=== PATIENT | male | born 1945 | race Caucasian/White ===

== ENCOUNTER 2024-06-22 08:54 | Inpatient (IN) ==
--- NOTE | 2024-06-22 09:16 | Emergency Department Note ---
Impression & Plan Sepsis, Urinary tract infection, Esophagitis, Chest pain, Abdominal pain ED Provider Note CHIEF COMPLAINT: Chest pain HISTORY OF PRESENTING ILLNESS: This 78-year-old male patient presents to the emergency department with his and son for evaluation of left-sided chest pain as well as left upper abdominal pain. Symptoms started a 3 weeks ago, but getting progressively worse over the past 3 days. He denies any shortness of breath. He has a history of chronic nausea and has vomited 3 times since the symptoms started. Denies any dizziness. He has a chronic cough from his heavy tobacco use. He denies any urinary symptoms or changes in his BMs. However, he has had urinary and fecal incontinence for many years. Denies any significant cardiac history. No previous chronic abdominal problems other than the chronic nausea and intermittent vomiting. Denies any previous abdominal surgeries. He has had a barium swallow, but never an EGD or Colonoscopy. He rates his discomfort as 10/10. Denies any fevers or URI symptoms. He has had decreased mobility and trouble with his health since he fractured his right hip/femur a couple years ago. He also has a history of diabetes and does not eat very much and does not watch his diet very well. REVIEW OF SYSTEMS: See HPI for pertinent positives and pertinent negatives. ALLERGIES: NKDA MEDICATIONS: Atenolol 100 mg 1/2 tab BID, Atorvastatin 10 mg QD, Doxazosin 4 mg QD, Basaglar Kwik Pen 24 mg QHS, Esomeprazole 40 mg QD, Tramadol 50 mg QD PAST MEDICAL HISTORY: HTN, DM, high cholesterol, GERD. Right hip surgery after fracture. PHYSICAL EXAM: VITALS: Vitals are noted on the nurse's note and reviewed by myself. GENERAL: The patient is somewhat cachectic and chronically ill in appearance, but no acute distress, non-diaphoretic. SKIN: Capillary reflex less than 2 seconds. HEAD: No scalp tenderness. No step-offs felt. EYES: Pupils equal round and reactive to light and accommodation. Conjunctivae without injection, sclerae without icterus. Extraocular movements intact without pain. No nystagmus. NOSE: Patent, turbinates without inflammation or discharge. No sinus tenderness. No septal hematoma or bleeding. FACE: No facial bone tenderness. Full range of motion of the jaw without tenderness. No facial droop. MOUTH: Edentulous with poor oral hygiene. Mucous membranes moist. Uvula midline. Airway patent. Tongue does not deviate. NECK: Supple without nuchal rigidity. Cervical spine is nontender. Full range of motion of the neck without tenderness and normal strength. HEART: Regular rate and rhythm without murmurs gallops or rubs. LUNGS: Clear to auscultation bilaterally without wheezes, rales or rhonchi. No retractions or accessory muscle use. No chest wall tenderness. ABDOMEN: Positive bowel sounds x 4. Normal tympanic percussion. Soft, tender to palpation mainly in the left upper quadrant, but also in the central abdomen. No obvious masses or organomegaly. No guarding or rebound tenderness. Negative Hawk sign. No CVA tenderness. No focal right lower quadrant or left lower quadrant tenderness. MUSCULOSKELETAL: No tenderness of the thoracic or lumbar spine or paraspinal muscles. Strength 5/5 and equal bilaterally in the upper and lower extremities. NEURO: The patient's speech is slow and somewhat difficult to understand, but the patient's family states that this is his baseline. Patient was alert and oriented to person place and time. Normal mental status exam. Normal sensation to light and sharp touch. Negative pronator drift. DIFFERENTIAL DIAGNOSIS: Differential diagnosis includes [place], PE, pneumonia, pericarditis, myocarditis, pericardial effusion, hepatitis, pancreatitis, cholecystitis, cholelithiasis, appendicitis, kidney stone, pyelonephritis, UTI, gastritis, gastroenteritis, mesenteric adenitis, obstruction, constipation, hernia, abdominal abscess, perforation, diverticulitis, IBD, ischemic colitis, abdominal aortic aneurysm, testicular torsion, prostatitis, or others. ED COURSE AND MEDICAL DECISION MAKING: HISTORY FROM INDEPENDENT HISTORIAN: Additional history obtained from the patient's and son MEDICATIONS GIVEN: Tylenol 1000 mg IV. Protonix 40 mg IV. Pepcid 20 mg IV. Zofran 4 mg IV. A total of 2 L normal saline solution bolus. Cefepime 2 g IV. MONITOR: Continuous manager monitoring: Order was placed for continuous manager monitoring. Patient was placed on the manager monitoring and continuous pulse ox. Patient was noted to be in normal sinus rhythm at an initial rate of 80 bpm per my interpretation. EKG: EKG was interpreted by myself as normal sinus rhythm at [address] or T wave changes. INTERPRETATION OF LABS: I interpreted the labs with full lab results as below in the lab section of this note. Pertinent lab results discussed in the MDM section below. INTERPRETATION OF IMAGING: Imaging studies were interpreted by myself and read by radiology as per the imaging section of this note. CT scans of the head without contrast were negative for acute intracranial abnormalities, but there is white matter hyperdensity suggestive of small vessel disease and moderate atrophy. CT scan of the chest with IV contrast showed findings consistent with a severe esophagitis, emphysema, coronary artery atherosclerosis, trace pleural fluid on the right side, and scattered pulmonary nodules measuring up to [address] scan of the abdomen pelvis with IV contrast showed diffuse thickening of the bladder wall which is nonspecific, but should be correlated with urinalysis to exclude UTI. Diverticulosis without diverticulitis. Hiatal hernia with patulous fluid distended esophagus suggestive of esophagitis. CONSULTATIONS: On-call hospitalist CRITICAL CARE: I have personally spent 35 minutes of critical care time in the direct management of this patient. This includes bedside care, interpretation of diagnostic studies, and testing, discussion with consultants, patient, and family members, and other required patient management activities. This 35 minutes is in excess of all separately billable procedures. MDM SUMMARY: I examined the patient. The patient presents emergency department with left- sided chest pain and left upper quadrant abdominal pain that has been going on for the past 3 weeks, but getting progressively worse. However, according to the patient's son and he has not really been taking care of himself well. He is a heavy smoker and has a longstanding history of chronic nausea and vomiting. He does take esomeprazole for his heartburn, but continues with symptoms. He has never had an EGD or colonoscopy before. An IV lock was placed and labs were drawn. There was concern for sepsis due to his UTI given his abnormal laboratory studies and initial hypotension. The patient was initially hypotensive at 75/54 and he was given 1 L normal saline solution bolus with improvement of his blood pressure. When his lactate returned elevated at 3.4 and his white blood cell count was elevated at 20.11 the patient was given a second liter of normal saline solution bolus. Additional fluids were held due to concern for fluid overload. A blood culture was drawn (due to the nationwide shortage) and the patient was given cefepime 2 g IV. The patient's repeat lactate improved to 1.6. The patient was given Tylenol 1000 mg IV and Zofran 4 mg IV for his pain and nausea. He was also given Protonix 40 mg IV and Pepcid 20 mg IV due to his history of acid reflux and his symptoms. The patient's white blood cell count was elevated at 20.11. Hemoglobin low at 13.8. Platelet count normal at 394. Coags were normal. Creatinine elevated at 1.67, glucose 207, and albumin low at 3.3. CMP otherwise normal. Magnesium normal. Lipase normal. TSH normal. Initial lactate elevated at 3.1 with improvement to 1.6 after IV fluids. High-sensitivity troponin x 2 were normal. The patient's urinalysis was concerning for infection with 3+ protein, 1+ blood, 3+ leukocyte esterase, greater than 50 white blood cells, 3-5 red blood cells, greater than 20 hyaline cast, 11-20 epithelial cells, 4+ bacteria, and triple Phos crystals present. Urine culture is pending. CT scans of the head without contrast were negative for acute intracranial abnormalities, but there is white matter hyperdensity suggestive of small vessel disease and moderate atrophy. CT scan of the chest with IV contrast showed findings consistent with a severe esophagitis, emphysema, coronary artery atherosclerosis, trace pleural fluid on the right side, and scattered pulmonary nodules measuring up to [address] scan of the abdomen pelvis with IV contrast showed diffuse thickening of the bladder wall which is nonspecific, but should be correlated with urinalysis to exclude UTI. Diverticulosis without diverticulitis. Hiatal hernia with patulous fluid distended esophagus suggestive of esophagitis. I had a meaningful discussion about this patient with Dr. Mcdonald who agrees with my assessment and the treatment plan. The patient will require admission for further evaluation and treatment of his sepsis, UTI, and severe esophagitis on imaging. I spoke with the on-call hospitalist who agreed to admit the patient for further management. Please refer to their dictation for further details. The patient's care was transferred in stable condition. DIAGNOSIS: Sepsis UTI Esophagitis Chest pain Abdominal pain Past Med/Surg History Problem List (Updated 06/22/24 @ 18:10 by Rayne Santamaria PA-C) Abdominal pain (Acute) Diabetes mellitus Chest pain (Acute) Esophagitis (Acute) Urinary tract infection (Acute) Sepsis (Acute) Social History Smoking Status: Current every day smoker Tobacco Type: Cigarettes Cigarettes Per Day: 1/2 pack; Hx Alcohol Use: No Hx Substance Use: No Preferred Language: Occitan Communication Ability: Effective Automation Sales Manager Required: No Beliefs That Will Affect Care: None Current Living Situation: Spouse Current Living Situation Comment: home with Other Information That Helps Us Care for You: No Feels Safe at Home: Yes Safety Concerns: Feels Safe At This Time Assistive Devices: Walker Allergies Allergies Allergy/AdvReac Type Severity Reaction Status Date / Time No Known Allergies Allergy Verified 06/22/24 09:29 Home Meds Home Medications Medication Instructions Recorded Confirmed atenolol 100 mg tablet 50 mg PO BID 06/22/24 06/22/24 atorvastatin 10 mg tablet 10 mg PO DAILY 06/22/24 06/22/24 doxazosin 4 mg tablet 4 mg PO HS 06/22/24 06/22/24 esomeprazole magnesium 40 mg 40 mg PO .Q OTHER DAY 06/22/24 06/22/24 capsule,delayed release insulin glargine 100 unit/mL (3 0 unit subcut UD 06/22/24 06/22/24 mL) subcutaneous pen (Basaglar KwikPen U-100 Insulin) tramadol 50 mg tablet 50 - 100 mg PO UD 06/22/24 06/22/24 Results & Data (ED) Vital Signs Vital Signs - 24 hr 06/22/24 08:58 06/22/24 09:42 06/22/24 10:42 Temperature 36.8 C Temperature Source Temporal Artery Scan Pulse Rate 81 64 Pulse Rate [Apical] 74 Respiratory Rate 20 16 Respiratory Effort / Characteristics Non-Labored Spontaneous Respiratory Depth Normal Blood Pressure 75/54 L Blood Pressure [Right Arm] 114/86 Blood Pressure Mean 61 Blood Pressure Mean [Right Arm] 95 Pulse Oximetry 97 100 Oxygen Delivery Method Room Air Room Air Sepsis Recent Fever Within 48 Hours No Sepsis New/Unexplained Change in Mental Status No Sepsis Action Taken by Nursing No Action Required Laboratory Data 06/22/24 09:10 06/22/24 09:10 Lab Results 06/22/24 06/22/24 06/22/24 Range/Units 09:10 09:50 10:12 WBC 20.11 H (4.8-10.8) K/ul RBC 4.38 L (4.70-6.10) M/uL Hgb 13.8 L (14.0-18.0) g/dl Hct 41.2 L (42.0-52.0) % MCV 94.1 (80.0-100.0) fL MCH 31.5 (25.0-34.0) pg MCHC 33.5 (32.0-36.0) g/dL RDW Std Deviation 50.3 H (36.4-46.3) fL RDW Coeff of Madonna 14.5 (11.5-14.5) % Plt Count 394 (130-400) K/uL MPV 10.1 (9.4-12.4) fL Immature Gran % (Auto) 0.5 % Neut % (Auto) 90.2 % Lymph % (Auto) 5.6 % Lamb % (Auto) 3.6 % Eos % (Auto) 0.0 % Baso % (Auto) 0.1 % Neut # (Auto) 18.13 H (1.40-6.50) K/uL Lymph # (Auto) 1.12 L (1.20-3.40) K/uL Lamb # (Auto) 0.73 H (0.11-0.59) K/uL Eos # (Auto) 0.00 (0.00-0.50) K/uL Baso # (Auto) 0.03 (0.00-0.20) K/uL Immature Gran # (Auto) 0.10 (0.01-0.20) K/uL PT 11.4 (9.0-12.0) Seconds INR 1.1 (0.9-1.1) APTT 26 (21-31) Seconds PTT Ratio 1.0 Sodium 140 (136-145) mmol/L Potassium 3.8 (3.5-5.1) mmol/L Chloride 98 (98-107) mmol/L Carbon Dioxide 32 (21-32) mmol/L Anion Gap 10 (3-11) BUN 21 (6-23) mg/dl Creatinine 1.67 H (0.6-1.4) mg/dl Est Cr Clr Drug Dosing Not Reportable eGFR 41.89 BUN/Creatinine Ratio 12.6 (10-20) Glucose 207 H (70-99(Fasting)) mg/dl Lactate 3.1 H* (0.4-2.0) mmol/L Calcium 9.1 (8.6-10.3) mg/dl Magnesium 1.8 (1.7-2.4) mg/dl Total Bilirubin 0.6 (0.2-1.0) mg/dl AST 13 (13-39) U/L ALT 13 (7-52) U/L Alkaline Phosphatase 79 (34-104) U/L Troponin I High Sens 6.8 4.9 (0-20) pg/ml Total Protein 7.1 (6.0-8.3) gm/dl Albumin 3.3 L (3.4-5.0) gm/dl Globulin 3.8 (2.5-4.0) gm/dl Albumin/Globulin Ratio 0.9 (0.9-2) Lipase 35 (11-82) U/L TSH 1.322 (0.300-4.500) uIu/ml Urine Color Dark Yellow Urine Appearance Turbid A (Clear) Urine pH >= 9.0 H (4.5-7.5) Ur Specific [place] 1.021 (1.000-1.030) Urine Protein 3+ H (Negative) Urine Glucose (UA) Negative (Negative) Urine Ketones Negative (Negative) Urine Blood 1+ H (Negative) Urine Nitrite Negative (Negative) Urine Bilirubin Negative (Negative) Urine Urobilinogen Negative (Negative) Ur Leukocyte Esterase 3+ H (Negative) Urine WBC (Auto) >50 H (0-5) /hpf Urine RBC (Auto) 3-5 H (0-2) /hpf U Hyaline Cast (Auto) >20 H (0-2) /lpf U Epithel Cells (Auto) 11-20 H (0-2) /hpf Urine Bacteria (Auto) 4+ H (None Seen) Triple Phos Crystals Present A (None Prsent) 06/22/24 Range/Units 12:03 WBC (4.8-10.8) K/ul RBC (4.70-6.10) M/uL Hgb (14.0-18.0) g/dl Hct (42.0-52.0) % MCV (80.0-100.0) fL MCH (25.0-34.0) pg MCHC (32.0-36.0) g/dL RDW Std Deviation (36.4-46.3) fL RDW Coeff of Madonna (11.5-14.5) % Plt Count (130-400) K/uL MPV (9.4-12.4) fL Immature Gran % (Auto) % Neut % (Auto) % Lymph % (Auto) % Lamb % (Auto) % Eos % (Auto) % Baso % (Auto) % Neut # (Auto) (1.40-6.50) K/uL Lymph # (Auto) (1.20-3.40) K/uL Lamb # (Auto) (0.11-0.59) K/uL Eos # (Auto) (0.00-0.50) K/uL Baso # (Auto) (0.00-0.20) K/uL Immature Gran # (Auto) (0.01-0.20) K/uL PT (9.0-12.0) Seconds INR (0.9-1.1) APTT (21-31) Seconds PTT Ratio Sodium (136-145) mmol/L Potassium (3.5-5.1) mmol/L Chloride (98-107) mmol/L Carbon Dioxide (21-32) mmol/L Anion Gap (3-11) BUN (6-23) mg/dl Creatinine (0.6-1.4) mg/dl Est Cr Clr Drug Dosing eGFR BUN/Creatinine Ratio (10-20) Glucose (70-99(Fasting)) mg/dl Lactate 1.6 (0.4-2.0) mmol/L Calcium (8.6-10.3) mg/dl Magnesium (1.7-2.4) mg/dl Total Bilirubin (0.2-1.0) mg/dl AST (13-39) U/L ALT (7-52) U/L Alkaline Phosphatase (34-104) U/L Troponin I High Sens (0-20) pg/ml Total Protein (6.0-8.3) gm/dl Albumin (3.4-5.0) gm/dl Globulin (2.5-4.0) gm/dl Albumin/Globulin Ratio (0.9-2) Lipase (11-82) U/L TSH (0.300-4.500) uIu/ml Urine Color Urine Appearance (Clear) Urine pH (4.5-7.5) Ur Specific [place] (1.000-1.030) Urine Protein (Negative) Urine Glucose (UA) (Negative) Urine Ketones (Negative) Urine Blood (Negative) Urine Nitrite (Negative) Urine Bilirubin (Negative) Urine Urobilinogen (Negative) Ur Leukocyte Esterase (Negative) Urine WBC (Auto) (0-5) /hpf Urine RBC (Auto) (0-2) /hpf U Hyaline Cast (Auto) (0-2) /lpf U Epithel Cells (Auto) (0-2) /hpf Urine Bacteria (Auto) (None Seen) Triple Phos Crystals (None Prsent) Administered Medications Heparin Sodium (Porcine) (Heparin Sod 5,000 Unit/0.5 Ml Vial) 5,000 units SQ Q8 JOSE RAFAEL Stop: 07/22/24 13:59 Last Admin: 06/22/24 15:08 Dose: 5,000 units Documented By: SOFIA Ceftriaxone Sodium (Rocephin) 2,000 mg in 50 mls @ 100 mls/hr IV Q24H JOSE RAFAEL Stop: 06/27/24 12:59 Last Infusion: 06/22/24 14:00 Dose: Infused Documented By: Admin: 06/22/24 13:17 Dose: 100 mls/hr Documented By: RYAN Famotidine (Pepcid 20mg Iv Push) 20 mg in 5 mls @ 2.5 mls/min IV Q12H JOSE RAFAEL Stop: 07/22/24 14:59 Last Admin: 06/22/24 16:14 Dose: 2.5 mls/min Documented By: SOFIA Insulin Aspart (Insulin Aspart Per Unit Charge) 0 units SC ACHS JOSE RAFAEL Stop: 07/22/24 12:44 Last Admin: 06/22/24 17:35 Dose: Not Given Documented By: Admin: 06/22/24 14:45 Dose: Not Given Documented By: SOFIA Nicotine (Nicotine 21 Mg/24 Hr Tdsy) 1 patch TD QAM JOSE RAFAEL Stop: 07/22/24 13:29 Last Admin: 06/22/24 17:36 Dose: 1 patch Documented By: SOFIA Sucralfate (Sucralfate 1 Gm/10 Ml Udc) 1 gm PO QID JOSE RAFAEL Stop: 07/22/24 12:59 Last Admin: 06/22/24 16:14 Dose: 1 gm Documented By: Admin: 06/22/24 15:22 Dose: Not Given Documented By: SOFIA Discontinued Medications Al Hydrox/Mg Hydrox/Simethicone (Aluminum/Magnesium Susp 30 Ml Udc) 15 ml PO NOW STA Stop: 06/22/24 14:27 Last Admin: 06/22/24 15:07 Dose: 15 ml Documented By: SOFIA Acetaminophen (Ofirmev) 1,000 mg in 100 mls @ 400 mls/hr IV NOW STA Stop: 06/22/24 09:43 Last Infusion: 06/22/24 10:00 Dose: Infused Documented By: Admin: 06/22/24 09:48 Dose: 400 mls/hr Documented By: RYAN Pantoprazole Sodium (Protonix) 40 mg in 10 mls @ 5 mls/min IV NOW ONE Stop: 06/22/24 09:30 Last Admin: 06/22/24 10:36 Dose: 5 mls/min Documented By: RYAN Famotidine (Pepcid 20mg Iv Push) 20 mg in 5 mls @ 2.5 mls/min IV NOW STA Stop: 06/22/24 09:30 Last Admin: 06/22/24 09:48 Dose: 2.5 mls/min Documented By: RYAN Sodium Chloride (Nss) 1,000 mls @ 999 mls/hr IV .Q1H1M ONE Stop: 06/22/24 10:54 Last Infusion: 06/22/24 11:02 Dose: Infused Documented By: Admin: 06/22/24 10:00 Dose: 999 mls/hr Documented By: RYAN Cefepime HCl (Maxipime 2000mg) 2,000 mg in 20 mls @ 5 mls/min IV NOW STA; Protocol Stop: 06/22/24 10:29 Last Admin: 06/22/24 10:36 Dose: 5 mls/min Documented By: RYAN Sodium Chloride (Nss) 1,000 mls @ 999 mls/hr IV .Q1H1M ONE Stop: 06/22/24 11:26 Last Infusion: 06/22/24 11:39 Dose: Infused Documented By: Admin: 06/22/24 10:37 Dose: 999 mls/hr Documented By: RYAN Ioversol (Optiray 320 100ml) 94 ml IV ONCE ONE Stop: 06/22/24 10:28 Last Admin: 06/22/24 10:28 Dose: 94 ml Documented By: NADIYA Ondansetron HCl (Ondansetron Inj 2 Mg/Ml 2 Ml Vial) 4 mg IV NOW STA Stop: 06/22/24 09:30 Last Admin: 06/22/24 09:48 Dose: 4 mg Documented By: RYAN Imaging Data Radiologist's Impression: Abdomen/Pelvis CT 06/22/24 09:29 CT abd pelvis IV con only CLINICAL HISTORY: LUQ and central abdominal pain TECHNIQUE: Helical axial images of the abdomen and pelvis were obtained and displayed. Automated dose lowering techniques and/or adjustment according to patient size were utilized for this exam. This exam was performed with intravenous contrast. COMPARISON: None available at the time of this dictation. FINDINGS: Lower chest: For findings above the diaphragm, please see CT chest performed same day. Liver: Unremarkable. No focal lesions are seen. Gallbladder and biliary tree: No calcified gallstones. Normal caliber wall. No intra- or extrahepatic biliary ductal dilation. Pancreas: Unremarkable, no focal lesions. Spleen: Unremarkable. Adrenals: Unremarkable. Kidneys and ureters: Renal cysts are seen. Bladder: Prominent bladder wall thickening is seen. Reproductive organs: Unremarkable. Bowel: Diverticulosis is seen without diverticulitis. The appendix is normal. There is a small hiatal hernia with fluid distended esophagus. Lymph nodes Retroperitoneal: Unremarkable. Pelvic: Unremarkable. Mesenteric: Unremarkable. Peritoneum: Normal. Vessels: Atherosclerotic calcifications are seen. Abdominal wall: Unremarkable. Bones: Degenerative changes in the visualized spine. Right femoral rai is seen. IMPRESSION: 1. Diffuse thickening of the bladder wall is nonspecific, however correlation with urinalysis is recommended to exclude UTI. 2. Diverticulosis without diverticulitis. 3. Hiatal hernia with patulous fluid distended esophagus, clinical correlation for esophagitis is recommended. ACT 112: Negative or not required by law. Electronically signed by: Warren Westbrook M.D. 06/22/2024 10:[address] 06/22/24 09:29 CT SCAN OF THE CHEST WITH IV CONTRAST CLINICAL HISTORY: Atypical chest pain. Dyspnea. Smoking history. COMPARISON STUDY: No priors. TECHNIQUE: Following the IV administration of 94 cc of Optiray 320, CT scan of the thorax was performed from the thoracic inlet to the upper abdomen. Images are reviewed in the axial, sagittal, and coronal planes. IV contrast was administered without complication. A dose lowering technique was utilized adhering to the principles of ALARA. Examination is degraded by streak artifact from the arms which could not be elevated above the chest. CT DOSE: 2830.9 mGy.cm FINDINGS: Thyroid: Imaged portions of the thyroid gland are normal in size and attenuation. Thoracic aorta: There is atherosclerotic calcification of the thoracic aorta, which is normal in caliber and demonstrates standard 3-vessel arch anatomy. No dissection is seen. Pulmonary vasculature: The pulmonary trunk is normal in caliber. There are no filling defects identified in the central pulmonary vessels to indicate pulmonary embolus. Note that this examination was not protocoled for evaluation of the pulmonary arteries. Heart: The heart is normal in size and without pericardial effusion. There is coronary artery atherosclerosis. Lungs and pleural spaces: There is moderate emphysematous change. No airspace consolidation typical for pneumonia is identified. Trace pleural fluid is seen in the right. Foci of scarring/atelectasis are seen throughout both lungs. The trachea and central airways are clear. There are numerous (less than 10) subcentimeter pulmonary nodules scattered throughout the right lung. The largest in the right upper lobe seen on image #80 and measures 7 mm. Additional medical detail representative nodules are seen in the right lower lobe on images 127, #139, and #160. Dependent atelectasis is seen at both lung bases. There are scattered calcified granulomas. Esophagus: Esophagus is diffusely thick-walled and edematous with surrounding inflammation and trace fluid. This extends from above the arch to the gastroesophageal junction. No pneumomediastinum is seen. Mediastinum: Subcentimeter mediastinal lymph nodes are not pathologically enlarged by size criteria. Nancy: Clear. Axillae: There is no axillary lymphadenopathy. Upper abdomen: There is a 2.6 cm right upper pole renal cyst. The right hepatic lobe is atrophic. There is nodular thickening of the adrenal glands. The partially imaged pancreas is moderately atrophic. Skeletal structures: The skeletal structures are osteopenic. Degenerative change is noted in the shoulders and spine. No lytic or blastic bony lesions are seen. IMPRESSION: 1. Findings are consistent with a severe esophagitis. Clinical correlation will be required, and if warranted this could be further assessed with endoscopy. 2. Emphysema. 3. Scattered pulmonary nodules measure up to 7 mm. These are pathologically indeterminate and can be followed as per the Fleischner criteria. See below. 4. Coronary artery atherosclerosis. 5. There is no airspace consolidation typical for pneumonia. Trace pleural fluid is seen on the right. 7. Additional findings as above. Please refer to below summary of Fleischner criteria recommendations for follow- up of incidental CT nodules (Georgie Castano, Guidelines for management of small pulmonary nodules detected on CT scans: A statement from the Fleischner Society, Radiology 237: [id number].) SOLID NODULES Solitary nodule size: <6 mm * low risk patients: no follow-up needed * high risk patients: optional CT at 12 months Solitary nodule size: 6-8 mm * low risk patients: follow-up at 6-12 months, then consider further follow-up at 18-24 months * high risk patients: initial follow-up CT at 6-12 months and then at 18-24 months if no change Solitary nodule size: >8 mm * either low or high risk patients - consider follow-up CT at 3 months, and/or CT-PET, and/or biopsy Multiple nodules size: <6 mm * low risk patients: no routine follow-up * high risk patients: optional CT at 12 months Multiple nodules size: 6-8 mm * low risk patients: follow-up at 3-6 months, then consider further follow-up at 18-24 months * high risk patients: follow-up at 3-6 months, then at 18-24 months if no change Multiple nodules size: >8 mm * low risk patients: follow-up at 3-6 months, then consider further follow-up at 18-24 months * high risk patients: follow-up at 3-6 months, then at 18-24 months if no change Note: newly detected indeterminate nodule in persons 35 years of age or older. * low risk patients: minimal or absent history of smoking and/or other known risk factors * high risk patients: history of smoking or of other known risk factors (e.g. first degree relative with lung cancer, or exposure to asbestos, radon, uranium) * if a nodule up to 8 mm is partly solid or is ground glass further follow-up is required after 24 months to exclude possible slow growing adenocarcinoma (ANA LAURA) SUBSOLID NODULES Solitary pure ground-glass nodule * nodule size <6 mm - no CT follow-up required * nodule size >=6 mm - follow-up CT at 6-12 months, then every 2 years until 5 years Solitary part-solid nodule * nodule size <6 mm - no CT follow-up required * nodule size >=6 mm - follow-up CT at 3-6 months. If unchanged, and solid component remains <6 mm, then annual follow-up for 5 years Multiple subsolid nodules * nodule size <6 mm - follow-up CT at 3-6 months, consider further follow-up at 2 and 4 years if stable * nodule size >=6 mm - follow-up CT at 3-6 months, subsequent management based on the most suspicious nodule(s) ACT 112: Positive. There are findings on this exam that require communication between the performing entity and the patient following Patient Test Result Information Act ([place] Act 112) guidelines. Electronically signed by: Isac Winston M.D. 06/22/2024 11:[address] 06/22/24 09:29 CT OF THE HEAD WITHOUT CONTRAST CLINICAL HISTORY: Altered mental status. Nausea and vomiting. COMPARISON STUDY: No previous studies for comparison. TECHNIQUE: Helical axial images of the head were obtained without IV contrast. Automated exposure control was utilized for the study. A dose lowering technique was utilized adhering to the principles of ALARA. FINDINGS: No acute intracranial hemorrhage, midline shift or mass effect is present. The ventricular system is unremarkable. White matter hypodensity suggests small vessel disease. There is moderate atrophy. The basal cisterns are patent. No extra-axial collections are present. There are no findings to suggest acute dural sinus thrombosis or acute territorial infarct. There is mild sinus mucosal thickening. No calvarial fractures are present. The calvarium is slightly heterogeneous. No overtly suspicious lesions are identified. IMPRESSION: No acute intracranial findings. ACT 112: Negative or not required by law. Electronically signed by: Tee Rodriguez M.D. 06/22/2024 10:49 AM Discharge Plan Visit Data Chief Complaint: Chest Pain Stated Complaint: CHEST PAIN ED Provider: Aliyah Mcdonald ED Midlevel Provider: Rayne Santamaria Discharge Problem: Sepsis, Urinary tract infection, Esophagitis, Chest pain, Abdominal pain Patient Disposition: Admitted As Inpatient Condition: Good Discharge Instructions Interventions: ED Discharge Assessment Last Done: 06/22/24 13:33 Discharge Problem: Sepsis Qualifiers: Sepsis type: sepsis due to unspecified organism Sepsis acute organ dysfunction status: unspecified Qualified Code(s): A41.9 - Sepsis, unspecified organism Urinary tract infection Qualifiers: Urinary tract infection type: acute cystitis Hematuria presence: without hematuria Qualified Code(s): N30.00 - Acute cystitis without hematuria Chest pain Qualifiers: Chest pain type: unspecified Qualified Code(s): R07.9 - Chest pain, unspecified Abdominal pain Qualifiers: Abdominal location: generalized Qualified Code(s): R10.84 - Generalized abdominal pain
[2024-06-22 09:33] LABS: Hematocrit (blood only) 41.2 % (42.0-52.0); Hemoglobin 13.8 g/dl (14.0-18.0); Mean Corpuscular Hemoglobin 31.5 pg (25.0-34.0); Mean Corpuscular Hgb Conc 33.5 g/dL (32.0-36.0); Mean Corpuscular Volume 94.1 fL (80.0-100.0); Mean Platelet Volume 10.1 fL (9.4-12.4); Platelet Count 394 K/uL (130-400); RDW Coefficient of Variation 14.5 % (11.5-14.5); RDW Standard Deviation 50.3 fL (36.4-46.3); Red Blood Count 4.38 M/uL (4.70-6.10); White Blood Count 20.11 K/ul (4.8-10.8)
[2024-06-22] MEDS: ACETAMINOPHEN 1,000 MG/100 ML VIAL IV STA (09:48)
[2024-06-22] MEDS: ONDANSETRON INJ 2 MG/ML 2 ML VIAL IV STA (09:48)
[2024-06-22] MEDS: FAMOTIDINE 20MG IV PUSH 20 MG/5 ML SYR IV STA (09:48)
[2024-06-22 09:56] LABS: Alanine Aminotransferase 13 U/L (7-52); Albumin Globulin Ratio 0.9 (0.9-2); Albumin Level 3.3 gm/dl (3.4-5.0); Alkaline Phosphatase 79 U/L (34-104); Anion Gap 10 (3-11); Aspartate Aminotransferase 13 U/L (13-39); BUN Creatinine Ratio 12.6 (10-20); Bilirubin,Total 0.6 mg/dl (0.2-1.0); Blood Urea Nitrogen 21 mg/dl (6-23); Calcium 9.1 mg/dl (8.6-10.3); Carbon Dioxide 32 mmol/L (21-32); Chloride 98 mmol/L (98-107); Globulin 3.8 gm/dl (2.5-4.0); Glucose 207 mg/dl (70-99(Fasting)); Lipase 35 U/L (11-82); Potassium 3.8 mmol/L (3.5-5.1); Sodium 140 mmol/L (136-145); Total Protein 7.1 gm/dl (6.0-8.3)
[2024-06-22 09:58] LABS: INR 1.1 (0.9-1.1); Partial Thromboplastin Time 26 Seconds (21-31); Prothrombin Time 11.4 Seconds (9.0-12.0)
[2024-06-22 09:59] LABS: Basophils # (auto) 0.03 K/uL (0.00-0.20); Basophils % (auto) 0.1 %; Immature Granulocytes % (auto) 0.5 %; Lymphocytes # (auto) 1.12 K/uL (1.20-3.40); Lymphocytes % (auto) 5.6 %; Monocytes # (auto) 0.73 K/uL (0.11-0.59); Monocytes % (auto) 3.6 %; Neutrophils # (auto) 18.13 K/uL (1.40-6.50); Neutrophils % (auto) 90.2 %
[2024-06-22] MEDS: SODIUM CHLORIDE 0.9% 1,000 ML IV ONE ×2 (10:00→10:37)
[2024-06-22 10:03] LABS: Troponin I High Sensitivity 6.8 pg/ml (0-20)
[2024-06-22] MEDS: OPTIRAY 320 100ml IV ONE (10:28)
[2024-06-22 10:34] LABS: Appearance Urine Turbid (Clear); Bacteria Urine Automated 4+ (None Seen); Bilirubin Urine Negative (Negative); Blood Urine 1+ (Negative); Cast Urine Automated >20 /lpf (0-2); Color Urine Dark Yellow; Glucose Urine UA Negative (Negative); Ketones Urine Negative (Negative); Leukocyte Esterase Urine 3+ (Negative); Nitrite Urine Negative (Negative); Protein Urine 3+ (Negative); Specific Gravity Urine 1.021 (1.000-1.030); Urobilinogen Urine Negative (Negative); WBC Urine Automated >50 /hpf (0-5); pH Urine >= 9.0 (4.5-7.5)
[2024-06-22] MEDS: PANTOprazole 40 MG/10 ML SYR IV ONE (10:36)
[2024-06-22] MEDS: CEFEPIME 2000MG 2,000 MG/20 ML SYR IV STA (10:36)
[2024-06-22 10:44] LABS: Magnesium 1.8 mg/dl (1.7-2.4)
--- NOTE | 2024-06-22 10:49 | CT Scan Report ---
CT abd pelvis IV con only CLINICAL HISTORY: LUQ and central abdominal pain TECHNIQUE: Helical axial images of the abdomen and pelvis were obtained and displayed. Automated dose lowering techniques and/or adjustment according to patient size were utilized for this exam. This e xam was performed with intravenous contrast. COMPARISON: None available at the time of this dictation. FINDINGS: Lower chest: For findings above the diaphragm, please see CT chest performed same day. Liver: Unremarkable. No focal lesions are seen. Gallbladder and biliary tree: No calcified gallstones. Normal caliber wall. No intra- or extrahepatic biliary ductal dilation. Pancreas: Unremarkable, no focal lesions. Spleen: Unremarkable. Adrenals: Unremarkable. Kidneys and ureters: Renal cysts are seen. Bladder: Prominent bladder wall thickening is seen. Reproductive organs: Unremarkable. Bowel: Diverticulosis is seen without diverticulitis. The appendix is normal. There is a small hiatal hernia with fluid distended esophagus. Lymph nodes Retroperitoneal: Unremarkable. Pelvic: Unremarkable. Mesenteric: Unremarkable. Peritoneum: Normal. Vessels: Atherosclerotic calcifications are seen. Abdominal wall: Unremarkable. Bones: Degenerative changes in the visualized spine. Right femoral rai is seen. IMPRESSION: 1. Diffuse thickening of the bladder wall is nonspecific, however correlation with urinalysis is rec ommended to exclude UTI. 2. Diverticulosis without diverticulitis. 3. Hiatal hernia with patulous fluid distended esophagus, clinical correlation for esophagitis is re commended. ACT 112: Negative or not required by law. Electronically signed by: Warren Westbrook M.D. 06/22/2024 10:47 AM
[2024-06-22 10:50] LABS: Triple Phosphate Crystal Urine Present (None Prsent)
--- NOTE | 2024-06-22 10:51 | CT Scan Report ---
CT OF THE HEAD WITHOUT CONTRAST CLINICAL HISTORY: Altered mental status. Nausea and vomiting. COMPARISON STUDY: No previous studies for comparison. TECHNIQUE: Helical axial images of the head were obtained without IV contrast. Automated exposure con trol was utilized for the study. A dose lowering technique was utilized adhering to the principles o f ALARA. FINDINGS: No acute intracranial hemorrhage, midline shift or mass effect is present. The ventricular system is unremarkable. White matter hypodensity suggests small vessel disease. There is moderate atr ophy. The basal cisterns are patent. No extra-axial collections are present. There are no findings to suggest acute dural sinus thrombosis or acute territorial infarct. There is mild sinus mucosal thick ening. No calvarial fractures are present. The calvarium is slightly heterogeneous. No overtly suspic ious lesions are identified. IMPRESSION: No acute intracranial findings. ACT 112: Negative or not required by law. Electronically signed by: Tee Rodriguez M.D. 06/22/2024 10:49 AM
[2024-06-22 10:58] LABS: Thyroid Stimulating Hormone 1.322 uIu/ml (0.300-4.500)
--- NOTE | 2024-06-22 11:10 | CT Scan Report ---
CT SCAN OF THE CHEST WITH IV CONTRAST CLINICAL HISTORY: Atypical chest pain. Dyspnea. Smoking history. COMPARISON STUDY: No priors. TECHNIQUE: Following the IV administration of 94 cc of Optiray 320, CT scan of the thorax was perform ed from the thoracic inlet to the upper abdomen. Images are reviewed in the axial, sagittal, and adi nal planes. IV contrast was administered without complication. A dose lowering technique was utilize d adhering to the principles of ALARA. Examination is degraded by streak artifact from the arms which could not be elevated above the chest. CT DOSE: 2830.9 mGy.cm FINDINGS: Thyroid: Imaged portions of the thyroid gland are normal in size and attenuation. Thoracic aorta: There is atherosclerotic calcification of the thoracic aorta, which is normal in aaron wally and demonstrates standard 3-vessel arch anatomy. No dissection is seen. Pulmonary vasculature: The pulmonary trunk is normal in caliber. There are no filling defects identif ied in the central pulmonary vessels to indicate pulmonary embolus. Note that this examination was no t protocoled for evaluation of the pulmonary arteries. Heart: The heart is normal in size and without pericardial effusion. There is coronary artery atheros clerosis. Lungs and pleural spaces: There is moderate emphysematous change. No airspace consolidation typical f or pneumonia is identified. Trace pleural fluid is seen in the right. Foci of scarring/atelectasis ar e seen throughout both lungs. The trachea and central airways are clear. There are numerous (less molly n 10) subcentimeter pulmonary nodules scattered throughout the right lung. The largest in the right u pper lobe seen on image #80 and measures 7 mm. Additional banking representative nodules are seen in the righ t lower lobe on images 127, #139, and #160. Dependent atelectasis is seen at both lung bases. There a re scattered calcified granulomas. Esophagus: Esophagus is diffusely thick-walled and edematous with surrounding inflammation and trace fluid. This extends from above the arch to the gastroesophageal junction. No pneumomediastinum is see n. Mediastinum: Subcentimeter mediastinal lymph nodes are not pathologically enlarged by size criteria. Nancy: Clear. Axillae: There is no axillary lymphadenopathy. Upper abdomen: There is a 2.6 cm right upper pole renal cyst. The right hepatic lobe is atrophic. The re is nodular thickening of the adrenal glands. The partially imaged pancreas is moderately atrophic. Skeletal structures: The skeletal structures are osteopenic. Degenerative change is noted in the shou lders and spine. No lytic or blastic bony lesions are seen. IMPRESSION: 1. Findings are consistent with a severe esophagitis. Clinical correlation will be required, and if w arranted this could be further assessed with endoscopy. 2. Emphysema. 3. Scattered pulmonary nodules measure up to 7 mm. These are pathologically indeterminate and can be followed as per the Fleischner criteria. See below. 4. Coronary artery atherosclerosis. 5. There is no airspace consolidation typical for pneumonia. Trace pleural fluid is seen on the right . 7. Additional findings as above. Please refer to below summary of Fleischner criteria recommendations for follow-up of incidental CT n odules (Georgie Castano, Guidelines for management of small pulmonary nodules detected on CT scans: A sta tement from the Fleischner Society, Radiology 237: [phone].) SOLID NODULES Solitary nodule size: <6 mm * low risk patients: no follow-up needed * high risk patients: optional CT at 12 months Solitary nodule size: 6-8 mm * low risk patients: follow-up at 6-12 months, then consider further follow-up at 18-24 months * high risk patients: initial follow-up CT at 6-12 months and then at 18-24 months if no change Solitary nodule size: >8 mm * either low or high risk patients - consider follow-up CT at 3 months, and/or CT-PET, and/or biopsy Multiple nodules size: <6 mm * low risk patients: no routine follow-up * high risk patients: optional CT at 12 months Multiple nodules size: 6-8 mm * low risk patients: follow-up at 3-6 months, then consider further follow-up at 18-24 months * high risk patients: follow-up at 3-6 months, then at 18-24 months if no change Multiple nodules size: >8 mm * low risk patients: follow-up at 3-6 months, then consider further follow-up at 18-24 months * high risk patients: follow-up at 3-6 months, then at 18-24 months if no change Note: newly detected indeterminate nodule in persons 35 years of age or older. * low risk patients: minimal or absent history of smoking and/or other known risk factors * high risk patients: history of smoking or of other known risk factors (e.g. first degree relative with lung cancer, or exposure to asbestos, radon, uranium) * if a nodule up to 8 mm is partly solid or is ground glass further follow-up is required after 24 m onths to exclude possible slow growing adenocarcinoma (ANA LAURA) SUBSOLID NODULES Solitary pure ground-glass nodule * nodule size <6 mm - no CT follow-up required * nodule size >=6 mm - follow-up CT at 6-12 months, then every 2 years until 5 years Solitary part-solid nodule * nodule size <6 mm - no CT follow-up required * nodule size >=6 mm - follow-up CT at 3-6 months. If unchanged, and solid component remains <6 mm, then annual follow-up for 5 years Multiple subsolid nodules * nodule size <6 mm - follow-up CT at 3-6 months, consider further follow-up at 2 and 4 years if sta ble * nodule size >=6 mm - follow-up CT at 3-6 months, subsequent management based on the most suspiciou s nodule(s) ACT 112: Positive. There are findings on this exam that require communication between the performing entity and the patient following Patient Test Result Information Act ([place] Act 112) guidelines. Electronically signed by: Isac Winston M.D. 06/22/2024 11:08 AM
--- NOTE | 2024-06-22 11:28 | Electrocardiogram Report ---
Test Reason : Blood Pressure : */* mmHG Vent. Rate : 74 BPM Atrial Rate : 74 BPM P-R Int : 154 ms QRS Dur : 82 ms QT Int : 402 ms P-R-T Axes : 61 55 74 degrees QTcB Int : 446 ms Normal sinus rhythm Low voltage QRS Borderline ECG No previous ECGs available Confirmed by Dc Gibson ([id number]) on 06/22/2024 11:27:54 AM Referred By: Confirmed By: Dc Gibson
[2024-06-22 11:45] LABS: Troponin I High Sensitivity 4.9 pg/ml (0-20)
[2024-06-22] MEDS ORDERED: GLUCAGON FOR INJ 1 MG VIAL SQ PRN (12:33)
[2024-06-22] MEDS ORDERED: DEXTROSE 50% 50 ML SYRINGE IV PRN (12:33)
[2024-06-22] MEDS ORDERED: CARBOHYDRATES FOR HYPOGLYCEMIA PO PRN (12:33)
[2024-06-22] MEDS ORDERED: ALUMINUM/MAGNESIUM SUSP 30 ML UDC PO PRN (12:33)
[2024-06-22] MEDS ORDERED: GLUCOSE 40% GEL 15 GM TUBE PO PRN (12:33)
[2024-06-22] MEDS ORDERED: GLUCOSE 10 TAB/TUBE PO PRN (12:33)
[2024-06-22] MEDS ORDERED: ONDANSETRON INJ 2 MG/ML 2 ML VIAL IV PRN (12:33)
--- NOTE | 2024-06-22 12:34 | History & Physical Report ---
Date of Service June 22, 2024 Assessment & Plan (1) Sepsis: Plan: 78 yo male presented with L chest/upper abdominal discomfort x 3 weeks with progressive weakness/inability to take care of himself and increased urinary incontinence. CT head negative Found to meet sepsis criteria with WBC 20k, lactic 3.1 and hypotension w/ BP 75/54 * s/p 2 NSS, lactic normalized and BP improved 114/86. Cefepime IV Admit med tele given sepsis however EKG stable/troponin negative x 2 and can downgrade if not having any issues next 24 hours Continue Ceftriaxone IV over Cefepime, given no prior resistance. --Follow up urine/blood culture Holding home atenolol for now, son to verify dosing but given lack of PO intake and hypotension on arrival will need to continue to monitor Protonix, pepcid BID. Carafate QID. Maalox x 1 now Clear liquid diet, advance as tolerated and will have speech/GI consults and making NPO at midnight for possible EGD/scope DVT proph: heparin SQ given possible KATIUSKA PT/OT consults given weakness Labs in AM (2) Esophagitis: Plan: Reported LEFT chest discomfort on arrival/poor PO intake Suspect chest discomfort/poor PO intake GI in nature/esophagitis on imaging/LUQ discomfort on exam -suspected, possibly worsened ability to care for himself with possible UTI EKG w/ NSR Troponin negative x 2 EKG w/ CP Protonix BID, pepcid BID, carafate QID. Clear liquid diet/aspiration precautions as above and consultation placed for GI and making NPO at midnight. If unable to tolerate clear liquid diet then will place on gentle IVF as hydration improved w/ 2L IVF on admission and not wanting to overload patient. No known hx CHF but 100% on RA and no LE edema on exam Nicotine patch ordered, smoking cessation to be encouraged Monitor response to treatment, appreciate GI consult/recs (3) Urinary tract infection: Plan: suspected source for his sepsis Ceftriaxone IV continued and will f/u urine/blood cultures (4) Chest pain: Plan: suspected 2nd to esophagitis given negative tropnin x2 and stable EKG but will monitor on med tele as above (5) Diabetes mellitus: Plan: On glargine 24u HS will hold home glargine and use sliding scale while inpatient/adjustments as needed. Diabetic diet, check A1c w/ AM labs Plan Other chronic problems * HTN- home atenolol on HOLD given hypotension, will need dosing verified w/ son when he takes mother home but possible need for adjustments * HLD- will hold statin for now given weakness but likely can resume in AM. * Pulmonary nodules - will need f/u on these given smoking hx Dispo: admission for sepsis/UTI on IV antibiotics and monitoring urine/blood cultures and treatment of esophagitis/GI consultation as well as speech consultation Discussed plan with /son at bedside, son to take his mother home and will call w/ updated med list if any changes History of Present Illness Chief Complaint: Chest discomfort/left upper abdominal pain Primary Care Provider: Adarsh Ricketts 78yo male presented to ER with left sided chest discomfort as well as left upper abdominal pain. Reports symptoms started about 3 weeks ago and have been progressively getting worse. No change to bowel/bladder however has had incontinence issues for a while apparently. Has chronic nausea and has vomited x 3. Had barium swallow but never scoped in the past. Reports has been taking his esomeprazole but not having significant improvement. Found to be SEPTIC with hypotension w/ BP 75/54 on arrival with WBC 20k and lactic 3.1. Also w/ suspected KATIUSKA Cr 1.67, suspected 2nd to urinary source however unknown baseline renal function. UA appearing infected, 3+ leuk esterase, >50 WBC, 4+ bacteria. CT Chest: notable severe esophagitis, emphysema, scattered pulm nodules measure up to 7mm, pathologically indeterminate. No airspace consolidation for pneumonia. CTAP: Diffuse thickening of the bladder wall is nonspecific, however correlation with urinalysis is recommended to exclude UTI. Also notes hiatal hernia w/ distended esophagus, correlation for esophagitis recommended. EKG noting NSR w/ low voltage QRS, borderline EKG but no prior for comparison. Troponin on high sensitivity testing 6.8 4.9 s/p 2L NSS, lactic improved to 1.6 and BP 114/86. Given dose of Cefepime IV for urinary coverage. Patient evaluated in A11B, and son at bedside. Initially sleeping but awoken to name. He appears/reports very fatigued, hasn't really been himself for a couple weeks. He has been taking TYLENOL for pain, NO NSAID use. reports he has asked for some but she knows he isn't supposed to be taking it. Son reports urine on sample was dark/foul smelling. Adarsh does report being in hospital, but initially thought was in [place] but oriented to year/cooperative at this time. Discussed suspect UTI contributing to weakness/possible KATIUSKA and poor PO intake from esophagitis likely contributing. He does smoke about 1/2 pack to a pack a day, reports a carton in week time. Is req a nicotine patch. Patient reporting ongoing discomfort to LUQ c/w esophagitis on imaging. Was given protonix and will add carafate/pepcid BID and consult for GI given no prior scope but can given some liquids w/ aspiration precaution and will also consult speech given has had ongoing issues w/ dyphagia for year and hopefully able to plan for endoscopy for further eval. Per patient/family at bedside no prior resistance/allergies and will continue Ceftriaxone IV for now. Urine/blood cultures pending and will de-escalate as able. Code status: Level 1 for now. Son to call in this evening for update of home meds to see if taking atenolol 100mg vs 50mg BID or at all but will plan to hold off for now given hypotension on admission. Allergies Allergy/AdvReac Type Severity Reaction Status Date / Time No Known Allergies Allergy Verified 06/22/24 09:29 Home Medications Medication Instructions Recorded Confirmed Type atenolol 100 mg tablet 100 mg PO DIRECTED 06/22/24 History atorvastatin 10 mg tablet 10 mg PO DAILY 06/22/24 History doxazosin 4 mg tablet 4 mg PO DAILY 06/22/24 History esomeprazole magnesium 40 mg 40 mg PO DAILY 06/22/24 History capsule,delayed release insulin glargine 100 unit/mL (3 24 unit subcut HS 06/22/24 History mL) subcutaneous pen (Basaglar KwikPen U-100 Insulin) tramadol 50 mg tablet 50 mg PO DIRECTED 06/22/24 History Past Med/Surg History Problem List (Updated 06/22/24 @ 13:14 by Betina De La Torre PA-C) Diabetes mellitus Chest pain Esophagitis Urinary tract infection Sepsis Social History Smoking Status: Current every day smoker Feels Safe at Home: Yes Review of Systems Review of Systems: weakness, fatigue, poor PO intake cold, chills nausea, vomiting. no hematochezia/melena +cough (chronic, from smoking reported, no changes) Physical Exam Physical Exam: 78 yo male, frail/not well nourished/wel l kept appearing, resting in bed upon arrival, /son at bedside, awoken to name, oriented to hospital/year, cooperative HEENT: head atraumatic, normocephalic, mm slightly dry, trachea midline Resp: diminished in the bases with associated crackles, no wheezing/rales, on room air CV: RRR, no significant mrg, no pitting edema, pulses present GI: +BS, slight distension, +tenderness deep palpation LUQ, no significant suprapubic tenderness : no knapp MSK/Neuro: generalized weakness but nonfocal, able to follow commands/answering questions appropriately Psych: alert to person, knows in hospital, year 2023, cooperate/calm but FATIGUED appearing Results & Data Results & Data Vital Signs (Past 12 Hours) Vital Signs Temp Pulse Pulse Resp BP BP Pulse Ox 06/22/24 10:42 74 16 114/86 100 06/22/24 09:42 64 06/22/24 08:58 36.8 C 81 20 75/54 L 97 O2 Del Method 06/22/24 10:42 Room Air 06/22/24 09:42 06/22/24 08:58 Room Air Laboratory Results 06/22/24 06/22/24 06/22/24 Range/Units 12:03 10:12 09:50 WBC (4.8-10.8) K/ul RBC (4.70-6.10) M/uL Hgb (14.0-18.0) g/dl Hct (42.0-52.0) % MCV (80.0-100.0) fL MCH (25.0-34.0) pg MCHC (32.0-36.0) g/dL RDW Std Deviation (36.4-46.3) fL RDW Coeff of Madonna (11.5-14.5) % Plt Count (130-400) K/uL MPV (9.4-12.4) fL Immature Gran % (Auto) % Neut % (Auto) % Lymph % (Auto) % Moffat % (Auto) % Eos % (Auto) % Baso % (Auto) % Neut # (Auto) (1.40-6.50) K/uL Lymph # (Auto) (1.20-3.40) K/uL Moffat # (Auto) (0.11-0.59) K/uL Eos # (Auto) (0.00-0.50) K/uL Baso # (Auto) (0.00-0.20) K/uL Immature Gran # (Auto) (0.01-0.20) K/uL PT (9.0-12.0) Seconds INR (0.9-1.1) APTT (21-31) Seconds PTT Ratio Sodium (136-145) mmol/L Potassium (3.5-5.1) mmol/L Chloride (98-107) mmol/L Carbon Dioxide (21-32) mmol/L Anion Gap (3-11) BUN (6-23) mg/dl Creatinine (0.6-1.4) mg/dl Est Cr Clr Drug Dosing eGFR BUN/Creatinine Ratio (10-20) Glucose (70-99(Fasting)) mg/dl Lactate 1.6 3.1 H* (0.4-2.0) mmol/L Calcium (8.6-10.3) mg/dl Magnesium 1.8 (1.7-2.4) mg/dl Total Bilirubin (0.2-1.0) mg/dl AST (13-39) U/L ALT (7-52) U/L Alkaline Phosphatase (34-104) U/L Troponin I High Sens 4.9 (0-20) pg/ml Total Protein (6.0-8.3) gm/dl Albumin (3.4-5.0) gm/dl Globulin (2.5-4.0) gm/dl Albumin/Globulin Ratio (0.9-2) Lipase (11-82) U/L TSH 1.322 (0.300-4.500) uIu/ml Urine Color Dark Yellow Urine Appearance Turbid A (Clear) Urine pH >= 9.0 H (4.5-7.5) Ur Specific [place] 1.021 (1.000-1.030) Urine Protein 3+ H (Negative) Urine Glucose (UA) Negative (Negative) Urine Ketones Negative (Negative) Urine Blood 1+ H (Negative) Urine Nitrite Negative (Negative) Urine Bilirubin Negative (Negative) Urine Urobilinogen Negative (Negative) Ur Leukocyte Esterase 3+ H (Negative) Urine WBC (Auto) >50 H (0-5) /hpf Urine RBC (Auto) 3-5 H (0-2) /hpf U Hyaline Cast (Auto) >20 H (0-2) /lpf U Epithel Cells (Auto) 11-20 H (0-2) /hpf Urine Bacteria (Auto) 4+ H (None Seen) Triple Phos Crystals Present A (None Prsent) 06/22/24 Range/Units 09:10 WBC 20.11 H (4.8-10.8) K/ul RBC 4.38 L (4.70-6.10) M/uL Hgb 13.8 L (14.0-18.0) g/dl Hct 41.2 L (42.0-52.0) % MCV 94.1 (80.0-100.0) fL MCH 31.5 (25.0-34.0) pg MCHC 33.5 (32.0-36.0) g/dL RDW Std Deviation 50.3 H (36.4-46.3) fL RDW Coeff of Madonna 14.5 (11.5-14.5) % Plt Count 394 (130-400) K/uL MPV 10.1 (9.4-12.4) fL Immature Gran % (Auto) 0.5 % Neut % (Auto) 90.2 % Lymph % (Auto) 5.6 % Moffat % (Auto) 3.6 % Eos % (Auto) 0.0 % Baso % (Auto) 0.1 % Neut # (Auto) 18.13 H (1.40-6.50) K/uL Lymph # (Auto) 1.12 L (1.20-3.40) K/uL Moffat # (Auto) 0.73 H (0.11-0.59) K/uL Eos # (Auto) 0.00 (0.00-0.50) K/uL Baso # (Auto) 0.03 (0.00-0.20) K/uL Immature Gran # (Auto) 0.10 (0.01-0.20) K/uL PT 11.4 (9.0-12.0) Seconds INR 1.1 (0.9-1.1) APTT 26 (21-31) Seconds PTT Ratio 1.0 Sodium 140 (136-145) mmol/L Potassium 3.8 (3.5-5.1) mmol/L Chloride 98 (98-107) mmol/L Carbon Dioxide 32 (21-32) mmol/L Anion Gap 10 (3-11) BUN 21 (6-23) mg/dl Creatinine 1.67 H (0.6-1.4) mg/dl Est Cr Clr Drug Dosing Not Reportable eGFR 41.89 BUN/Creatinine Ratio 12.6 (10-20) Glucose 207 H (70-99(Fasting)) mg/dl Lactate (0.4-2.0) mmol/L Calcium 9.1 (8.6-10.3) mg/dl Magnesium (1.7-2.4) mg/dl Total Bilirubin 0.6 (0.2-1.0) mg/dl AST 13 (13-39) U/L ALT 13 (7-52) U/L Alkaline Phosphatase 79 (34-104) U/L Troponin I High Sens 6.8 (0-20) pg/ml Total Protein 7.1 (6.0-8.3) gm/dl Albumin 3.3 L (3.4-5.0) gm/dl Globulin 3.8 (2.5-4.0) gm/dl Albumin/Globulin Ratio 0.9 (0.9-2) Lipase 35 (11-82) U/L TSH (0.300-4.500) uIu/ml Urine Color Urine Appearance (Clear) Urine pH (4.5-7.5) Ur Specific [place] (1.000-1.030) Urine Protein (Negative) Urine Glucose (UA) (Negative) Urine Ketones (Negative) Urine Blood (Negative) Urine Nitrite (Negative) Urine Bilirubin (Negative) Urine Urobilinogen (Negative) Ur Leukocyte Esterase (Negative) Urine WBC (Auto) (0-5) /hpf Urine RBC (Auto) (0-2) /hpf U Hyaline Cast (Auto) (0-2) /lpf U Epithel Cells (Auto) (0-2) /hpf Urine Bacteria (Auto) (None Seen) Triple Phos Crystals (None Prsent) Diagnostic Findings Abdomen/Pelvis CT 06/22/24 09:29 CT abd pelvis IV con only CLINICAL HISTORY: LUQ and central abdominal pain TECHNIQUE: Helical axial images of the abdomen and pelvis were obtained and displayed. Automated dose lowering techniques and/or adjustment according to patient size were utilized for this exam. This exam was performed with intravenous contrast. COMPARISON: None available at the time of this dictation. FINDINGS: Lower chest: For findings above the diaphragm, please see CT chest performed same day. Liver: Unremarkable. No focal lesions are seen. Gallbladder and biliary tree: No calcified gallstones. Normal caliber wall. No intra- or extrahepatic biliary ductal dilation. Pancreas: Unremarkable, no focal lesions. Spleen: Unremarkable. Adrenals: Unremarkable. Kidneys and ureters: Renal cysts are seen. Bladder: Prominent bladder wall thickening is seen. Reproductive organs: Unremarkable. Bowel: Diverticulosis is seen without diverticulitis. The appendix is normal. There is a small hiatal hernia with fluid distended esophagus. Lymph nodes Retroperitoneal: Unremarkable. Pelvic: Unremarkable. Mesenteric: Unremarkable. Peritoneum: Normal. Vessels: Atherosclerotic calcifications are seen. Abdominal wall: Unremarkable. Bones: Degenerative changes in the visualized spine. Right femoral rai is seen. IMPRESSION: 1. Diffuse thickening of the bladder wall is nonspecific, however correlation with urinalysis is recommended to exclude UTI. 2. Diverticulosis without diverticulitis. 3. Hiatal hernia with patulous fluid distended esophagus, clinical correlation for esophagitis is recommended. ACT 112: Negative or not required by law. Electronically signed by: Warren Westbrook M.D. 06/22/2024 10:[address] 06/22/24 09:29 CT SCAN OF THE CHEST WITH IV CONTRAST CLINICAL HISTORY: Atypical chest pain. Dyspnea. Smoking history. COMPARISON STUDY: No priors. TECHNIQUE: Following the IV administration of 94 cc of Optiray 320, CT scan of the thorax was performed from the thoracic inlet to the upper abdomen. Images are reviewed in the axial, sagittal, and coronal planes. IV contrast was administered without complication. A dose lowering technique was utilized adhering to the principles of ALARA. Examination is degraded by streak artifact from the arms which could not be elevated above the chest. CT DOSE: 2830.9 mGy.cm FINDINGS: Thyroid: Imaged portions of the thyroid gland are normal in size and attenuation. Thoracic aorta: There is atherosclerotic calcification of the thoracic aorta, which is normal in caliber and demonstrates standard 3-vessel arch anatomy. No dissection is seen. Pulmonary vasculature: The pulmonary trunk is normal in caliber. There are no filling defects identified in the central pulmonary vessels to indicate pulmonary embolus. Note that this examination was not protocoled for evaluation of the pulmonary arteries. Heart: The heart is normal in size and without pericardial effusion. There is coronary artery atherosclerosis. Lungs and pleural spaces: There is moderate emphysematous change. No airspace consolidation typical for pneumonia is identified. Trace pleural fluid is seen in the right. Foci of scarring/atelectasis are seen throughout both lungs. The trachea and central airways are clear. There are numerous (less than 10) subcentimeter pulmonary nodules scattered throughout the right lung. The largest in the right upper lobe seen on image #80 and measures 7 mm. Additional insurance healthcare representative nodules are seen in the right lower lobe on images 127, #139, and #160. Dependent atelectasis is seen at both lung bases. There are scattered calcified granulomas. Esophagus: Esophagus is diffusely thick-walled and edematous with surrounding inflammation and trace fluid. This extends from above the arch to the gastroesophageal junction. No pneumomediastinum is seen. Mediastinum: Subcentimeter mediastinal lymph nodes are not pathologically enlarged by size criteria. Nancy: Clear. Axillae: There is no axillary lymphadenopathy. Upper abdomen: There is a 2.6 cm right upper pole renal cyst. The right hepatic lobe is atrophic. There is nodular thickening of the adrenal glands. The part ially imaged pancreas is moderately atrophic. Skeletal structures: The skeletal structures are osteopenic. Degenerative change is noted in the shoulders and spine. No lytic or blastic bony lesions are seen. IMPRESSION: 1. Findings are consistent with a severe esophagitis. Clinical correlation will be required, and if warranted this could be further assessed with endoscopy. 2. Emphysema. 3. Scattered pulmonary nodules measure up to 7 mm. These are pathologically indeterminate and can be followed as per the Fleischner criteria. See below. 4. Coronary artery atherosclerosis. 5. There is no airspace consolidation typical for pneumonia. Trace pleural fluid is seen on the right. 7. Additional findings as above. Please refer to below summary of Fleischner criteria recommendations for follow- up of incidental CT nodules (Georgie Castano, Guidelines for management of small pulmonary nodules detected on CT scans: A statement from the Fleischner Society, Radiology 237: [phone].) SOLID NODULES Solitary nodule size: <6 mm * low risk patients: no follow-up needed * high risk patients: optional CT at 12 months Solitary nodule size: 6-8 mm * low risk patients: follow-up at 6-12 months, then consider further follow-up at 18-24 months * high risk patients: initial follow-up CT at 6-12 months and then at 18-24 months if no change Solitary nodule size: >8 mm * either low or high risk patients - consider follow-up CT at 3 months, and/or CT-PET, and/or biopsy Multiple nodules size: <6 mm * low risk patients: no routine follow-up * high risk patients: optional CT at 12 months Multiple nodules size: 6-8 mm * low risk patients: follow-up at 3-6 months, then consider further follow-up at 18-24 months * high risk patients: follow-up at 3-6 months, then at 18-24 months if no change Multiple nodules size: >8 mm * low risk patients: follow-up at 3-6 months, then consider further follow-up at 18-24 months * high risk patients: follow-up at 3-6 months, then at 18-24 months if no change Note: newly detected indeterminate nodule in persons 35 years of age or older. * low risk patients: minimal or absent history of smoking and/or other known risk factors * high risk patients: history of smoking or of other known risk factors (e.g. first degree relative with lung cancer, or exposure to asbestos, radon, uranium) * if a nodule up to 8 mm is partly solid or is ground glass further follow-up is required after 24 months to exclude possible slow growing adenocarcinoma (ANA LAURA) SUBSOLID NODULES Solitary pure ground-glass nodule * nodule size <6 mm - no CT follow-up required * nodule size >=6 mm - follow-up CT at 6-12 months, then every 2 years until 5 years Solitary part-solid nodule * nodule size <6 mm - no CT follow-up required * nodule size >=6 mm - follow-up CT at 3-6 months. If unchanged, and solid component remains <6 mm, then annual follow-up for 5 years Multiple subsolid nodules * nodule size <6 mm - follow-up CT at 3-6 months, consider further follow-up at 2 and 4 years if stable * nodule size >=6 mm - follow-up CT at 3-6 months, subsequent management based on the most suspicious nodule(s) ACT 112: Positive. There are findings on this exam that require communication between the performing entity and the patient following Patient Test Result Information Act ([place] Act 112) guidelines. Electronically signed by: Isac Winston M.D. 06/22/2024 11:[address] 06/22/24 09:29 CT OF THE HEAD WITHOUT CONTRAST CLINICAL HISTORY: Altered mental status. Nausea and vomiting. COMPARISON STUDY: No previous studies for comparison. TECHNIQUE: Helical axial images of the head were obtained without IV contrast. Automated exposure control was utilized for the study. A dose lowering technique was utilized adhering to the principles of ALARA. FINDINGS: No acute intracranial hemorrhage, midline shift or mass effect is present. The ventricular system is unremarkable. White matter hypodensity suggests small vessel disease. There is moderate atrophy. The basal cisterns are patent. No extra-axial collections are present. There are no findings to suggest acute dural sinus thrombosis or acute territorial infarct. There is mild sinus mucosal thickening. No calvarial fractures are present. The calvarium is slightly heterogeneous. No overtly suspicious lesions are identified. IMPRESSION: No acute intracranial findings. ACT 112: Negative or not required by law. Electronically signed by: Tee Rodriguez M.D. 06/22/2024 10:49 AM ECG Additional Comments: EKG Normal sinus rhythm, low voltage QRS, borderline ECG Supervising Physician Co-Signing Physician Notes Patient seen and examined, chart reviewed, case discussed with Betina De La Torre PA-C and I agree with the assessment and plan as above except as otherwise noted Labs and images reviewed 78-year-old male with history of esophagitis who presents with suspected sepsis of urinary source. Patient is hypotensive with elevated lactate, leukocytosis and infected appearing UA. Started on cefepime no history of resistant cultures, continued on Rocephin. Cultures are pending. Repeat lactic has normalized. Blood pressure is normalized post fluids. Patient did have some chest discomfort, troponin is negative x 2 and pain is more epigastric. At bedside assessment his pain is resolved, no distress, and reports he feels "okay ". Lungs are clear, heart rate is regular. Abdomen is soft. Esophagitis is noted on imaging, has not had prior EGD. Will continue on Protonix and Carafate, GIs been consulted. Agree with above. PG Care Time/CCT Total # of Minutes Spent Total Time Spent with Patient: Total time spent is greater than 50% in coordination of care (as documented) at patient's floor/unit and/or counseling patient: Coding Level of Care Code 63404 INT INP/OBS CARE 3/75MIN Diagnoses Sepsis A41.9 Esophagitis K20.90 Urinary tract infection N39.0 Chest pain R07.9 Diabetes mellitus E11.9
[2024-06-22] MEDS: cefTRIAXone SODIUM 2,000 MG/50 ML BAG IV SCH (13:17)
--- NOTE | 2024-06-22 13:58 | Emergency Department Note ---
ED Visit Note I was consulted by the Advanced Practice Provider. I approved the management plan and take responsibility for the patient management. This includes the aspects of: -History/Physical/Personally seeing the patient -MDM -I independently interpreted the following studies:Studies and results .
[2024-06-22] MEDS: INSULIN ASPART PER UNIT CHARGE SC SCH (14:45)
[2024-06-22] MEDS: ALUMINUM/MAGNESIUM SUSP 30 ML UDC PO STA (15:07)
[2024-06-22] MEDS: HEPARIN SOD 5,000 UNIT/0.5 ML VIAL SQ SCH (15:08)
[2024-06-22] MEDS: SUCRALFATE 1 GM/10 ML UDC PO SCH (15:22)
[2024-06-22] MEDS: FAMOTIDINE 20MG IV PUSH 20 MG/5 ML SYR IV SCH (16:14)
[2024-06-22] MEDS: NICOTINE 21 MG/24 HR TDSY TD SCH (17:36)
[2024-06-22] MEDS: PANTOprazole 40 MG/10 ML SYR IV SCH (20:40)
[2024-06-23] MEDS: ACETAMINOPHEN 325 MG TAB PO PRN (01:35)
[2024-06-23 06:36] LABS: Basophils # (auto) 0.03 K/uL (0.00-0.20); Basophils % (auto) 0.2 %; Eosinophils # (auto) 0.02 K/uL (0.00-0.50); Eosinophils % (auto) 0.1 %; Hematocrit (blood only) 31.9 % (42.0-52.0); Hemoglobin 10.5 g/dl (14.0-18.0); Immature Granulocytes # (auto) 0.07 K/uL (0.01-0.20); Immature Granulocytes % (auto) 0.4 %; Lymphocytes # (auto) 1.43 K/uL (1.20-3.40); Mean Corpuscular Hemoglobin 31.3 pg (25.0-34.0); Mean Corpuscular Hgb Conc 32.9 g/dL (32.0-36.0); Mean Corpuscular Volume 95.2 fL (80.0-100.0); Mean Platelet Volume 10.2 fL (9.4-12.4); Monocytes # (auto) 0.73 K/uL (0.11-0.59); Monocytes % (auto) 4.6 %; Neutrophils # (auto) 13.64 K/uL (1.40-6.50); Neutrophils % (auto) 85.7 %; Platelet Count 230 K/uL (130-400); RDW Coefficient of Variation 14.6 % (11.5-14.5); RDW Standard Deviation 50.9 fL (36.4-46.3); Red Blood Count 3.35 M/uL (4.70-6.10); White Blood Count 15.92 K/ul (4.8-10.8)
[2024-06-23 06:38] LABS: BUN Creatinine Ratio 14.5 (10-20); Calcium 7.7 mg/dl (8.6-10.3); Creatinine Clr Calc Pharmacy 49.8 ml/min; Magnesium 1.9 mg/dl (1.7-2.4); Potassium 3.7 mmol/L (3.5-5.1)
[2024-06-23 06:58] LABS: Estimated Average Glucose 108 mg/dl; Hemoglobin A1C 5.4 % (4.5-5.6)
--- NOTE | 2024-06-23 07:15 | Hospitalist Progress Note ---
Date of Service June 23, 2024 Assessment & Plan (1) Sepsis: (2) Esophagitis: (3) Urinary tract infection: (4) Chest pain: (5) Diabetes mellitus: Plan UTI, +SIRS criteria on admission with leukocytosis, tachypnea: WBC 20->16, afebrile UA consistent with infectious process, urine cx +gm negative bacilli Continue IV Rocephin, follow cultures Negative blood culture @24H Continued relative hypotension - s/p additional liter IV fluids AM labs Esophagitis: CT with esophagitis Continue Protonix, Pepcid, Carafate GI consulted, appreciate recs: EGD deferred at this time, consider outpatient follow up for scope Hgb 13.8 --> 10.5, likely a dilutional component but will continue to monitor for stability Diet resumed, DM1 full liquids d/t poor dentition Dysphagia: Swallow eval 06/23 - no concern of aspiration. If concern remains, consider VFS/barium swallow. DM: Sliding scale insulin Chronic problems * HTN- home atenolol on HOLD given relative hypotension * HLD- statin held on admission given weakness, consider resuming in AM * Pulmonary nodules - will need f/u on these given smoking hx * BPH: Doxazosin on hold d/t relative hypotension FEN/GI: Knapp, Full liquids, DM1 VTE ppx: Heparin Admission and Anticipated Discharge Date Admission Date: June 22, 2024 Supervising Physician Co-Signing Physician Notes Attending Physician Supervision Note: I independently interviewed and examined the patient and verified the smith history and physical, reviewed labs and image studies and agree with findings and care plan noted above. 78 y/o M h/o esophagitis presented with sepsis of urinary source. Reported chest/epigastric pain, nausea, vomiting x 3 wks. Ox3 Pleasant, speech hard to understand at times but appropriate. Noted cough with expectoration Lungs - rhonchi. Abd - nt/nd, soft Sepsis UTI -IV rocephin. -follow cultures -prn IVF bolus Esophagitis - Noted on imaging. -GI consulted. -Not taking nexium listed in home meds. -Protonix IV BID, Carafate, famotidine -outpatient EGD Urinary incontinence BPH -Will hold Doxazosin since hypotensive. -knapp in place Emphysema/Scattered Pulmonary nodules 7mm - noted on imaging -Cough with phlegm -Not on any inhalers. No resp distress/hypoxia. -Swallow eval done - no concern of aspiration. If further concern exist - will need VFS/barium swallow. DM - A1c 5.4. -should d/c home insulin considering the A1c -sugars controlled here. Heparin SQ Assess ambulation once BP stabilizes Subjective Pt evaluated at bedside this morning, notes that epigastric/left-sided chest pain resolved at present. Overall, reports sx had been present for about 3 months, significantly worse leading up to admission. Also reports dysphagia to solids and liquids over past 2-3 weeks Denies N/V/D, denies fevers/chills Review of Systems Review of Systems: as per HPI Physical Exam Physical Exam: General: Alert and oriented. No acute distress Cardiac: Regular rate and rhythm, no murmurs appreciated Respiratory: Lungs clear to auscultation bilaterally, No increased work of breathing Abdominal: Soft, non-tender, non-distended. Bowel sounds present. Results & Data Results & Data Vital Signs (Past 12 Hours) Vital Signs Temp Pulse Pulse Resp BP Pulse Ox O2 Del Method 06/23/24 07:12 36.5 C 60 18 93/60 L 95 Room Air 06/23/24 06:10 66 06/23/24 03:43 37 C 65 18 119/68 93 Room Air 06/22/24 23:26 36.9 C 64 18 116/70 95 Room Air 06/22/24 23:25 63 06/22/24 23:13 Room Air 06/22/24 19:49 36.6 C 68 18 111/71 95 Room Air Resident Activity Tracking Resident Involvement: Resident Care Provided Care Provided: Adult Hospital Medicine (1) Sepsis Sepsis acute organ dysfunction status: unspecified Sepsis type: sepsis due to unspecified organism Qualified Code(s): A41.9 - Sepsis, unspecified organism (3) Urinary tract infection Hematuria presence: without hematuria Urinary tract infection type: acute cystitis Qualified Code(s): N30.00 - Acute cystitis without hematuria (4) Chest pain Chest pain type: unspecified Qualified Code(s): R07.9 - Chest pain, unspecified
[2024-06-23] MEDS: DOXAZosin MESYLATE 4 MG TAB PO SCH (08:38)
--- NOTE | 2024-06-23 10:14 | Gastrointestinal Consultation ---
<Statement entered by Kerwin Rock MD - 06/23/24 14:04> I personally saw and examined the patient. I have reviewed the chart and agree with the documentation provided by the MEDICAL DEVICE SALES CONSULTANT including discussion about the assessment, treatment and plan. Briefly, 78 year old male who presented to ED with complaints of left sided chest discomfort, nausea, and vomiting x 3 weeks. He reports that symptoms are intermittent and would come and go but as time went on the symptoms progressively became worse. He had CT upon evaluation showing esophagitis. At home, he does have nexium which his chart lists as him taking every other day but patient tells me that he has not been using this in some time. He was admitted with a UTI/Sepsis as well as hypotension. Given his still low blood pressures and higher risk for sedation currently, would defer inpatient EGD and treat him supportively. PPI IV twice daily and a coating agent such as Carafate is fine. He is clinically improving. Will advance his diet and see how he does. After he improves happy to offer an outpatient EGD. Date of Consultation June 23, 2024 Assessment & Plan (1) Esophagitis: Patient admitted with 3 weeks of chest pain, nausea, and vomiting associated with him not using his PPI at home. Suspect symptoms were secondary to esophagitis seen on imaging. He has seen improvement in symptoms since admission and treatment. - continue with protonix 40mg IV BID. - continue with famotidine 20mg IV BID. - continue carafate 1 gm qid. - I reviewed the case with Dr. Rock. Given his other current issues including hypotension and sepsis, would hold off on EGD at this time. May consider this as an outpatient. - okay to advance diet as tolerated. History of Present Illness Reason for Consultation: severe esophagitis Requesting Physician: Betina De La Torre PA-C Attending Physician: Preethi Peterson MD History of Present Illness Patient is a 78 year old male who presented to ED with complaints of left sided chest discomfort, nausea, and vomiting x 3 weeks. He reports that symptoms are intermittent and would come and go but as time went on the symptoms progressively became worse. He had CT upon evaluation showing esophagitis. No change to bowel habits however has had incontinence issues for a while, though notes he goes several days without moving his bowels. He denies any issues with acid reflux. At home, he does have nexium which his chart lists as him taking every other day but patient tells me that he has not been using this in some time. He was admitted with a UTI/Sepsis as well as hypotension. Since admission he was started on protonix 40mg IV BID, famotidine 20mg IV BID, and carafate 1 gm QID. He tells me that today he has no further chest discomfort, nausea, or vomiting. He has never had an EGD, but notes he had a colonoscopy years ago in [place] that was unremarkable as far as he is aware. I do not have these records. rest of GI ros are unremarkable. Allergies Allergy/AdvReac Type Severity Reaction Status Date / Time No Known Allergies Allergy Verified 06/22/24 09:29 Home Medications Medication Instructions Recorded Confirmed Type atenolol 100 mg tablet 50 mg PO BID 06/22/24 06/22/24 History atorvastatin 10 mg tablet 10 mg PO DAILY 06/22/24 06/22/24 History doxazosin 4 mg tablet 4 mg PO HS 06/22/24 06/22/24 History esomeprazole magnesium 40 mg 40 mg PO .Q OTHER DAY 06/22/24 06/22/24 History capsule,delayed release insulin glargine 100 unit/mL (3 0 unit subcut UD 06/22/24 06/22/24 History mL) subcutaneous pen (Basaglar KwikPen U-100 Insulin) tramadol 50 mg tablet 50 - 100 mg PO UD 06/22/24 06/22/24 History Patient History Social History Smoking Status: Current every day smoker Tobacco Type: Cigarettes Cigarettes Per Day: 1/2 pack; Hx Alcohol Use: No Hx Substance Use: No Preferred Language: Macanese Communication Ability: Effective Winery Cellar Hand Required: No Beliefs That Will Affect Care: None Current Living Situation: Spouse Current Living Situation Comment: home with Other Information That Helps Us Care for You: No Feels Safe at Home: Yes Safety Concerns: Feels Safe At This Time Assistive Devices: Walker Review of Systems Review of Systems: All systems reviewed & are unremarkable except as noted in HPI & below Physical Exam Constitutional: WD/WN, vitals as above Respiratory: normal respiratory effort, lungs clear to auscultation Cardiovascular: Rate/Rhythm: regular rate and regular rhythm Gastrointestinal (Abdomen): normal bowel sounds, soft, nontender, no hepatosplenomegaly Psychiatric: Orientation: alert and oriented x 3 Affect: euthymic affect Results & Data Vital Signs (Past 12 Hours) Vital Signs Temp Pulse Pulse Resp BP Pulse Ox O2 Del Method 06/23/24 08:37 60 96/65 L 06/23/24 07:37 Room Air 06/23/24 07:12 97.7 F 60 18 99/60 L 95 Room Air 06/23/24 06:10 66 06/23/24 03:43 98.6 F 65 18 119/68 93 Room Air 06/22/24 23:26 98.4 F 64 18 116/70 95 Room Air 06/22/24 23:25 63 06/22/24 23:13 Room Air PG Care Time/CCT Total # of Minutes Spent Total Time Spent with Patient: Time spent reviewing records, seeing patient, discussing care with patient as well as nursing, reviewing with MD, and chart recording was greater than 55 minutes. Coding Level of Care Code 57710 INT INP/OBS CARE 2/55MIN Diagnoses Esophagitis K20.90
[2024-06-23 12:19] LABS: Base Excess VBG 0.8 mEq/L; HCO3 VBG 27 mmol/L; Oxygen Saturation VBG < 60.0 %; PCO2 VBG 46 mmHg (38-50); PO2 VBG < 20 mmHg; pH VBG 7.37 (7.36-7.41)
[2024-06-23] MEDS: SODIUM CHLORIDE 0.9% 250 ML IV ONE (12:33)
[2024-06-23 12:36] LABS: Basophils # (auto) 0.03 K/uL (0.00-0.20); Basophils % (auto) 0.2 %; Eosinophils # (auto) 0.02 K/uL (0.00-0.50); Eosinophils % (auto) 0.1 %; Hematocrit (blood only) 32.7 % (42.0-52.0); Hemoglobin 10.8 g/dl (14.0-18.0); Immature Granulocytes # (auto) 0.05 K/uL (0.01-0.20); Immature Granulocytes % (auto) 0.3 %; Lymphocytes # (auto) 1.26 K/uL (1.20-3.40); Lymphocytes % (auto) 8.7 %; Mean Corpuscular Hemoglobin 31.6 pg (25.0-34.0); Mean Corpuscular Volume 95.6 fL (80.0-100.0); Mean Platelet Volume 10.2 fL (9.4-12.4); Monocytes # (auto) 0.55 K/uL (0.11-0.59); Monocytes % (auto) 3.8 %; Neutrophils # (auto) 12.52 K/uL (1.40-6.50); Neutrophils % (auto) 86.9 %; Platelet Count 238 K/uL (130-400); RDW Coefficient of Variation 14.8 % (11.5-14.5); RDW Standard Deviation 51.9 fL (36.4-46.3); Red Blood Count 3.42 M/uL (4.70-6.10); White Blood Count 14.43 K/ul (4.8-10.8)
[2024-06-23 12:50] LABS: Albumin Globulin Ratio 0.9 (0.9-2); Albumin Level 2.6 gm/dl (3.4-5.0); BUN Creatinine Ratio 15.2 (10-20); Bilirubin,Total 0.5 mg/dl (0.2-1.0); Calcium 7.8 mg/dl (8.6-10.3); Creatinine Clr Calc Pharmacy 49.4 ml/min; Globulin 2.8 gm/dl (2.5-4.0); Potassium 3.9 mmol/L (3.5-5.1); Total Protein 5.4 gm/dl (6.0-8.3)
[2024-06-23] MEDS: traMADol HCL 50 MG TABLET PO PRN (23:31)
[2024-06-24 06:21] LABS: Basophils # (auto) 0.03 K/uL (0.00-0.20); Basophils % (auto) 0.3 %; Eosinophils # (auto) 0.07 K/uL (0.00-0.50); Eosinophils % (auto) 0.8 %; Hematocrit (blood only) 30.1 % (42.0-52.0); Hemoglobin 9.7 g/dl (14.0-18.0); Immature Granulocytes # (auto) 0.04 K/uL (0.01-0.20); Immature Granulocytes % (auto) 0.4 %; Lymphocytes # (auto) 1.81 K/uL (1.20-3.40); Lymphocytes % (auto) 19.7 %; Mean Corpuscular Hemoglobin 30.9 pg (25.0-34.0); Mean Corpuscular Hgb Conc 32.2 g/dL (32.0-36.0); Mean Corpuscular Volume 95.9 fL (80.0-100.0); Mean Platelet Volume 9.9 fL (9.4-12.4); Monocytes # (auto) 0.57 K/uL (0.11-0.59); Monocytes % (auto) 6.2 %; Neutrophils # (auto) 6.68 K/uL (1.40-6.50); Neutrophils % (auto) 72.6 %; Platelet Count 190 K/uL (130-400); RDW Coefficient of Variation 14.6 % (11.5-14.5); RDW Standard Deviation 50.9 fL (36.4-46.3); Red Blood Count 3.14 M/uL (4.70-6.10)
[2024-06-24 06:37] LABS: BUN Creatinine Ratio 14.3 (10-20); Calcium 7.5 mg/dl (8.6-10.3); Creatinine Clr Calc Pharmacy 54.7 ml/min; Potassium 3.6 mmol/L (3.5-5.1)
--- NOTE | 2024-06-24 07:04 | Hospitalist Progress Note ---
Date of Service June 24, 2024 Assessment & Plan (1) Sepsis: (2) Esophagitis: (3) Urinary tract infection: (4) Chest pain: (5) Diabetes mellitus: Plan Esophagitis: CT A/P on admission notable for esophagitis Continue Protonix, Pepcid, Carafate GI consulted, appreciate recs: Continue medications as noted above, NPO at midnight with tentative plan for EGD 06/25 Hgb 13.8 --> 10.5--> 9.7, likely a dilutional component given fluid resuscitation but suspicious for possible GI bleed. Fecal occult blood test ordered, pending Continue to monitor labs UTI, +SIRS criteria on admission with leukocytosis, tachypnea: WBC 20->16->9, afebrile UA consistent with infectious process, urine cx +Proteus, sensitive to Ceftriaxone Continue IV Rocephin Negative blood culture @48H Continued relative hypotension, antihypertensives held, consider additional IV fluid support to maintain MAP>65 AM labs: CBC, BMP Dysphagia: Swallow eval 06/23 - no concern of aspiration. If concern remains, consider VFS/barium swallow. Weakness, Deconditioning: PT/OT evaluations completed, recommending rehab CM following, referrals pending DM: Sliding scale insulin Chronic problems * HTN- home atenolol on HOLD given relative hypotension * HLD- statin held on admission given weakness * Pulmonary nodules - will need f/u on these given smoking hx * BPH: Doxazosin on hold d/t relative hypotension FEN/GI: Full liquids, DM1 - NPO @ midnight VTE ppx: Heparin Admission and Anticipated Discharge Date Admission Date: June 22, 2024 Supervising Physician Co-Signing Physician Notes Attending Physician Supervision Note: I independently interviewed and examined the patient and verified the smith history and physical, reviewed labs and image studies and agree with findings and care plan noted above. 78 y/o M h/o esophagitis presented with sepsis of urinary source. Persistent epigastric pain and worsening. Dark BM last night. Ox3 Pleasant Abd - epigastric tenderness + soft Sepsis UTI -Proteus - Pansensitive. Continue IV rocephin. Esophagitis - Noted on imaging. -GI consulted. -Not taking nexium listed in home meds. -Protonix IV BID, Carafate, famotidine -With Dark BM and Hb drop -EGD in am. Urinary incontinence BPH -Will hold Doxazosin since hypotensive. -knapp in place Emphysema/Scattered Pulmonary nodules 7mm - noted on imaging -Cough with phlegm -Not on any inhalers. No resp distress/hypoxia. -Swallow eval done - no concern of aspiration. If further concern exist - will need VFS/barium swallow. DM - A1c 5.4. -should d/c home insulin considering the A1c -sugars controlled here. Heparin SQ Will need rehab Subjective Pt evaluated at bedside this morning, notes recurrence of intermittent epigastric/left-sided chest pain starting yesterday. Denies difficulty swallowing, tolerating current diet. Denies N/V/D, denies fevers/chills Review of Systems Review of Systems: as per HPI Physical Exam Physical Exam: General: Alert and oriented. No acute distress Cardiac: Regular rate and rhythm, no murmurs appreciated Respiratory: Lungs clear to auscultation bilaterally, No increased work of breathing Abdominal: Soft, non-distended. Bowel sounds present. Mild epigastric TTP. Results & Data Results & Data Vital Signs (Past 12 Hours) Vital Signs Temp Pulse Pulse Resp BP Pulse Ox O2 Del Method 06/24/24 03:19 Room Air 06/24/24 03:02 36.4 C L 59 L 16 114/61 95 Room Air 06/23/24 23:46 76 06/23/24 23:14 36.9 C 73 16 99/62 L 92 Room Air 06/23/24 20:04 36.9 C 61 18 120/75 95 Room Air Resident Activity Tracking Resident Involvement: Resident Care Provided Care Provided: Adult Hospital Medicine (1) Sepsis Sepsis acute organ dysfunction status: unspecified Sepsis type: sepsis due to unspecified organism Qualified Code(s): A41.9 - Sepsis, unspecified organism (3) Urinary tract infection Hematuria presence: without hematuria Urinary tract infection type: acute cystitis Qualified Code(s): N30.00 - Acute cystitis without hematuria (4) Chest pain Chest pain type: unspecified Qualified Code(s): R07.9 - Chest pain, unspecified
--- NOTE | 2024-06-24 12:14 | Gastroenterology Progress Note ---
<Statement entered by Kerwin Rock MD - 06/24/24 13:03> I personally saw and examined the patient. I have reviewed the chart and agree with the documentation provided by the SEPTIC TANK SERVICER including discussion about the assessment, treatment and plan. Briefly, had some abdominal pain this morning and late last night. Had a dark bowel movement last night and his hemoglobin dropped about a little bit. Continue supportive care. Will keep him n.p.o. after midnight and reassess in the morning with likely EGD in the morning. Date of Service June 24, 2024 Assessment & Plan (1) Abdominal pain: (2) Esophagitis: Plan - continue with protonix 40mg IV BID. - continue with famotidine 20mg IV BID. - continue carafate 1 gm qid. - follow hgb/hct and transfuse as needed. - will discuss the case further with Dr. Rock. Further recommendations to follow. Admission and Anticipated Discharge Date Admission Date: June 22, 2024 Subjective Patient tells me that this morning he had some pain that lasted for an hour over his stomach, though he points to his left ribs when he shows me the area. Per nursing, patient had a dark bowel movement over night but nothing today. hgb had dropped to 9.7 from 10.8 since yesterday. no nausea, vomiting, heartburn. Review of Systems Review of Systems: All systems reviewed & are unremarkable except as noted in HPI & below Physical Exam Constitutional: WD/WN, vitals as above Respiratory: normal respiratory effort, lungs clear to auscultation Cardiovascular: Rate/Rhythm: regular rate and regular rhythm Gastrointestinal (Abdomen): normal bowel sounds, soft, nontender, no hepatosplenomegaly Psychiatric: Orientation: alert and oriented x 3 Results & Data Results & Data Vital Signs (Past 12 Hours) Vital Signs Temp Pulse Pulse Resp BP BP Pulse Ox 06/24/24 11:44 98.1 F 55 L 17 98/62 L 95 06/24/24 08:02 98.2 F 55 L 17 92/55 L 95 06/24/24 07:07 59 L 06/24/24 03:19 06/24/24 03:02 97.5 F L 59 L 16 114/61 95 O2 Del Method 06/24/24 11:44 Room Air 06/24/24 08:02 Room Air 06/24/24 07:07 06/24/24 03:19 Room Air 06/24/24 03:02 Room Air Coding Level of Care Code 60385 SUB INP/OBS CARE 10/02MIN Diagnoses Abdominal pain R10.84 Abdominal location: generalized Esophagitis K20.90 (1) Abdominal pain Abdominal location: generalized Qualified Code(s): R10.84 - Generalized abdominal pain
--- NOTE | 2024-06-25 07:18 | Hospitalist Progress Note ---
Date of Service June 25, 2024 Assessment & Plan (1) Sepsis: (2) Esophagitis: (3) Urinary tract infection: (4) Chest pain: (5) Diabetes mellitus: Plan Esophagitis: CT A/P on admission notable for esophagitis GI consulted, appreciate recs: S/P EGD 06/25, significant for: - Small hiatal hernia. - LA Grade D reflux esophagitis with no bleeding. Rule out Lopez's esophagus. Biopsied. - The entire esophagus from 36 cm to 22 cm was ulcerated with inflammation present. Likely source of bleeding prior and pain. Biopsies done to r/o infection. Appeared acid peptic. - Acute gastritis, characterized by erythema. Biopsied. - Non-bleeding duodenal ulcer with no stigmata of bleeding. Will require repeat EGD in outpatient setting 6 weeks from now Continue Protonix, Pepcid, Carafate Hgb 13.8 on admission, AM Hgb stabilized at 10.1 Fecal occult blood test ordered, pending Continue to monitor labs UTI, +SIRS criteria on admission with leukocytosis, tachypnea: WBC 20 on admission -> AM WBC 7.60, afebrile UA consistent with infectious process, urine cx +Proteus, sensitive to Ceftriaxone Continue IV Rocephin (day 4) Negative blood culture @48H Continued relative hypotension but improving, continue to hold antihypertensives at this time AM labs: CBC, BMP Dysphagia: Swallow eval 06/23 - no concern of aspiration. If concern remains, consider VFS/barium swallow. Weakness, Deconditioning: PT/OT evaluations completed, recommending rehab CM following, referrals pending DM: Sliding scale insulin Chronic problems * HTN- home atenolol on HOLD given relative hypotension * HLD- statin held on admission given weakness * Pulmonary nodules - will need f/u on these given smoking hx * BPH: Doxazosin on hold d/t relative hypotension FEN/GI: Full liquids, DM1 VTE ppx: Heparin Admission and Anticipated Discharge Date Admission Date: June 22, 2024 Supervising Physician Co-Signing Physician Notes Attending Physician Supervision Note: I independently interviewed and examined the patient and verified the smith history and physical, reviewed labs and image studies and agree with findings and care plan noted above. 78 y/o M h/o esophagitis presented with sepsis of urinary source. epigastric pain + Ox3 Pleasant Abd - epigastric tenderness + soft Sepsis UTI -Proteus - Pansensitive. Continue IV rocephin. Esophagitis - Noted on imaging. -GI consulted - Was not taking nexium listed in home meds. -EGD done 06/25 -Small hiatal hernia -LA Grade D reflux esophagitis with no bleeding. Biopsied -Entire esophagus with ulceration - likely source of bleeding and pain. Biopsied. -Acute gastritis Biopsied -Non bleeding duodenal ulcer - no bleeding. -Need repeat EGD in 6wks. -Continue Protonix IV BID, Carafate, famotidine Urinary incontinence BPH -Holding Doxazosin d/t hypotension and lower BP readings. -knapp in place Emphysema/Scattered Pulmonary nodules 7mm - noted on imaging -Cough with phlegm -Not on any inhalers. No resp distress/hypoxia. -Swallow eval done - no concern of aspiration. If further concern exist - will need VFS/barium swallow. DM - A1c 5.4. -should d/c home insulin considering the A1c -sugars controlled here. Heparin SQ Will need rehab Subjective Pt evaluated at bedside this morning, notes continued intermittent epigastric/left-sided chest pain, denies associated nausea/vomiting. Unable to identify exacerbating or alleviating factors. Denies difficulty swallowing Denies fevers/chills Review of Systems Review of Systems: as per HPI Physical Exam Physical Exam: General: Alert and oriented. No acute distress Cardiac: Regular rate and rhythm, no murmurs appreciated Respiratory: Lungs sounds diffusely coarse, No increased work of breathing Abdominal: Soft, non-distended. Bowel sounds present. Mild epigastric TTP. Results & Data Results & Data Vital Signs (Past 12 Hours) Vital Signs Temp Pulse Pulse Resp BP BP Pulse Ox 06/25/24 03:22 36.8 C 80 16 129/77 96 06/24/24 22:46 36.9 C 75 14 108/55 L 95 06/24/24 21:52 75 06/24/24 20:00 36.7 C 76 16 110/64 96 06/24/24 19:52 O2 Del Method 06/25/24 03:22 Room Air 06/24/24 22:46 Room Air 06/24/24 21:52 06/24/24 20:00 Room Air 06/24/24 19:52 Room Air Resident Activity Tracking Resident Involvement: Resident Care Provided Care Provided: Adult Hospital Medicine (1) Sepsis Sepsis acute organ dysfunction status: unspecified Sepsis type: sepsis due to unspecified organism Qualified Code(s): A41.9 - Sepsis, unspecified organism (3) Urinary tract infection Hematuria presence: without hematuria Urinary tract infection type: acute cystitis Qualified Code(s): N30.00 - Acute cystitis without hematuria (4) Chest pain Chest pain type: unspecified Qualified Code(s): R07.9 - Chest pain, unspecified
[2024-06-25 08:11] LABS: Hematocrit (blood only) 29.7 % (42.0-52.0); Hemoglobin 10.1 g/dl (14.0-18.0); Mean Corpuscular Hemoglobin 31.7 pg (25.0-34.0); Mean Corpuscular Volume 93.1 fL (80.0-100.0); Mean Platelet Volume 10.6 fL (9.4-12.4); Platelet Count 198 K/uL (130-400); RDW Standard Deviation 47.8 fL (36.4-46.3); Red Blood Count 3.19 M/uL (4.70-6.10)
[2024-06-25 08:20] LABS: BUN Creatinine Ratio 11.5 (10-20); Calcium 7.6 mg/dl (8.6-10.3); Potassium 3.4 mmol/L (3.5-5.1)
--- NOTE | 2024-06-25 09:36 | History & Physical Bridge Note ---
<Statement entered by Kerwin Rock MD - 06/25/24 10:15> I personally saw and examined the patient. I have reviewed the chart and agree with the documentation provided by the DIE REPAIR including discussion about the assessment, treatment and plan. EGD as still with pain and dark stools. npo please. Date of Service June 25, 2024 History & Physical Bridge Note I have examined the patient, reviewed the History & Physical and in the interval since the performance of the History & Physical I have noted the following changes of clinical significance: no changes noted. patient with ongoing abdominal pain. he tells me that he would like to have an EGD. hgb dropped slightly to 9.7 (previously 10.1). rest of GI ros unremrakable. -will plan to proceed with EGD today.
--- NOTE | 2024-06-25 11:02 | Anesthesiology Consultation ---
Date of Service June 25, 2024 Assessment & Plan Chart Review Chart Review: Acceptable Risk for Surgery, Patient NOT seen in Pre Admission Testing and entry rep initiated Consults Requested none Proposed Anesthesia Anesthesia Type: MAC History Surgery Operation Date: 06/25/24 17:35 Proposed Procedures p Esophagogastroduodenoscopy Shweta oRck MD Height/Weight Height: 5 ft 10 in Weight: 72.4 kg Allergies Allergy/AdvReac Type Severity Reaction Status Date / Time No Known Allergies Allergy Verified 06/25/24 10:55 Medications Home Medications Medication Instructions Recorded Confirmed Last Taken atenolol 100 mg tablet 50 mg PO BID 06/22/24 06/22/24 Unknown atorvastatin 10 mg tablet 10 mg PO DAILY 06/22/24 06/22/24 Unknown doxazosin 4 mg tablet 4 mg PO HS 06/22/24 06/22/24 Unknown esomeprazole magnesium 40 mg 40 mg PO .Q OTHER DAY 06/22/24 06/22/24 Unknown capsule,delayed release insulin glargine 100 unit/mL (3 0 unit subcut UD 06/22/24 06/22/24 Unknown mL) subcutaneous pen (Basaglar KwikPen U-100 Insulin) tramadol 50 mg tablet 50 - 100 mg PO UD 06/22/24 06/22/24 Unknown Active Medications Generic Name Dose Route Start Last Admin Trade Name Freq PRN Reason Stop Dose Admin Acetaminophen 650 mg 06/22/24 12:33 06/25/24 06:03 Acetaminophen 325 Mg Tab PO 07/22/24 12:32 650 mg Q4H PRN Administration Pain or Fever Doxazosin Mesylate 4 mg 06/23/24 09:00 06/23/24 08:38 Doxazosin Mesylate 4 Mg Tab PO 07/23/24 08:59 Not Given DAILY JOSE RAFAEL Heparin Sodium (Porcine) 5,000 units 06/22/24 14:00 06/25/24 06:04 Heparin Sod 5,000 Unit/0.5 Ml Vial SQ 07/22/24 13:59 5,000 units Q8 JOSE RAFAEL Administration Ceftriaxone Sodium 2,000 mg in 50 mls @ 100 mls/hr 06/22/24 13:00 06/24/24 13:05 Rocephin IV 06/27/24 12:59 Infused Q24H JOSE RAFAEL Infusion Pantoprazole Sodium 40 mg in 10 mls @ 5 mls/min 06/22/24 21:00 06/25/24 09:01 Protonix IV 07/22/24 20:59 5 mls/min BID JOSE RAFAEL Administration Famotidine 20 mg in 5 mls @ 2.5 mls/min 06/22/24 15:00 06/25/24 09:06 Pepcid 20mg Iv Push IV 07/22/24 14:59 2.5 mls/min Q12H JOSE RAFAEL Administration Insulin Aspart 0 units 06/22/24 12:45 06/25/24 08:55 Insulin Aspart Per Unit Charge SC 07/22/24 12:44 Not Given ACHS JOSE RAFAEL Miscellaneous 1 each 06/23/24 08:59 06/25/24 09:01 Remove Nicoderm Patch N/A 07/23/24 08:58 1 each DAILY@0859 JOSE RAFAEL Administration Nicotine 1 patch 06/22/24 13:30 06/25/24 09:01 Nicotine 21 Mg/24 Hr Tdsy TD 07/22/24 13:29 1 patch QAM JOSE RAFAEL Administration Sucralfate 1 gm 06/22/24 13:00 06/25/24 09:01 Sucralfate 1 Gm/10 Ml Udc PO 07/22/24 12:59 1 gm QID JOSE RAFAEL Administration Tramadol HCl 50 mg 06/23/24 23:03 06/25/24 06:03 Tramadol Hcl 50 Mg Tablet PO 07/23/24 23:02 50 mg Q6H PRN Administration Pain NPO Date Last Intake of Fluids: 06/25/24 Time Last Intake of Fluids: 06:00 Last Intake of Fluids Comment: sip of medication (Carafate) Date Last Intake of Solids: 06/22/24 Social History Smoking Status: Current every day smoker Smoking cigarettes per day: 1/2 pack Hx Alcohol Use: No Hx Substance Use: No Physical Exam Vital Signs Last Vital Signs Temp 36 C L 06/25/24 10:52 Pulse 62 06/25/24 10:52 Resp 16 06/25/24 10:52 BP 127/63 06/25/24 10:52 Pulse Ox 96 06/25/24 10:52 O2 Del Method Room Air 06/25/24 10:52 Testing Laboratory Results 06/25/24 07:10 06/25/24 07:10 PT 11.4 Seconds (9.0-12.0) 06/22/24 09:10 INR 1.1 (0.9-1.1) 06/22/24 09:10 APTT 26 Seconds (21-31) 06/22/24 09:10 Hemoglobin A1c 5.4 % (4.5-5.6) 06/23/24 05:42 Urine Color Dark Yellow 06/22/24 09:50 Urine Appearance Turbid (Clear) A 06/22/24 09:50 Urine pH >= 9.0 (4.5-7.5) H 06/22/24 09:50 Ur Specific [place] 1.021 (1.000-1.030) 06/22/24 09:50 Urine Protein 3+ (Negative) H 06/22/24 09:50 Urine Glucose (UA) Negative (Negative) 06/22/24 09:50 Urine Ketones Negative (Negative) 06/22/24 09:50 Urine Nitrite Negative (Negative) 06/22/24 09:50 Ur Leukocyte Esterase 3+ (Negative) H 06/22/24 09:50 Urine WBC (Auto) >50 /hpf (0-5) H 06/22/24 09:50 Urine RBC (Auto) 3-5 /hpf (0-2) H 06/22/24 09:50 U Hyaline Cast (Auto) >20 /lpf (0-2) H 06/22/24 09:50 U Epithel Cells (Auto) 11-20 /hpf (0-2) H 06/22/24 09:50 Urine Bacteria (Auto) 4+ (None Seen) H 06/22/24 09:50 06/22/24 09:50 Urine Culture - Final Urine,Clean Catch Proteus mirabilis 06/22/24 10:12 Aerobic Blood Culture - Preliminary Blood No growth in Aerobic bottle after 48 hours. Anaerobic Blood Culture - Preliminary No growth in Anaerobic bottle after 48 hours. 06/25/24 06:22 POC Glucose 86 Electrocardiogram Date: 06/22/24 Findings: + NSR @ (74) low voltage borderline normal
[2024-06-25] MEDS: ONDANSETRON INJ 2 MG/ML 2 ML VIAL ONE (11:15)
[2024-06-25] MEDS: PROPOFOL IV EMULSION 10 MG/ML 20 ML VIAL IV ONE (11:15)
[2024-06-25] MEDS: MIDAZOLAM HCL 1 MG/ML 2ML VIAL ONE (11:15)
[2024-06-25] MEDS: LIDOCAINE 2% 2 ML VIAL/AMP(20MG/ML) INFIL ONE (11:15)
--- NOTE | 2024-06-25 11:39 | GI REPORT ---
[facility] Patient: MICHELLE PETERSON : 1945 Sex at : Male Age: 78 Years Procedure: Upper GI endoscopy Date: 06/25/2024 Attending Physician: Kerwin Rock MD Referring MD: Preethi Peterson Indications: - Dysphagia - Epigastric abdominal pain - Melena Medications: - Monitored Anesthesia Care Complications: - No immediate complications. Estimated Blood Loss: - Estimated blood loss: None. Procedure: - Prior to the procedure, a History and Physical was performed, and patient medications and allergies were reviewed. The patient's tolerance of previous anesthesia was also reviewed. The risks and benefits of the procedure and the sedation options and risks were discussed with the patient. All questions were answered, and informed consent was obtained. Prior Anticoagulants: The patient has taken no anticoagulant or antiplatelet agents. ASA Grade Assessment: III - A patient with severe systemic disease. After reviewing the risks and benefits, the patient was deemed in satisfactory condition to undergo the procedure. - The egd scope was introduced through the mouth and advanced to the third part of the duodenum. - The upper GI endoscopy was accomplished without difficulty. - The patient tolerated the procedure well. Findings: - A small hiatal hernia was present. - LA Grade D (one or more mucosal breaks involving at least 75% of esophageal circumference) esophagitis with no bleeding was found in the middle third of the esophagus. Biopsies were taken with a cold forceps for histology. The entire esophagus from 36 cm to 22 cm was ulcerated with inflammation present. Likely source of bleeding prior and pain. Biopsies done to r/o infection. Appeared acid peptic. - Diffuse moderate inflammation characterized by erythema was found in the entire examined stomach. Biopsies were taken with a cold forceps for Helicobacter pylori testing. - One non-bleeding superficial duodenal ulcer with no stigmata of bleeding was found in the duodenal bulb. The lesion was 5 mm in largest dimension. Impression: - Small hiatal hernia. - LA Grade D reflux esophagitis with no bleeding. Rule out Lopez's esophagus. Biopsied. - The entire esophagus from 36 cm to 22 cm was ulcerated with inflammation present. Likely source of bleeding prior and pain. Biopsies done to r/o infection. Appeared acid peptic. - Acute gastritis, characterized by erythema. Biopsied. - Non-bleeding duodenal ulcer with no stigmata of bleeding. Recommendation: - Discharge patient to home (ambulatory). - Resume previous diet. - Continue present medications. - Await pathology results. - Return to primary care physician as previously scheduled. - Patient has a contact number available for emergencies. The signs and symptoms of potential delayed complications were discussed with the patient. Return to normal activities tomorrow. Written discharge instructions were provided to the patient. - IV ppi bid, can use carafate or GI cocktail to help with eating. He will need repeat egd for biopsies in 6 weeks outpt. Procedure Code(s): - 73921, Esophagogastroduodenoscopy, flexible, transoral; with biopsy, single or multiple Diagnosis Code(s): - R13.10, Dysphagia, unspecified - R10.13, Epigastric pain - K92.1, Melena (includes Hematochezia) - K44.9, Diaphragmatic hernia without obstruction or gangrene - K21.00, Gastro-esophageal reflux disease with esophagitis, without bleeding - K29.00, Acute gastritis without bleeding - K26.9, Duodenal ulcer, unspecified as acute or chronic, without hemorrhage or perforation CPT(R) - 2023 copyright [employer]. All Rights Reserved. The CPT codes, CCI edits and ICD codes generated are intended as suggestions and were generated based on input data. These codes are preliminary and upon office services specialist review may be revised to meet current compliance and payer requirements. The provider is responsible for the final determination of appropriate codes, and modifiers. Kerwin Rock MD This document has been electronically signed. Note Initiated:06/25/2024 Note Completed:06/25/2024 11:39 AM \\[email or web address]\[id number]
--- NOTE | 2024-06-25 14:01 | Anesthesiology Progress Note ---
Date of Service June 25, 2024 Anesthesia Post Procedure Vital Signs Vital Signs: Temp Pulse Pulse Resp BP BP Pulse Ox 06/25/24 13:53 67 06/25/24 12:34 36.4 C L 58 L 16 110/65 06/25/24 12:09 66 16 120/63 94 06/25/24 11:54 69 16 84/44 L 100 06/25/24 11:39 36 C L 69 12 113/43 L 99 06/25/24 10:52 36 C L 62 16 127/63 96 06/25/24 10:06 06/25/24 07:43 36.7 C 68 18 120/72 94 06/25/24 07:22 72 06/25/24 03:22 36.8 C 80 16 129/77 96 06/24/24 22:46 36.9 C 75 14 108/55 L 95 06/24/24 21:52 75 06/24/24 20:00 36.7 C 76 16 110/64 96 06/24/24 19:52 06/24/24 15:14 36.8 C 70 16 104/55 L 96 06/24/24 14:26 79 O2 Del Method 06/25/24 13:53 06/25/24 12:34 Room Air 06/25/24 12:09 Room Air 06/25/24 11:54 Room Air 06/25/24 11:39 Room Air 06/25/24 10:52 Room Air 06/25/24 10:06 Room Air 06/25/24 07:43 Room Air 06/25/24 07:22 06/25/24 03:22 Room Air 06/24/24 22:46 Room Air 06/24/24 21:52 06/24/24 20:00 Room Air 06/24/24 19:52 Room Air 06/24/24 15:14 Room Air 06/24/24 14:26 Pain Intensity Medial Chest: Pain Intensity: 4 Transfer of Care Handoff Completed per policy Notes Mental Status: alert / awake / arousable and participated in evaluation Patient Amnestic to Procedure: Yes Nausea / Vomiting: adequately controlled Pain: adequately controlled Airway Patency, RR, SpO2: stable & adequate BP & HR: stable & adequate Hydration State: stable & adequate Anesthetic Complications: no major complications apparent
[2024-06-25 15:51] VITALS: RESP 18
[2024-06-26 06:33] LABS: Hematocrit (blood only) 34.2 % (42.0-52.0); Mean Corpuscular Hgb Conc 32.2 g/dL (32.0-36.0); Mean Corpuscular Volume 96.3 fL (80.0-100.0); Mean Platelet Volume 10.2 fL (9.4-12.4); Platelet Count 197 K/uL (130-400); RDW Coefficient of Variation 14.4 % (11.5-14.5); RDW Standard Deviation 50.8 fL (36.4-46.3); Red Blood Count 3.55 M/uL (4.70-6.10); White Blood Count 6.45 K/ul (4.8-10.8)
[2024-06-26 07:03] LABS: BUN Creatinine Ratio 9.5 (10-20); Calcium 7.8 mg/dl (8.6-10.3); Creatinine Clr Calc Pharmacy 65.7 ml/min; Potassium 3.8 mmol/L (3.5-5.1)
[2024-06-26 07:48] VITALS: BP 124/81; PULSE 76; TEMP 98.2; O2SAT 94
--- NOTE | 2024-06-26 07:57 | Hospitalist Progress Note ---
Date of Service June 26, 2024 Assessment & Plan (1) Sepsis: (2) Esophagitis: (3) Urinary tract infection: (4) Chest pain: (5) Diabetes mellitus: Plan Esophagitis: CT A/P on admission notable for esophagitis GI consulted, appreciate recs: S/P EGD 06/25, significant for: - Small hiatal hernia. - LA Grade D reflux esophagitis with no bleeding. Rule out Lopez's esophagus. Biopsied. - The entire esophagus from 36 cm to 22 cm was ulcerated with inflammation present. Likely source of bleeding prior and pain. Biopsies done to r/o infection. Appeared acid peptic. - Acute gastritis, characterized by erythema. Biopsied. - Non-bleeding duodenal ulcer with no stigmata of bleeding. Will require repeat EGD in outpatient setting 6 weeks from now Continue Protonix, Pepcid, Carafate Hgb 13.8 on admission, AM Hgb stabilized at 10.1 Fecal occult blood test ordered, pending Continue to monitor labs UTI, +SIRS criteria on admission with leukocytosis, tachypnea: WBC 20 on admission -> AM WBC 7.60, afebrile UA consistent with infectious process, urine cx +Proteus, sensitive to Ceftriaxone Continue IV Rocephin (day 4) Negative blood culture @48H Continued relative hypotension but improving, continue to hold antihypertensives at this time AM labs: CBC, BMP Dysphagia: Swallow eval 06/23 - no concern of aspiration. If concern remains, consider VFS/barium swallow. Weakness, Deconditioning: PT/OT evaluations completed, recommending rehab CM following, referrals pending DM: Sliding scale insulin Chronic problems * HTN- home atenolol on HOLD given relative hypotension * HLD- statin held on admission given weakness * Pulmonary nodules - will need f/u on these given smoking hx * BPH: Doxazosin on hold d/t relative hypotension FEN/GI: Full liquids, DM1 VTE ppx: Heparin Admission and Anticipated Discharge Date Admission Date: June 22, 2024 Subjective Pt evaluated at bedside this morning, notes continued intermittent epigastric/left-sided chest pain, denies associated nausea/vomiting. Unable to identify exacerbating or alleviating factors. Denies difficulty swallowing Denies fevers/chills Review of Systems Review of Systems: as per HPI Physical Exam Physical Exam: General: Alert and oriented. No acute distress Cardiac: Regular rate and rhythm, no murmurs appreciated Respiratory: Lungs sounds diffusely coarse, No increased work of breathing Abdominal: Soft, non-distended. Bowel sounds present. Mild epigastric TTP. Results & Data Results & Data Vital Signs (Past 12 Hours) Vital Signs Temp Pulse Pulse Resp BP BP Pulse Ox 06/26/24 07:48 36.8 C 76 18 124/81 94 06/26/24 07:26 78 06/26/24 04:00 36.7 C 75 18 134/76 95 06/26/24 00:00 36.6 C 72 18 135/84 94 06/25/24 20:00 O2 Del Method 06/26/24 07:48 Room Air 06/26/24 07:26 06/26/24 04:00 Room Air 06/26/24 00:00 Room Air 06/25/24 20:00 Room Air (1) Sepsis Sepsis acute organ dysfunction status: unspecified Sepsis type: sepsis due to unspecified organism Qualified Code(s): A41.9 - Sepsis, unspecified organism (3) Urinary tract infection Hematuria presence: without hematuria Urinary tract infection type: acute cystitis Qualified Code(s): N30.00 - Acute cystitis without hematuria (4) Chest pain Chest pain type: unspecified Qualified Code(s): R07.9 - Chest pain, unspecified
--- NOTE | 2024-06-26 13:12 | Discharge Summary ---
Date of Service June 26, 2024 Admission HPI Per Admitting Provider 78yo male presented to ER with left sided chest discomfort as well as left upper abdominal pain. Reports symptoms started about 3 weeks ago and have been progressively getting worse. No change to bowel/bladder however has had incontinence issues for a while apparently. Has chronic nausea and has vomited x 3. Had barium swallow but never scoped in the past. Reports has been taking his esomeprazole but not having significant improvement. Found to be SEPTIC with hypotension w/ BP 75/54 on arrival with WBC 20k and lactic 3.1. Also w/ suspected KATIUSKA Cr 1.67, suspected 2nd to urinary source however unknown baseline renal function. UA appearing infected, 3+ leuk esterase, >50 WBC, 4+ bacteria. CT Chest: notable severe esophagitis, emphysema, scattered pulm nodules measure up to 7mm, pathologically indeterminate. No airspace consolidation for pneumonia. CTAP: Diffuse thickening of the bladder wall is nonspecific, however correlation with urinalysis is recommended to exclude UTI. Also notes hiatal hernia w/ distended esophagus, correlation for esophagitis recommended. EKG noting NSR w/ low voltage QRS, borderline EKG but no prior for comparison. Troponin on high sensitivity testing 6.8 4.9 s/p 2L NSS, lactic improved to 1.6 and BP 114/86. Given dose of Cefepime IV for urinary coverage. Patient evaluated in A11B, and son at bedside. Initially sleeping but awoken to name. He appears/reports very fatigued, hasn't really been himself for a couple weeks. He has been taking TYLENOL for pain, NO NSAID use. reports he has asked for some but she knows he isn't supposed to be taking it. Son reports urine on sample was dark/foul smelling. Adarsh does report being in hospital, but initially thought was in [place] but oriented to year/cooperative at this time. Discussed suspect UTI contributing to weakness/possible KATIUSKA and poor PO intake from esophagitis likely contributing. He does smoke about 1/2 pack to a pack a day, reports a carton in week time. Is req a nicotine patch. Patient reporting ongoing discomfort to LUQ c/w esophagitis on imaging. Was given protonix and will add carafate/pepcid BID and consult for GI given no prior scope but can given some liquids w/ aspiration precaution and will also consult speech given has had ongoing issues w/ dyphagia for year and hopefully able to plan for endoscopy for further eval. Per patient/family at bedside no prior resistance/allergies and will continue Ceftriaxone IV for now. Urine/blood cultures pending and will de-escalate as able. Code status: Level 1 for now. Son to call in this evening for update of home meds to see if taking atenolol 100mg vs 50mg BID or at all but will plan to hold off for now given hypotension on admission. Admission Exam Per Admitting Provider Resp: diminished in the bases with associated crackles, no wheezing/rales, on room air CV: RRR, no significant mrg, no pitting edema, pulses present GI: +BS, slight distension, +tenderness deep palpation LUQ, no significant suprapubic tenderness : no knapp MSK/Neuro: generalized weakness but nonfocal, able to follow commands/answering questions appropriately Psych: alert to person, knows in hospital, year 2023, cooperate/calm but FATIGUED appearing Principal Diagnosis Esophagitis Discharge Exam General: Alert and oriented. No acute distress Cardiac: Regular rate and rhythm, no murmurs appreciated Respiratory: Lungs sounds diffusely coarse, No increased work of breathing Abdominal: Soft, non-distended. Bowel sounds present. Mild epigastric TTP. Discharge Data Allergies Allergy/AdvReac Type Severity Reaction Status Date / Time No Known Allergies Allergy Verified 06/25/24 10:55 Consultations 06/22/24 12:31 ED Decision to Admit Stat 06/22/24 12:33 Consult Gastroenterology Routine Procedures Performed Operation Date: 06/25/24 17:35 Actual Procedures p EGD Biopsy Cytology - Kerwin Rock MD Ordered Studies 06/22/24 09:29 CT abd pelvis IV con only Stat CT chest diagnostic w con Stat CT head/brain wo con Stat Hospital Course (1) Sepsis: (2) Esophagitis: (3) Urinary tract infection: (4) Chest pain: (5) Diabetes mellitus: Plan 78yo male presented to ER with left sided chest discomfort as well as left upper abdominal pain x3 weeks: Esophagitis: CT A/P on admission notable for esophagitis GI consulted: S/P EGD 06/25, significant for: - Small hiatal hernia. - LA Grade D reflux esophagitis with no bleeding. Rule out Lopez's esophagus. Biopsied.- The entire esophagus from 36 cm to 22 cm was ulcerated with inflammation present. Likely source of bleeding prior and pain. Biopsies done to r/o infection. Appeared acid peptic. - Acute gastritis, characterized by erythema. Biopsied. Follow up on biopsy results in outpatient setting. - Non-bleeding duodenal ulcer with no stigmata of bleeding. Will require repeat EGD in outpatient setting 6 weeks from now Continue Protonix, Pepcid, Carafate Hgb 13.8 on admission, Hgb stabilized, 11 on AM of discharge UTI, +SIRS criteria on admission with leukocytosis, tachypnea - Resolved: WBC 20 on admission -> AM WBC 6.5 on morning of discharge, afebrile UA consistent with infectious process, urine cx +Proteus, pansensitive Negative blood culture @48H S/p tx with IV Ceftriaxone Dysphagia: Swallow eval 06/23 - no concern of aspiration. If concern remains, consider VFS/barium swallow as outpatient. Weakness, Deconditioning: PT/OT evaluations completed, recommended placement DM: A1c 5.4, recommend discontinuing insulin Chronic problems * HTN- home atenolol on HOLD given relative hypotension, restart as appropriate * HLD- statin held on admission given weakness, may resume upon discharge * Chest CT notable for: Scattered pulmonary nodules measure up to 7 mm. These are pathologically indeterminate and can be followed as per the Fleischner criteria. * BPH: Doxazosin on hold d/t relative hypotension, restart as appropriate Total Time Total Time Spent Total Time Spent (In Minutes): see attending attestation Discharge Plan Discharge Items Patient Disposition: Transfer Care Home Fac Reason For Visit: SEPSIS,UTI,ESOPHAGITIS Discharge Diagnosis: esophagitis Condition on Discharge: Good Activity: As commented below Activity Comment: activity progression as directed by PT/OT Non-emergency contact: Primary Care Provider and [employer] Call non-emergency contact if: you have any medication questions, your symptoms worsen and your pain is not controlled Follow-up/Referrals: Adarsh Ricketts [Primary Care Provider] - Diet: Carb Consistent or DM2 and Full liquid Addtl Attending Provider Instructions: Esophagitis: CT A/P on admission notable for esophagitis GI consulted: S/P EGD 06/25, significant for: - Small hiatal hernia. - LA Grade D reflux esophagitis with no bleeding. Rule out Lopez's esophagus. Biopsied.- The entire esophagus from 36 cm to 22 cm was ulcerated with inflammation present. Likely source of bleeding prior and pain. Biopsies done to r/o infection. Appeared acid peptic. - Acute gastritis, characterized by erythema. Biopsied. Follow up on biopsy results in outpatient setting. - Non-bleeding duodenal ulcer with no stigmata of bleeding. Will require repeat EGD in outpatient setting 6 weeks from now Continue Protonix, Pepcid, Carafate Hgb 13.8 on admission, AM Hgb stabilized, 11 on AM of discharge UTI, +SIRS criteria on admission with leukocytosis, tachypnea - Resolved: WBC 20 on admission -> AM WBC 6.5, afebrile UA consistent with infectious process, urine cx +Proteus, pansensitive Negative blood culture @48H S/p tx with IV Ceftriaxone Dysphagia: Swallow eval 06/23 - no concern of aspiration. If concern remains, consider VFS/barium swallow as outpatient. Weakness, Deconditioning: PT/OT evaluations completed, recommending placement DM: A1c 5.4, recommend discontinuing insulin Chronic problems * HTN- home atenolol on HOLD given relative hypotension, restart as appropriate * HLD- statin held on admission given weakness, may resume upon discharge * Pulmonary nodules noted on imaging - will need f/u on these given smoking hx * BPH: Doxazosin on hold d/t relative hypotension, restart as appropriate Pending Studies at Discharge: Yes Studies:: EGD biopsies Stand-Alone Forms: My [facility] Skilled Items Patient informed of condition?: Yes DNR: No Discharge Level of Care: Skilled Communicable Disease: No Discharge Prognosis: Stable Lines: None Urinary Catheter: No Medications and DC Order Prescriptions: New sucralfate 100 mg/mL Suspension 1 g PO QID 30 Days Qty: 1200 0RF pantoprazole 40 mg tablet,delayed release (DR/EC) 40 mg PO BID 30 Days Qty: 60 0RF famotidine 40 mg tablet 40 mg PO BID 30 Days Qty: 60 0RF nicotine 21 mg/24 hr patch 24 hour 1 patch transdermal DAILY Qty: 7 0RF Rx Instructions: wean dose as tolerated Continued atorvastatin 10 mg tablet 10 mg PO DAILY tramadol 50 mg tablet 50 - 100 mg PO UD Rx Instructions: last filled march 2024 30 day 1-2 tabs po pm Held atenolol 100 mg tablet 50 mg PO BID Hold Instructions: Resume on 07/17/24. Held given relative hypotension, resume as appropriate at PCP follow up Rx Instructions: 1/2 BID doxazosin 4 mg tablet 4 mg PO HS Hold Instructions: Resume on 07/17/24. Held given relative hypotension, resume as appropriate at PCP follow up Discontinued esomeprazole magnesium 40 mg capsule,delayed release(DR/EC) 40 mg PO .Q OTHER DAY Rx Instructions: last filled feb 02 2024 insulin glargine [Basaglar KwikPen U-100 Insulin] 100 unit/mL (3 mL) insulin pen 0 unit SUBCUT UD Rx Instructions: last filled march 2024 : 64 units daily per pharmacy. 30 day supply Discharge Orders: Discharge Order (Routine); Ordered 06/26/24 Ordered By: Dae English Admission Data Admit Date/Time: 06/22/24 12:34 Attending Provider: Preethi Peterson Admit Provider: Errol Tanner Primary Care Provider: Adarsh Ricketts Other Providers: Kerwin Rock; Errol Tanner; Sandee Copeland Other Interventions: Discharge Summary Assessment (RN) Last Done: 06/26/24 12:03 Supervising Physician Co-Signing Physician Notes Attending Physician Supervision Note: I independently interviewed and examined the patient and verified the smith history and physical, reviewed labs and image studies and agree with findings and care plan noted above. Resident Activity Tracking Resident Involvement: Resident Care Provided Care Provided: Adult Hospital Medicine
== END 2024-06-26 12:56 | DRG 872 ==
LOC: ED 08:54 → 2W 12:34 → SUATTDRO 12:34 → 2W 13:33

== ENCOUNTER 2024-07-03 23:44 | Observation (INO) ==
--- OUTSIDE RECORDS SUMMARY | 2024-07-03 23:50 | External Medical Summary | Continuity Of Care Document ---
Author Name Unknown Address [address] [place] [address] Organization [facility] ( ) Care Team Providers Care Tissue Inserter Name Role Phone Yasmany Martirgerber Primary Care Provider [phone] VITAL SIGNS Date Time Diastolic blood pressure Systolic blood pressure Body height Body weight Temperature SpO2 Blood Sugar Pulse Respirations 97305 019 67737 0 58.00 mm[Hg] - Sitting 82.00 mm[Hg] - Sitting 71 NI 165.00 NI 98.70 Ear 95.00 % 117.00 /min 20.00/min 62205 020 72289 7 49868 020 25741 8 162.00 NI 43233 021 45472 5 06260 021 31535 1 71.00 mm[Hg] - Sitting 107.00 mm[Hg] - Sitting 97.50 Ear 95.00 % 73.00/ min 18.00/min 41962 021 76880 3 70.00 mm[Hg] - Sitting 100.00 mm[Hg] - Sitting 97.30 Oral 95.00 % 94.00/ min 16.00/min 35255 021 97976 9 66090 021 22560 5 70.00 mm[Hg] - Sitting 100.00 mm[Hg] - Sitting 97.30 Oral 94.00/ min 16.00/min Immunizations Vaccine Date Status COVID-19 12/14/2020 Completed COVID-19 01/04/2021 Completed Influenza 05/31/2020 Completed (PCV13)Pneumococcal 04/07/2017 Completed (PPSV23)Pneumococcal 04/02/2016 Completed
--- OUTSIDE RECORDS SUMMARY | 2024-07-03 23:50 | External Medical Summary | Continuity Of Care Document ---
Author Name Unknown Address [address] [place] [address] Organization [facility] ( ) Care Team Providers Care Catering Director Name Role Phone Cici Jade Primary Care Provider [phone] VITAL SIGNS Date Time Diastolic blood pressure Systolic blood pressure Body height Body weight Temperature SpO2 Blood Sugar Pulse Respirations 25401 019 34214 0 58.00 mm[Hg] - Sitting 82.00 mm[Hg] - Sitting 71 NI 165.00 NI 98.70 Ear 95.00 % 117.00 /min 20.00/min 76012 020 07160 7 21580 020 19727 8 162.00 NI 96028 021 80631 5 63878 021 06910 1 71.00 mm[Hg] - Sitting 107.00 mm[Hg] - Sitting 97.50 Ear 95.00 % 73.00/ min 18.00/min Immunizations Vaccine Date Status COVID-19 12/14/2020 Completed COVID-19 01/04/2021 Completed Influenza 05/31/2020 Completed (PCV13)Pneumococcal 04/07/2017 Completed (PPSV23)Pneumococcal 04/02/2016 Completed
--- OUTSIDE RECORDS SUMMARY | 2024-07-03 23:50 | External Medical Summary | Continuity Of Care Document ---
Author Name Unknown Address [address] [place] [address] Organization [facility] ( ) Care Team Providers Care Cruise Director Name Role Phone Cici Jade Primary Care Provider [phone] VITAL SIGNS Date Time Diastolic blood pressure Systolic blood pressure Body height Body weight Temperature SpO2 Blood Sugar Pulse Respirations 43056 019 03625 0 58.00 mm[Hg] - Sitting 82.00 mm[Hg] - Sitting 71 NI 165.00 NI 98.70 Ear 95.00 % 117.00 /min 20.00/min 48202 020 45581 7 00726 020 56385 8 162.00 NI 27925 021 12305 5 04114 021 38487 1 71.00 mm[Hg] - Sitting 107.00 mm[Hg] - Sitting 97.50 Ear 95.00 % 73.00/ min 18.00/min Immunizations Vaccine Date Status COVID-19 12/14/2020 Completed COVID-19 01/04/2021 Completed Influenza 05/31/2020 Completed (PCV13)Pneumococcal 04/07/2017 Completed (PPSV23)Pneumococcal 04/02/2016 Completed
--- OUTSIDE RECORDS SUMMARY | 2024-07-03 23:50 | External Medical Summary | Continuity Of Care Document ---
Author Name Unknown Address [address] [place] [address] Organization [facility] ( ) Care Team Providers Care Otolaryngology Physician Name Role Phone Cici Jade Primary Care Provider [phone] Problems Code Description Start Date End Date Status A41.9 Sepsis, unspecified organism 06/26/2024/0 000 Active N39.0 Urinary tract infection, site not specified Active E11.9 Type 2 diabetes mellitus without complications 06/26/2024 Active I10. 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 06/26/2024 Active E78.5 Hyperlipidemia, unspecified 06/26/2024 00 Active R07.9 Chest pain, unspecified 06/26/2024 A ctive VITAL SIGNS Date Time Diastolic blood pressure Systolic blood pressure Body height Body weight Temperature SpO2 Blood Sugar Pulse Respirations 09545 019 56369 0 58.00 mm[Hg] - Sitting 82.00 mm[Hg] - Sitting 71 NI 165.00 NI 98.70 Ear 95.00 % 117.00 /min 20.00/min 020 41363 7 020 86907 8 162.00 NI 021 22863 5 13172 021 89542 1 71.00 mm[Hg] - Sitting 107.00 mm[Hg] - Sitting 97.50 Ear 95.00 % 73.00/ min 18.00/min 45221 021 06057 3 70.00 mm[Hg] - Sitting 100.00 mm[Hg] - Sitting 97.30 Oral 95.00 % 94.00/ min 16.00/min 19795 021 75771 9 07067 021 87503 5 70.00 mm[Hg] - Sitting 100.00 mm[Hg] - Sitting 97.30 Oral 94.00/ min 16.00/min 52329 023 98229 0 69.00 mm[Hg] - Sitting 107.00 mm[Hg] - Sitting 98.30 Ear 92.00 % 84.00/ min 18.00/min Immunizations Vaccine Date Status COVID-19 12/14/2020 Completed COVID-19 01/04/2021 Completed Influenza 05/31/2020 Completed (PCV13)Pneumococcal 04/07/2017 Completed (PPSV23)Pneumococcal 04/02/2016 Completed
--- OUTSIDE RECORDS SUMMARY | 2024-07-03 23:50 | External Medical Summary | Continuity Of Care Document ---
Author Name Unknown Address [address] [place] [address] Organization [facility] ( ) Care Team Providers Care Enterer Name Role Phone Yasmany Martirgerber Primary Care Provider [phone] VITAL SIGNS Date Time Diastolic blood pressure Systolic blood pressure Body height Body weight Temperature SpO2 Blood Sugar Pulse Respirations 00141 019 37896 0 58.00 mm[Hg] - Sitting 82.00 mm[Hg] - Sitting 71 NI 165.00 NI 98.70 Ear 95.00 % 117.00 /min 20.00/min 44606 020 18641 7 83129 020 27811 8 162.00 NI 96284 021 56296 5 98914 021 40169 1 71.00 mm[Hg] - Sitting 107.00 mm[Hg] - Sitting 97.50 Ear 95.00 % 73.00/ min 18.00/min 04802 021 03622 3 70.00 mm[Hg] - Sitting 100.00 mm[Hg] - Sitting 97.30 Oral 95.00 % 94.00/ min 16.00/min 86478 021 48182 9 24129 021 93981 5 70.00 mm[Hg] - Sitting 100.00 mm[Hg] - Sitting 97.30 Oral 94.00/ min 16.00/min Immunizations Vaccine Date Status COVID-19 12/14/2020 Completed COVID-19 01/04/2021 Completed Influenza 05/31/2020 Completed (PCV13)Pneumococcal 04/07/2017 Completed (PPSV23)Pneumococcal 04/02/2016 Completed
--- OUTSIDE RECORDS SUMMARY | 2024-07-03 23:50 | External Medical Summary | Continuity Of Care Document ---
Author Name Unknown Address [address] [place] [address] Organization [facility] ( ) Care Team Providers Care Physician Coding Specialist Name Role Phone Cici Jade Primary Care Provider [phone] VITAL SIGNS Date Time Diastolic blood pressure Systolic blood pressure Body height Body weight Temperature SpO2 Blood Sugar Pulse Respirations 03294 019 73011 0 58.00 mm[Hg] - Sitting 82.00 mm[Hg] - Sitting 71 NI 165.00 NI 98.70 Ear 95.00 % 117.00 /min 20.00/min 26557 020 23923 7 04349 020 49476 8 162.00 NI 46378 021 16399 5 89409 021 22405 1 71.00 mm[Hg] - Sitting 107.00 mm[Hg] - Sitting 97.50 Ear 95.00 % 73.00/ min 18.00/min Immunizations Vaccine Date Status COVID-19 12/14/2020 Completed COVID-19 01/04/2021 Completed Influenza 05/31/2020 Completed (PCV13)Pneumococcal 04/07/2017 Completed (PPSV23)Pneumococcal 04/02/2016 Completed
--- OUTSIDE RECORDS SUMMARY | 2024-07-03 23:50 | External Medical Summary | Continuity Of Care Document ---
Author Name Unknown Address [address] [place] [address] Organization [facility] ( ) Care Team Providers Care In File Operator Name Role Phone Cici Jade Primary Care Provider [phone] VITAL SIGNS Date Time Diastolic blood pressure Systolic blood pressure Body height Body weight Temperature SpO2 Blood Sugar Pulse Respirations 00264 019 55836 0 58.00 mm[Hg] - Sitting 82.00 mm[Hg] - Sitting 71 NI 165.00 NI 98.70 Ear 95.00 % 117.00 /min 20.00/min 36297 020 50293 7 62510 020 98716 8 162.00 NI 07344 021 42065 5 08988 021 30048 1 71.00 mm[Hg] - Sitting 107.00 mm[Hg] - Sitting 97.50 Ear 95.00 % 73.00/ min 18.00/min Immunizations Vaccine Date Status COVID-19 12/14/2020 Completed COVID-19 01/04/2021 Completed Influenza 05/31/2020 Completed (PCV13)Pneumococcal 04/07/2017 Completed (PPSV23)Pneumococcal 04/02/2016 Completed
--- NOTE | 2024-07-03 23:51 | Emergency Department Note ---
Impression & Plan Aspiration pneumonia due to food (regurgitated), Hypomagnesemia, Hypokalemia, Esophagitis, Constipation ED Provider Note NAME: MICHELLE PETERSON AGE: 78 SEX: M : 1945 ARRIVES VIA: Ambulance INFORMANT: Patient ED PROVIDER(S): Rodo Schneider MD CHIEF COMPLAINT: Vomiting, cough, tachypnea. PLAN: Disposition: Admit MEDICAL DECISION MAKING: The patient is a pleasant 78-year-old gentleman with a past medical history of GERD, esophagitis, COPD, everyday smoker, sepsis secondary to UTI presents to emergency department via EMS from his SNF at [facility] for evaluation of abdominal pain for the past several days in setting of constipation with reported plan to administer an enema but then developed cough and congestion with sputum production today after episode of nausea and vomiting. The patient was reported to have had persistent tachycardia and dyspnea. There is no report of any fevers. The patient is a poor history. He denies abdominal pain in this moment but he localizes the pain when it occurs to his upper abdomen. On evaluation the patient is ill-appearing and no distress, afebrile with heart in the 110s and vital signs otherwise stable. He appears clinically dry. Lungs with wheezing rhonchi of bilateral lower lung galarza with normal respiratory effort. Abdomen is nontender. EKG without overt acute ischemia. Chest x-ray possible right midlung airspace opacity per my preliminary independent interpretation, however better characterized on CTA of the chest. WBC 14.5 K with neutrophilia but no left shift. H/H similar to prior. Platelets normal limits. Chemistry without metabolic acidosis. Potassium 3.2 magnesium 1.5 with IV repletion initiated. LFTs unremarkable. High-sensitivity troponin 5.3, within normal limits. Lipase is normal. Procalcitonin is not elevated. UA with WBCs but no bacteria and negative nitrites. Respiratory BioFire was negative. CTA of the chest demonstrates no evidence of pulmonary embolism. However retained debris in the esophagus is consistent with suspicion for reflux and esophagitis leading to aspiration where groundglass nodules in bilateral lung galarza are described and may be inflammatory and related to aspiration. CT then pelvis demonstrates somewhat decreased bladder wall thickening from prior. 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 CT of the head was negative for acute abnormalities. Patient treated with IV fluid hydration, famotidine and Zofran as well as dexamethasone and DuoNeb for component of bronchospasm and IV Unasyn initiated for aspiration. Case was discussed [place] Jacob[place] [facility] [place], who will evaluate the patient for admission. Further management per admitting team. Triage Nursing notes reviewed and agree them. Prior/external medical records reviewed Vital Signs: reviewed Differential diagnosis: Gastroenteritis, food borne illness, infections, appendicitis, diverticulitis, inflammatory bowel disease, obstruction, GI bleed, biliary pathology, volvulus, as well as other pathologies. ER treatment provided: See below. Diagnostics interpreted by me: ECG: Sinus tachycardia, 117 bpm, no ectopy, left anterior fascicular block, no overt ST elevation or depression, QTc 435, QRS 82. Cardiac Monitoring: An order for continuous cardiac monitoring was placed and demonstrated Sinus tachycardia, 117 bpm, no ectopy. Laboratory studies: See below Imaging studies: See below Consultation(s): Case was discussed with DENZEL Gee hospitalist, who will evaluate the patient for admission. HPI: The patient is a pleasant 78-year-old gentleman with a past medical history of GERD, esophagitis, COPD, everyday smoker, sepsis secondary to UTI presents to emergency department via EMS from his SNF at [facility] for evaluation of abdominal pain for the past several days in setting of constipation with reported plan to administer an enema but then developed cough and congestion with sputum production today after episode of nausea and vomiting. The patient was reported to have had persistent tachycardia and dyspnea. There is no report of any fevers. The patient is a poor history. He denies abdominal pain in this moment but he localizes the pain when it occurs to his upper abdomen. ROS: See above HPI for pertinent positives & negatives. A total of 10 systems reviewed and were otherwise negative. VITALS:See Below PHYSICAL EXAMINATION: GENERAL: Awake, alert, fatigued/ chronically ill-appearing, in no distress HENT: Normocephalic, atraumatic. Oropharynx with dry mucous membranes and otherwise unremarkable. EYES: Normal conjunctiva. Sclera non-icteric. NECK: Supple. No nuchal rigidity. FROM. No JVD. RESPIRATORY: Wheezing rhonchi of bilateral lower lung galarza with normal respiratory effort. CARDIAC: Tachycardic rate, normal rhythm. Extremities warm and well perfused. Pulses equal. ABDOMEN: Soft, non-distended. No tenderness to palpation. No rebound or guarding. No masses. MUSCULOSKELETAL: Chest examination reveals no tenderness. The back is symmetrical on inspection without obvious abnormality. There is no CVA tenderness to palpation. No joint edema. LOWER EXTREMITIES: Calves are equal size bilaterally and non-tender. No edema. No discoloration. NEURO: At baseline per [facility] with resting right lower facial droop. Symmetric with smile. No acute focal sensory or motor deficits noted. Moving all extremities equally with generalized weakness. SKIN: No rash or jaundice noted. Rodo Schneider MD Past Med/Surg History Problem List (Updated 07/04/24 @ 05:05 by Rodo Schneider MD) Lethargy Constipation (Acute) Hypokalemia (Acute) Hypomagnesemia (Acute) Aspiration pneumonia due to food (regurgitated) (Acute) BPH (benign prostatic hyperplasia) Urinary incontinence Emphysema lung Abdominal pain (Acute) Diabetes mellitus Chest pain (Acute) Esophagitis (Acute) Urinary tract infection (Acute) Sepsis (Acute) Social History Smoking Status: Former smoker Tobacco Type: Cigarettes Cigarettes Per Day: 1/2 pack; Hx Alcohol Use: No Hx Substance Use: No Preferred Language: Setswana Communication Ability: Impaired Grinder Tender Required: No Beliefs That Will Affect Care: None marital status: Current Living Situation: Retirement Feels Safe at Home: Yes Assistive Devices: Walker Allergies Allergies Allergy/AdvReac Type Severity Reaction Status Date / Time No Known Allergies Allergy Verified 06/25/24 10:55 Home Meds Home Medications Medication Instructions Recorded Confirmed atenolol 100 mg tablet 50 mg PO BID 06/22/24 07/04/24 atorvastatin 10 mg tablet 10 mg PO DAILY 06/22/24 07/04/24 doxazosin 4 mg tablet 4 mg PO HS 06/22/24 07/04/24 Previous Rx's Medication Instructions Recorded famotidine 40 mg tablet 40 mg PO BID 30 days #60 tabs 06/26/24 pantoprazole 40 mg tablet,delayed 40 mg PO BID 30 days #60 tabs 06/26/24 release sucralfate 100 mg/mL oral 1 g (10 mL) PO QID 30 days #1,200 06/26/24 suspension mL Results & Data (ED) Vital Signs Vital Signs - 24 hr 07/03/24 23:49 07/03/24 23:49 07/03/24 23:58 Temperature 37.1 C Temperature Source Oral Pulse Rate 118 H 114 H 115 H Pulse Rate [Apical] Respiratory Rate 20 20 Respiratory Effort / Characteristics Non-Labored Spontaneous Respiratory Depth Normal Respiratory Pattern Regular Blood Pressure 127/86 Blood Pressure [Right Arm] Blood Pressure Mean 99 Blood Pressure Mean [Right Arm] Pulse Oximetry 94 94 Oxygen Delivery Method Room Air Room Air Sepsis Recent Fever Within 48 Hours No Sepsis New/Unexplained Change in Mental Status N/A Sepsis Action Taken by Nursing No Action Required 07/03/24 23:59 07/04/24 01:25 Temperature Temperature Source Pulse Rate Pulse Rate [Apical] 115 H 107 H Respiratory Rate 24 26 H Respiratory Effort / Characteristics Non-Labored Spontaneous Respiratory Depth Normal Respiratory Pattern Regular Blood Pressure Blood Pressure [Right Arm] 110/75 103/75 Blood Pressure Mean Blood Pressure Mean [Right Arm] 86 84 Pulse Oximetry 95 95 Oxygen Delivery Method Room Air Room Air Sepsis Recent Fever Within 48 Hours Sepsis New/Unexplained Change in Mental Status Sepsis Action Taken by Nursing Laboratory Data Attestation: I reviewed the patient's lab results. 07/03/24 23:50 07/03/24 23:50 Lab Results 07/03/24 07/04/24 Range/Units 23:50 01:23 WBC 14.54 H (4.8-10.8) K/ul RBC 3.96 L (4.70-6.10) M/uL Hgb 12.4 L (14.0-18.0) g/dl Hct 38.5 L (42.0-52.0) % MCV 97.2 (80.0-100.0) fL MCH 31.3 (25.0-34.0) pg MCHC 32.2 (32.0-36.0) g/dL RDW Std Deviation 51.8 H (36.4-46.3) fL RDW Coeff of Madonna 14.4 (11.5-14.5) % Plt Count 197 (130-400) K/uL MPV 10.0 (9.4-12.4) fL Immature Gran % (Auto) 0.3 % Neut % (Auto) 83.0 % Lymph % (Auto) 10.9 % [place] % (Auto) 5.3 % Eos % (Auto) 0.3 % Baso % (Auto) 0.2 % Neut # (Auto) 12.07 H (1.40-6.50) K/uL Lymph # (Auto) 1.59 (1.20-3.40) K/uL [place] # (Auto) 0.77 H (0.11-0.59) K/uL Eos # (Auto) 0.04 (0.00-0.50) K/uL Baso # (Auto) 0.03 (0.00-0.20) K/uL Immature Gran # (Auto) 0.04 (0.01-0.20) K/uL PT 11.5 (9.0-12.0) Seconds INR 1.1 (0.9-1.1) Sodium 140 (136-145) mmol/L Potassium 3.2 L (3.5-5.1) mmol/L Chloride 109 H (98-107) mmol/L Carbon Dioxide 26 (21-32) mmol/L Anion Gap 5 (3-11) BUN 11 (6-23) mg/dl Creatinine 0.94 (0.6-1.4) mg/dl Est Cr Clr Drug Dosing 63.9 ml/min eGFR 83.49 BUN/Creatinine Ratio 11.7 (10-20) Glucose 112 H (70-99(Fasting)) mg/dl Calcium 7.4 L (8.6-10.3) mg/dl Magnesium 1.5 L (1.7-2.4) mg/dl Total Bilirubin 0.5 (0.2-1.0) mg/dl Direct Bilirubin 0.1 (0-0.2) mg/dl AST 13 (13-39) U/L ALT 6 L (7-52) U/L Alkaline Phosphatase 60 (34-104) U/L Troponin I High Sens 5.3 (0-20) pg/ml Total Protein 5.5 L (6.0-8.3) gm/dl Albumin 2.6 L (3.4-5.0) gm/dl Globulin 2.9 (2.5-4.0) gm/dl Albumin/Globulin Ratio 0.9 (0.9-2) Lipase 29 (11-82) U/L Procalcitonin 0.07 (0-0.5) ng/ml Urine Color Yellow Urine Appearance Clear (Clear) Urine pH 6.5 (4.5-7.5) Ur Specific [place] 1.024 (1.000-1.030) Urine Protein 1+ H (Negative) Urine Glucose (UA) Negative (Negative) Urine Ketones Trace H (Negative) Urine Blood Negative (Negative) Urine Nitrite Negative (Negative) Urine Bilirubin Negative (Negative) Urine Urobilinogen Negative (Negative) Ur Leukocyte Esterase Trace H (Negative) Urine RBC 3-5 H (0-2) /hpf Urine WBC 11-20 H (0-5) /hpf Ur Epithelial Cells 0-2 (0-2) /hpf Urine Bacteria None Seen (None Seen) Urine Mucus Present A (None Prsent) Adenovirus (PCR) Not Detected (NotDetected) B. pertussis DNA (PCR) Not Detected (NotDetected) B.parapertussis DNA PCR Not Detected (NotDetected) C. pneumoniae DNA (PCR) Not Detected (NotDetected) Coronavirus OC43 (PCR) Not Detected (NotDetected) Coronavirus HKU1 (PCR) Not Detected (NotDetected) Coronavirus 229E (PCR) Not Detected (NotDetected) SARS-CoV-2 (PCR) Not Detected (NotDetected) Coronavirus NL63 (PCR) Not Detected (NotDetected) Human Metapneumovir PCR Not Detected (NotDetected) Influenza Type A (PCR) Not Detected (NotDetected) Influenza Type B (PCR) Not Detected (NotDetected) M. pneumoniae (PCR) Not Detected (NotDetected) Parainfluenza 1 (PCR) Not Detected (NotDetected) Parainfluenza 2 (PCR) Not Detected (NotDetected) Parainfluenza 3 (PCR) Not Detected (NotDetected) Parainfluenza 4 (PCR) Not Detected (NotDetected) RSV (PCR) Not Detected (NotDetected) Entero/Rhino (PCR) Not Detected (NotDetected) Administered Medications Potassium Chloride/Sodium Chloride (Normal Saline W/20 Meq Kcl) 20 meq in 1,000 mls @ 80 mls/hr IV .[id number] JOSE RAFAEL Stop: 07/04/24 15:29 Last Admin: 07/04/24 04:50 Dose: 80 mls/hr Documented By: SJG Discontinued Medications Albuterol (Albut/Ipratrop 3mg/0.5mg Neb 3 Ml Vial) 3 ml NEB NOW STA; Protocol Stop: 07/04/24 01:50 Last Admin: 07/04/24 02:07 Dose: 3 ml Documented By: BONILLA Dexamethasone Sodium Phosphate (DexamethasonePf 10 Mg/Ml Vial) 10 mg IV NOW ONE Stop: 07/04/24 01:52 Last Admin: 07/04/24 02:08 Dose: 10 mg Documented By: BONILLA Sodium Chloride (Nss) 500 mls @ 999 mls/hr IV .Q31M ONE Stop: 07/04/24 00:31 Last Infusion: 07/04/24 00:58 Dose: Infused Documented By: Admin: 07/04/24 00:15 Dose: 999 mls/hr Documented By: BONILLA Famotidine (Pepcid 20mg Iv Push) 20 mg in 5 mls @ 2.5 mls/min IV NOW STA Stop: 07/04/24 00:02 Last Admin: 07/04/24 00:17 Dose: 2.5 mls/min Documented By: BONILLA Ampicillin Sodium/Sulbactam Sodium (Unasyn) 3,000 mg in 100 mls @ 200 mls/hr IV NOW STA Stop: 07/04/24 02:18 Last Infusion: 07/04/24 04:13 Dose: Infused Documented By: Admin: 07/04/24 03:30 Dose: 200 mls/hr Documented By: BONILLA Magnesium Sulfate/Dextrose (Magnesium Sulfate / D5w) 1 gm in 100 mls @ 100 mls/hr IV Q1H JOSE RAFAEL Stop: 07/04/24 03:50 Last Infusion: 07/04/24 04:13 Dose: Infused Documented By: Admin: 07/04/24 03:03 Dose: 100 mls/hr Documented By: Infusion: 07/04/24 03:03 Dose: Infused Documented By: Admin: 07/04/24 02:11 Dose: 100 mls/hr Documented By: BONILLA Ioversol (Optiray 320 125ml) 117 ml IV ONCE ONE Stop: 07/04/24 00:48 Last Admin: 07/04/24 00:48 Dose: 117 ml Documented By: LAN Ondansetron HCl (Ondansetron Inj 2 Mg/Ml 2 Ml Vial) 4 mg IV NOW STA Stop: 07/04/24 00:02 Last Admin: 07/04/24 00:19 Dose: 4 mg Documented By: EMB Imaging Data Radiologist's Impression: Abdomen/Pelvis CT 07/04/24 00:22 Exam(s): CT ABDOMEN + PELVIS With Contrast IV Amt: 117 cc opti 320 EXAM: CT Abdomen and Pelvis With Intravenous Contrast CLINICAL HISTORY: Reason for exam: abd pain, n/v. TECHNIQUE: Axial computed tomography images of the abdomen and pelvis with intravenous contrast. CTDI is 35.92 mGy and DLP is 2481.52 mGy-cm. Automated exposure control was utilized for the study. A dose lowering technique was utilized adhering to the principles of ALARA. CONTRAST: Patient received 117 cc opti 320 of IV contrast COMPARISON: 06/22/24 FINDINGS: Lung bases: Reported separately. ABDOMEN: Liver: Unremarkable. No mass. Gallbladder and bile ducts: Unremarkable. No calcified stones. No ductal dilation. Pancreas: Unremarkable. No mass. No ductal dilation. Spleen: Unremarkable. No splenomegaly. Adrenals: Unremarkable. No mass. Kidneys and ureters: Symmetric renal enhancement. No hydronephrosis. Stable simple right kidney upper pole cyst; no follow-up indicated. Subcentimeter cortical hypodensity left kidney, too small to characterize. Stomach and bowel: No bowel obstruction. Sigmoid diverticulosis. No evidence of acute diverticulitis. PELVIS: Appendix: Normal appendix. Bladder: Bladder wall thickening, perhaps somewhat decreased from prior. Reproductive: Unremarkable as visualized. ABDOMEN and PELVIS: Intraperitoneal space: Unremarkable. No free fluid or free air. Bones/joints: Prior ORIF right femur. No acute fracture or dislocation. Soft tissues: Unremarkable. Vasculature: Atherosclerosis without aortic aneurysm. 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 Lymph nodes: Unremarkable. No enlarged lymph nodes. IMPRESSION: Bladder wall thickening, perhaps somewhat decreased from prior. Cystitis not excluded. Diverticulosis without diverticulitis. 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 Electronically signed by: Ela Carter M.D. 07/04/24 02:02 AM Chest CTA 07/04/24 00:22 Exam(s): CTA CHEST IV Amt: 117 cc opti 320 EXAM: CT Angiography Chest With Intravenous Contrast CLINICAL HISTORY: Reason for exam: sob, tachycardia, vomting, r/o PE. TECHNIQUE: Axial computed tomographic angiography images of the chest with intravenous contrast. CTDI is 35.92 mGy and DLP is 2481.52 mGy-cm. Automated exposure control was utilized for the study. A dose lowering technique was utilized adhering to the principles of ALARA. MIP reconstructed images were created and reviewed. COMPARISON: 06/22/24 FINDINGS: Pulmonary arteries: Adequate pulmonary artery opacification. No evidence of pulmonary embolism. Aorta: Atherosclerosis of the aorta without aneurysm or dissection. Lungs: Paraseptal and centrilobular emphysema. No consolidation or mass. Multiple pulmonary micronodules, largest measuring 7 mm in the right upper lobe (series 5, image 90). There are a few ground-glass nodules in the bilateral lung galarza (e.g. right lower lobe series 5, image 70; left lower lobe series 5, image 41) which are new from 06/22/24 and therefore inflammatory. Pleural space: Unremarkable. No significant effusion. No pneumothorax. Heart: Coronary artery atherosclerosis. No cardiomegaly or pericardial effusion. Mediastinum: Retained debris in the esophagus which may be due to reflux. Circumferential wall thickening in the mid and distal esophagus suggesting esophagitis. Bones/joints: No acute fracture. No dislocation. Soft tissues: Unremarkable. Lymph nodes: Unremarkable. No enlarged lymph nodes. IMPRESSION: 1. No evidence of pulmonary embolism. 2. Retained debris in the esophagus which may be due to reflux. Circumferential wall thickening in the mid and distal esophagus suggesting esophagitis. 3. There are a few ground-glass nodules in the bilateral lung galarza (e. g. right lower lobe series 5, image 70; left lower lobe series 5, image 41) which are new from 06/22/24 and therefore inflammatory. These may be secondary to microaspiration. 4. Multiple solid pulmonary micronodules, largest measuring 7 mm in the right upper lobe (series 5, image 90). Fleischner Society Guidelines (MacMahon, et al. Radiology 2017; 284(1):228-43) suggest the following. For low-risk patients recommend follow-up chest CT at 3-6 months. If unchanged consider an additional follow-up CT at 18-24 months. For high- risk patients initial follow-up chest CT at 3-6 months and if unchanged, 18-24 months. Electronically signed by: Ela Carter M.D. 07/04/24 01:[address] 10/27/24 00:22 Exam(s): CT HEAD Without Contrast EXAM: CT Head Without Intravenous Contrast CLINICAL HISTORY: Reason for exam: confusion. TECHNIQUE: Axial computed tomography images of the head/brain without intravenous contrast. CTDI is 35.92 mGy and DLP is 2481.52 mGy-cm. Automated exposure control was utilized for the study. A dose lowering technique was utilized adhering to the principles of ALARA. COMPARISON: 06/22/24 FINDINGS: Brain: Generalized parenchymal volume loss. Periventricular and deep cerebral white matter hypoattenuation suggesting chronic small vessel ischemic change. Byrd-white matter differentiation maintained. No hemorrhage, mass effect, parenchymal edema, or midline shift. Ventricles: Unremarkable. No hydrocephalus. Bones/joints: Unremarkable. No acute fracture. Soft tissues: Mild right parietal scalp swelling, similar to prior. Vasculature: Intracranial atherosclerosis. Sinuses: Unremarkable as visualized. Mastoid air cells: Unremarkable as visualized. No mastoid effusion. Orbits: Lens replacements. IMPRESSION: No acute intracranial process. Electronically signed by: Ela Carter M.D. 07/04/24 01:57 AM Discharge Plan Visit Data Chief Complaint: Abdominal Pain Stated Complaint: ABDOMINAL PAIN X SEVERAL DAYS ED Provider: Rodo Schneider Discharge Problem: Aspiration pneumonia due to food (regurgitated), Hypomagnesemia, Hypokalemia, Esophagitis, Constipation Patient Disposition: Admitted As Inpatient Discharge Instructions Interventions: ED Discharge Assessment Last Done: 07/04/24 04:14 Discharge Problem: Aspiration pneumonia due to food (regurgitated) Qualifiers: Laterality: bilateral Lung location: lower lobe of lung Qualified Code(s): J 69.0 - Pneumonitis due to inhalation of food and vomit Constipation Qualifiers: Constipation type: unspecified constipation type Qualified Code(s): K59.00 - Constipation, unspecified
[2024-07-04 00:07] LABS: Basophils # (auto) 0.03 K/uL (0.00-0.20); Basophils % (auto) 0.2 %; Eosinophils # (auto) 0.04 K/uL (0.00-0.50); Eosinophils % (auto) 0.3 %; Hematocrit (blood only) 38.5 % (42.0-52.0); Hemoglobin 12.4 g/dl (14.0-18.0); Immature Granulocytes # (auto) 0.04 K/uL (0.01-0.20); Immature Granulocytes % (auto) 0.3 %; Lymphocytes # (auto) 1.59 K/uL (1.20-3.40); Lymphocytes % (auto) 10.9 %; Mean Corpuscular Hemoglobin 31.3 pg (25.0-34.0); Mean Corpuscular Hgb Conc 32.2 g/dL (32.0-36.0); Mean Corpuscular Volume 97.2 fL (80.0-100.0); Monocytes # (auto) 0.77 K/uL (0.11-0.59); Monocytes % (auto) 5.3 %; Neutrophils # (auto) 12.07 K/uL (1.40-6.50); Platelet Count 197 K/uL (130-400); RDW Coefficient of Variation 14.4 % (11.5-14.5); RDW Standard Deviation 51.8 fL (36.4-46.3); Red Blood Count 3.96 M/uL (4.70-6.10); White Blood Count 14.54 K/ul (4.8-10.8)
[2024-07-04] MEDS: SODIUM CHLORIDE 0.9% 500 ML IV ONE (00:15)
[2024-07-04] MEDS: FAMOTIDINE 20MG IV PUSH 20 MG/5 ML SYR IV STA (00:17)
[2024-07-04] MEDS: ONDANSETRON INJ 2 MG/ML 2 ML VIAL IV STA (00:19)
[2024-07-04 00:21] LABS: Albumin Level 2.6 gm/dl (3.4-5.0); Bilirubin Direct 0.1 mg/dl (0-0.2); Bilirubin,Total 0.5 mg/dl (0.2-1.0); Calcium 7.4 mg/dl (8.6-10.3); Magnesium 1.5 mg/dl (1.7-2.4); Potassium 3.2 mmol/L (3.5-5.1)
[2024-07-04 00:27] LABS: Albumin Globulin Ratio 0.9 (0.9-2); BUN Creatinine Ratio 11.7 (10-20); Creatinine Clr Calc Pharmacy 63.9 ml/min; Globulin 2.9 gm/dl (2.5-4.0); Total Protein 5.5 gm/dl (6.0-8.3)
[2024-07-04 00:35] LABS: INR 1.1 (0.9-1.1); Prothrombin Time 11.5 Seconds (9.0-12.0)
[2024-07-04] MEDS: OPTIRAY 320 125ml IV ONE (00:48)
[2024-07-04 01:06] LABS: Troponin I High Sensitivity 5.3 pg/ml (0-20)
[2024-07-04 01:28] LABS: Adenovirus PCR Not Detected (NotDetected); Bordetella parapertussis PCR Not Detected (NotDetected); Bordetella pertussis PCR Not Detected (NotDetected); Chlamydia pneumoniae PCR Not Detected (NotDetected); Coronavirus 229E PCR Not Detected (NotDetected); Coronavirus CoV-2 (COVID19)PCR Not Detected (NotDetected); Coronavirus HKU1 PCR Not Detected (NotDetected); Coronavirus NL63 PCR Not Detected (NotDetected); Coronavirus OC43PCR Not Detected (NotDetected); Human Metapneumovirus PCR Not Detected (NotDetected); Influenza A PCR Not Detected (NotDetected); Influenza B PCR Not Detected (NotDetected); Mycoplasma pneumoniae PCR Not Detected (NotDetected); Parainfluenza Virus 1 PCR Not Detected (NotDetected); Parainfluenza Virus 2 PCR Not Detected (NotDetected); Parainfluenza Virus 3 PCR Not Detected (NotDetected); Parainfluenza Virus 4 PCR Not Detected (NotDetected); Respiratory Syncytial VirusPCR Not Detected (NotDetected); Rhinovirus/Enterovirus PCR Not Detected (NotDetected)
[2024-07-04 01:54] LABS: Appearance Urine Clear (Clear); Bilirubin Urine Negative (Negative); Blood Urine Negative (Negative); Color Urine Yellow; Glucose Urine UA Negative (Negative); Ketones Urine Trace (Negative); Leukocyte Esterase Urine Trace (Negative); Nitrite Urine Negative (Negative); Protein Urine 1+ (Negative); Specific Gravity Urine 1.024 (1.000-1.030); Urobilinogen Urine Negative (Negative); pH Urine 6.5 (4.5-7.5)
--- NOTE | 2024-07-04 01:56 | CT Scan Report ---
Exam(s): CTA CHEST IV Amt: 117 cc opti 320 EXAM: CT Angiography Chest With Intravenous Contrast CLINICAL HISTORY: Reason for exam: sob, tachycardia, vomting, r/o PE. TECHNIQUE: Axial computed tomographic angiography images of the chest with intravenous contrast. CTDI is 35.92 mGy and DLP is 2481.52 mGy-cm. Automated exposure control was utilized for the study. A dose lowering technique was utilized adhering to the principles of ALARA. MIP reconstructed images were created and reviewed. COMPARISON: 06/22/24 FINDINGS: Pulmonary arteries: Adequate pulmonary artery opacification. No evidence of pulmonary embolism. Aorta: Atherosclerosis of the aorta without aneurysm or dissection. Lungs: Paraseptal and centrilobular emphysema. No consolidation or mass. Multiple pulmonary micronodules, largest measuring 7 mm in the right upper lobe (series 5, image 90). There are a few ground-glass nodules in the bilateral lung galarza (e.g. right lower lobe series 5, image 70; left lower lobe series 5, image 41) which are new from 06/22/24 and therefore inflammatory. Pleural space: Unremarkable. No significant effusion. No pneumothorax. Heart: Coronary artery atherosclerosis. No cardiomegaly or pericardial effusion. Mediastinum: Retained debris in the esophagus which may be due to reflux. Circumferential wall thickening in the mid and distal esophagus suggesting esophagitis. Bones/joints: No acute fracture. No dislocation. Soft tissues: Unremarkable. Lymph nodes: Unremarkable. No enlarged lymph nodes. IMPRESSION: 1. No evidence of pulmonary embolism. 2. Retained debris in the esophagus which may be due to reflux. Circumferential wall thickening in the mid and distal esophagus suggesting esophagitis. 3. There are a few ground-glass nodules in the bilateral lung galarza (e. g. right lower lobe series 5, image 70; left lower lobe series 5, image 41) which are new from 06/22/24 and therefore inflammatory. These may be secondary to microaspiration. 4. Multiple solid pulmonary micronodules, largest measuring 7 mm in the right upper lobe (series 5, image 90). Fleischner Society Guidelines (MacMahon, et al. Radiology 2017; 284(1):228-43) suggest the following. For low-risk patients recommend follow-up chest CT at 3-6 months. If unchanged consider an additional follow-up CT at 18-24 months. For high- risk patients initial follow-up chest CT at 3-6 months and if unchanged, 18-24 months. Electronically signed by: Ela Carter M.D. 07/04/24 01:55 AM
--- NOTE | 2024-07-04 01:58 | CT Scan Report ---
Exam(s): CT HEAD Without Contrast EXAM: CT Head Without Intravenous Contrast CLINICAL HISTORY: Reason for exam: confusion. TECHNIQUE: Axial computed tomography images of the head/brain without intravenous contrast. CTDI is 35.92 mGy and DLP is 2481.52 mGy-cm. Automated exposure control was utilized for the study. A dose lowering technique was utilized adhering to the principles of ALARA. COMPARISON: 06/22/24 FINDINGS: Brain: Generalized parenchymal volume loss. Periventricular and deep cerebral white matter hypoattenuation suggesting chronic small vessel ischemic change. Byrd-white matter differentiation maintained. No hemorrhage, mass effect, parenchymal edema, or midline shift. Ventricles: Unremarkable. No hydrocephalus. Bones/joints: Unremarkable. No acute fracture. Soft tissues: Mild right parietal scalp swelling, similar to prior. Vasculature: Intracranial atherosclerosis. Sinuses: Unremarkable as visualized. Mastoid air cells: Unremarkable as visualized. No mastoid effusion. Orbits: Lens replacements. IMPRESSION: No acute intracranial process. Electronically signed by: Ela Carter M.D. 07/04/24 01:57 AM
--- NOTE | 2024-07-04 02:04 | CT Scan Report ---
Exam(s): CT ABDOMEN + PELVIS With Contrast IV Amt: 117 cc opti 320 EXAM: CT Abdomen and Pelvis With Intravenous Contrast CLINICAL HISTORY: Reason for exam: abd pain, n/v. TECHNIQUE: Axial computed tomography images of the abdomen and pelvis with intravenous contrast. CTDI is 35.92 mGy and DLP is 2481.52 mGy-cm. Automated exposure control was utilized for the study. A dose lowering technique was utilized adhering to the principles of ALARA. CONTRAST: Patient received 117 cc opti 320 of IV contrast COMPARISON: 06/22/24 FINDINGS: Lung bases: Reported separately. ABDOMEN: Liver: Unremarkable. No mass. Gallbladder and bile ducts: Unremarkable. No calcified stones. No ductal dilation. Pancreas: Unremarkable. No mass. No ductal dilation. Spleen: Unremarkable. No splenomegaly. Adrenals: Unremarkable. No mass. Kidneys and ureters: Symmetric renal enhancement. No hydronephrosis. Stable simple right kidney upper pole cyst; no follow-up indicated. Subcentimeter cortical hypodensity left kidney, too small to characterize. Stomach and bowel: No bowel obstruction. Sigmoid diverticulosis. No evidence of acute diverticulitis. PELVIS: Appendix: Normal appendix. Bladder: Bladder wall thickening, perhaps somewhat decreased from prior. Reproductive: Unremarkable as visualized. ABDOMEN and PELVIS: Intraperitoneal space: Unremarkable. No free fluid or free air. Bones/joints: Prior ORIF right femur. No acute fracture or dislocation. Soft tissues: Unremarkable. Vasculature: Atherosclerosis without aortic aneurysm. 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 Lymph nodes: Unremarkable. No enlarged lymph nodes. IMPRESSION: Bladder wall thickening, perhaps somewhat decreased from prior. Cystitis not excluded. Diverticulosis without diverticulitis. 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 Electronically signed by: Ela Carter M.D. 07/04/24 02:02 AM
[2024-07-04] MEDS: ALBUT/IPRATROP 3MG/0.5MG NEB 3 ML VIAL NEB STA (02:07)
[2024-07-04] MEDS: dexAMETHasone**PF** 10 MG/ML VIAL IV ONE (02:08)
[2024-07-04 02:10] LABS: Bacteria Urine None Seen (None Seen)
[2024-07-04 02:11] LABS: Epithelial Cell Urine 0-2 /hpf (0-2); Mucus Urine Present (None Prsent)
[2024-07-04] MEDS: MAGNESIUM SULFATE / D5W 1 GM/100 ML BAG IV SCH (02:11)
--- NOTE | 2024-07-04 03:06 | History & Physical Report ---
Date of Service July 04, 2024 Assessment & Plan (1) Aspiration pneumonia due to food (regurgitated): (2) BPH (benign prostatic hyperplasia): (3) Emphysema lung: (4) Diabetes mellitus: (5) Esophagitis: (6) Hypomagnesemia: (7) Hypokalemia: (8) Constipation: (9) Lethargy: Plan Aspiration pneumonia bilaterally/COPD/pulmonary nodules- Secondary to regurgitation of food, likely due to severe esophagitis and aggravated by constipation Continue Unasyn 3 g IV every 6 hours begun in the ED DuoNebs every 2 hours as needed Acetaminophen 1 g IV every 8 hours as needed Would not give any additional dexamethasone for aspiration Will need repeat CT for surveillance of pulmonary nodules scheduled as an outpatient Consult speech therapy GERD/severe esophagitis/constipation- Has been on pantoprazole 40 mg p.o. twice daily, famotidine 40 mg p.o. twice daily and sucralfate 1 g p.o. 4 times daily NPO Pantoprazole 40 mg IV twice daily Will consult gastroenterology, as at his age, there may be an underlying esophageal cancer Dulcolax suppository daily as needed Rehydrate with IV fluids as noted below Hypertension- Hold atenolol due to relatively low blood pressure Electrolyte disturbances/hypomagnesemia/hypokalemia- Magnesium 1.5, to receive 2 g mag sulfate IV Potassium 3.2, to receive IV fluids NSS + KCl 20 mEq at 80 mL/h x 1 L Recheck laboratories in the a.m. BPH with LUTS- Hold doxazosin while n.p.o. History of Present Illness Chief Complaint: The patient is brought to the emergency department from [facility], due to concerns regarding several days of abdominal pain with constipation, with plans to have an enema there today, but the patient developed a cough with chest congestion and sputum production later on in the day today. Primary Care Provider: Adarsh Ricketts The patient is a 78-year-old male with past medical history including BPH with LUTS, urinary incontinence, COPD, diabetes mellitus, esophagitis, and sepsis due to urinary tract infection. Patient was recently admitted to [facility] from 06/24-06/26/2024 for sepsis due to UTI caused by Proteus mirabilis. After discharge, and return to [facility], he has developed progressive constipation, which led to abdominal pain, and likely secondary aspiration pneumonia to bilateral lungs. While in the ED, patient did have a bowel movement, and he was given Unasyn IV, dexamethasone IV, DuoNeb, Zofran, famotidine and normal saline 500 mL bolus. He was then referred for evaluation for admission Allergies Allergy/AdvReac Type Severity Reaction Status Date / Time No Known Allergies Allergy Verified 06/25/24 10:55 Home Medications Medication Instructions Recorded Confirmed Type atenolol 100 mg tablet 50 mg PO BID 06/22/24 07/04/24 History atorvastatin 10 mg tablet 10 mg PO DAILY 06/22/24 07/04/24 History doxazosin 4 mg tablet 4 mg PO HS 06/22/24 07/04/24 History famotidine 40 mg tablet 40 mg PO BID 30 days #60 tabs 06/26/24 07/04/24 Rx pantoprazole 40 mg tablet,delayed 40 mg PO BID 30 days #60 tabs 06/26/24 07/04/24 Rx release sucralfate 100 mg/mL oral 1 g (10 mL) PO QID 30 days #1,200 06/26/24 07/04/24 Rx suspension mL Past Med/Surg History Problem List (Updated 07/04/24 @ 03:14 by Cory Jacobson MD) Lethargy Constipation Hypokalemia Hypomagnesemia Aspiration pneumonia due to food (regurgitated) BPH (benign prostatic hyperplasia) Urinary incontinence Emphysema lung Abdominal pain (Acute) Diabetes mellitus Chest pain (Acute) Esophagitis (Acute) Urinary tract infection (Acute) Sepsis (Acute) Social History Smoking Status: Former smoker Tobacco Type: Cigarettes Cigarettes Per Day: 1/2 pack; Hx Alcohol Use: No Hx Substance Use: No Preferred Language: Urdu Communication Ability: Impaired Supervisor Slashing Department Required: No Beliefs That Will Affect Care: None Current Living Situation: Spouse Current Living Situation Comment: home with Feels Safe at Home: Yes Assistive Devices: Walker Review of Systems Review of Systems: Patient is somewhat lethargic, and not able to contribute significantly to HPI or review of systems Physical Exam Physical Exam: The patient is awake, lethargic, normocephalic and atraumatic, lying in bed and in no acute distress. HEENT--PERRL, EOMI, mucous membranes and oropharynx dry. Neck--supple. No JVD. No bruits. Thyroid normal, trachea midline, no adenopathy. Heart--normal S1 and S2. No murmurs, rubs or gallops. Lungs-- coarse breath sounds bilaterally, no respiratory distress, no accessory muscle use. Abdomen--normal bowel sounds and soft. Nontender. Nondistended Extremities-no edema Dermatologic-skin is mildly dry Neurologic--cranial nerves II through XII grossly intact. Rheumatologic--normal range of motion. Psychiatric--flat affect Results & Data Results & Data Vital Signs (Past 12 Hours) Vital Signs Temp Pulse Pulse Resp BP BP Pulse Ox 07/04/24 01:25 107 H 26 H 103/75 95 07/03/24 23:59 115 H 24 110/75 95 07/03/24 23:58 115 H 20 94 07/03/24 23:49 37.1 C 114 H 20 127/86 94 07/03/24 23:49 118 H O2 Del Method 07/04/24 01:25 Room Air 07/03/24 23:59 Room Air 07/03/24 23:58 Room Air 07/03/24 23:49 Room Air 07/03/24 23:49 Laboratory Results Laboratory Results WBC 14.54 K/ul (4.8-10.8) H 07/03/24 23:50 RBC 3.96 M/uL (4.70-6.10) L 07/03/24 23:50 Hgb 12.4 g/dl (14.0-18.0) L 07/03/24 23:50 Hct 38.5 % (42.0-52.0) L 07/03/24 23:50 MCV 97.2 fL (80.0-100.0) 07/03/24 23:50 MCH 31.3 pg (25.0-34.0) 07/03/24 23:50 MCHC 32.2 g/dL (32.0-36.0) 07/03/24 23:50 RDW Std Deviation 51.8 fL (36.4-46.3) H 07/03/24 23:50 RDW Coeff of Madonna 14.4 % (11.5-14.5) 07/03/24 23:50 Plt Count 197 K/uL (130-400) 07/03/24 23:50 MPV 10.0 fL (9.4-12.4) 07/03/24 23:50 Immature Gran % (Auto) 0.3 % 07/03/24 23:50 Neut % (Auto) 83.0 % 07/03/24 23:50 Lymph % (Auto) 10.9 % 07/03/24 23:50 [place] % (Auto) 5.3 % 07/03/24 23:50 Eos % (Auto) 0.3 % 07/03/24 23:50 Baso % (Auto) 0.2 % 07/03/24 23:50 Neut # (Auto) 12.07 K/uL (1.40-6.50) H 07/03/24 23:50 Lymph # (Auto) 1.59 K/uL (1.20-3.40) 07/03/24 23:50 [place] # (Auto) 0.77 K/uL (0.11-0.59) H 07/03/24 23:50 Eos # (Auto) 0.04 K/uL (0.00-0.50) 07/03/24 23:50 Baso # (Auto) 0.03 K/uL (0.00-0.20) 07/03/24 23:50 Immature Gran # (Auto) 0.04 K/uL (0.01-0.20) 07/03/24 23:50 PT 11.5 Seconds (9.0-12.0) 07/03/24 23:50 INR 1.1 (0.9-1.1) 07/03/24 23:50 Sodium 140 mmol/L (136-145) 07/03/24 23:50 Potassium 3.2 mmol/L (3.5-5.1) L 07/03/24 23:50 Chloride 109 mmol/L (98-107) H 07/03/24 23:50 Carbon Dioxide 26 mmol/L (21-32) 07/03/24 23:50 Anion Gap 5 (3-11) 07/03/24 23:50 BUN 11 mg/dl (6-23) 07/03/24 23:50 Creatinine 0.94 mg/dl (0.6-1.4) 07/03/24 23:50 Est Cr Clr Drug Dosing 63.9 ml/min 07/03/24 23:50 eGFR 83.49 07/03/24 23:50 BUN/Creatinine Ratio 11.7 (10-20) 07/03/24 23:50 Glucose 112 mg/dl (70-99(Fasting)) H 07/03/24 23:50 Calcium 7.4 mg/dl (8.6-10.3) L 07/03/24 23:50 Magnesium 1.5 mg/dl (1.7-2.4) L 07/03/24 23:50 Total Bilirubin 0.5 mg/dl (0.2-1.0) 07/03/24 23:50 Direct Bilirubin 0.1 mg/dl (0-0.2) 07/03/24 23:50 AST 13 U/L (13-39) 07/03/24 23:50 ALT 6 U/L (7-52) L 07/03/24 23:50 Alkaline Phosphatase 60 U/L (34-104) 07/03/24 23:50 Troponin I High Sens 5.3 pg/ml (0-20) 07/03/24 23:50 Total Protein 5.5 gm/dl (6.0-8.3) L 07/03/24 23:50 Albumin 2.6 gm/dl (3.4-5.0) L 07/03/24 23:50 Globulin 2.9 gm/dl (2.5-4.0) 07/03/24 23:50 Albumin/Globulin Ratio 0.9 (0.9-2) 07/03/24 23:50 Lipase 29 U/L (11-82) 07/03/24 23:50 Procalcitonin 0.07 ng/ml (0-0.5) 07/03/24 23:50 Urine Color Yellow 07/04/24 01:23 Urine Appearance Clear (Clear) 07/04/24 01:23 Urine pH 6.5 (4.5-7.5) 07/04/24 01:23 Ur Specific [place] 1.024 (1.000-1.030) 07/04/24 01:23 Urine Protein 1+ (Negative) H 07/04/24 01:23 Urine Glucose (UA) Negative (Negative) 07/04/24 01:23 Urine Ketones Trace (Negative) H 07/04/24 01:23 Urine Blood Negative (Negative) 07/04/24 01:23 Urine Nitrite Negative (Negative) 07/04/24 01:23 Urine Bilirubin Negative (Negative) 07/04/24 01:23 Urine Urobilinogen Negative (Negative) 07/04/24 01:23 Ur Leukocyte Esterase Trace (Negative) H 07/04/24 01:23 Urine RBC 3-5 /hpf (0-2) H 07/04/24 01:23 Urine WBC 11-20 /hpf (0-5) H 07/04/24 01:23 Ur Epithelial Cells 0-2 /hpf (0-2) 07/04/24 01:23 Urine Bacteria None Seen (None Seen) 07/04/24 01:23 Urine Mucus Present (None Prsent) A 07/04/24 01:23 Adenovirus (PCR) Not Detected (NotDetected) 07/03/24 23:50 B. pertussis DNA (PCR) Not Detected (NotDetected) 07/03/24 23:50 B.parapertussis DNA PCR Not Detected (NotDetected) 07/03/24 23:50 C. pneumoniae DNA (PCR) Not Detected (NotDetected) 07/03/24 23:50 Coronavirus OC43 (PCR) Not Detected (NotDetected) 07/03/24 23:50 Coronavirus HKU1 (PCR) Not Detected (NotDetected) 07/03/24 23:50 Coronavirus 229E (PCR) Not Detected (NotDetected) 07/03/24 23:50 SARS-CoV-2 (PCR) Not Detected (NotDetected) 07/03/24 23:50 Coronavirus NL63 (PCR) Not Detected (NotDetected) 07/03/24 23:50 Human Metapneumovir PCR Not Detected (NotDetected) 07/03/24 23:50 Influenza Type A (PCR) Not Detected (NotDetected) 07/03/24 23:50 Influenza Type B (PCR) Not Detected (NotDetected) 07/03/24 23:50 M. pneumoniae (PCR) Not Detected (NotDetected) 07/03/24 23:50 Parainfluenza 1 (PCR) Not Detected (NotDetected) 07/03/24 23:50 Parainfluenza 2 (PCR) Not Detected (NotDetected) 07/03/24 23:50 Parainfluenza 3 (PCR) Not Detected (NotDetected) 07/03/24 23:50 Parainfluenza 4 (PCR) Not Detected (NotDetected) 07/03/24 23:50 RSV (PCR) Not Detected (NotDetected) 07/03/24 23:50 Entero/Rhino (PCR) Not Detected (NotDetected) 07/03/24 23:50 Impressions Abdomen/Pelvis CT 07/04/24 00:22 Exam(s): CT ABDOMEN + PELVIS With Contrast IV Amt: 117 cc opti 320 EXAM: CT Abdomen and Pelvis With Intravenous Contrast CLINICAL HISTORY: Reason for exam: abd pain, n/v. TECHNIQUE: Axial computed tomography images of the abdomen and pelvis with intravenous contrast. CTDI is 35.92 mGy and DLP is 2481.52 mGy-cm. Automated exposure control was utilized for the study. A dose lowering technique was utilized adhering to the principles of ALARA. CONTRAST: Patient received 117 cc opti 320 of IV contrast COMPARISON: 06/22/24 FINDINGS: Lung bases: Reported separately. ABDOMEN: Liver: Unremarkable. No mass. Gallbladder and bile ducts: Unremarkable. No calcified stones. No ductal dilation. Pancreas: Unremarkable. No mass. No ductal dilation. Spleen: Unremarkable. No splenomegaly. Adrenals: Unremarkable. No mass. Kidneys and ureters: Symmetric renal enhancement. No hydronephrosis. Stable simple right kidney upper pole cyst; no follow-up indicated. Subcentimeter cortical hypodensity left kidney, too small to characterize. Stomach and bowel: No bowel obstruction. Sigmoid diverticulosis. No evidence of acute diverticulitis. PELVIS: Appendix: Normal appendix. Bladder: Bladder wall thickening, perhaps somewhat decreased from prior. Reproductive: Unremarkable as visualized. ABDOMEN and PELVIS: Intraperitoneal space: Unremarkable. No free fluid or free air. Bones/joints: Prior ORIF right femur. No acute fracture or dislocation. Soft tissues: Unremarkable. Vasculature: Atherosclerosis without aortic aneurysm. 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 Lymph nodes: Unremarkable. No enlarged lymph nodes. IMPRESSION: Bladder wall thickening, perhaps somewhat decreased from prior. Cystitis not excluded. Diverticulosis without diverticulitis. 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 Electronically signed by: Ela Carter M.D. 07/04/24 02:02 AM Chest CTA 07/04/24 00:22 Exam(s): CTA CHEST IV Amt: 117 cc opti 320 EXAM: CT Angiography Chest With Intravenous Contrast CLINICAL HISTORY: Reason for exam: sob, tachycardia, vomting, r/o PE. TECHNIQUE: Axial computed tomographic angiography images of the chest with intravenous contrast. CTDI is 35.92 mGy and DLP is 2481.52 mGy-cm. Automated exposure control was utilized for the study. A dose lowering technique was utilized adhering to the principles of ALARA. MIP reconstructed images were created and reviewed. COMPARISON: 06/22/24 FINDINGS: Pulmonary arteries: Adequate pulmonary artery opacification. No evidence of pulmonary embolism. Aorta: Atherosclerosis of the aorta without aneurysm or dissection. Lungs: Paraseptal and centrilobular emphysema. No consolidation or mass. Multiple pulmonary micronodules, largest measuring 7 mm in the right upper lobe (series 5, image 90). There are a few ground-glass nodules in the bilateral lung galarza (e.g. right lower lobe series 5, image 70; left lower lobe series 5, image 41) which are new from 06/22/24 and therefore inflammatory. Pleural space: Unremarkable. No significant effusion. No pneumothorax. Heart: Coronary artery atherosclerosis. No cardiomegaly or pericardial effusion. Mediastinum: Retained debris in the esophagus which may be due to reflux. Circumferential wall thickening in the mid and distal esophagus suggesting esophagitis. Bones/joints: No acute fracture. No dislocation. Soft tissues: Unremarkable. Lymph nodes: Unremarkable. No enlarged lymph nodes. IMPRESSION: 1. No evidence of pulmonary embolism. 2. Retained debris in the esophagus which may be due to reflux. Circumferential wall thickening in the mid and distal esophagus suggesting esophagitis. 3. There are a few ground-glass nodules in the bilateral lung galarza (e. g. right lower lobe series 5, image 70; left lower lobe series 5, image 41) which are new from 06/22/24 and therefore inflammatory. These may be secondary to microaspiration. 4. Multiple solid pulmonary micronodules, largest measuring 7 mm in the right upper lobe (series 5, image 90). Fleischner Society Guidelines (MacMahon, et al. Radiology 2017; 284(1):228-43) suggest the following. For low-risk patients recommend follow-up chest CT at 3-6 months. If unchanged consider an additional follow-up CT at 18-24 months. For high- risk patients initial follow-up chest CT at 3-6 months and if unchanged, 18-24 months. Electronically signed by: Ela Carter M.D. 07/04/24 01:[address] 07/04/24 00:22 Exam(s): CT HEAD Without Contrast EXAM: CT Head Without Intravenous Contrast CLINICAL HISTORY: Reason for exam: confusion. TECHNIQUE: Axial computed tomography images of the head/brain without intravenous contrast. CTDI is 35.92 mGy and DLP is 2481.52 mGy-cm. Automated exposure control was utilized for the study. A dose lowering technique was utilized adhering to the principles of ALARA. COMPARISON: 06/22/24 FINDINGS: Brain: Generalized parenchymal volume loss. Periventricular and deep cerebral white matter hypoattenuation suggesting chronic small vessel ischemic change. Byrd-white matter differentiation maintained. No hemorrhage, mass effect, parenchymal edema, or midline shift. Ventricles: Unremarkable. No hydrocephalus. Bones/joints: Unremarkable. No acute fracture. Soft tissues: Mild right parietal scalp swelling, similar to prior. Vasculature: Intracranial atherosclerosis. Sinuses: Unremarkable as visualized. Mastoid air cells: Unremarkable as visualized. No mastoid effusion. Orbits: Lens replacements. IMPRESSION: No acute intracranial process. Electronically signed by: Ela Carter M.D. 07/04/24 01:57 AM Code Status & VTE Plan Code Status Full code VTE Prophylaxis Plan VTE Prophylaxis will be ordered: Yes PG Care Time/CCT Total # of Minutes Spent Total Time Spent with Patient: Total time spent is greater than 50% in coordination of care (as documented) at patient's floor/unit and/or counseling patient: Coding Level of Care Code 40214 INT INP/OBS CARE 3/75MIN Diagnoses Aspiration pneumonia due to food (regurgitated) J69.0 BPH (benign prostatic hyperplasia) N40.0 Emphysema lung J43.9 Diabetes mellitus E11.9 Esophagitis K20.90 Hypomagnesemia E83.42 Hypokalemia E87.6 Constipation K59.00 Lethargy R53.83
[2024-07-04] MEDS: AMPICILLIN/SULBACTAM SOD 3,000 MG/100 ML BAG IV STA (03:30)
[2024-07-04] MEDS ORDERED: bisacodyL 10 MG SUPP PR PRN (04:48)
[2024-07-04] MEDS ORDERED: ALBUT/IPRATROP 3MG/0.5MG NEB 3 ML VIAL NEB PRN (04:48)
[2024-07-04] MEDS: NSS + 20MEQ KCL 20 MEQ/1,000 ML BAG IV SCH (04:50)
--- NOTE | 2024-07-04 07:36 | Electrocardiogram Report ---
Test Reason : Blood Pressure : */* mmHG Vent. Rate : 117 BPM Atrial Rate : 117 BPM P-R Int : 158 ms QRS Dur : 82 ms QT Int : 312 ms P-R-T Axes : 63 -45 63 degrees QTcB Int : 435 ms Sinus tachycardia Left anterior fascicular block Abnormal ECG When compared with ECG of 22-Jun-2024 09:05, Vent. rate has increased by 43 bpm Left anterior fascicular block is now Present ST no longer elevated in Inferior leads Non-specific change in ST segment in Lateral leads Confirmed by Ankur Vora ([id number]) on 07/04/2024 7:36:18 AM Referred By: Sandee Ca Confirmed By: Ankur Vora
--- NOTE | 2024-07-04 08:02 | XRay Report ---
SINGLE VIEW CHEST CLINICAL HISTORY: Generalized abdominal pain. FINDINGS: An AP, portable, upright chest radiograph is correlated with chest CT dated 06/22/2024. The cardiomediastinal silhouette is top normal for projection noting atherosclerotic calcification of th e thoracic aorta. Emphysema and chronic interstitial thickening is similar to previous. There is mild patchy airspace consolidation in the right upper lung. No large pleural effusion or pneumothorax is seen. Foci of parenchymal scarring are seen throughout both lungs. The skeletal structures are osteop enic. The bony thorax is grossly intact. IMPRESSION: 1. Emphysema. 2. Mild patchy airspace consolidation is seen in the right upper lung. Correlate clinically for evide nce of a mild infectious/inflammatory pneumonitis. Radiographic follow-up to resolution is recommende d. ACT 112: Negative or not required by law. Electronically signed by: Isac Winston M.D. 07/04/2024 8:01 AM
[2024-07-04] MEDS: AMPICILLIN/SULBACTAM SOD 3,000 MG/100 ML BAG IV SCH (08:57)
[2024-07-04] MEDS: PANTOprazole 40 MG/10 ML SYR IV SCH (08:57)
[2024-07-04 09:08] LABS: BUN Creatinine Ratio 9.4 (10-20); Calcium 8.3 mg/dl (8.6-10.3); Magnesium 2.2 mg/dl (1.7-2.4); Potassium 3.6 mmol/L (3.5-5.1)
[2024-07-04] MEDS: MINERAL OIL ENEMA 133 ML BTL PR ONE (09:24)
--- NOTE | 2024-07-04 11:01 | Gastrointestinal Consultation ---
Date of Consultation July 04, 2024 Assessment & Plan (1) Esophagitis: Plan Grade D reflux esophagitis. Possible aspiration. Awaiting speech pathology evaluation. Continue pantoprazole 40 mg twice a day IV. Switch to p.o. 40 mg twice a day when oral intake restarted. No need to repeat upper endoscopy at present. History of Present Illness Reason for Consultation: Esophagitis. Possible aspiration. Attending Physician: Ronald Gallagher MD History of Present Illness The patient is confused and he is unable to provide history. The patient is brought to the emergency department from [facility], because of abdominal pain and constipation. On the day of admission he developed productive cough with chest cold ingestion. Suspected aspiration. The patient was previously admitted on 06/22/2024 due to vomiting and sepsis due to urinary tract infection caused by Proteus mirabilis. Upper endoscopy on 06/25/2024 showed diffuse ulcerative grade D esophagitis. Esophageal biopsies showed fibropurulent material. The patient does have history of gastroesophageal reflux, started on pantoprazole 40 mg twice a day. Currently denies chest pain, heartburn, regurgitation however he is unable to provide good history. He is kept n.p.o. with speech therapy consultation scheduled. CT of the chest showed retained debris in the esophagus which may be due to reflux and circumferential wall thickening in the mid and distal esophagus suggesting esophagitis. There was also concern for aspiration. The patient has multiple medical issues that include BPH with LUTS, urinary incontinence, COPD, diabetes mellitus, esophagitis, and sepsis due to urinary tract infection. Allergies Allergy/AdvReac Type Severity Reaction Status Date / Time No Known Allergies Allergy Verified 06/25/24 10:55 Home Medications Medication Instructions Recorded Confirmed Type atenolol 100 mg tablet 50 mg PO BID 06/22/24 07/04/24 History atorvastatin 10 mg tablet 10 mg PO DAILY 06/22/24 07/04/24 History doxazosin 4 mg tablet 4 mg PO HS 06/22/24 07/04/24 History famotidine 40 mg tablet 40 mg PO BID 30 days #60 tabs 06/26/24 07/04/24 Rx pantoprazole 40 mg tablet,delayed 40 mg PO BID 30 days #60 tabs 06/26/24 07/04/24 Rx release sucralfate 100 mg/mL oral 1 g (10 mL) PO QID 30 days #1,200 06/26/24 07/04/24 Rx suspension mL Patient History Social History Smoking Status: Former smoker Tobacco Type: Cigarettes Cigarettes Per Day: 1/2 pack per day; Hx Alcohol Use: No Hx Substance Use: No Preferred Language: Turkish Communication Ability: Effective Sash Repairer Required: No Beliefs That Will Affect Care: None marital status: Current Living Situation: [facility] Feels Safe at Home: Yes Assistive Devices: Slide Board Review of Systems Review of Systems: Unobtainable due to reduced consciousness Physical Exam Physical Exam: Constitutional: Appears chronically ill, vitals as above Respiratory: normal respiratory effort, lungs clear to auscultation Cardiovascular: RRR, no murmur, no edema Gastrointestinal (Abdomen): normal bowel sounds, soft, nontender, no hepatosplenomegaly. Neurological: Follows commands, unable to answer questions, moves all extremities. Results & Data Vital Signs (Past 12 Hours) Vital Signs Temp Pulse Pulse Resp BP BP Pulse Ox 07/04/24 09:50 85 07/04/24 08:03 36.2 C L 77 20 120/76 97 07/04/24 05:04 07/04/24 05:04 36.7 C 88 16 120/76 95 07/04/24 04:40 89 07/04/24 04:14 91 H 20 102/58 L 94 07/04/24 03:09 107 H 24 118/70 95 07/04/24 01:25 107 H 26 H 103/75 95 07/03/24 23:59 115 H 24 110/75 95 07/03/24 23:58 115 H 20 94 07/03/24 23:49 37.1 C 114 H 20 127/86 94 07/03/24 23:49 118 H O2 Del Method 07/04/24 09:50 07/04/24 08:03 Room Air 07/04/24 05:04 Room Air 07/04/24 05:04 Room Air 07/04/24 04:40 07/04/24 04:14 Room Air 07/04/24 03:09 Room Air 07/04/24 01:25 Room Air 07/03/24 23:59 Room Air 07/03/24 23:58 Room Air 07/03/24 23:49 Room Air 07/03/24 23:49 Laboratory Results Reviewed PG Care Time/CCT Total # of Minutes Spent Total Time Spent with Patient: Total time spent is greater than 50% in coordination of care (as documented) at patient's floor/unit and/or counseling patient: Coding Level of Care Code 83591 IN/OBS CONSULT LVL 3,45M Diagnoses Esophagitis K20.90
[2024-07-04] MEDS: ONDANSETRON INJ 2 MG/ML 2 ML VIAL IV PRN (11:55)
--- NOTE | 2024-07-04 13:24 | Hospitalist Progress Note ---
Date of Service July 04, 2024 Assessment & Plan (1) Aspiration pneumonia due to food (regurgitated): Plan: Patient with abdominal pain & constipation at time of ER presentation last pm. Was recently hospitalized here from 06/22 to 06/26 for sepsis 2nd UTI as well as esophagitis/gastritis/duodenal ulcer as seen on EGD 06/25/24. Was d/c back to [facility] with pepcid BID, protonix BID, and carafate QID. CT chest with multiple nodules b/l as well as debris in his esophagus. He was apparently coughing and having congestion back at [facility]. Placed on Unasyn IV to cover for possible aspiration pneumonia. Cont for now. Respiratory BioFire was negative. MRSA swab negative. Stable in room air. (2) Esophagitis: Plan: Severe on recent EGD - 06/25/24. biopsies negative for cancer; negative for avinash. Was taking PPI, pepcid, and carafate at [facility]. Cont all 3. Appreciate Gi consult. no immediate plans for repeat EGD. Allow clears and if he does not tolerate simply make him NPO. (3) Constipation: Plan: CT a/p with severe constipation (my reading). By report did have a BM in the ER last pm. Given the CT findings gave enema this am without any stool. Will try a dulcolax suppos later today. Can't exclude constipation contributing to vomiting but doubtful as he has no gaseous distension, etc. (4) Gastritis: Plan: As seen on EGD 06/25 Cont PPI, H2 jj, Carafate Recent biopsies negative for H pylori (5) Duodenal ulcer: Plan: Cont PPI, etc (6) BPH (benign prostatic hyperplasia): Plan: Typically on alpha jj at [facility] This is on hold for now (7) Emphysema lung: Plan: Stable lung exam Stable O2 sats in room air No wheezing Treating for aspiration pneumonia (see #1) (8) Diabetes mellitus: Plan: history of hemoglobin a1c 5.4% during recent admission he is NOT on meds for such back at [facility] (9) Hypomagnesemia: Plan: level was 1.5 last pm s/p correction now normal (10) Hypokalemia: Plan: K 3.2 admission s/p replacement - now normal today (11) Lethargy: Plan: patient with confusion, lethargy metabolic encephalopathy 2nd to #1?? (12) Essential hypertension: Plan: atenolol and alpha jj both on hold due to low or low-normal BPs follow Plan will update family when able will need Pt/Ot evals Admission and Anticipated Discharge Date Admission Date: July 04, 2024 Subjective patient sleepy during the visit did wake up and kept his eyes open for a bit but did not offer much in the way of conversation or questions I told him we were gonna try to help him feel better and he said "I hope so" by report he had a BM yesterday in the ER no BM since had enema this am but did not have any stool with such speech therapy did bedside swallow was doing ok with the swallow eval and then was offered applesauce immediately after eating the applesauce he grabbed his mid-chest region he then proceeded to vomit after this tele overnight wnl Physical Exam Physical Exam: gen - looks ill, confused, said very little, just staring at the wall mouth - MM slightly dry neck - no JVD heart - RRR, s1 s2, no murmur lungs - modestly course BS b/l, no obvious rales or wheeze, no increased work of breathing abd - soft NT ND BS+; no peritoneal signs ext - no edema, pulses 2+ b/l psych - oriented to person only Results & Data Results & Data Vital Signs (Past 12 Hours) Vital Signs Temp Pulse Pulse Resp BP BP Pulse Ox 07/04/24 12:34 36.4 C L 76 20 117/73 97 07/04/24 09:50 85 07/04/24 08:03 36.2 C L 77 20 120/76 97 07/04/24 05:04 07/04/24 05:04 36.7 C 88 16 120/76 95 07/04/24 04:40 89 07/04/24 04:14 91 H 20 102/58 L 94 07/04/24 03:09 107 H 24 118/70 95 07/04/24 01:25 107 H 26 H 103/75 95 O2 Del Method 07/04/24 12:34 Room Air 07/04/24 09:50 07/04/24 08:03 Room Air 07/04/24 05:04 Room Air 07/04/24 05:04 Room Air 07/04/24 04:40 07/04/24 04:14 Room Air 07/04/24 03:09 Room Air 07/04/24 01:25 Room Air Laboratory Results Laboratory Results - last 24 hr 07/03/24 07/04/24 07/04/24 23:50 01:23 06:35 WBC 14.54 H RBC 3.96 L Hgb 12.4 L Hct 38.5 L MCV 97.2 MCH 31.3 MCHC 32.2 RDW Std Deviation 51.8 H RDW Coeff of Madonna 14.4 Plt Count 197 MPV 10.0 Immature Gran % (Auto) 0.3 Neut % (Auto) 83.0 Lymph % (Auto) 10.9 [place] % (Auto) 5.3 Eos % (Auto) 0.3 Baso % (Auto) 0.2 Neut # (Auto) 12.07 H Lymph # (Auto) 1.59 [place] # (Auto) 0.77 H Eos # (Auto) 0.04 Baso # (Auto) 0.03 Immature Gran # (Auto) 0.04 PT 11.5 INR 1.1 Sodium 140 Potassium 3.2 L Chloride 109 H Carbon Dioxide 26 Anion Gap 5 BUN 11 Creatinine 0.94 Est Cr Clr Drug Dosing 63.9 eGFR 83.49 BUN/Creatinine Ratio 11.7 Glucose 112 H POC Glucose 157 H Calcium 7.4 L Magnesium 1.5 L Total Bilirubin 0.5 Direct Bilirubin 0.1 AST 13 ALT 6 L Alkaline Phosphatase 60 Troponin I High Sens 5.3 Total Protein 5.5 L Albumin 2.6 L Globulin 2.9 Albumin/Globulin Ratio 0.9 Lipase 29 Procalcitonin 0.07 Urine Color Yellow Urine Appearance Clear Urine pH 6.5 Ur Specific [place] 1.024 Urine Protein 1+ H Urine Glucose (UA) Negative Urine Ketones Trace H Urine Blood Negative Urine Nitrite Negative Urine Bilirubin Negative Urine Urobilinogen Negative Ur Leukocyte Esterase Trace H Urine RBC 3-5 H Urine WBC 11-20 H Ur Epithelial Cells 0-2 Urine Bacteria None Seen Urine Mucus Present A Nasal Screen MRSA (PCR) Adenovirus (PCR) Not Detected B. pertussis DNA (PCR) Not Detected B.parapertussis DNA PCR Not Detected C. pneumoniae DNA (PCR) Not Detected Coronavirus OC43 (PCR) Not Detected Coronavirus HKU1 (PCR) Not Detected Coronavirus 229E (PCR) Not Detected SARS-CoV-2 (PCR) Not Detected Coronavirus NL63 (PCR) Not Detected Human Metapneumovir PCR Not Detected Influenza Type A (PCR) Not Detected Influenza Type B (PCR) Not Detected M. pneumoniae (PCR) Not Detected Parainfluenza 1 (PCR) Not Detected Parainfluenza 2 (PCR) Not Detected Parainfluenza 3 (PCR) Not Detected Parainfluenza 4 (PCR) Not Detected RSV (PCR) Not Detected Entero/Rhino (PCR) Not Detected 07/04/24 07/04/24 08:23 Unknown WBC RBC Hgb Hct MCV MCH MCHC RDW Std Deviation RDW Coeff of Madonna Plt Count MPV Immature Gran % (Auto) Neut % (Auto) Lymph % (Auto) [place] % (Auto) Eos % (Auto) Baso % (Auto) Neut # (Auto) Lymph # (Auto) [place] # (Auto) Eos # (Auto) Baso # (Auto) Immature Gran # (Auto) PT INR Sodium 140 Potassium 3.6 Chloride 104 Carbon Dioxide 32 Anion Gap 4 BUN 11 Creatinine 1.17 Est Cr Clr Drug Dosing 50.0 eGFR 64.21 BUN/Creatinine Ratio 9.4 L Glucose 174 H POC Glucose Calcium 8.3 L Magnesium 2.2 Total Bilirubin Direct Bilirubin AST ALT Alkaline Phosphatase Troponin I High Sens Total Protein Albumin Globulin Albumin/Globulin Ratio Lipase Procalcitonin Urine Color Urine Appearance Urine pH Ur Specific [place] Urine Protein Urine Glucose (UA) Urine Ketones Urine Blood Urine Nitrite Urine Bilirubin Urine Urobilinogen Ur Leukocyte Esterase Urine RBC Urine WBC Ur Epithelial Cells Urine Bacteria Urine Mucus Nasal Screen MRSA (PCR) Negative Adenovirus (PCR) B. pertussis DNA (PCR) B.parapertussis DNA PCR C. pneumoniae DNA (PCR) Coronavirus OC43 (PCR) Coronavirus HKU1 (PCR) Coronavirus 229E (PCR) SARS-CoV-2 (PCR) Coronavirus NL63 (PCR) Human Metapneumovir PCR Influenza Type A (PCR) Influenza Type B (PCR) M. pneumoniae (PCR) Parainfluenza 1 (PCR) Parainfluenza 2 (PCR) Parainfluenza 3 (PCR) Parainfluenza 4 (PCR) RSV (PCR) Entero/Rhino (PCR) Chest X-Ray 07/03/24 23:51 SINGLE VIEW CHEST CLINICAL HISTORY: Generalized abdominal pain. FINDINGS: An AP, portable, upright chest radiograph is correlated with chest CT dated 06/22/2024. The cardiomediastinal silhouette is top normal for projection noting atherosclerotic calcification of the thoracic aorta. Emphysema and chronic interstitial thickening is similar to previous. There is mild patchy airspace consolidation in the right upper lung. No large pleural effusion or pneumothorax is seen. Foci of parenchymal scarring are seen throughout both lungs. The skeletal structures are osteopenic. The bony thorax is grossly intact. IMPRESSION: 1. Emphysema. 2. Mild patchy airspace consolidation is seen in the right upper lung. Correlate clinically for evidence of a mild infectious/inflammatory pneumonitis. Radio graphic follow-up to resolution is recommended. ACT 112: Negative or not required by law. Electronically signed by: Isac Winston M.D. 07/04/2024 8:01 AM Abdomen/Pelvis CT 07/04/24 00:22 Exam(s): CT ABDOMEN + PELVIS With Contrast IV Amt: 117 cc opti 320 EXAM: CT Abdomen and Pelvis With Intravenous Contrast CLINICAL HISTORY: Reason for exam: abd pain, n/v. TECHNIQUE: Axial computed tomography images of the abdomen and pelvis with intravenous contrast. CTDI is 35.92 mGy and DLP is 2481.52 mGy-cm. Automated exposure control was utilized for the study. A dose lowering technique was utilized adhering to the principles of ALARA. CONTRAST: Patient received 117 cc opti 320 of IV contrast COMPARISON: 06/22/24 FINDINGS: Lung bases: Reported separately. ABDOMEN: Liver: Unremarkable. No mass. Gallbladder and bile ducts: Unremarkable. No calcified stones. No ductal dilation. Pancreas: Unremarkable. No mass. No ductal dilation. Spleen: Unremarkable. No splenomegaly. Adrenals: Unremarkable. No mass. Kidneys and ureters: Symmetric renal enhancement. No hydronephrosis. Stable simple right kidney upper pole cyst; no follow-up indicated. Subcentimeter cortical hypodensity left kidney, too small to characterize. Stomach and bowel: No bowel obstruction. Sigmoid diverticulosis. No evidence of acute diverticulitis. PELVIS: Appendix: Normal appendix. Bladder: Bladder wall thickening, perhaps somewhat decreased from prior. Reproductive: Unremarkable as visualized. ABDOMEN and PELVIS: Intraperitoneal space: Unremarkable. No free fluid or free air. Bones/joints: Prior ORIF right femur. No acute fracture or dislocation. Soft tissues: Unremarkable. Vasculature: Atherosclerosis without aortic aneurysm. 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 Lymph nodes: Unremarkable. No enlarged lymph nodes. IMPRESSION: Bladder wall thickening, perhaps somewhat decreased from prior. Cystitis not excluded. Diverticulosis without diverticulitis. 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 Electronically signed by: Ela Carter M.D. 07/04/24 02:02 AM Chest CTA 07/04/24 00:22 Exam(s): CTA CHEST IV Amt: 117 cc opti 320 EXAM: CT Angiography Chest With Intravenous Contrast CLINICAL HISTORY: Reason for exam: sob, tachycardia, vomting, r/o PE. TECHNIQUE: Axial computed tomographic angiography images of the chest with intravenous contrast. CTDI is 35.92 mGy and DLP is 2481.52 mGy-cm. Automated exposure control was utilized for the study. A dose lowering technique was utilized adhering to the principles of ALARA. MIP reconstructed images were created and reviewed. COMPARISON: 06/22/24 FINDINGS: Pulmonary arteries: Adequate pulmonary artery opacification. No evidence of pulmonary embolism. Aorta: Atherosclerosis of the aorta without aneurysm or dissection. Lungs: Paraseptal and centrilobular emphysema. No consolidation or mass. Multiple pulmonary micronodules, largest measuring 7 mm in the right upper lobe (series 5, image 90). There are a few ground-glass nodules in the bilateral lung galarza (e.g. right lower lobe series 5, image 70; left lower lobe series 5, image 41) which are new from 06/22/24 and therefore inflammatory. Pleural space: Unremarkable. No significant effusion. No pneumothorax. Heart: Coronary artery atherosclerosis. No cardiomegaly or pericardial effusion. Mediastinum: Retained debris in the esophagus which may be due to reflux. Circumferential wall thickening in the mid and distal esophagus suggesting esophagitis. Bones/joints: No acute fracture. No dislocation. Soft tissues: Unremarkable. Lymph nodes: Unremarkable. No enlarged lymph nodes. IMPRESSION: 1. No evidence of pulmonary embolism. 2. Retained debris in the esophagus which may be due to reflux. Circumferential wall thickening in the mid and distal esophagus suggesting esophagitis. 3. There are a few ground-glass nodules in the bilateral lung galarza (e. g. right lower lobe series 5, image 70; left lower lobe series 5, image 41) which are new from 06/22/24 and therefore inflammatory. These may be secondary to microaspiration. 4. Multiple solid pulmonary micronodules, largest measuring 7 mm in the right upper lobe (series 5, image 90). Fleischner Society Guidelines (MacMahon, et al. Radiology 2017; 284(1):228-43) suggest the following. For low-risk patients recommend follow-up chest CT at 3-6 months. If unchanged consider an additional follow-up CT at 18-24 months. For high- risk patients initial follow-up chest CT at 3-6 months and if unchanged, 18-24 months. Electronically signed by: Ela Carter M.D. 07/04/24 01:[address] 07/04/24 00:22 Exam(s): CT HEAD Without Contrast EXAM: CT Head Without Intravenous Contrast CLINICAL HISTORY: Reason for exam: confusion. TECHNIQUE: Axial computed tomography images of the head/brain without intravenous contrast. CTDI is 35.92 mGy and DLP is 2481.52 mGy-cm. Automated exposure control was utilized for the study. A dose lowering technique was utilized adhering to the principles of ALARA. COMPARISON: 06/22/24 FINDINGS: Brain: Generalized parenchymal volume loss. Periventricular and deep cerebral white matter hypoattenuation suggesting chronic small vessel ischemic change. Byrd-white matter differentiation maintained. No hemorrhage, mass effect, parenchymal edema, or midline shift. Ventricles: Unremarkable. No hydrocephalus. Bones/joints: Unremarkable. No acute fracture. Soft tissues: Mild right parietal scalp swelling, similar to prior. Vasculature: Intracranial atherosclerosis. Sinuses: Unremarkable as visualized. Mastoid air cells: Unremarkable as visualized. No mastoid effusion. Orbits: Lens replacements. IMPRESSION: No acute intracranial process. Electronically signed by: Ela Carter M.D. 07/04/24 01:57 AM PG Care Time/CCT Total # of Minutes Spent Total Time Spent with Patient: Total time spent is greater than 50% in coordination of care (as documented) at patient's floor/unit and/or counseling patient: Coding Level of Care Code None Diagnoses Aspiration pneumonia due to food (regurgitated) J69.0 Laterality: bilateral Lung location: lower lobe of lung Esophagitis K20.90 Constipation K59.00 Constipation type: unspecified constipation type Gastritis K29.70 Duodenal ulcer K26.9 BPH (benign prostatic hyperplasia) N40.0 Emphysema lung J43.9 Diabetes mellitus E11.9 Hypomagnesemia E83.42 Hypokalemia E87.6 Lethargy R53.83 Essential hypertension I10 (1) Aspiration pneumonia due to food (regurgitated) Laterality: bilateral Lung location: lower lobe of lung Qualified Code(s): J69.0 - Pneumonitis due to inhalation of food and vomit (3) Constipation Constipation type: unspecified constipation type Qualified Code(s): K59.00 - Constipation, unspecified
[2024-07-04] MEDS: FAMOTIDINE 20MG IV PUSH 20 MG/5 ML SYR IV SCH (13:43)
[2024-07-04] MEDS: SUCRALFATE 1 GM/10 ML UDC PO SCH (14:24)
[2024-07-04] MEDS: ONDANSETRON INJ 2 MG/ML 2 ML VIAL IV SCH (17:40)
[2024-07-04] MEDS: ACETAMINOPHEN 1000 MG/100 ML IV IV PRN (22:35)
[2024-07-05] MEDS: bisacodyL 10 MG SUPP PR STA (08:35)
[2024-07-05 11:01] LABS: Basophils # (auto) 0.02 K/uL (0.00-0.20); Basophils % (auto) 0.2 %; Hematocrit (blood only) 35.5 % (42.0-52.0); Hemoglobin 11.5 g/dl (14.0-18.0); Immature Granulocytes # (auto) 0.05 K/uL (0.01-0.20); Immature Granulocytes % (auto) 0.5 %; Lymphocytes # (auto) 1.33 K/uL (1.20-3.40); Lymphocytes % (auto) 12.5 %; Mean Corpuscular Hemoglobin 31.5 pg (25.0-34.0); Mean Corpuscular Hgb Conc 32.4 g/dL (32.0-36.0); Mean Corpuscular Volume 97.3 fL (80.0-100.0); Mean Platelet Volume 10.4 fL (9.4-12.4); Monocytes # (auto) 0.54 K/uL (0.11-0.59); Monocytes % (auto) 5.1 %; Neutrophils # (auto) 8.74 K/uL (1.40-6.50); Neutrophils % (auto) 81.7 %; Platelet Count 180 K/uL (130-400); RDW Coefficient of Variation 14.5 % (11.5-14.5); RDW Standard Deviation 51.5 fL (36.4-46.3); Red Blood Count 3.65 M/uL (4.70-6.10); White Blood Count 10.68 K/ul (4.8-10.8)
[2024-07-05] MEDS: HEPARIN SOD 5,000 UNIT/0.5 ML VIAL SQ SCH (11:01)
[2024-07-05 11:14] LABS: BUN Creatinine Ratio 10.8 (10-20); Calcium 8.1 mg/dl (8.6-10.3); Creatinine Clr Calc Pharmacy 52.7 ml/min
--- NOTE | 2024-07-05 17:30 | Hospitalist Progress Note ---
Date of Service July 05, 2024 Assessment & Plan (1) Aspiration pneumonia due to food (regurgitated): Plan: Patient with abdominal pain & constipation at time of ER presentation. Was recently hospitalized here from 06/22 to 06/26 for sepsis 2nd UTI as well as esophagitis/gastritis/duodenal ulcer as seen on EGD 06/25/24. Was d/c back to [facility] with pepcid BID, protonix BID, and carafate QID. CT chest with multiple nodules b/l as well as debris in his esophagus. He was apparently coughing and having congestion back at [facility]. Remains on Unasyn IV to cover for possible aspiration pneumonia. Day #2 of such. Cont for now. Respiratory BioFire negative. MRSA swab negative. Blood cx's negative. Remains stable in room air. (2) Esophagitis: Plan: Severe on recent EGD - 06/25/24. biopsies negative for cancer; negative for avinash. Was taking PPI, pepcid, and carafate at [facility] per the recent discharge summary --cont all three meds . Appreciate Gi consult. no immediate plans for repeat EGD. Tolerating clears; advance to full liquids and observe on this for at least 24 hours before going back to regular diet. (3) Constipation: Plan: CT a/p with severe constipation. By report did have a BM in the ER but none since. Can't exclude constipation contributing to vomiting but doubtful as he has no gaseous distension, etc. Finally had another BM this am s/p dulcolax suppos. (4) Gastritis: Plan: As seen on EGD 06/25 Cont PPI, H2 jj, Carafate Recent biopsies negative for H pylori (5) Duodenal ulcer: Plan: Cont PPI, etc (6) BPH (benign prostatic hyperplasia): Plan: Typically on alpha jj at [facility] This is on hold for now (7) Emphysema lung: Plan: Stable lung exam Stable O2 sats in room air No wheezing Treating for aspiration pneumonia (see #1) (8) Diabetes mellitus: Plan: history of hemoglobin a1c 5.4% during recent admission he is NOT on meds for such back at [facility] (9) Hypomagnesemia: Plan: level was 1.5 last pm s/p correction now normal (10) Hypokalemia: Plan: K 3.2 admission s/p replacement - now normal (11) Lethargy: Plan: patient with confusion, lethargy at presentation --> metabolic encephalopathy 2nd to #1?? IMPROVED today (12) Essential hypertension: Plan: atenolol and alpha jj both on hold due to low or low-normal BPs BPs remain stable w/o them (13) Acute metabolic encephalopathy: Plan: resolving Plan left message for pt's son yesterday evening on voicemail left another message for pt's son on his voicemail this pm PT/OT back to [facility] at d/c - [facility] level of care? Admission and Anticipated Discharge Date Admission Date: July 04, 2024 Subjective much more awake, alert today was answering questions more appropriately today despite the above he is still confused did not know the day or date still with mild discomfort in his upper abdomen but much better than previous no nausea today no vomiting had bowel movement this am tolerating liquids tele overnight - bradycardia 40s/50s at rest, 60-65 while awake Review of Systems Review of Systems: CV - no further chest discomforts (from esophagitis) pulm - no dyspnea, minimal cough GI - no blood per rectum Physical Exam Physical Exam: gen - looks better today; more awake, more alert, less confused, talking more today mouth - MM more moist today neck - no JVD heart - RRR, s1 s2, no murmur lungs - CTA b/l, scant rales (scattered) bases abd - soft NT ND BS+; no peritoneal signs ext - no edema, pulses 2+ b/l psych - oriented to person and place Results & Data Results & Data Vital Signs (Past 12 Hours) Vital Signs Temp Pulse Pulse Resp BP Pulse Ox O2 Del Method 07/05/24 17:23 59 L 07/05/24 16:00 36.8 C 66 18 126/85 98 Room Air 07/05/24 10:46 36.5 C 46 L 17 123/64 98 Room Air 07/05/24 07:57 36.6 C 54 L 17 145/76 H 96 Room Air 07/05/24 07:40 63 07/05/24 07:35 63 Laboratory Results Laboratory Results - last 24 hr 07/05/24 10:16 WBC 10.68 RBC 3.65 L Hgb 11.5 L Hct 35.5 L MCV 97.3 MCH 31.5 MCHC 32.4 RDW Std Deviation 51.5 H RDW Coeff of Madonna 14.5 Plt Count 180 MPV 10.4 Immature Gran % (Auto) 0.5 Neut % (Auto) 81.7 Lymph % (Auto) 12.5 [place] % (Auto) 5.1 Eos % (Auto) 0.0 Baso % (Auto) 0.2 Neut # (Auto) 8.74 H Lymph # (Auto) 1.33 [place] # (Auto) 0.54 Eos # (Auto) 0.00 Baso # (Auto) 0.02 Immature Gran # (Auto) 0.05 Sodium 139 Potassium 4.0 Chloride 105 Carbon Dioxide 29 Anion Gap 5 BUN 12 Creatinine 1.11 Est Cr Clr Drug Dosing 52.7 eGFR 68.39 BUN/Creatinine Ratio 10.8 Glucose 125 H Calcium 8.1 L Diagnostic Findings Microbiology 07/04/24 01:23 Urine,Straight Cath Urine Culture - Final No growth - less than 1,000 colonies/mL. 07/04/24 02:23 Blood Aerobic Blood Culture - Preliminary No growth in Aerobic bottle after 48 hours. 07/04/24 02:23 Blood Anaerobic Blood Culture - Preliminary No growth in Anaerobic bottle after 48 hours. PG Care Time/CCT Total # of Minutes Spent Total Time Spent with Patient: Total time spent is greater than 50% in coordination of care (as documented) at patient's floor/unit and/or counseling patient: Coding Level of Care Code 33996 SUB INP/OBS CARE 2/35MIN Diagnoses Aspiration pneumonia due to food (regurgitated) J69.0 Laterality: bilateral Lung location: lower lobe of lung Esophagitis K20.90 Constipation K59.00 Constipation type: unspecified constipation type Gastritis K29.70 Duodenal ulcer K26.9 BPH (benign prostatic hyperplasia) N40.0 Emphysema lung J43.9 Diabetes mellitus E11.9 Hypomagnesemia E83.42 Hypokalemia E87.6 Lethargy R53.83 Essential hypertension I10 Acute metabolic encephalopathy G93.41 (1) Aspiration pneumonia due to food (regurgitated) Laterality: bilateral Lung location: lower lobe of lung Qualified Code(s): J69.0 - Pneumonitis due to inhalation of food and vomit (3) Constipation Constipation type: unspecified constipation type Qualified Code(s): K59.00 - Constipation, unspecified
[2024-07-06] MEDS: rOPINIRole HCL 0.25 MG TABLET PO ONE (02:22)
[2024-07-06 06:41] LABS: Basophils # (auto) 0.03 K/uL (0.00-0.20); Basophils % (auto) 0.5 %; Eosinophils # (auto) 0.16 K/uL (0.00-0.50); Eosinophils % (auto) 2.5 %; Hematocrit (blood only) 33.8 % (42.0-52.0); Immature Granulocytes # (auto) 0.02 K/uL (0.01-0.20); Immature Granulocytes % (auto) 0.3 %; Lymphocytes % (auto) 33.8 %; Mean Corpuscular Hemoglobin 31.3 pg (25.0-34.0); Mean Corpuscular Hgb Conc 32.5 g/dL (32.0-36.0); Mean Platelet Volume 9.9 fL (9.4-12.4); Monocytes # (auto) 0.42 K/uL (0.11-0.59); Monocytes % (auto) 6.5 %; Neutrophils # (auto) 3.67 K/uL (1.40-6.50); Neutrophils % (auto) 56.4 %; Platelet Count 141 K/uL (130-400); RDW Coefficient of Variation 14.2 % (11.5-14.5); Red Blood Count 3.52 M/uL (4.70-6.10)
[2024-07-06 07:16] VITALS: RESP 17
[2024-07-06 11:10] VITALS: BP 117/72; TEMP 98.4; O2SAT 93
--- NOTE | 2024-07-06 18:00 | Hospitalist Progress Note ---
Date of Service July 06, 2024 Assessment & Plan (1) Aspiration pneumonia due to food (regurgitated): Plan: Patient with abdominal pain & constipation at time of ER presentation. Was recently hospitalized here from 06/22 to 06/26 for sepsis 2nd UTI as well as esophagitis/gastritis/duodenal ulcer as seen on EGD 06/25/24. Was d/c back to [facility] with pepcid BID, protonix BID, and carafate QID. CT chest with multiple nodules b/l as well as debris in his esophagus. He was apparently coughing and having congestion back at [facility]. treated with amp sulbactam for possible aspiration pneumonia, suspect this is more of a pneumonitis. Procalcitonin was negative today. Change antibiotics to oral Augmentin Remains stable in room air Respiratory BioFire negative. MRSA swab negative. Blood cx's negative. per my discussion with care coordination Adarsh's family plans to take him home with home health since they have been dealing with his gait issues for years and they do not see benefit of continued [facility] for rehab medically ready for discharge today - discharge orders were written this morning however we were unable to reach his family to come pick him up. I left a voicemail with his son this morning and nurses have left multiple messages (2) Esophagitis: Plan: Severe on recent EGD - 06/25/24. biopsies negative for cancer; negative for avinash. continue PPI Pepcid and Carafate Appreciate Gi consult. no immediate plans for repeat EGD, so repeat EGD was advised 6 weeks after his previous 1. advanced to general diet (3) Constipation: Plan: CT a/p with severe constipation. has had 2 bowel movements during this admission after bowel regimen continue bowel regimen on discharge (4) Gastritis: Plan: As seen on EGD 06/25 Cont PPI, H2 jj, Carafate Recent biopsies negative for H pylori (5) Duodenal ulcer: Plan: Cont PPI, etc (6) BPH (benign prostatic hyperplasia): Plan: alpha-jj held because of low normal blood pressures (7) Emphysema lung: Plan: No wheezing, not in exacerbation (8) Diabetes mellitus: Plan: history of, resolved, not on medications hemoglobin a1c 5.4% during recent admission (9) Hypomagnesemia: Plan: level was 1.5, replaced and normalized (10) Hypokalemia: Plan: K 3.2 admission, replaced and normalized (11) Essential hypertension: Plan: atenolol and alpha jj both on hold due to low or low-normal BPs (12) Acute metabolic encephalopathy: Plan: acute metabolic encephalopathyconfusion, lethargy at presentation --> resolving may be back to baseline Plan DVT prophylaxissubcu heparin Admission and Anticipated Discharge Date Admission Date: July 04, 2024 Subjective Awake and alert. +cough no dyspnea Requests to go home Physical Exam 2 Physical Exam: PHYSICAL EXAMINATION Last 24h vital signs reviewed, see documentation in flowsheet General: comfortable appearing, no distress HEENT: Normocephalic, atraumatic, pupils round and equal, sclerae anicteric, no conjunctival injection, moist mucus membranes Lungs: Normal respiratory effort. Clear to auscultation bilaterally. No RRW. loose cough noted Heart: Regular rate and rhythm, no murmurs. No JVD Abdomen: Soft, nontender, nondistended. Bowel sounds present. Extremities: Warm, dry, well-perfused. No extremity edema. Neuro: Alert and oriented x basic situation though gives vague verbal replies, face symmetric, moves 4 extremities well Psych: Normal affect and behavior Results & Data Results & Data Vital Signs (Past 12 Hours) Vital Signs Temp Pulse Pulse Resp BP BP Pulse Ox 07/06/24 15:06 93 H 07/06/24 11:45 36.9 C 64 17 117/70 117/72 93 07/06/24 11:09 36.9 C 64 17 117/72 93 07/06/24 07:43 07/06/24 07:14 36.6 C 65 17 117/70 96 07/06/24 07:00 68 O2 Del Method 07/06/24 15:06 07/06/24 11:45 07/06/24 11:09 Room Air 07/06/24 07:43 Room Air 07/06/24 07:14 Room Air 07/06/24 07:00 Laboratory Results 07/06/24 06:17 07/05/24 10:16 procalcitonin was negative today PG Care Time/CCT Total # of Minutes Spent Total Time Spent with Patient: Total time spent is greater than 50% in coordination of care (as documented) at patient's floor/unit and/or counseling patient: Coding Level of Care Code 53701 SUB INP/OBS CARE 2/35MIN Diagnoses Aspiration pneumonia due to food (regurgitated) J69.0 Laterality: bilateral Lung location: lower lobe of lung Esophagitis K20.90 Constipation K59.00 Constipation type: unspecified constipation type Gastritis K29.70 Duodenal ulcer K26.9 BPH (benign prostatic hyperplasia) N40.0 Emphysema lung J43.9 Diabetes mellitus E11.9 Hypomagnesemia E83.42 Hypokalemia E87.6 Essential hypertension I10 Acute metabolic encephalopathy G93.41 (1) Aspiration pneumonia due to food (regurgitated) Laterality: bilateral Lung location: lower lobe of lung Qualified Code(s): J 69.0 - Pneumonitis due to inhalation of food and vomit (3) Constipation Constipation type: unspecified constipation type Qualified Code(s): K59.00 - Constipation, unspecified
[2024-07-06 20:45] VITALS: PULSE 64
--- NOTE | 2024-07-07 19:28 | Discharge Summary ---
Discharge Summary Date of Service July 06, 2024 Principal Dx & Hospital Course #1 = Principal Diagnosis (1) Aspiration pneumonia due to food (regurgitated): Patient with abdominal pain & constipation at time of ER presentation. Was recently hospitalized here from 06/22 to 06/26 for sepsis 2nd UTI as well as esophagitis/gastritis/duodenal ulcer as seen on EGD 06/25/24. Was d/c back to [facility] with pepcid BID, protonix BID, and carafate QID. CT chest with multiple nodules b/l as well as debris in his esophagus. He was apparently coughing and having congestion back at [facility]. treated with amp sulbactam for possible aspiration pneumonia, suspect this is more of a pneumonitis. Procalcitonin was negative today. Change antibiotics to oral Augmentin Remains stable on room air Respiratory BioFire negative. MRSA swab negative. Blood cx's negative. per my discussion with care coordination Adarsh's family plans to take him home with home health since they have been dealing with his gait issues for years and they do not see benefit of continued [facility] for rehab medically ready for discharge today - discharge orders were written this morning however we were unable to reach his family to come pick him up. I left a voicemail with his son this morning and nurses have left multiple messages. In the evening his family did eventually come pick him up for discharge. (2) Esophagitis: Severe on recent EGD - 06/25/24. biopsies negative for cancer; negative for avinash. continue PPI Pepcid and Carafate Appreciate Gi consult. no immediate plans for repeat EGD, so repeat EGD was advised 6 weeks after his previous 1. advanced to general diet (3) Constipation: CT a/p with severe constipation. has had 2 bowel movements during this admission after bowel regimen continue bowel regimen on discharge (4) Gastritis: As seen on EGD 06/25 Cont PPI, H2 jj, Carafate Recent biopsies negative for H pylori (5) Duodenal ulcer: Cont PPI, etc (6) BPH (benign prostatic hyperplasia): alpha-jj held because of low normal blood pressures (7) Emphysema lung: No wheezing, not in exacerbation (8) Diabetes mellitus: history of, resolved, not on medications hemoglobin a1c 5.4% during recent admission (9) Hypomagnesemia: level was 1.5, replaced and normalized (10) Hypokalemia: K 3.2 admission, replaced and normalized (11) Essential hypertension: atenolol and alpha jj both on hold due to low or low-normal BPs (12) Acute metabolic encephalopathy: acute metabolic encephalopathyconfusion, lethargy at presentation --> resolving may be back to baseline Notes For Next Care Provider GI recommended repeat EGD six weeks from the last one Medication Changes From Visit augmentin, bowel regimen added doxazosin and atenolol stopped because he had low normal BP without them in the hospital Admission HPI Per Admitting Provider The patient is a 78-year-old male with past medical history including BPH with LUTS, urinary incontinence, COPD, diabetes mellitus, esophagitis, and sepsis due to urinary tract infection. Patient was recently admitted to [facility] from 06/24-06/26/2024 for sepsis due to UTI caused by Proteus mirabilis. After discharge, and return to [facility], he has developed progressive constipation, which led to abdominal pain, and likely secondary aspiration pneumonia to bilateral lungs. While in the ED, patient did have a bowel movement, and he was given Unasyn IV, dexamethasone IV, DuoNeb, Zofran, famotidine and normal saline 500 mL bolus. He was then referred for evaluation for admission Discharge Exam PHYSICAL EXAMINATION Last 24h vital signs reviewed, see documentation in flowsheet General: comfortable appearing, no distress HEENT: Normocephalic, atraumatic, pupils round and equal, sclerae anicteric, no conjunctival injection, moist mucus membranes Lungs: Normal respiratory effort. Clear to auscultation bilaterally. No RRW. loose cough noted Heart: Regular rate and rhythm, no murmurs. No JVD Abdomen: Soft, nontender, nondistended. Bowel sounds present. Extremities: Warm, dry, well-perfused. No extremity edema. Neuro: Alert and oriented x basic situation though gives vague verbal replies, face symmetric, moves 4 extremities well Psych: Normal affect and behavior Discharge Plan Discharge Items Patient Disposition: Home - Home Health Services Reason For Visit: ASPIRATION PNEUMONIA, CONSTIPATION Discharge Diagnosis: aspiration pneumonia, constipation Activity: Resume your previous activity Non-emergency contact: Primary Care Provider Call non-emergency contact if: you have any medication questions, your symptoms worsen and you have a fever Follow-up/Referrals: Adarsh Ricketts [Primary Care Provider] - (Pt has an already scheduled appointment with Dr. Leija on July 08) Diet: Regular Diet Texture: Dental soft (bite-sized) Addtl Attending Provider Instructions: You were treated for aspiration and constipation -I think this is primarily inflammation rather than infection, but complete the course of antibiotics Last admission you had endoscopy and were found to have inflammation in esophagus and stomach (esophagitis and gastritis) as well as ulcer in your duodenum (first part of small intestine, near the stomach) -continue taking twice a day acid suppression medicines as well as carafate to heal your GI tract It is very important to eat meals sitting bolt upright and stay sitting up for at least 30 minutes after eating and drinking You will do better on soft foods that are easy to swallow for now Stop taking atenolol and doxazosin because your blood pressure is normal without them. Home health PT and OT Follow up with gastroenterology for repeat endoscopy in 5-6 weeks Follow up in primary care for pulmonary nodules. These may be related to aspiration/infection. Recommend repeat chest CT in 3-6 months to make sure they resolve and don't have the appearance of lung cancer It was a pleasure taking care of you in the hospital, Lyndsey Connelly MD Pending Studies at Discharge: No Stand-Alone Forms: My [facility] [employer], Smoking Cessation Medications and DC Order Prescriptions: New bisacodyl 10 mg Suppository 10 mg [place] DAILY PRN (Reason: constipation) Qty: 0 0RF Rx Instructions: over the counter amoxicillin-pot clavulanate 875-125 mg tablet 1 tab PO BID Qty: 9 0RF sennosides [Senokot] 8.6 mg tablet 17.2 mg PO DAILY Qty: 60 0RF Rx Instructions: Buy over the counter. 1-2 tabs daily to prevent constipation. Continued atorvastatin 10 mg tablet 10 mg PO DAILY Qty: 30 0RF sucralfate 100 mg/mL Suspension 1 g PO QID 14 Days Qty: 560 0RF famotidine 40 mg tablet 40 mg PO BID 30 Days Qty: 60 0RF pantoprazole 40 mg tablet,delayed release (DR/EC) 40 mg PO BID 30 Days Qty: 60 0RF Discontinued atenolol 100 mg tablet 50 mg PO BID Hold Instructions: Resume on 07/17/24. Held given relative hypotension, resume as appropriate at PCP follow up Rx Instructions: 1/2 BID doxazosin 4 mg tablet 4 mg PO HS Hold Instructions: Resume on 07/17/24. Held given relative hypotension, resume as appropriate at PCP follow up Discharge Orders: Discharge Order (Routine); Ordered 07/06/24 Ordered By: Lyndsey Connelly Admission Data Admit Date/Time: 07/04/24 03:05 Attending Provider: Lyndsey Connelly Admit Provider: Cory Jacobson Primary Care Provider: Adarsh Ricketts Other Providers: Cory Jacobson; Radha Darling Jr Other Interventions: Discharge Summary Assessment (RN) Last Done: 07/06/24 20:44 Hospital Stay Data Consultations 07/04/24 01:52 ED Decision to Admit Stat 07/04/24 03:21 Consult Gastroenterology Routine Diagnostic Imagining Performed 07/04/24 00:22 CT abd pelvis IV con only Stat CT angio chest PE protocol Stat CT head/brain wo con Stat Pending Results Patient Have Any Pending Studies at Discharge: No Discharge Instructions Given to Patient (Per Discharging Provider) You were treated for aspiration and constipation -I think this is primarily inflammation rather than infection, but complete the course of antibiotics Last admission you had endoscopy and were found to have inflammation in esophagus and stomach (esophagitis and gastritis) as well as ulcer in your duodenum (first part of small intestine, near the stomach) -continue taking twice a day acid suppression medicines as well as carafate to heal your GI tract It is very important to eat meals sitting bolt upright and stay sitting up for at least 30 minutes after eating and drinking You will do better on soft foods that are easy to swallow for now Stop taking atenolol and doxazosin because your blood pressure is normal without them. Home health PT and OT Follow up with gastroenterology for repeat endoscopy in 5-6 weeks Follow up in primary care for pulmonary nodules. These may be related to aspiration/infection. Recommend repeat chest CT in 3-6 months to make sure they resolve and don't have the appearance of lung cancer It was a pleasure taking care of you in the hospital, Lyndsey Connelly MD Total Time Total Time Spent Total Time Spent (In Minutes): <30 Coding Level of Care Code 68406 IN/OBS DISCH 30 MIN/LESS Diagnoses Aspiration pneumonia due to food (regurgitated) J69.0 Laterality: bilateral Lung location: lower lobe of lung Esophagitis K20.90 Constipation K59.00 Constipation type: unspecified constipation type Gastritis K29.70 Duodenal ulcer K26.9 BPH (benign prostatic hyperplasia) N40.0 Emphysema lung J43.9 Diabetes mellitus E11.9 Hypomagnesemia E83.42 Hypokalemia E87.6 Essential hypertension I10 Acute metabolic encephalopathy G93.41
== END 2024-07-06 20:45 | disposition home health service (06) | DRG 177 ==
LOC: ED 23:44 → INTOOBSV 07-04 03:05 → SUATTDRO 07-04 03:05 → 4W 07-04 03:05

== ENCOUNTER 2024-09-09 14:19 | Inpatient (IN) ==
--- NOTE | 2024-09-09 14:53 | ED Triage Note ---
Date of Service September 09, 2024 Provider in Triage Author: Jeferson Cuevas History of Present Illness This patient was briefly evaluated while in triage. An abbreviated physical exam was performed. This patient is a 78-year-old Male who presents to the ED for evaluation of possible UTI. Tachycardic and low BP as of late. Chronic cough. Referred by Dr. South today. Denies any pain at the moment. Hx of smoking. Physical Exam GENERAL: 78 year old male. In no acute distress but chronically ill appearing. SKIN: No lesions or rashes. HEART: Regular rate and rhythm. LUNGS: Bilat rhonchi. NEURO: Alert and oriented. No deficits. MUSCULOSKELETAL: No deformities to inspection of the extremities. PSYCH: Patient is pleasant Pt hypotensive, tachcycardic. Will go to room A1 now.
[2024-09-09] MEDS: SODIUM CHLORIDE 0.9% 1,000 ML IV ONE ×2 (15:21→16:57)
[2024-09-09] MEDS: CEFEPIME 2000MG 2,000 MG/20 ML SYR IV STA (15:23)
--- NOTE | 2024-09-09 15:36 | Emergency Department Note ---
Impression & Plan Generalized weakness, Hypotension, Hypokalemia, Pneumonia, Dehydration ED Provider Note ED Provider Note NAME: MICHELLE PETERSON AGE:78 SEX: Male : 1945 ARRIVES VIA: Private vehicle INFORMANT: Patient, son ED PROVIDER(s): Aliyah Mcdonald DO CHIEF COMPLAINT: Generalized weakness HPI: This is a 78-year-old male brought in by family due to concern for worsening generalized weakness over the course of the last 7 to 10 days. Son at bedside states is similar to a recent admission in June where he was septic from a urinary tract infection. They state he was doing well for some time. Patient has not had any falls or loss of consciousness over the last 7 to 10 days. No recent medication changes. He denies fevers, chills, abdominal pain, vomiting, or change in stools. He does have a history of esophagitis, he denies any recent melena or hematochezia. Son states urine has been dark and malodorous, no overt blood. Son denies noting any cognitive decline or confusion. He did see his PCP today in the office who advised further ER evaluation due to concern for low blood pressure and elevated heart rate. PAST MEDICAL HISTORY:See Below PAST SURGICAL HISTORY:See Below FAMILY HISTORY:See Below SOCIAL HISTORY:See Below HOME MEDICATIONS:See Below ALLERGIES:See Below VITALS:See Below PHYSICAL EXAMINATION: GENERAL: alert, unwell appearing, well nourished, no distress, non-toxic EYE EXAM: normal conjunctiva, PERRL and EOM's grossly intact OROPHARYNX: no exudate, no erythema, lips, buccal mucosa, and tongue normal and mucous membranes are dry NECK: supple, no nuchal rigidity, no adenopathy, non-tender LUNGS: Clear but decreased to auscultation. Normal chest wall mechanics, no w/r/r HEART: no murmurs, S1 normal and S2 normal ABDOMEN: abdomen soft, non-tender, normo-active bowel sounds, no masses, no rebound or guarding. BACK: Back is symmetrical on inspection and there is no deformity, no midline tenderness, no CVA tenderness. SKIN: no rashes, petechiae, orbruising UPPER EXTREMITIES: upper extremities are grossly normal. FROM, nml pulses b/l. LOWER EXTREMITIES: No pitting edema. FROM, nml pulses b/l. NEURO EXAM: Normal sensorium, cranial nerves II-XII grossly intact, normal speech, no facial droop,nogross weakness of arms, no gross weakness of legs. Gross sensation intact. No ataxia. Vital Signs: reviewed and remarkable Differential Diagnosis: dehydration, stroke, anemia, hypoglycemia, hyponatremia, hypernatremia, urinary tract infection, pneumonia, bronchitis, sepsis, gastroenteritis, additional abdominal pathology, metabolic abnormalities, as well as others were considered MEDICAL DECISION MAKING: This is a 78-year-old male presents emergency department with family due to concern for increasing generalized weakness, dehydration, possible UTI. Patient without admission back in June 2024 with a UTI that family states developed into sepsis. On arrival patient noted to be hypotensive and tachycardic and was immediately brought back to room a 1. Patient able to answer questions although slow and son able to help fill in history. Patient with no obvious neuro deficits and complained of no pain. No obvious respiratory distress. Labs drawn and sent, IV established, EKG and chest ray performed at bedside interpreted me and patient monitored on telemetry. Blood cultures, procalcitonin, lactic acid also added. Patient started on IV fluids with improvement in his blood pressure almost immediately and slow improvement in his heart rate. Patient did appear clinically dehydrated. Patient continued to mentate well here and reported no evolving pain. Patient was given greater than 30 mL/KG based on actual body weight and started on empiric antibiotics. After 2 L patient was back down to a maintenance fluid rate while we were awaiting urination. We did BladderScan the patient and he did have urine present and we offered to straight cath him he declined wishing to wait for more. After additional time and patient stating he still had no sensation to urinate, straight cath was performed by nursing staff and sent off for UA and culture additionally due to concern for additional source. Chest x-ray did reveal likely pneumonia and IV doxycycline added. Patient denied URI symptoms. While hydrated here he was eventually noted to be mildly hypoxic although did not have any obvious increased work of breathing or distress. He was placed on oxygen via nasal cannula. Nasal swab been obtained and sent as well and was negative for acute viral illness. No elevation of lactic acid or procalcitonin. Patient noted to have mild leukocytosis. Patient noted to have mild hypokalemia and was given oral potassium repletion, unfortunately he vomited this back up. Case discussed with the hospitalist team for additional evaluation management. Consultation(s): 1909: Discussed with Dr. Jacobson, [facility] hospitalist team, for additional evaluation and management. ER Treatment Provided: See below Diagnostics Interpreted By Me: -ECG: Sinus tachycardia at 106, leftward axis, normal intervals, no acute ST/T wave changes -Cardiac Monitoring: An order was placed for continuous cardiac monitoring. The monitor shows a rate of 98 with normal sinus rhythm. -Laboratory studies: As stated above and show below. -Imaging studies: X-ray Chest: A single view study of the chest was reviewed and was negative for cardiomegaly, focal infiltrate, effusion, pulmonary edema, or wide mediastinum. Triage Nursing Note Reviewed Prior/Outside Records Reviewed -urine culture from June 2024 grew Proteus that was pansensitive Critical Care: Critical care of 52 min performed to assess and manage high likelihood of life-threatening hypotension, involving labs and imaging performed with assessment to evaluate hypotension and weakness diagnosis with frequent reassessment. This time includes bedside time, treatment discussions with patient/family/consultants, documentation time and excludes procedure time. Past Med/Surg History Problem List (Updated 09/10/24 @ 14:06 by Aliyah Mcdonald DO) Dehydration (Acute) Urinary tract infection Pneumonia (Acute) Hypokalemia (Acute) Hypotension (Acute) Generalized weakness (Acute) Acid reflux Essential hypertension Duodenal ulcer Gastritis Constipation (Acute) Hypokalemia (Acute) Hypomagnesemia (Acute) Aspiration pneumonia due to food (regurgitated) (Acute) BPH (benign prostatic hyperplasia) Urinary incontinence Emphysema lung Diabetes mellitus Esophagitis (Acute) Medical History (Updated 09/10/24 @ 14:06 by Aliyah Mcdonald DO) Acute metabolic encephalopathy Lethargy Surgical History H/O tooth extraction All Teeth History of hip surgery Family History Father Diabetes Denies family history of Ovarian cancer Prostate cancer Myocardial infarction Breast cancer Colorectal cancer Social History Smoking Status: Current every day smoker Tobacco Type: Cigarettes Age Started Using Tobacco: 16; packs per day: 1; Do You Dip or Chew Tobacco: No; Hx Alcohol Use: No Hx Substance Use: No Preferred Language: Turkmen Communication Ability: Impaired Hearing Ability: Hard of Hearing Research Psychologist Required: No Beliefs That Will Affect Care: None marital status: Current Living Situation: Spouse current occupational status: retired 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 How many Children do You have: 1 Feels Safe at Home: Yes Diet Comment: attempts high protein during the past year weight has: decreased > 10 lbs Dental Care, Regularly: Yes Physical Activity Frequency: Does not Exercise Physical Activity Frequency Comment: limited d/t physical condition Assistive Devices: Walker Allergies Allergies Allergy/AdvReac Type Severity Reaction Status Date / Time No Known Allergies Allergy Verified 09/09/24 15:44 Home Meds Home Medications Medication Instructions Recorded Confirmed No Known Home Medications 09/09/24 09/09/24 Results & Data (ED) Vital Signs Vital Signs - 24 hr 09/09/24 14:48 09/09/24 15:15 09/09/24 15:15 Temperature 36.5 C Temperature Source Temporal Artery Scan Pulse Rate 123 H 117 H Pulse Rate [Finger] 102 H Pulse Rate from SpO2 Sensor Respiratory Rate 18 18 Respiratory Effort / Characteristics Non-Labored Respiratory Depth Normal Respiratory Pattern Regular Blood Pressure 77/54 L Blood Pressure [Right Arm] 115/83 Blood Pressure Mean 61 Blood Pressure Mean [Right Arm] 93 Pulse Oximetry 91 94 Oxygen Delivery Method Room Air Room Air Oxygen Flow Rate Sepsis Recent Fever Within 48 Hours No Sepsis New/Unexplained Change in Mental Status N/A Sepsis Action Taken by Nursing Physician Notified 09/09/24 15:30 09/09/24 15:48 09/09/24 16:00 Temperature Temperature Source Pulse Rate 93 H 102 H 94 H Pulse Rate [Finger] Pulse Rate from SpO2 Sensor 95 H Respiratory Rate 20 21 17 Respiratory Effort / Characteristics Respiratory Depth Respiratory Pattern Blood Pressure 124/88 123/86 121/83 Blood Pressure [Right Arm] Blood Pressure Mean 103 98 89 Blood Pressure Mean [Right Arm] Pulse Oximetry 96 97 95 Oxygen Delivery Method Room Air Room Air Room Air Oxygen Flow Rate Sepsis Recent Fever Within 48 Hours Sepsis New/Unexplained Change in Mental Status Sepsis Action Taken by Nursing 09/09/24 16:15 09/09/24 16:30 09/09/24 16:30 Temperature Temperature Source Pulse Rate 89 79 Pulse Rate [Finger] 90 Pulse Rate from SpO2 Sensor Respiratory Rate 19 16 20 Respiratory Effort / Characteristics Non-Labored Spontaneous Respiratory Depth Normal Respiratory Pattern Blood Pressure 122/82 126/83 Blood Pressure [Right Arm] 126/83 Blood Pressure Mean 93 90 Blood Pressure Mean [Right Arm] 97 Pulse Oximetry 97 95 96 Oxygen Delivery Method Room Air Room Air Room Air Oxygen Flow Rate Sepsis Recent Fever Within 48 Hours Sepsis New/Unexplained Change in Mental Status Sepsis Action Taken by Nursing 09/09/24 16:39 09/09/24 16:45 09/09/24 16:46 Temperature Temperature Source Pulse Rate 79 95 H Pulse Rate [Finger] Pulse Rate from SpO2 Sensor 82 90 Respiratory Rate 20 19 Respiratory Effort / Characteristics Respiratory Depth Respiratory Pattern Blood Pressure 142/62 H Blood Pressure [Right Arm] Blood Pressure Mean 110 Blood Pressure Mean [Right Arm] Pulse Oximetry 96 88 L Oxygen Delivery Method Oxygen Flow Rate Sepsis Recent Fever Within 48 Hours Sepsis New/Unexplained Change in Mental Status Sepsis Action Taken by Nursing 09/09/24 17:13 09/09/24 17:42 09/09/24 18:00 Temperature Temperature Source Pulse Rate 91 H Pulse Rate [Finger] 90 84 Pulse Rate from SpO2 Sensor 90 Respiratory Rate 16 18 16 Respiratory Effort / Characteristics Respiratory Depth Respiratory Pattern Blood Pressure Blood Pressure [Right Arm] 113/75 130/92 Blood Pressure Mean Blood Pressure Mean [Right Arm] 87 104 Pulse Oximetry 93 95 95 Oxygen Delivery Method Room Air Room Air Oxygen Flow Rate Sepsis Recent Fever Within 48 Hours Sepsis New/Unexplained Change in Mental Status Sepsis Action Taken by Nursing 09/09/24 18:03 09/09/24 18:15 09/09/24 18:30 Temperature Temperature Source Pulse Rate 89 84 83 Pulse Rate [Finger] Pulse Rate from SpO2 Sensor 87 87 84 Respiratory Rate 19 20 37 H Respiratory Effort / Characteristics Respiratory Depth Respiratory Pattern Blood Pressure Blood Pressure [Right Arm] Blood Pressure Mean Blood Pressure Mean [Right Arm] Pulse Oximetry 93 95 97 Oxygen Delivery Method Oxygen Flow Rate Sepsis Recent Fever Within 48 Hours Sepsis New/Unexplained Change in Mental Status Sepsis Action Taken by Nursing 09/09/24 18:33 09/09/24 18:35 09/09/24 18:35 Temperature Temperature Source Pulse Rate 82 Pulse Rate [Finger] 96 H Pulse Rate from SpO2 Sensor 83 Respiratory Rate 18 19 Respiratory Effort / Characteristics Spontaneous Respiratory Depth Normal Respiratory Pattern Blood Pressure 117/77 Blood Pressure [Right Arm] 117/77 Blood Pressure Mean 83 Blood Pressure Mean [Right Arm] 90 Pulse Oximetry 96 95 Oxygen Delivery Method Room Air Oxygen Flow Rate Sepsis Recent Fever Within 48 Hours Sepsis New/Unexplained Change in Mental Status Sepsis Action Taken by Nursing 09/09/24 18:42 09/09/24 18:45 09/09/24 18:45 Temperature Temperature Source Pulse Rate 93 H Pulse Rate [Finger] Pulse Rate from SpO2 Sensor 88 Respiratory Rate 20 Respiratory Effort / Characteristics Respiratory Depth Respiratory Pattern Blood Pressure 123/100 123/100 Blood Pressure [Right Arm] Blood Pressure Mean 112 112 Blood Pressure Mean [Right Arm] Pulse Oximetry 94 Oxygen Delivery Method Oxygen Flow Rate Sepsis Recent Fever Within 48 Hours Sepsis New/Unexplained Change in Mental Status Sepsis Action Taken by Nursing 09/09/24 18:51 09/09/24 18:57 09/09/24 19:00 Temperature Temperature Source Pulse Rate 88 103 H Pulse Rate [Finger] Pulse Rate from SpO2 Sensor 98 H 115 H Respiratory Rate 16 22 Respiratory Effort / Characteristics Respiratory Depth Respiratory Pattern Blood Pressure 146/95 H Blood Pressure [Right Arm] Blood Pressure Mean 123 Blood Pressure Mean [Right Arm] Pulse Oximetry 93 86 L 91 Oxygen Delivery Method Room Air Nasal Cannula Oxygen Flow Rate 4 Sepsis Recent Fever Within 48 Hours Sepsis New/Unexplained Change in Mental Status Sepsis Action Taken by Nursing 09/09/24 19:00 09/09/24 19:03 09/09/24 19:09 Temperature Temperature Source Pulse Rate 94 H 95 H Pulse Rate [Finger] Pulse Rate from SpO2 Sensor 93 H 93 H Respiratory Rate 26 H 23 Respiratory Effort / Characteristics Respiratory Depth Respiratory Pattern Blood Pressure 146/95 H Blood Pressure [Right Arm] Blood Pressure Mean 123 Blood Pressure Mean [Right Arm] Pulse Oximetry 94 95 Oxygen Delivery Method Oxygen Flow Rate Sepsis Recent Fever Within 48 Hours Sepsis New/Unexplained Change in Mental Status Sepsis Action Taken by Nursing 09/09/24 19:15 09/09/24 19:16 09/09/24 19:16 Temperature Temperature Source Pulse Rate Pulse Rate [Finger] Pulse Rate from SpO2 Sensor Respiratory Rate Respiratory Effort / Characteristics Non-Labored Respiratory Depth Normal Respiratory Pattern Blood Pressure 145/97 H 145/97 H Blood Pressure [Right Arm] Blood Pressure Mean 105 105 Blood Pressure Mean [Right Arm] Pulse Oximetry Oxygen Delivery Method Oxygen Flow Rate Sepsis Recent Fever Within 48 Hours Sepsis New/Unexplained Change in Mental Status Sepsis Action Taken by Nursing 09/09/24 19:18 09/09/24 19:30 09/09/24 19:30 Temperature Temperature Source Pulse Rate 105 H Pulse Rate [Finger] Pulse Rate from SpO2 Sensor 107 H Respiratory Rate 24 Respiratory Effort / Characteristics Respiratory Depth Respiratory Pattern Blood Pressure 157/103 H 157/103 H Blood Pressure [Right Arm] Blood Pressure Mean 125 125 Blood Pressure Mean [Right Arm] Pulse Oximetry 94 Oxygen Delivery Method Oxygen Flow Rate Sepsis Recent Fever Within 48 Hours Sepsis New/Unexplained Change in Mental Status Sepsis Action Taken by Nursing Laboratory Data 09/10/24 04:02 09/10/24 04:02 Lab Results 09/09/24 09/09/24 09/09/24 Range/Units 15:12 15:17 19:30 WBC 12.99 H (4.8-10.8) K/ul RBC 4.88 (4.70-6.10) M/uL Hgb 15.3 (14.0-18.0) g/dl Hct 46.4 (42.0-52.0) % MCV 95.1 (80.0-100.0) fL MCH 31.4 (25.0-34.0) pg MCHC 33.0 (32.0-36.0) g/dL RDW Std Deviation 50.9 H (36.4-46.3) fL RDW Coeff of Madonna 14.7 H (11.5-14.5) % Plt Count 362 (130-400) K/uL MPV 10.3 (9.4-12.4) fL Immature Gran % (Auto) 0.7 % Neut % (Auto) 76.0 % Lymph % (Auto) 18.2 % [place] % (Auto) 4.5 % Eos % (Auto) 0.2 % Baso % (Auto) 0.4 % Neut # (Auto) 9.87 H (1.40-6.50) K/uL Lymph # (Auto) 2.37 (1.20-3.40) K/uL [place] # (Auto) 0.59 (0.11-0.59) K/uL Eos # (Auto) 0.02 (0.00-0.50) K/uL Baso # (Auto) 0.05 (0.00-0.20) K/uL Immature Gran # (Auto) 0.09 (0.01-0.20) K/uL Sodium 139 (136-145) mmol/L Potassium 3.0 L (3.5-5.1) mmol/L Chloride 97 L (98-107) mmol/L Carbon Dioxide 33 H (21-32) mmol/L Anion Gap 9 (3-11) BUN 19 (6-23) mg/dl Creatinine 0.99 (0.6-1.4) mg/dl Est Cr Clr Drug Dosing 53.1 ml/min eGFR 78.46 BUN/Creatinine Ratio 19.2 (10-20) Glucose 128 H (70-99(Fasting)) mg/dl Lactate 2.0 (0.4-2.0) mmol/L Calcium 9.3 (8.6-10.3) mg/dl Magnesium 1.9 (1.7-2.4) mg/dl Total Bilirubin 0.5 (0.2-1.0) mg/dl Direct Bilirubin 0.0 (0-0.2) mg/dl AST 16 (13-39) U/L ALT 11 (7-52) U/L Alkaline Phosphatase 76 (34-104) U/L Troponin I High Sens 19.5 (0-20) pg/ml Total Protein 7.5 (6.0-8.3) gm/dl Albumin 3.2 L (3.4-5.0) gm/dl Procalcitonin 0.27 (0-0.5) ng/ml Urine Color Yellow Urine Appearance Clear (Clear) Urine pH 5.5 (4.5-7.5) Ur Specific [place] 1.022 (1.000-1.030) Urine Protein Trace H (Negative) Urine Glucose (UA) Negative (Negative) Urine Ketones Trace H (Negative) Urine Blood Negative (Negative) Urine Nitrite Negative (Negative) Urine Bilirubin Negative (Negative) Urine Urobilinogen Negative (Negative) Ur Leukocyte Esterase Negative (Negative) Urine WBC (Auto) 0-5 (0-5) /hpf Urine RBC (Auto) 0-2 (0-2) /hpf U Hyaline Cast (Auto) 0-2 (0-2) /lpf U Epithel Cells (Auto) 0-2 (0-2) /hpf Urine Bacteria (Auto) None Seen (None Seen) Amorphous Sediment Present A (None Prsent) Adenovirus (PCR) Not Detected (NotDetected) B. pertussis DNA (PCR) Not Detected (NotDetected) B.parapertussis DNA PCR Not Detected (NotDetected) C. pneumoniae DNA (PCR) Not Detected (NotDetected) Coronavirus OC43 (PCR) Not Detected (NotDetected) Coronavirus HKU1 (PCR) Not Detected (NotDetected) Coronavirus 229E (PCR) Not Detected (NotDetected) SARS-CoV-2 (PCR) Not Detected (NotDetected) Coronavirus NL63 (PCR) Not Detected (NotDetected) Human Metapneumovir PCR Not Detected (NotDetected) Influenza Type A (PCR) Not Detected (NotDetected) Influenza Type B (PCR) Not Detected (NotDetected) M. pneumoniae (PCR) Not Detected (NotDetected) Parainfluenza 1 (PCR) Not Detected (NotDetected) Parainfluenza 2 (PCR) Not Detected (NotDetected) Parainfluenza 3 (PCR) Not Detected (NotDetected) Parainfluenza 4 (PCR) Not Detected (NotDetected) RSV (PCR) Not Detected (NotDetected) Entero/Rhino (PCR) Not Detected (NotDetected) Administered Medications Pantoprazole Sodium (Protonix) 40 mg in 10 mls @ 5 mls/min IV BID JOSE RAFAEL Stop: 10/09/24 21:46 Last Admin: 09/10/24 09:11 Dose: 5 mls/min Documented By: Admin: 09/09/24 23:01 Dose: 5 mls/min Documented By: SRL Doxycycline Hyclate 100 mg/ (Dextrose) 100 mls @ 50 mls/hr IV Q12H JOSE RAFAEL Stop: 09/17/24 06:59 Last Infusion: 09/10/24 10:11 Dose: Infused Documented By: Admin: 09/10/24 08:10 Dose: 50 mls/hr Documented By: YUN Cefepime HCl (Maxipime 2000mg) 2,000 mg in 20 mls @ 5 mls/min IV Q12H JOSE RAFAEL; Protocol Stop: 09/17/24 06:59 Last Admin: 09/10/24 07:44 Dose: 5 mls/min Documented By: YUN Discontinued Medications Sodium Chloride (Nss) 1,000 mls @ 999 mls/hr IV .Q1H1M ONE Stop: 09/09/24 16:03 Last Infusion: 09/09/24 16:58 Dose: Infused Documented By: Admin: 09/09/24 15:21 Dose: 999 mls/hr Documented By: ELAINE Cefepime HCl (Maxipime 2000mg) 2,000 mg in 20 mls @ 5 mls/min IV NOW STA; Protocol Stop: 09/09/24 15:07 Last Admin: 09/09/24 15:23 Dose: 5 mls/min Documented By: ELAINE Sodium Chloride (Nss) 1,000 mls @ 999 mls/hr IV .Q1H1M ONE Stop: 09/09/24 17:44 Last Infusion: 09/09/24 18:30 Dose: Infused Documented By: Admin: 09/09/24 16:57 Dose: 999 mls/hr Documented By: MAL Doxycycline Hyclate 100 mg/ (Dextrose) 100 mls @ 50 mls/hr IV NOW STA Stop: 09/09/24 20:06 Last Infusion: 09/09/24 22:53 Dose: Infused Documented By: Admin: 09/09/24 18:35 Dose: 50 mls/hr Documented By: KIANA Sodium Chloride (Nss) 1,000 mls @ 125 mls/hr IV .Q8H JOSE RAFAEL Stop: 09/10/24 18:29 Last Infusion: 09/09/24 19:42 Dose: Infused Documented By: Admin: 09/09/24 18:35 Dose: 125 mls/hr Documented By: KIANA Potassium Chloride/Sodium Chloride (Normal Saline W/20 Meq Kcl) 20 meq in 1,000 mls @ 100 mls/hr IV .Q10H JOSE RAFAEL Stop: 09/10/24 05:29 Last Infusion: 09/10/24 07:43 Dose: Infused Documented By: Admin: 09/09/24 19:45 Dose: 100 mls/hr Documented By: STU Magnesium Sulfate/Dextrose (Magnesium Sulfate / D5w) 1 gm in 100 mls @ 50 mls/hr IV ONE ONE Stop: 09/10/24 11:08 Last Infusion: 09/10/24 12:14 Dose: Infused Documented By: Admin: 09/10/24 10:14 Dose: 50 mls/hr Documented By: YUN Potassium Chloride (Potassium Chloride Crtab 20 Meq Tabcr) 40 meq PO NOW STA Stop: 09/09/24 17:28 Last Admin: 09/09/24 18:35 Dose: 40 meq Documented By: ASW Imaging Data Radiologist's Impression: Chest X-Ray 09/09/24 14:54 XR chest 1V portable CLINICAL HISTORY: Sepsis TECHNIQUE: Single frontal radiograph of the chest was obtained. Comparison: Comparison is made to chest radiograph 07/04/2024 FINDINGS: No lines and tubes are seen. The cardiomediastinal silhouette is normal. There are a few scattered patchy opacities. No evidence of pleural effusion or pneumothorax. IMPRESSION: A few scattered patchy opacities may represent pneumonia. No zoltan lobar consolidation is seen. ACT 112: Negative or not required by law. Electronically signed by: Warren Westbrook M.D. 09/09/2024 3:43 PM Discharge Plan Visit Data Chief Complaint: Urinary Symptoms Stated Complaint: URINARY SYMPTOMS ED Provider: Aliyah Mcdonald Discharge Problem: Generalized weakness, Hypotension, Hypokalemia, Pneumonia, Dehydration Patient Disposition: Admitted As Inpatient Discharge Instructions Interventions: ED Discharge Assessment Last Done: 09/09/24 21:48
--- NOTE | 2024-09-09 15:45 | XRay Report ---
XR chest 1V portable CLINICAL HISTORY: Sepsis TECHNIQUE: Single frontal radiograph of the chest was obtained. Comparison: Comparison is made to chest radiograph 07/04/2024 FINDINGS: No lines and tubes are seen. The cardiomediastinal silhouette is normal. There are a few scattered pa tchy opacities. No evidence of pleural effusion or pneumothorax. IMPRESSION: A few scattered patchy opacities may represent pneumonia. No zoltan lobar consolidation is seen. ACT 112: Negative or not required by law. Electronically signed by: Warren Westbrook M.D. 09/09/2024 3:43 PM
[2024-09-09 16:06] LABS: Basophils # (auto) 0.05 K/uL (0.00-0.20); Basophils % (auto) 0.4 %; Eosinophils # (auto) 0.02 K/uL (0.00-0.50); Eosinophils % (auto) 0.2 %; Hematocrit (blood only) 46.4 % (42.0-52.0); Hemoglobin 15.3 g/dl (14.0-18.0); Immature Granulocytes # (auto) 0.09 K/uL (0.01-0.20); Immature Granulocytes % (auto) 0.7 %; Lymphocytes # (auto) 2.37 K/uL (1.20-3.40); Lymphocytes % (auto) 18.2 %; Mean Corpuscular Hemoglobin 31.4 pg (25.0-34.0); Mean Corpuscular Volume 95.1 fL (80.0-100.0); Mean Platelet Volume 10.3 fL (9.4-12.4); Monocytes # (auto) 0.59 K/uL (0.11-0.59); Monocytes % (auto) 4.5 %; Neutrophils # (auto) 9.87 K/uL (1.40-6.50); Platelet Count 362 K/uL (130-400); RDW Coefficient of Variation 14.7 % (11.5-14.5); RDW Standard Deviation 50.9 fL (36.4-46.3); Red Blood Count 4.88 M/uL (4.70-6.10); White Blood Count 12.99 K/ul (4.8-10.8)
[2024-09-09 16:18] LABS: Albumin Level 3.2 gm/dl (3.4-5.0); BUN Creatinine Ratio 19.2 (10-20); Bilirubin,Total 0.5 mg/dl (0.2-1.0); Calcium 9.3 mg/dl (8.6-10.3); Creatinine Clr Calc Pharmacy 53.1 ml/min; Magnesium 1.9 mg/dl (1.7-2.4); Total Protein 7.5 gm/dl (6.0-8.3)
[2024-09-09 16:24] LABS: Troponin I High Sensitivity 19.5 pg/ml (0-20)
[2024-09-09 16:46] LABS: Adenovirus PCR Not Detected (NotDetected); Bordetella parapertussis PCR Not Detected (NotDetected); Bordetella pertussis PCR Not Detected (NotDetected); Chlamydia pneumoniae PCR Not Detected (NotDetected); Coronavirus 229E PCR Not Detected (NotDetected); Coronavirus CoV-2 (COVID19)PCR Not Detected (NotDetected); Coronavirus HKU1 PCR Not Detected (NotDetected); Coronavirus NL63 PCR Not Detected (NotDetected); Coronavirus OC43PCR Not Detected (NotDetected); Human Metapneumovirus PCR Not Detected (NotDetected); Influenza A PCR Not Detected (NotDetected); Influenza B PCR Not Detected (NotDetected); Mycoplasma pneumoniae PCR Not Detected (NotDetected); Parainfluenza Virus 1 PCR Not Detected (NotDetected); Parainfluenza Virus 2 PCR Not Detected (NotDetected); Parainfluenza Virus 3 PCR Not Detected (NotDetected); Parainfluenza Virus 4 PCR Not Detected (NotDetected); Respiratory Syncytial VirusPCR Not Detected (NotDetected); Rhinovirus/Enterovirus PCR Not Detected (NotDetected)
[2024-09-09] MEDS: POTASSIUM CHLORIDE CRTAB 20 MEQ TABCR PO STA (18:35)
[2024-09-09] MEDS: SODIUM CHLORIDE 0.9% 1,000 ML IV SCH (18:35)
[2024-09-09] MEDS: DOXYCYCLINE HYCLATE 100 MG in DEXTROSE 5% MINI-B 100 ML IV STA (18:35)
--- NOTE | 2024-09-09 19:35 | History & Physical Report ---
Date of Service September 09, 2024 Assessment & Plan (1) Sepsis: (2) Pneumonia: (3) Urinary tract infection: Plan The patient is a 78-year-old male with past medical history including hypertension, GERD, duodenal ulcer, aspiration pneumonia, BPH, urinary incontinence, diabetes mellitus, esophagitis. His most recently admitted from 06/22-06/26/2024 for sepsis due to urinary tract infection. He was then admitted from 07/04-07/07/2024 for aspiration pneumonia. He presents to the em ergency department this time with similar symptoms, and is seen bringing up large volumes of mucus. The patient himself is confused, and unable to contribute significantly to HPI or review of systems #Sepsis due to pneumonia and urinary tract infection- Acetaminophen 1 g IV every 8 hours as needed for mild pain or fever NPO Pneumonia/history of aspiration- MRSA swab Cefepime 2 g IV every 12 hours Doxycycline 100 mg IV every 12 hours DuoNebs every 2 hours as needed Nasal cannula oxygen, titrate to keep pulse ox around 94% Sputum culture and Gram stain BioFire test negative Urinary tract infection- Follow urine culture sensitivity IV antibiotics as above Hypokalemia- Potassium 3.0 Placed on NSS + KCl 20 mill equivalents at 80 mL/h x 1 L Recheck laboratories in the a.m. Magnesium levels 1.9 Chronic medical problems: Hyperlipidemia resume atorvastatin when taking p.o. GERD-changed to pantoprazole 40 mg p.o. twice daily when taking p.o. History of Present Illness Chief Complaint: The patient presents to the emergency department with family concerns regarding worsening generalized weakness over the past 7 to 10 days, with symptoms similar to presentation for admission from 06/22-06/26/2024, and 07/04-07/07/2024, at which time he was treated for sepsis due to urinary tract infection, and then aspiration pneumonia Primary Care Provider: Emili South DO The patient is a 78-year-old male with past medical history including hy pertension, GERD, duodenal ulcer, aspiration pneumonia, BPH, urinary incontinence, diabetes mellitus, esophagitis. His most recently admitted from 06/22-06/26/2024 for sepsis due to urinary tract infection. He was then admitted from 07/04-07/07/2024 for aspiration pneumonia. He presents to the emergency department this time with similar symptoms, and is seen bringing up large volumes of mucus. The patient himself is confused, and unable to contribute significantly to HPI or review of systems Allergies Allergy/AdvReac Type Severity Reaction Status Date / Time No Known Allergies Allergy Verified 09/09/24 15:44 Home Medications Medication Instructions Recorded Confirmed Type No Known Home Medications 09/09/24 09/09/24 History Past Med/Surg History Problem List (Updated 09/10/24 @ 04:04 by Cory Jacobson MD) Urinary tract infection Pneumonia (Acute) Hypokalemia (Acute) Hypotension (Acute) Generalized weakness (Acute) Acid reflux Essential hypertension Duodenal ulcer Gastritis Constipation (Acute) Hypokalemia (Acute) Hypomagnesemia (Acute) Aspiration pneumonia due to food (regurgitated) (Acute) BPH (benign prostatic hyperplasia) Urinary incontinence Emphysema lung Diabetes mellitus Esophagitis (Acute) Medical History (Updated 09/10/24 @ 04:04 by Cory Jacobson MD) Acute metabolic encephalopathy Lethargy Surgical History H/O tooth extraction All Teeth History of hip surgery Family History Father Diabetes Denies family history of Ovarian cancer Prostate cancer Myocardial infarction Breast cancer Colorectal cancer Social History Smoking Status: Current every day smoker Tobacco Type: Cigarettes Age Started Using Tobacco: 16; packs per day: 1; Do You Dip or Chew Tobacco: No; Hx Alcohol Use: No Hx Substance Use: No Preferred Language: Chinese Communication Ability: Impaired Hearing Ability: Hard of Hearing Prepleater Required: No Beliefs That Will Affect Care: None marital status: Current Living Situation: Spouse current occupational status: retired 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 HEENT--PERRL, EOMI, mucous membranes and oropharynx dry. Neck--supple. No JVD. No bruits. Thyroid normal, trachea midline, no adenopathy. Heart--normal S1 and S2. No murmurs, rubs or gallops. Lungs-coarse breath sounds bilaterally. No respiratory distress, no accessory muscle use. Abdomen--normal bowel sounds and soft. Nontender. Nondistended Extremities--no cyanosis or clubbing. No edema. Dermatologic--normal skin turgor, normal color, no abnormal lymph nodes, no rash. Neurologic--cranial nerves II through XII grossly intact. Rheumatologic--normal range of motion. Psychiatric --confused Results & Data Results & Data Vital Signs (Past 12 Hours) Vital Signs Temp Pulse Pulse Resp BP BP Pulse Ox 09/09/24 19:03 94 H 26 H 94 09/09/24 19:00 146/95 H 09/09/24 19:00 146/95 H 91 09/09/24 18:57 103 H 22 86 L 09/09/24 18:51 88 16 93 09/09/24 18:45 123/100 09/09/24 18:45 123/100 09/09/24 18:42 93 H 20 94 09/09/24 18:35 117/77 09/09/24 18:35 96 H 19 117/77 95 09/09/24 18:33 82 18 96 09/09/24 18:30 83 37 H 97 09/09/24 18:15 84 20 95 09/09/24 18:03 89 19 93 09/09/24 18:00 84 16 130/92 95 09/09/24 17:42 91 H 18 95 09/09/24 17:13 90 16 113/75 93 09/09/24 16:46 142/62 H 09/09/24 16:45 95 H 19 88 L 09/09/24 16:39 79 20 96 09/09/24 16:30 79 20 126/83 96 09/09/24 16:30 90 16 126/83 95 09/09/24 16:15 89 19 122/82 97 09/09/24 16:00 94 H 17 121/83 95 09/09/24 15:48 102 H 21 123/86 97 09/09/24 15:30 93 H 20 124/88 96 09/09/24 15:15 102 H 18 115/83 94 09/09/24 15:15 117 H 09/09/24 14:48 36.5 C 123 H 18 77/54 L 91 O2 Del Method O2 Flow Rate 09/09/24 19:03 09/09/24 19:00 09/09/24 19:00 Nasal Cannula 4 09/09/24 18:57 Room Air 09/09/24 18:51 09/09/24 18:45 09/09/24 18:45 09/09/24 18:42 09/09/24 18:35 09/09/24 18:35 Room Air 09/09/24 18:33 09/09/24 18:30 09/09/24 18:15 09/09/24 18:03 09/09/24 18:00 09/09/24 17:42 Room Air 09/09/24 17:13 Room Air 09/09/24 16:46 09/09/24 16:45 09/09/24 16:39 09/09/24 16:30 Room Air 09/09/24 16:30 Room Air 09/09/24 16:15 Room Air 09/09/24 16:00 Room Air 09/09/24 15:48 Room Air 09/09/24 15:30 Room Air 09/09/24 15:15 Room Air 09/09/24 15:15 09/09/24 14:48 Room Air Laboratory Results Laboratory Results WBC 12.99 K/ul (4.8-10.8) H 09/09/24 15:12 RBC 4.88 M/uL (4.70-6.10) 09/09/24 15:12 Hgb 15.3 g/dl (14.0-18.0) 09/09/24 15:12 Hct 46.4 % (42.0-52.0) 09/09/24 15:12 MCV 95.1 fL (80.0-100.0) 09/09/24 15:12 MCH 31.4 pg (25.0-34.0) 09/09/24 15:12 MCHC 33.0 g/dL (32.0-36.0) 09/09/24 15:12 RDW Std Deviation 50.9 fL (36.4-46.3) H 09/09/24 15:12 RDW Coeff of Madonna 14.7 % (11.5-14.5) H 09/09/24 15:12 Plt Count 362 K/uL (130-400) 09/09/24 15:12 MPV 10.3 fL (9.4-12.4) 09/09/24 15:12 Immature Gran % (Auto) 0.7 % 09/09/24 15:12 Neut % (Auto) 76.0 % 09/09/24 15:12 Lymph % (Auto) 18.2 % 09/09/24 15:12 Pleas[place] % (Auto) 4.5 % 09/09/24 15:12 Eos % (Auto) 0.2 % 09/09/24 15:12 Baso % (Auto) 0.4 % 09/09/24 15:12 Neut # (Auto) 9.87 K/uL (1.40-6.50) H 09/09/24 15:12 Lymph # (Auto) 2.37 K/uL (1.20-3.40) 09/09/24 15:12 Pleasants # (Auto) 0.59 K/uL (0.11-0.59) 09/09/24 15:12 Eos # (Auto) 0.02 K/uL (0.00-0.50) 09/09/24 15:12 Baso # (Auto) 0.05 K/uL (0.00-0.20) 09/09/24 15:12 Immature Gran # (Auto) 0.09 K/uL (0.01-0.20) 09/09/24 15:12 Sodium 139 mmol/L (136-145) 09/09/24 15:12 Potassium 3.0 mmol/L (3.5-5.1) L 09/09/24 15:12 Chloride 97 mmol/L (98-107) L 09/09/24 15:12 Carbon Dioxide 33 mmol/L (21-32) H 09/09/24 15:12 Anion Gap 9 (3-11) 09/09/24 15:12 BUN 19 mg/dl (6-23) 09/09/24 15:12 Creatinine 0.99 mg/dl (0.6-1.4) 09/09/24 15:12 Est Cr Clr Drug Dosing 53.1 ml/min 09/09/24 15:12 eGFR 78.46 09/09/24 15:12 BUN/Creatinine Ratio 19.2 (10-20) 09/09/24 15:12 Glucose 128 mg/dl (70-99(Fasting)) H 09/09/24 15:12 Lactate 2.0 mmol/L (0.4-2.0) 09/09/24 15:12 Calcium 9.3 mg/dl (8.6-10.3) 09/09/24 15:12 Magnesium 1.9 mg/dl (1.7-2.4) 09/09/24 15:12 Total Bilirubin 0.5 mg/dl (0.2-1.0) 09/09/24 15:12 Direct Bilirubin 0.0 mg/dl (0-0.2) 09/09/24 15:12 AST 16 U/L (13-39) 09/09/24 15:12 ALT 11 U/L (7-52) 09/09/24 15:12 Alkaline Phosphatase 76 U/L (34-104) 09/09/24 15:12 Troponin I High Sens 19.5 pg/ml (0-20) 09/09/24 15:12 Total Protein 7.5 gm/dl (6.0-8.3) 09/09/24 15:12 Albumin 3.2 gm/dl (3.4-5.0) L 09/09/24 15:12 Procalcitonin 0.27 ng/ml (0-0.5) 09/09/24 15:12 Urine Color Yellow 09/09/24 19:30 Urine Appearance Clear (Clear) 09/09/24 19:30 Urine pH 5.5 (4.5-7.5) 09/09/24 19:30 Ur Specific [place] 1.022 (1.000-1.030) 09/09/24 19:30 Urine Protein Trace (Negative) H 09/09/24 19:30 Urine Glucose (UA) Negative (Negative) 09/09/24 19:30 Urine Ketones Trace (Negative) H 09/09/24 19:30 Urine Blood Negative (Negative) 09/09/24 19:30 Urine Nitrite Negative (Negative) 09/09/24 19: Urine Bilirubin Negative (Negative) 09/09/24 19:30 Urine Urobilinogen Negative (Negative) 09/09/24 19:30 Ur Leukocyte Esterase Negative (Negative) 09/09/24 19:30 Urine WBC (Auto) 0-5 /hpf (0-5) 09/09/24 19:30 Urine RBC (Auto) 0-2 /hpf (0-2) 09/09/24 19:30 U Hyaline Cast (Auto) 0-2 /lpf (0-2) 09/09/24 19:30 U Epithel Cells (Auto) 0-2 /hpf (0-2) 09/09/24 19:30 Urine Bacteria (Auto) None Seen (None Seen) 09/09/24 19:30 Amorphous Sediment Present (None Prsent) A 09/09/24 19:30 Nasal Screen MRSA (PCR) Negative (Negative) 09/09/24 19:45 Adenovirus (PCR) Not Detected (NotDetected) 09/09/24 15:17 B. pertussis DNA (PCR) Not Detected (NotDetected) 09/09/24 15:17 B.parapertussis DNA PCR Not Detected (NotDetected) 09/09/24 15:17 C. pneumoniae DNA (PCR) Not Detected (NotDetected) 09/09/24 15:17 Coronavirus OC43 (PCR) Not Detected (NotDetected) 09/09/24 15:17 Coronavirus HKU1 (PCR) Not Detected (NotDetected) 09/09/24 15:17 Coronavirus 229E (PCR) Not Detected (NotDetected) 09/09/24 15:17 SARS-CoV-2 (PCR) Not Detected (NotDetected) 09/09/24 15:17 Coronavirus NL63 (PCR) Not Detected (NotDetected) 09/09/24 15:17 Human Metapneumovir PCR Not Detected (NotDetected) 09/09/24 15:17 Influenza Type A (PCR) Not Detected (NotDetected) 09/09/24 15:17 Influenza Type B (PCR) Not Detected (NotDetected) 09/09/24 15:17 M. pneumoniae (PCR) Not Detected (NotDetected) 09/09/24 15:17 Parainfluenza 1 (PCR) Not Detected (NotDetected) 09/09/24 15:17 Parainfluenza 2 (PCR) Not Detected (NotDetected) 09/09/24 15:17 Parainfluenza 3 (PCR) Not Detected (NotDetected) 09/09/24 15:17 Parainfluenza 4 (PCR) Not Detected (NotDetected) 09/09/24 15:17 RSV (PCR) Not Detected (NotDetected) 09/09/24 15:17 Entero/Rhino (PCR) Not Detected (NotDetected) 09/09/24 15:17 Impressions Chest X-Ray 09/09/24 14:54 XR chest 1V portable CLINICAL HISTORY: Sepsis TECHNIQUE: Single frontal radiograph of the chest was obtained. Comparison: Comparison is made to chest radiograph 07/04/2024 FINDINGS: No lines and tubes are seen. The cardiomediastinal silhouette is normal. There are a few scattered patchy opacities. No evidence of pleural effusion or pneumothorax. IMPRESSION: A few scattered patchy opacities may represent pneumonia. No zoltan lobar consolidation is seen. ACT 112: Negative or not required by law. Electronically signed by: Warren Westbrook M.D. 09/09/2024 3:43 PM Code Status & VTE Plan Code Status Full code VTE Prophylaxis Plan VTE Prophylaxis will be ordered: Yes PG Care Time/CCT Total # of Minutes Spent Total Time Spent with Patient: Total time spent is greater than 50% in coordination of care (as documented) at patient's floor/unit and/or counseling patient: Coding Level of Care Code 83747 INT INP/OBS CARE 3/75MIN Diagnoses Sepsis A41.9 Sepsis acute organ dysfunction status: unspecified Sepsis type: sepsis due to unspecified organism Pneumonia J18.9 Urinary tract infection N30.00 Hematuria presence: without hematuria Urinary tract infection type: acute cystitis (1) Sepsis Sepsis acute organ dysfunction status: unspecified Sepsis type: sepsis due to unspecified organism Qualified Code(s): A41.9 - Sepsis, unspecified organism (3) Urinary tract infection Hematuria presence: without hematuria Urinary tract infection type: acute cystitis Qualified Code(s): N30.00 - Acute cystitis without hematuria
[2024-09-09] MEDS: NSS + 20MEQ KCL 20 MEQ/1,000 ML BAG IV SCH (19:45)
[2024-09-09 20:50] LABS: Amorphous Sediment Urine Present (None Prsent); Appearance Urine Clear (Clear); Bacteria Urine Automated None Seen (None Seen); Bilirubin Urine Negative (Negative); Blood Urine Negative (Negative); Cast Urine Automated 0-2 /lpf (0-2); Color Urine Yellow; Epithelial Cell Urine Auto 0-2 /hpf (0-2); Glucose Urine UA Negative (Negative); Ketones Urine Trace (Negative); Leukocyte Esterase Urine Negative (Negative); Nitrite Urine Negative (Negative); Protein Urine Trace (Negative); RBC Urine Automated 0-2 /hpf (0-2); Specific Gravity Urine 1.022 (1.000-1.030); Urobilinogen Urine Negative (Negative); WBC Urine Automated 0-5 /hpf (0-5); pH Urine 5.5 (4.5-7.5)
[2024-09-09] MEDS ORDERED: ONDANSETRON INJ 2 MG/ML 2 ML VIAL IV PRN (21:47)
[2024-09-09] MEDS: PANTOprazole 40 MG/10 ML SYR IV SCH (23:01)
[2024-09-10 04:28] LABS: Basophils # (auto) 0.02 K/uL (0.00-0.20); Basophils % (auto) 0.2 %; Eosinophils # (auto) 0.01 K/uL (0.00-0.50); Eosinophils % (auto) 0.1 %; Hematocrit (blood only) 39.1 % (42.0-52.0); Hemoglobin 12.8 g/dl (14.0-18.0); Immature Granulocytes # (auto) 0.04 K/uL (0.01-0.20); Immature Granulocytes % (auto) 0.4 %; Lymphocytes # (auto) 1.19 K/uL (1.20-3.40); Lymphocytes % (auto) 11.7 %; Mean Corpuscular Hemoglobin 31.4 pg (25.0-34.0); Mean Corpuscular Hgb Conc 32.7 g/dL (32.0-36.0); Mean Corpuscular Volume 95.8 fL (80.0-100.0); Mean Platelet Volume 9.8 fL (9.4-12.4); Monocytes # (auto) 0.46 K/uL (0.11-0.59); Monocytes % (auto) 4.5 %; Neutrophils # (auto) 8.42 K/uL (1.40-6.50); Neutrophils % (auto) 83.1 %; Platelet Count 227 K/uL (130-400); RDW Coefficient of Variation 14.7 % (11.5-14.5); RDW Standard Deviation 51.5 fL (36.4-46.3); Red Blood Count 4.08 M/uL (4.70-6.10); White Blood Count 10.14 K/ul (4.8-10.8)
[2024-09-10 04:53] LABS: Albumin Globulin Ratio 0.8 (0.9-2); Albumin Level 2.6 gm/dl (3.4-5.0); BUN Creatinine Ratio 16.9 (10-20); Bilirubin,Total 0.4 mg/dl (0.2-1.0); Calcium 7.7 mg/dl (8.6-10.3); Creatinine Clr Calc Pharmacy 63.4 ml/min; Globulin 3.2 gm/dl (2.5-4.0); Magnesium 1.6 mg/dl (1.7-2.4); Potassium 3.4 mmol/L (3.5-5.1); Total Protein 5.8 gm/dl (6.0-8.3)
[2024-09-10] MEDS: CEFEPIME 2000MG 2,000 MG/20 ML SYR IV SCH (07:44)
[2024-09-10] MEDS: DOXYCYCLINE HYCLATE 100 MG in DEXTROSE 5% MINI-B 100 ML IV SCH (08:10)
[2024-09-10] MEDS: MAGNESIUM SULFATE / D5W 1 GM/100 ML BAG IV ONE (10:14)
[2024-09-10] MEDS ORDERED: ETOMIDATE 2 MG/ML 20 ML VIAL IV ONE (12:34)
[2024-09-10] MEDS ORDERED: ROCURONIUM BROMIDE 10 MG/ML 5 ML VIAL IV ONE (12:34)
--- NOTE | 2024-09-10 13:20 | Electrocardiogram Report ---
Test Reason : Blood Pressure : */* mmHG Vent. Rate : 106 BPM Atrial Rate : 106 BPM P-R Int : 162 ms QRS Dur : 72 ms QT Int : 332 ms P-R-T Axes : 93 -56 71 degrees QTcB Int : 441 ms Sinus tachycardia Left axis deviation Septal infarct , age undetermined Abnormal ECG When compared with ECG of 03-Jul-2024 23:54, Septal infarct is now Present Confirmed by Raul Kimbrough ([id number]) on 09/10/2024 1:19:51 PM Referred By: Confirmed By: Raul Kimbrough
--- NOTE | 2024-09-10 14:31 | Critical Care Consultation ---
Date of Consultation September 10, 2024 Assessment & Plan (1) Aspiration pneumonia due to food (regurgitated): (2) BPH (benign prostatic hyperplasia): (3) Emphysema lung: (4) Diabetes mellitus: (5) Acute respiratory failure with hypoxia: Plan Reason Critically Ill: 78-year-old male was admitted to the hospital for generalized weakness. Sent to ICU after intubation for hypoxic respiratory failure and aspiration Past medical history: COPD, GERD, BPH, diabetes type 2, hypertension Neuro - [facility] ICU: Unable to assess Cardiac - -- History of hypertension Unsure if the patient is taking any medications at home --Dyslipidemia On atorvastatin at home Respiratory - CTA chest 07/04/2024 personally reviewed: Motion degraded study Centrilobular emphysema appreciated bilaterally Dilated esophagus with fluid within it Dependent atelectasis of right lower lobe No significant mediastinal lymphadenopathy -- VDRF For aspiration pneumonia and hypoxia Continue with ventilatory support Keep RASS -1 Daily sedation holidays and SBT's Chlorhexidine mouthwash GI - -- Difficulty swallowing CT chest did show dilated esophagus, progressive worsening in swallowing Probability of cancer/stricture is high GI will be consulted RENAL/LYTES - -- Monitor BUNs/creatinine Avoid nephrotoxic medications ENDO - -- ICU hyperglycemia protocol HEME - -- Normocytic anemia Monitor H&H ID - -- Aspiration pneumonia Continue with antibiotics --Prophylaxis VTE: Heparin GI: Pantoprazole Lines: Peripheral Diet: N.p.o. Plan: Magnesium and phosphorus being replaced Start the patient on Mucomyst, nebulized Brovana and budesonide. Follow-up sputum culture GI consult as there is high probability that patient might have esophageal stricture/cancer. Patient is already intubated, if they are able to do an upper GI endoscopy it would be beneficial Continue with antibiotics I have personally spent 64 minutes of critical care time in the direct management of this patient. This is a life/limb threatening event. This includes time spent evaluating patient, direct bedside care, chart review, placing orders, interpretation of diagnostic studies, discussion with consultants, patient, and family members, as well as other required patient management activities. This time is exclusive of all separately billable procedures, and teaching time and separate from and in addition to any other critical care service time. History of Present Illness Attending Physician: Ronald Gallagher MD History of Present Illness 78-year-old male was admitted to the hospital for generalized weakness. Sent to ICU after intubation for hypoxic respiratory failure and aspiration Past medical history: COPD, GERD, BPH, diabetes type 2, hypertension Patient was admitted but still in the ER, code lynnette was called after patient was having swallow eval where he seemed to aspirate and going to significant hypoxic event He was intubated by the ER physician. I was called bedside as they were not able to get the oxygenation up. When I entered the room he was being bagged saturation was 83-84% I personally bagged the patient to see if there was any increased assistance. I did not appreciate any resistance and bagging the patient I reconnected the patient to the ventilator. He was on PEEP of 15 on the ventilator, I went down to 10. I saw the patient was getting tidal volume, there was no leak, his saturation did start to go up with as high as 92-93%. Blood pressure was in the 150s with heart rate in the 100s at the time of examination I did look at the chest x-ray as well prior to entering the room which showed no pneumothorax after intubation but there was collapse of the left lower lobe History was obtained from previous chart as well as primary team who are at bedside. Allergies Allergy/AdvReac Type Severity Reaction Status Date / Time No Known Allergies Allergy Verified 09/09/24 15:44 Home Medications Medication Instructions Recorded Confirmed Type No Known Home Medications 09/09/24 09/09/24 History Patient History Medical History (Updated 09/10/24 @ 16:13 by María Mckay MD, [facility]) Acute metabolic encephalopathy Lethargy Surgical History H/O tooth extraction All Teeth History of hip surgery Family History Father Diabetes Denies family history of Ovarian cancer Prostate cancer Myocardial infarction Breast cancer Colorectal cancer Social History Smoking Status: Current every day smoker Tobacco Type: Cigarettes Age Started Using Tobacco: 16; packs per day: 1; Do You Dip or Chew Tobacco: No; Hx Alcohol Use: No Hx Substance Use: No Preferred Language: Belgian Communication Ability: Impaired Hearing Ability: Hard of Hearing Jewelry Appraiser Required: No Beliefs That Will Affect Care: None marital status: Current Living Situation: Spouse current occupational status: retired 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 How many Children do You have: 1 Feels Safe at Home: Yes Diet Comment: attempts high protein during the past year weight has: decreased > 10 lbs Dental Care, Regularly: Yes Physical Activity Frequency: Does not Exercise Physical Activity Frequency Comment: limited d/t physical condition Assistive Devices: Walker and Wheelchair Review of Systems 2 Review of Systems: Unobtainable due to endotracheal tube Physical Exam 2 Physical Exam: Constitutional: No acute distress HEENT: PERRLA Respiratory system: Decreased air entry on the left side, no wheeze, no rhonchi, positive crackles bilaterally CVS: S1-S2 positive, no murmurs or gallops Abdomen: Soft, nontender, nondistended, positive bowel sounds x4 Extremities: +2 pulses bilaterally radialis/ dorsalis pedis, no cyanosis, no edema Neuro: Intubated and paralyzed Psych: Unable to assess G/U: No Meier Skin: no rashes, warm and dry Lymphatic: no cervical or axillary lymphadenopathy Results & Data Results & Data Vital Signs (Past 12 Hours) Vital Signs Pulse Pulse Resp BP BP Pulse Ox Pulse Ox 09/10/24 13:00 87 22 97 09/10/24 13:00 132/79 09/10/24 13:00 132/79 09/10/24 13:00 132/79 09/10/24 12:21 84 18 98 09/10/24 12:00 120/73 09/10/24 12:00 120/73 09/10/24 11:48 92 H 14 09/10/24 11:00 82 22 93 09/10/24 11:00 132/73 09/10/24 11:00 132/73 09/10/24 11:00 132/73 09/10/24 10:03 78 23 98 09/10/24 10:00 119/72 09/10/24 10:00 119/72 09/10/24 09:51 81 20 96 09/10/24 09:03 84 20 90 09/10/24 09:00 119/69 09/10/24 09:00 119/69 09/10/24 09:00 15 09/10/24 08:57 82 22 09/10/24 08:09 82 18 91 09/10/24 08:01 15 09/10/24 08:00 127/70 09/10/24 08:00 127/70 09/10/24 07:54 77 19 90 09/10/24 07:36 74 09/10/24 07:09 67 19 96 09/10/24 06:00 125/71 09/10/24 06:00 125/71 09/10/24 06:00 125/71 09/10/24 06:00 81 18 09/10/24 06:00 92 09/10/24 05:03 74 98 09/10/24 05:00 119/67 09/10/24 05:00 119/67 09/10/24 05:00 119/67 09/10/24 05:00 71 18 119/67 97 09/10/24 04:57 76 14 96 09/10/24 04:03 78 18 09/10/24 04:00 123/72 09/10/24 04:00 123/72 09/10/24 04:00 123/72 09/10/24 04:00 79 20 123/72 94 09/10/24 03:54 83 16 09/10/24 03:03 82 19 94 09/10/24 03:00 129/70 09/10/24 03:00 129/70 09/10/24 03:00 76 20 129/70 95 09/10/24 02:51 79 19 94 O2 Del Method O2 Del Method O2 Flow Rate O2 Flow Rate 09/10/24 13:00 09/10/24 13:00 09/10/24 13:00 09/10/24 13:00 09/10/24 12:21 09/10/24 12:00 09/10/24 12:00 09/10/24 11:48 09/10/24 11:00 09/10/24 11:00 09/10/24 11:00 09/10/24 11:00 09/10/24 10:03 09/10/24 10:00 09/10/24 10:00 09/10/24 09:51 09/10/24 09:03 09/10/24 09:00 09/10/24 09:00 09/10/24 09:00 09/10/24 08:57 09/10/24 08:09 Nasal Cannula 6 09/10/24 08:01 09/10/24 08:00 09/10/24 08:00 09/10/24 07:54 09/10/24 07:36 09/10/24 07:09 09/10/24 06:00 09/10/24 06:00 09/10/24 06:00 09/10/24 06:00 09/10/24 06:00 Nasal Cannula 4 09/10/24 05:03 09/10/24 05:00 09/10/24 05:00 09/10/24 05:00 09/10/24 05:00 Room Air 09/10/24 04:57 09/10/24 04:03 09/10/24 04:00 09/10/24 04:00 09/10/24 04:00 09/10/24 04:00 Nasal Cannula 4 09/10/24 03:54 09/10/24 03:03 09/10/24 03:00 09/10/24 03:00 09/10/24 03:00 Nasal Cannula 4 09/10/24 02:51 Laboratory Results 09/10/24 04:02 09/10/24 04:02 Coding Level of Care Code 53372 CRITICAL CARE 1ST 30-74M Diagnoses Aspiration pneumonia due to food (regurgitated) J69.0 Laterality: bilateral Lung location: lower lobe of lung BPH (benign prostatic hyperplasia) N40.0 Emphysema lung J43.9 Diabetes mellitus E11.9 Acute respiratory failure with hypoxia J96.01 (1) Aspiration pneumonia due to food (regurgitated) Laterality: bilateral Lung location: lower lobe of lung Qualified Code(s): J 69.0 - Pneumonitis due to inhalation of food and vomit
--- NOTE | 2024-09-10 14:46 | Procedure Note ---
Procedure Note Date of Service September 10, 2024 Note Endotracheal Intubation Indication: Hypoxia and altered mental status. A code purple was called as the patient was an inpatient hold down in the emergency department yet. Patient had been undergoing an evaluation by speech therapy due to history of aspiration and diagnosis of pneumonia on this admission. Upon entering the room patient was awake and answering questions although was noted to be slightly confused. His oxygen saturations were in the 70s on 6 L/min via nasal cannula and staff tried to transition him to a nonrebreather without improvement. Respiratory therapy was present at bedside and placed the patient on high flow nasal cannula with a nonrebreather mask over top. Patient sats were still only holding in the low 80s. We did review CODE STATUS at admission which was listed as full. Despite several attempts at further sectioning patient sats did not improve. Preparations made for intubation. Pharmacy at bedside to help with medications. A second IV was placed and IV fluids started. Due to concern for increased risk of deterioration in the periintubation period, push dose pressors brought to bedside additionally. The patient was on 100% oxygen via NRB and HFNC prior to the procedure. Suction, airway equipment, RSI drugs, respiratory equipment, and appropriate personnel were prepared prior to the initiation of the procedure. A time out was taken. Induction was performed with etomidate and rocuronium. After observing the clinical benefit of the medications, the airway was easily visualized utilizing a Glidescope. Suctioning performed due to secretions in the posterior oropharynx and in the area of the vocal cords. A 8.0 size ETT tube was placed atraumatically to 24 cm using standard technique. The cuff inflated without signs of malfunction. There were bilateral breath sounds, positive colormetric change, no gastric sounds, a good capnography waveform, and post procedure pulse oximetry was 85%. Post intubation sedation and paralysis was administered using propofol. Several attempts made at suctioning patient, PEEP failed at 15 and patient being bagged by RT at bedside. Patient with persistent hypoxia despite this. He was tachycardic and maintaining a blood pressure. While attempting to bag the patient up staff attempted to place an OG unsuccessfully, and RT got an ABG. The ICU attending was contacted urgently to discuss the case in consideration of possible need for urgent bronchoscopy due to persistent hypoxia. Chest x-ray at bedside performed and interpreted by me showing a ET tube above the yanick with what appeared to be a left lower lobe infiltrate and possible effusion. I discussed case with Dr. Mckay who came to bedside and made preparations for urgent bedside bronchoscopy. Time spent performing procedure and managing postintubation complications: 40 min Coding
[2024-09-10] MEDS: SODIUM CHLORIDE 0.9% 1,000 ML IV SCH (14:49)
[2024-09-10] MEDS: fentaNYL citrate 2,500 MCG/250 ML BAG IV ONE (15:00)
--- NOTE | 2024-09-10 15:03 | XRay Report ---
XR chest 1V portable CLINICAL HISTORY: ET tube placement TECHNIQUE: Single frontal radiograph of the chest was obtained. Comparison: Comparison is made to chest radiograph 09/09/2024 FINDINGS: Endotracheal tube terminates 4.8 cm from the yanick. The cardiomediastinal silhouette is normal. Left lower lung opacity is seen. Moderate left pleural effusion. IMPRESSION: 1. Satisfactory position of endotracheal tube. 2. Moderate left pleural effusion has developed from the prior exam. Airspace opacity may represent atelectasis, aspiration, and/or pneumonia. ACT 112: Negative or not required by law. Electronically signed by: Warren Westbrook M.D. 09/10/2024 3:01 PM
--- NOTE | 2024-09-10 15:11 | Procedure Note ---
Procedure Note: Bronchoscopy Procedure PREOPERATIVE DIAGNOSIS: Left lower lobe collapse with significant hypoxia on ventilator POSTOPERATIVE DIAGNOSIS Mucous plugging of the left main PROCEDURE PERFORMED: Flexible fiberoptic bronchoscopy with bronchoalveolar lavage and clearing of mucous plugs COMPLICATIONS: None. INDICATION: Severe hypoxia with left lower lobe collapse PROCEDURE: Emergent consent was applied as the patient was hypoxic on 100% FiO2 while on being on ventilator., The patient had appropriate oxygen, blood pressu re, heart rate, and respiratory rate monitoring applied and monitored continuously throughout the procedure. Patient just underwent intubation with RSI and he got etomidate 18 mg, rocuronium 50 mg. I did start the patient on fentanyl 25 mcg prior doing bronchoscopy Patient was on PEEP of 10, FiO2 100% Bronchoscope was advanced through ETT The trachea appeared normal.The bronchoscope was then advanced through the yanick, which was sharp. The scope was then advanced into the right main stem and each segment, subsegement in the right upper lobe, right middle lobe and right lower lobe were visualized. There was moderate amount of thick peng secretion which were suctioned out. There were no other findings including evidence of mass, anatomic distortions, or hemorrhage. The bronchoscope was subsequently withdrawn and advanced into the left mainstem . There was large mucous plug obstructing left upper as well as left lower lobe. The mucous was suctioned out and sample was also collected and it trap. Again, each segment and subsegment was well visualized. No specific masses or other lesions were identified throughout the tracheobronchial tree on the left. The bronchoscope was then wedged in the left lower lobe and bronchoalveolar wash samples were obtained. 60 ml of saline was instilled and 30 ml of fluid was aspirated back.The bronchoscope was withdrawn and the area was suctioned clear. The bronchoscope was then withdrawn to the mainstem. The area was suctioned clear. The bronchoscope was then withdrawn. The patient tolerated the procedure well without evidence of desaturation or complications. Bronchoalveolar wash samples were sent for cell count, Gram stain and bacterial culture, AFB culture and smear, fungal culture and smear and cytology. Recommendations: Follow-up micro and cytology Follow-up chest x-ray Please note the above document was generated using voice recognition software. It may contain grammatical, syntax or spelling errors.Any formal questions or concerns about the content, text or information contained within the body of this dictation should be directly addressed to the provider for clarification. [facility] Procedure Codes (Charges) Pulmonary/Thoracic Procedure 1: Pulmonary and Thoracic: 43966 Dx bronchoscopy/wash Procedure 2: Pulmonary and Thoracic: 21059 Bronchoscopy, clear airways
--- NOTE | 2024-09-10 15:48 | XRay Report ---
XR chest 1V portable CLINICAL HISTORY: Post Bronchoscopy COMPARISON STUDY: Chest CT July 04, 2024. Chest radiograph September 10, 2024 at 2:31 PM. FINDINGS: The tip of the endotracheal tube is 4.4 cm above the yanick. There is no pneumothorax. Ther e is a suspected small left pleural effusion. Left lower lung airspace opacity persists. However, thi s has improved. Left lower lobe volume loss has improved. Scattered airspace opacities within the lef t lung have improved. There is underlying emphysema. Old right-sided rib fractures are incidentally n oted. Cardiac size is normal. There is no evidence for pulmonary edema. IMPRESSION: 1. Tip of endotracheal tube 4.4 cm above the yanick. 2. Interval improvement in left lung aeration. The findings favor improving left lower lobe collapse. A superimposed infectious process cannot be excluded. ACT 112: Negative or not required by law. Electronically signed by: Tee Rodriguez M.D. 09/10/2024 3:47 PM
[2024-09-10] MEDS: PROPOFOL IV EMULSION 10 MG/ML 100 ML VIAL IV ONE (15:52)
[2024-09-10] MEDS: RAPID SEQUENCE INDUCTION BAG ONE ×2 (15:52)
[2024-09-10] MEDS ORDERED: STAT IV Infusion **Titration per Protocol STA ×3 (16:20→18:15)
[2024-09-10] MEDS: ALBUT/IPRATROP 3MG/0.5MG NEB 3 ML VIAL NEB STA (16:20)
[2024-09-10] MEDS: ACETYLCYSTEINE 20% INHAL SOLN 4ML ***DISPENSED BY RESP. INH SCH (16:20)
[2024-09-10 16:21] LABS: iSTAT Arterial Blood Gas HCO3 24 meg/L (19-24); iSTAT Arterial Blood Gas pCO2 47 mmHg (35-46); iSTAT Arterial Blood Gas pH 7.32 (7.35-7.45); iSTAT Arterial Blood Gas pO2 51 mmHg (80-95); iSTAT Carbon Dioxide 25 mmol/L (24-31); iSTAT Hematocrit 39 % (42-52); iSTAT Hemoglobin 13.3 g/dl (14.0-18.0); iSTAT Potassium 2.9 mmol/L (3.3-5.0); iSTAT Sodium 143 mmol/L (135-144)
[2024-09-10] MEDS: PIPERACILLIN/TAZOBACTAM 4.5 GM/100 ML BAG IV ONE (17:03)
[2024-09-10] MEDS: MAGNESIUM SULFATE / D5W 1 GM/100 ML BAG IV SCH (17:05)
[2024-09-10] MEDS: POTASSIUM CHLORIDE / WTR 10 MEQ/100 ML PLCT IV SCH (17:05)
[2024-09-10] MEDS: propofoL 1,000 MG/100 ML VIAL IV SCH (17:05)
[2024-09-10 17:52] LABS: iSTAT Allen Test Pass; iSTAT Art Bld Gas pCO2 Correct 47 mmHg (35-46); iSTAT Art Bld Gas pH Corrected 7.276 (7.35-7.45); iSTAT Arterial Blood Gas HCO3 22 meg/L (19-24); iSTAT Arterial Blood Gas pCO2 49 mmHg (35-46); iSTAT Arterial Blood Gas pH 7.26 (7.35-7.45); iSTAT Arterial Blood Gas pO2 192 mmHg (80-95); iSTAT Arterial Blood Gas pO2 C 187; iSTAT Carbon Dioxide 24 mmol/L (24-31); iSTAT FiO2 80 %; iSTAT Hematocrit 41 % (42-52); iSTAT Hemoglobin 13.9 g/dl (14.0-18.0); iSTAT Potassium 3.5 mmol/L (3.3-5.0); iSTAT Sample Type Arterial; iSTAT Site R Radial; iSTAT Sodium 141 mmol/L (135-144); iSTAT SpO2 100
[2024-09-10] MEDS: fentaNYL citrate 2,500 MCG/250 ML BAG IV SCH (18:19)
[2024-09-10] MEDS: PLASMA-LYTE A 1,000 ML IV ONE (18:23)
[2024-09-10] MEDS: NOREPINEPHRINE/D5W 4 MG/250 ML IV ONE (18:24)
[2024-09-10] MEDS: NOREPINEPHRINE/D5W 4 MG/250 ML PLCT IV SCH (18:27)
--- NOTE | 2024-09-10 20:13 | Hospitalist Progress Note ---
Date of Service September 10, 2024 Assessment & Plan (1) Sepsis: (2) Acute respiratory failure with hypoxia: (3) Pneumonia: (4) Urinary tract infection: Plan The patient is a 78-year-old male with past medical history including hypertension, GERD, duodenal ulcer, aspiration pneumonia, BPH, urinary incontinence, diabetes mellitus, esophagitis. His most recently admitted from 06/22-06/26/2024 for sepsis due to urinary tract infection. He was then admitted from 07/04-07/07/2024 for aspiration pneumonia. He presents to the emergency department this time with similar symptoms, and is seen bringing up large volumes of mucus. #Sepsis due to pneumonia Acetaminophen 1 g IV every 8 hours as needed for mild pain or fever NPO Pneumonia/history of aspiration/ Acute hypoxic respiratory failure MRSA swab negative. Biofire negative. Sputum culture - moderate normal leslie, preliminary 09/10 Patient had aspiration event with [employer] with acute decompensation requiring intubation and bedside bronchoscopy. (Details HPI 09/10) Transferred to ICU Bronchial Wash pending Care per ICU Concerns for esophageal stricture vs mass - will need GI consult Hypokalemia- Potassium 3.0 - repleted in fluids, improved to 3.4 Weakness - will need PT/OT when appropiate Chronic medical problems: Hyperlipidemia resume atorvastatin when taking p.o. GERD-changed to pantoprazole 40 IV while NPO Dispo: continued inpatient stay in ICU, guarded prognosis DVT proh: per ICU Family updated by phone and extensively at bedside 09/10 Highly complex care coordination. Critical care time for acute hypoxic respiratory failure. 100 minutes spent in consultation and discussion with Dr. Mckay, working with respiratory for airway management, antibiotic management,updating family, etc. Admission and Anticipated Discharge Date Admission Date: September 09, 2024 Supervising Physician Co-Signing Physician Notes Attending Attestation & Progress Note: Pt seen/examined, chart reviewed, care plan d/w MISHEL Howard. Plan also d/w Dr María Mckay, ICU attending. I agree with the smith components of Ms Howard's documentation with following additions - * left-sided aspiration pneumonia * malnutrition, 5kg weight loss since 06/2024 * dysphagia * esophagitis * acute metabolic encephalopathy Ms Howard contacted me urgently this afternoon after patient had an apparent episode of zoltan aspiration while completing a bedside swallow evaluation with speech therapy. He was taking sips of water during the swallow eval and aspirated, leading to immediate desaturation. Respiratory was called, and patient placed on max settings of HFNC. [facility] was ultimately called. Despite HFNC his O2 sats did not improve. Upon my arrival sats were low 80s on 100% FiO2. He was tachypneic, but was awake/alert. Staff report he has confusion. Decision made to intubate due to the above. Dr Aliyah Mcdonald, ER attending, was at head of bed. Following manually bagging patient was intubated on first attempt utilizing RSI. In-line suctioning was performed by respiratory, and despite such O2 sats did not improve. Patient placed on vent and PEEP [address] utilized[address] By this point Dr Mckay was present from ICU and advised emergent bronchoscopy. Bronch revealed copious secretions/mucous in the left bronchial tree c/w aspiration. No endobronchial lesion noted. He was subsequently transferred to ICU. Exam (prior to intubation) gen - awake, but confused; tachypneic; cachectic skin/nails - clubbing, nicotine staining of nails neck - no JVD heart - tachy, s1 s2 lungs - severe crackles left with course BS on left, CTA on right, tachypnea with increased work of breathing abd - soft NT ext - pulses 2+ b/l feet, no edema A/P: 1. aspiration pneumonia - change cefepime to zosyn; MRSA swab neg - defer on MRSA coverage; f/u on bronch cultures and prior sputum cx from 09/09/24 defer vent management to ICU attending maxx ferrer for atypical coverage but doubt atypicals causing current infection 2. acute hypoxic resp failure 2nd to #1 3. malnutrition 4. dysphagia 5. h/o esophagitis earlier this year - PPI 6. acute metabolic encephalopathy - 2nd to #1, #2 appreciate ER & ICU attending assistance patient is critically ill critical care time as noted by Ms Howard for his acute resp failure Ronald Gallagher MD Subjective Patient seen earlier this morning while holding in the ED. reports came in to the ED for weakness, poor appetite. 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 RT and ED physician at bedside. Patient was initiated on high flow with m inimal to no imporvement. No family at bedside, confirmed code status from last 3 admission was full code. Decision was made to intubate, which was preformed by Dr. Chauhan. Despite intubation and confirmation of tube placement on chest xray - oxygen remained 82-84% with bagging. Dr. Manzano called to bedside, placed on vent, small improvement in saturations. Bedside bronchoscopy performed with rem oval of thick fluid. Patient will be transferred to ICU. Review of Systems Review of Systems: All systems reviewed & are unremarkable except as noted in Subjective Physical Exam Physical Exam: PHYSICAL EXAM FROM MORNING ENCOUNTER General: NAD, VS as above, appears fragile and ill Resp: normal respiratory effort, on 6L nasal cannula, lung sounds are diminished CV: RRR, no murmur, Abd: normal bowel sounds, non tender, no hepatosplenomegaly. Emesis bag with sputum at bedside Extremities: Moves all extremities, no edema Neuro: A&O x3, Results & Data Results & Data Vital Signs (Past 12 Hours) Vital Signs Temp Pulse Resp BP Pulse Ox O2 Del Method O2 Flow Rate 09/10/24 18:15 90/64 L 09/10/24 18:09 96.8 F L 133 H 20 09/10/24 17:57 97.0 F L 133 H 20 09/10/24 17:46 77/60 L 09/10/24 17:39 97.0 F L 133 H 20 09/10/24 17:35 80/62 L 09/10/24 17:30 104/80 09/10/24 17:27 97.0 F L 138 H 20 09/10/24 17:25 82/66 L 09/10/24 17:18 97.0 F L 138 H 20 09/10/24 17:15 95/66 L 09/10/24 17:05 80/56 L 09/10/24 17:03 96.8 F L 140 H 20 100 09/10/24 17:01 73/55 L 09/10/24 16:57 96.8 F L 141 H 20 09/10/24 16:45 Mechanical Vent 09/10/24 16:43 09/10/24 16:39 96.3 F L 128 H 20 09/10/24 16:37 Mechanical Vent 09/10/24 16:28 119 H 20 100 09/10/24 16:07 141/91 H 09/10/24 16:00 119 H 16 09/10/24 15:55 115 H 20 99 09/10/24 15:53 Mechanical Vent 09/10/24 14:58 173/111 H 09/10/24 14:56 145/91 H 09/10/24 14:52 151/104 H 09/10/24 14:51 115 H 20 91 09/10/24 14:50 171/115 H 09/10/24 14:48 116 H 21 89 L 09/10/24 14:48 168/118 H 09/10/24 14:48 168/118 H 09/10/24 14:42 133/103 H 09/10/24 14:42 115 H 20 81 L 09/10/24 14:38 158/96 H 09/10/24 14:35 153/96 H 09/10/24 14:33 112 H 34 H 81 L 09/10/24 14:32 157/99 H 09/10/24 14:32 157/99 H 09/10/24 14:27 126 H 28 H 82 L 09/10/24 14:26 157/109 H 09/10/24 14:20 114/78 09/10/24 14:18 114 H 18 81 L 09/10/24 14:16 103/77 09/10/24 14:16 103/77 09/10/24 14:12 95 H 19 80 L 09/10/24 14:09 112 H 26 H 73 L 09/10/24 14:00 98/63 L 09/10/24 13:57 100 H 22 79 L 09/10/24 13:00 87 22 97 09/10/24 13:00 132/79 09/10/24 13:00 132/79 09/10/24 13:00 132/79 09/10/24 12:21 84 18 98 09/10/24 12:00 120/73 09/10/24 12:00 120/73 09/10/24 11:48 92 H 14 09/10/24 11:00 82 22 93 09/10/24 11:00 132/73 09/10/24 11:00 132/73 09/10/24 11:00 132/73 09/10/24 10:03 78 23 98 09/10/24 10:00 119/72 09/10/24 10:00 119/72 09/10/24 09:51 81 20 96 09/10/24 09:03 84 20 90 09/10/24 09:00 119/69 09/10/24 09:00 119/09/10/24 09:00 15 09/10/24 08:57 82 22 09/10/24 08:09 82 18 91 Nasal Cannula 6 FiO2 09/10/24 18:15 09/10/24 18:09 09/10/24 17:57 09/10/24 17:46 09/10/24 17:39 09/10/24 17:35 09/10/24 17:30 09/10/24 17:27 09/10/24 17:25 09/10/24 17:18 09/10/24 17:15 09/10/24 17:05 09/10/24 17:03 09/10/24 17:01 09/10/24 16:57 09/10/24 16:45 80 09/10/24 16:43 80 09/10/24 16:39 09/10/24 16:37 09/10/24 16:28 100 09/10/24 16:07 09/10/24 16:00 09/10/24 15:55 100 09/10/24 15:53 09/10/24 14:58 09/10/24 14:56 09/10/24 14:52 09/10/24 14:51 09/10/24 14:50 09/10/24 14:48 09/10/24 14:48 09/10/24 14:48 09/10/24 14:42 09/10/24 14:42 09/10/24 14:38 09/10/24 14:35 09/10/24 14:33 09/10/24 14:32 09/10/24 14:32 09/10/24 14:27 09/10/24 14:26 09/10/24 14:20 09/10/24 14:18 09/10/24 14:16 09/10/24 14:16 09/10/24 14:12 09/10/24 14:09 09/10/24 14:00 09/10/24 13:57 09/10/24 13:00 09/10/24 13:00 09/10/24 13:00 09/10/24 13:00 09/10/24 12:21 09/10/24 12:00 09/10/24 12:00 09/10/24 11:48 09/10/24 11:00 09/10/24 11:00 09/10/24 11:00 09/10/24 11:00 09/10/24 10:03 09/10/24 10:00 09/10/24 10:00 09/10/24 09:51 09/10/24 09:03 09/10/24 09:00 09/10/24 09:00 09/10/24 09:00 09/10/24 08:57 09/10/24 08:09 Laboratory Results Cbc, chemistry mag reviewed sputum culture blood culture reviewed Diagnostic Findings CXR reviewed PG Care Time/CCT Total # of Minutes Spent Total Time Spent with Patient: Total time spent is greater than 50% in coordination of care (as documented) at patient's floor/unit and/or counseling patient: Critical Care Time: Yes Total Critical Care Time: 100 Coding Level of Care Code None Diagnoses Sepsis A41.9 Sepsis acute organ dysfunction status: unspecified Sepsis type: sepsis due to unspecified organism Acute respiratory failure with hypoxia J96.01 Pneumonia J18.9 Urinary tract infection N30.00 Hematuria presence: without hematuria Urinary tract infection type: acute cystitis Additional Codes Critical Care Time - Critical Care Time: Yes ([id number]) (1) Sepsis Sepsis acute organ dysfunction status: unspecified Sepsis type: sepsis due to unspecified organism Qualified Code(s): A41.9 - Sepsis, unspecified organism (4) Urinary tract infection Hematuria presence: without hematuria Urinary tract infection type: acute cystitis Qualified Code(s): N30.00 - Acute cystitis without hematuria
[2024-09-10] MEDS: fentaNYL BOLUS from BAG IV PRN (20:15)
[2024-09-10] MEDS: PROPOFOL BOLUS FROM BAG IV PRN (20:15)
[2024-09-10] MEDS: FORMOTEROL 20 MCG/2 ML VIAL INH SCH (20:25)
[2024-09-10] MEDS: BUDESONIDE 0.5 MG/2 ML VIAL (PULMICORT) NEB SCH (20:25)
[2024-09-10] MEDS: SODIUM CHLORIDE 0.9% 500 ML IV ONE (21:07)
[2024-09-10 21:15] LABS: Fluid Mono/Macrophage 11 %; Lymphocyte Body Fluid Man 8 %; Neutrophil Body Fluid Man 81 %
--- NOTE | 2024-09-11 00:07 | Procedure Note ---
Procedure Note Date of Service September 11, 2024 Procedure: Internal Jugular Central Line Placement Proceduralist: Patricio ALCANTAR ([facility] Attending: Dr. Mckay Indication: Increasing vasopressor requirements, Central Drug Administration, Poor Venous Access, Multiple Lab Draws Necessary, etc. Anesthesia: x Lidocaine 1% Emergent Consent was implied as patient is intubated and sedated with increasing vasopressor requirements and is a FULL CODE. No family immediately available. Benefits greatly outweigh the risks currently. A time-out was completed verifying correct patient, procedure, site, positioning, or special equipment if applicable. Patients RIGHT Neck scouted for appropriate target and anatomy identified with ultrasound. Once appropriate target vessel was identified, the site was cleansed and draped in the typical sterile fashion using Chloraprep. The Internal Jugular Vein and Carotid Artery were again identified using sterile ultrasound. The superficial tissue was anesthetized using 5 mL of 1% lidocaine without epinephrine under direct visualization with the ultrasound. After adequate anesthetization was achieved, the Internal Jugular vein was cannulated under direct ultrasound guidance using an introducer needle on a syringe. Good venous blood return was maintained prior to removal of syringe from introducer needle. Using Seldinger Technique, a guide wire was advanced through the introducer needle without resistance. The introducer needle was removed and ultrasound images were obtained of the guide wire within the Internal Jugular Vein. A small incision was made in penetrating fashion at the guide wire insertion site utilizing an 11 blade scalpel. The dilator was advanced to the vessel without resistance. The dilator was exchanged for the triple lumen catheter which was advanced into the vessel without resistance. The guide wire was removed intact from the catheter without issue. Claves were placed on each catheter tip with confirmation of good blood flow from each lumen. Each port was easily flushed with sterile saline. The catheter was placed at 17 cm and sut[address] in place. BioPatch was applied to the catheter and a sterile Tegaderm dressing was applied over the catheter with careful attention to sterility. Patient tolerated procedure well. No immediate complications were met. Post procedure x-ray was completed, placement was appropriate and no pneumothorax was noted. Artery AND Vein visualized: YES Compressible Vein: YES Guidewire or Short Catheter seen in vein prior to dilation: YES Images obtained are NOT saved for permanent record due to technical issues [facility] [place] Procedure Codes (Charges) Tubes, Drains, and Vasc Access Procedure 1: Tubes, Drains, and Vasc Access: [id number] Insertion Of Non-tunneled Catheter Age 6 Yrs> Coding CPT Codes Tubes, Drains, and Vasc Access - Tubes, Drains, and Vasc Access: [id number] Insertion Of Non-tunneled Catheter Age 6 Yrs> ([id number]) Additional Codes Date of Service (PG.SURGERY)
[2024-09-11] MEDS ORDERED: STAT IV Infusion **Titration per Protocol STA (00:08)
--- NOTE | 2024-09-11 00:12 | Procedure Note ---
Procedure Note Date of Service September 11, 2024 Procedure: Arterial Line Placement Proceduralist: Patricio ALCANTAR ([facility]-) Attending: Dr. Mckay Indication: Monitoring on Pressors with increasing vasopressor requirements Anesthesia: x Lidocaine 1% Emergent Consent was implied as patient is intubataed and sedated with increasing vasopressor requirements, he is a FULL CODE and no family immediately available. Benefits greatly outweigh risks currently. A time-out was completed verifying correct patient, procedure, site, positioning, or special equipment if applicable. Allens test was performed to ensure adequate perfusion. Patients RIGHT wrist was prepped and draped in the usual sterile fashion. Ultrasound guidance was used to frame cleaner the vessel and to directly aid needle placement. A 20g Arrow arterial line was introduced into the RIGHT RADIAL artery. Brisk blood return was noted, and wire was advanced without resistance. The catheter was threaded, and the needle was removed with appropriate blood return. Pressure tubing was then attached noting a arterial Good waveform. The line was secured with suture and covered with sterile tegaderm. The patient tolerated the procedure well. Blood Loss: Minimal Complications: None immediate [facility] [place] Codes (Charges) Tubes, Drains, and Vasc Access Procedure 2: Tubes, Drains, and Vasc Access: [id number] Arterial Cath/Cannulation Sampling/Monitoring/Transfusion Coding CPT Codes Tubes, Drains, and Vasc Access - Tubes, Drains, and Vasc Access: [id number] Arterial Cath/Cannulation Sampling/Monitoring/Transfusion ([id number]) Additional Codes Date of Service (PG.SURGERY)
[2024-09-11] MEDS: SODIUM CHLORIDE 0.9% 500 ML IV SCH (00:58)
--- NOTE | 2024-09-11 02:49 | XRay Report ---
Exam(s): XR CXR 1 VIEW EXAM: XR Chest, 1 View CLINICAL HISTORY: Central line. TECHNIQUE: Frontal view of the chest. COMPARISON: Chest radiograph 09/10/2024 FINDINGS: Lungs: Stable bilateral airspace opacities. Pleural space: Stable bilateral pleural effusions. No pneumothorax. Heart: The cardiac silhouette is stable. Mediastinum: Unremarkable. Normal mediastinal contour. Bones/joints: There are degenerative changes of the spine. No acute fracture. Tubes, lines and devices: Interval placement of a right IJ central venous catheter with the tip overlying expected location of the of the distal SVC. The remaining lines and tubes are stable. IMPRESSION: The remaining findings are stable. Electronically signed by: Kari Sy MD 09/11/24 02:48 AM
[2024-09-11 05:06] LABS: Hematocrit (blood only) 39.2 % (42.0-52.0); Hemoglobin 12.8 g/dl (14.0-18.0); Mean Corpuscular Hemoglobin 31.2 pg (25.0-34.0); Mean Corpuscular Hgb Conc 32.7 g/dL (32.0-36.0); Mean Corpuscular Volume 95.6 fL (80.0-100.0); Mean Platelet Volume 9.9 fL (9.4-12.4); Platelet Count 394 K/uL (130-400); RDW Coefficient of Variation 15.1 % (11.5-14.5); RDW Standard Deviation 53.3 fL (36.4-46.3); White Blood Count 29.39 K/ul (4.8-10.8)
[2024-09-11 05:21] LABS: Albumin Globulin Ratio 0.8 (0.9-2); Albumin Level 2.4 gm/dl (3.4-5.0); BUN Creatinine Ratio 13.6 (10-20); Bilirubin,Total 0.4 mg/dl (0.2-1.0); Calcium 7.3 mg/dl (8.6-10.3); Creatinine Clr Calc Pharmacy 59.7 ml/min; Globulin 3.2 gm/dl (2.5-4.0); Magnesium 2.3 mg/dl (1.7-2.4); Potassium 3.5 mmol/L (3.5-5.1); Total Protein 5.6 gm/dl (6.0-8.3)
[2024-09-11 05:30] LABS: Basophils # (auto) 0.09 K/uL (0.00-0.20); Basophils % (auto) 0.3 %; Eosinophils # (auto) 0.02 K/uL (0.00-0.50); Eosinophils % (auto) 0.1 %; Immature Granulocytes # (auto) 0.21 K/uL (0.01-0.20); Immature Granulocytes % (auto) 0.7 %; Lymphocytes # (auto) 1.88 K/uL (1.20-3.40); Lymphocytes % (auto) 6.4 %; Monocytes # (auto) 1.05 K/uL (0.11-0.59); Monocytes % (auto) 3.6 %; Neutrophils # (auto) 26.14 K/uL (1.40-6.50); Neutrophils % (auto) 88.9 %
[2024-09-11] MEDS ORDERED: GLUCOSE 10 TAB/TUBE PO PRN (05:42)
[2024-09-11] MEDS ORDERED: GLUCOSE 40% GEL 15 GM TUBE PO PRN (05:42)
[2024-09-11] MEDS ORDERED: CARBOHYDRATES FOR HYPOGLYCEMIA PO PRN (05:42)
[2024-09-11] MEDS ORDERED: GLUCAGON FOR INJ 1 MG VIAL SQ PRN (05:42)
[2024-09-11] MEDS: ICU Protocol for HYPERglycemia SCH (05:45)
[2024-09-11] MEDS: INSULIN ASPART PER UNIT CHARGE SC SCH (06:02)
[2024-09-11] MEDS: POTASSIUM CHLORIDE / WTR 20 MEQ/100 ML PLCT IV SCH (06:38)
[2024-09-11] MEDS: ALBUT/IPRATROP 3MG/0.5MG NEB 3 ML VIAL NEB PRN (07:23)
--- NOTE | 2024-09-11 08:34 | XRay Report ---
XR chest 1V portable CLINICAL HISTORY: eval lines/tubes/lung galarza COMPARISON STUDY: Chest CT July 04, 2024. Chest radiograph September 10, 2024 at 11:35 PM. FINDINGS: Tip of endotracheal tube is 4.7 cm above the yanick. Tip of right internal jugular central line is within the distal SVC. There is no pneumothorax. There are trace bilateral pleural effusions. Left lung appears hyperinflated. Left lower lobe airspace opacity has improved. Left upper lung airs pace opacity is present. Medial right basilar airspace opacity has developed. IMPRESSION: 1. Satisfactory positioning of lines and tubes. 2. No pneumothorax. 3. Continued improvement in left lower lobe airspace opacity. Mild left upper lobe airspace opacity w hich may reflect pneumonia. 4. Interval development of the medial right basilar opacity. This favors atelectasis. 5. Trace bilateral pleural effusions. ACT 112: Negative or not required by law. Electronically signed by: Tee Rodriguez M.D. 09/11/2024 8:32 AM
--- NOTE | 2024-09-11 08:39 | Critical Care Progress Note ---
Date of Service September 11, 2024 Assessment & Plan (1) Aspiration pneumonia due to food (regurgitated): (2) BPH (benign prostatic hyperplasia): (3) Emphysema lung: (4) Diabetes mellitus: (5) Acute respiratory failure with hypoxia: Plan Reason Critically Ill: 78-year-old male was admitted to the hospital for generalized weakness. Sent to ICU after intubation for hypoxic respiratory failure and aspiration Past medical history: COPD, GERD, BPH, diabetes type 2, hypertension Neuro - [facility] ICU: Unable to assess Cardiac - --Shock Septic as well as due to sedation Continue with vasopressor support to keep MAP greater than 65 -- History of hypertension Unsure if the patient is taking any medications at home --Dyslipidemia On atorvastatin at home Respiratory - CTA chest 07/04/2024 personally reviewed: Motion degraded study Centrilobular emphysema appreciated bilaterally Dilated esophagus with fluid within it Dependent atelectasis of right lower lobe No significant mediastinal lymphadenopathy -- VDRF For aspiration pneumonia and hypoxia Continue with ventilatory support Keep RASS -1 Daily sedation holidays and SBT's Chlorhexidine mouthwash GI - -- Difficulty swallowing CT chest did show dilated esophagus, progressive worsening in swallowing Probability of cancer/stricture is high Discussed the case with GI 09/11/2024 who stated the patient already had the EGD done early June 2024 and this could all be from esophagitis No plan for intervention this admission, recommend outpatient EGD RENAL/LYTES - -- Monitor BUNs/creatinine Avoid nephrotoxic medications ENDO - -- ICU hyperglycemia protocol HEME - -- Normocytic anemia Monitor H&H ID - -- Aspiration pneumonia Sputum culture growing Pseudomonas, follow-up sensitivity Continue with antibiotics --Prophylaxis VTE: Heparin GI: Pantoprazole Lines: Peripheral Diet: N.p.o. Plan: In/out: +2.3 L, urine output 1155 Potassium being replaced along with phosphorus As GI has no plan for intervention when it comes to EGD, we will try to see if you are able to extubate the patient. Patient will need to be strict n.p.o. Sputum culture growing Pseudomonas, continue with antibiotics I have personally spent 37 minutes of critical care time in the direct management of this patient. This is a life/limb threatening event. This includes time spent evaluating patient, direct bedside care, chart review, placing orders, interpretation of diagnostic studies, discussion with consultants, patient, and family members, as well as other required patient management activities. This time is exclusive of all separately billable procedures, and teaching time and separate from and in addition to any other critical care service time. Admission and Anticipated Discharge Date Admission Date: September 09, 2024 Subjective Patient seen and examined at bedside. No acute distress, no adverse events overnight He was on 0.24 of Levophed, MAP in the mid 70s Was on propofol 10, fentanyl 25. He was RASS -2, did wake up on deep stimulation and started to move all extremities spontaneously Denied any headache, no chest pain Was asking to take the tube out Review of Systems 2 Review of Systems: Unobtainable due to endotracheal tube Physical Exam 2 Physical Exam: Constitutional: No acute distress HEENT: PERRLA Respiratory system: Decreased air entry on the left side, no wheeze, no rhonchi, positive crackles bilaterally CVS: S1-S2 positive, no murmurs or gallops Abdomen: Soft, nontender, nondistended, positive bowel sounds x4 Extremities: +2 pulses bilaterally radialis/ dorsalis pedis, no cyanosis, no edema Neuro: Intubated and sedated, moving all extremities spontaneously Psych: Unable to assess G/U: No Meier Skin: no rashes, warm and dry Lymphatic: no cervical or axillary lymphadenopathy Results & Data Results & Data Vital Signs (Past 12 Hours) Vital Signs Temp Pulse Resp BP Pulse Ox Pulse Ox O2 Del Method 09/11/24 07:56 100 H 20 100 09/11/24 06:00 100 Mechanical Vent 09/11/24 04:00 09/11/24 03:55 111 H 20 100 09/11/24 01:30 102/79 09/11/24 01:30 102/79 09/11/24 01:27 36.9 C 116 H 20 97 09/11/24 01:15 109/81 09/11/24 01:15 109/81 09/11/24 01:15 109/81 09/11/24 01:15 109/81 09/11/24 01:06 36.9 C 115 H 20 97 09/11/24 01:00 106/84 09/11/24 01:00 106/84 09/11/24 00:48 36.8 C 111 H 20 100 09/11/24 00:45 106/82 09/11/24 00:45 106/82 09/11/24 00:45 106/82 09/11/24 00:42 36.8 C 112 H 20 98 09/11/24 00:30 113/79 09/11/24 00:30 113/79 09/11/24 00:30 113/79 09/11/24 00:30 113/79 09/11/24 00:27 36.8 C 110 H 20 09/11/24 00:20 112 H 20 100 09/11/24 00:16 103/79 09/11/24 00:15 36.8 C 110 H 16 100 09/11/24 00:01 96/71 L 09/11/24 00:01 96/71 L 09/11/24 00:00 102 H 09/11/24 00:00 09/10/24 23:45 140/82 09/10/24 23:45 140/82 09/10/24 23:39 36.7 C 104 H 20 100 09/10/24 23:33 36.7 C 106 H 20 100 09/10/24 23:30 92/62 L 09/10/24 23:30 92/62 L 09/10/24 23:15 79/55 L 09/10/24 23:15 79/55 L 09/10/24 23:00 94/75 L 09/10/24 23:00 94/75 L 09/10/24 22:39 36.4 C L 115 H 20 100 09/10/24 22:30 82/63 L 09/10/24 22:21 36.2 C L 117 H 20 100 09/10/24 22:00 35.9 C L 126 H 16 97 09/10/24 22:00 119/94 09/10/24 21:57 101/74 09/10/24 21:57 101/74 09/10/24 21:57 101/74 09/10/24 21:48 35.8 C L 116 H 28 H 98 09/10/24 21:48 117 H 20 99 09/10/24 21:45 94/69 L 09/10/24 21:45 94/69 L 09/10/24 21:45 94/69 L 09/10/24 21:45 94/69 L 09/10/24 21:45 94/69 L 09/10/24 21:30 35.9 C L 115 H 21 97 09/10/24 21:15 98/75 L 09/10/24 21:15 115 H 19 94 09/10/24 21:00 103/67 09/10/24 21:00 117 H 17 94 09/10/24 20:45 86/62 L 09/10/24 20:45 86/62 L 09/10/24 20:39 118 H 28 H 98 FiO2 09/11/24 07:56 40 09/11/24 06:00 09/11/24 04:00 40 09/11/24 03:55 40 09/11/24 01:30 09/11/24 01:30 09/11/24 01:27 09/11/24 01:15 09/11/24 01:15 09/11/24 01:15 09/11/24 01:15 09/11/24 01:06 09/11/24 01:00 09/11/24 01:00 09/11/24 00:48 09/11/24 00:45 09/11/24 00:45 09/11/24 00:45 09/11/24 00:42 09/11/24 00:30 09/11/24 00:30 09/11/24 00:30 09/11/24 00:30 09/11/24 00:27 09/11/24 00:20 40 09/11/24 00:16 09/11/24 00:15 09/11/24 00:01 09/11/24 00:01 09/11/24 00:00 09/11/24 00:00 50 09/10/24 23:45 09/10/24 23:45 09/10/24 23:39 09/10/24 23:33 09/10/24 23:30 09/10/24 23:30 09/10/24 23:15 09/10/24 23:15 09/10/24 23:00 09/10/24 23:00 09/10/24 22:39 09/10/24 22:30 09/10/24 22:21 09/10/24 22:00 09/10/24 22:00 09/10/24 21:57 09/10/24 21:57 09/10/24 21:57 09/10/24 21:48 09/10/24 21:48 60 09/10/24 21:45 09/10/24 21:45 09/10/24 21:45 09/10/24 21:45 09/10/24 21:45 09/10/24 21:30 09/10/24 21:15 09/10/24 21:15 09/10/24 21:00 09/10/24 21:00 09/10/24 20:45 09/10/24 20:45 09/10/24 20:39 Laboratory Results 09/11/24 04:42 09/11/24 04:42 Coding Level of Care Code 03780 CRITICAL CARE 1ST 30-74M Diagnoses Aspiration pneumonia due to food (regurgitated) J69.0 Laterality: bilateral Lung location: lower lobe of lung BPH (benign prostatic hyperplasia) N40.0 Emphysema lung J43.9 Diabetes mellitus E11.9 Acute respiratory failure with hypoxia J96.01 (1) Aspiration pneumonia due to food (regurgitated) Laterality: bilateral Lung location: lower lobe of lung Qualified Code(s): J 69.0 - Pneumonitis due to inhalation of food and vomit
[2024-09-11] MEDS: VASOPRESSIN 20 UNITS in SODIUM CHLORIDE 0.9% 100 ML IV SCH (09:05)
[2024-09-11 09:21] LABS: iSTAT Art Bld Gas pCO2 Correct 36 mmHg (35-46); iSTAT Art Bld Gas pH Corrected 7.324 (7.35-7.45); iSTAT Arterial Blood Gas HCO3 19 meg/L (19-24); iSTAT Arterial Blood Gas pCO2 37 mmHg (35-46); iSTAT Arterial Blood Gas pH 7.32 (7.35-7.45); iSTAT Arterial Blood Gas pO2 130 mmHg (80-95); iSTAT Arterial Blood Gas pO2 C 129; iSTAT Carbon Dioxide 20 mmol/L (24-31); iSTAT FiO2 40 %; iSTAT Hematocrit 38 % (42-52); iSTAT Hemoglobin 12.9 g/dl (14.0-18.0); iSTAT Potassium 3.8 mmol/L (3.3-5.0); iSTAT Sample Type Arterial; iSTAT Site Art Line; iSTAT Sodium 138 mmol/L (135-144); iSTAT SpO2 99
--- NOTE | 2024-09-11 09:25 | Communication Note ---
Date of Service: September 11, 2024 Asked to see patient for urgent endoscopy to rule out obstructing malignancy. He aspirated yesterday. He had an endoscopy in June of this year which revealed circumferential esophagitis. He has had issues with aspiration since. Discussed with Dr. Manzano. No indication for repeat endoscopy at this time to rule out malignancy. Perhaps repeat EGD could be done later in this hospitalization to assess esophagitis but I suspect it will look the same as it did before. It certainly is possible that he will develop a stricture if this is untreated but this would be fairly quick. Please reconsult if there is anything we can do.
[2024-09-11] MEDS: PIPERACILLIN/TAZOBACTAM 4.5 GM/100 ML BAG IV SCH (09:50)
[2024-09-11] MEDS ORDERED: POTASSIUM PHOS 3 MMOL/1 ML INFUSION IV STA (12:46)
[2024-09-11] MEDS: POTASSIUM PHOSPHATE 15 MMOL in SODIUM CHLORIDE 0.9% 250 ML IV ONE (14:09)
--- NOTE | 2024-09-11 16:49 | Hospitalist Progress Note ---
Date of Service September 11, 2024 Assessment & Plan (1) Sepsis: (2) Acute respiratory failure with hypoxia: (3) Pneumonia: (4) Urinary tract infection: (5) Esophagitis: (6) Dysphagia: (7) Malnutrition: Plan The patient is a 78-year-old male with past medical history including hype rtension, GERD, duodenal ulcer, aspiration pneumonia, BPH, urinary incontinence, diabetes mellitus, esophagitis. His most recently admitted from 06/22- 06/26/2024 for sepsis due to urinary tract infection. He was then admitted from 07/04-07/07/2024 for aspiration pneumonia. He presents to the emergency department this time with similar symptoms, and is seen bringing up large volumes of mucus. #Sepsis due to pneumonia Pneumonia/history of aspiration/ Acute hypoxic respiratory failure MRSA swab negative. Biofire negative. Sputum culture - psuedomonas, sensitivities pending 09/10 Patient had aspiration event with [employer] with acute decompensation requiring intubation and bedside bronchoscopy. (Details HPI 09/10) Transferred to ICU Bronchial Wash pending Care per ICU - continues on zosyn and doxycyline, extubated today Esophagitis seen on CT - Concerns for esophageal stricture vs mass with difficulty OG/NG placement. GI consulted - pt had scope in Jun 2024 without such, no need for EGD inpatient. Continue PPI Hypokalemia- ICU managing electrolytes currently Weakness - will need PT/OT when appropiate Chronic medical problems: Hyperlipidemia resume atorvastatin when taking p.o. GERD-changed to pantoprazole 40 IV while NPO Dispo: continued inpatient stay in ICU DVT proh: per ICU Family updated by phone and extensively at bedside 09/10. Son updated by phone 09/11 Admission and Anticipated Discharge Date Admission Date: September 09, 2024 Supervising Physician Co-Signing Physician Notes Attending Attestation -- Chart reviewed, care plan d/w MISHEL Howard. I agree with the smith components of her documentation. 09/09/24 sputum cx growing pseudomonas - cont IV zosyn, f/u on sensitivities. Patient successfully liberated from the vent today. GI consult for consideration of repeat EGD. Ronald Gallagher MD Subjective Patient seen while intubated in the ICU. did not awake to verbal stimuli. Review of Systems Review of Systems: All systems reviewed & are unremarkable except as noted in Subjective Physical Exam Physical Exam: General: NAD, VS as above, intubated and sedated Resp: on vent, + breath sounds bilaterally CV: RRR, no murmur, Abd: normal bowel sounds, Results & Data Results & Data Vital Signs (Past 12 Hours) Vital Signs Temp Pulse Resp BP Pulse Ox Pulse Ox O2 Del Method 09/11/24 15:07 84 22 99 09/11/24 14:15 91/66 L 09/11/24 14:12 96.6 F L 90 15 100 BiPAP 09/11/24 14:00 109/72 09/11/24 13:57 97.0 F L 88 15 99 09/11/24 13:45 92/66 L 09/11/24 13:45 92/66 L 09/11/24 13:45 92/66 L 09/11/24 13:45 92/66 L 09/11/24 13:45 96.6 F L 88 13 100 09/11/24 13:30 105/69 09/11/24 13:24 97.0 F L 92 H 22 100 09/11/24 13:15 97.0 F L 92 H 15 100 09/11/24 13:03 97.2 F L 91 H 11 L 100 09/11/24 13:00 102/65 09/11/24 12:48 97.2 F L 96 H 14 100 09/11/24 12:45 108/65 09/11/24 12:45 108/65 09/11/24 12:45 108/65 09/11/24 12:45 108/65 09/11/24 12:36 97.2 F L 94 H 21 100 09/11/24 12:30 99/63 L 09/11/24 12:30 97.2 F L 94 H 12 100 09/11/24 12:18 97.0 F L 90 14 100 09/11/24 12:15 108/79 09/11/24 12:15 108/79 09/11/24 12:15 108/79 09/11/24 12:06 97.0 F L 94 H 13 100 BiPAP 09/11/24 12:00 97.0 F L 98 H 15 100 09/11/24 12:00 108/71 09/11/24 12:00 108/71 09/11/24 11:58 96 H 20 100 09/11/24 11:45 109/67 09/11/24 11:45 97.0 F L 95 H 14 99 09/11/24 11:39 96.6 F L 98 H 18 100 09/11/24 11:30 135/67 09/11/24 11:18 97.2 F L 100 H 17 97 09/11/24 11:15 107/75 09/11/24 11:09 97.5 F L 90 14 97 09/11/24 11:00 97.5 F L 94 H 15 97 09/11/24 10:45 97.3 F L 101 H 15 97 09/11/24 10:45 119/68 09/11/24 10:30 111/82 09/11/24 10:30 97.2 F L 106 H 0 L 100 09/11/24 10:21 97.3 F L 109 H 18 98 09/11/24 10:15 120/69 09/11/24 09:54 98.1 F 109 H 20 98 09/11/24 09:45 109/78 09/11/24 09:45 109/78 09/11/24 09:45 98.1 F 112 H 20 98 09/11/24 09:33 98.1 F 114 H 20 98 Mechanical Vent 09/11/24 09:30 102/86 09/11/24 08:00 09/11/24 07:56 100 H 20 100 09/11/24 07:42 Mechanical Vent 09/11/24 06:00 100 O2 Del Method FiO2 09/11/24 15:07 25 09/11/24 14:15 09/11/24 14:12 0.3 09/11/24 14:00 09/11/24 13:57 09/11/24 13:45 09/11/24 13:45 09/11/24 13:45 09/11/24 13:45 09/11/24 13:45 09/11/24 13:30 09/11/24 13:24 09/11/24 13:15 09/11/24 13:03 09/11/24 13:00 09/11/24 12:48 09/11/24 12:45 09/11/24 12:45 09/11/24 12:45 09/11/24 12:45 09/11/24 12:36 09/11/24 12:30 09/11/24 12:30 09/11/24 12:18 09/11/24 12:15 09/11/24 12:15 09/11/24 12:15 09/11/24 12:06 0.3 09/11/24 12:00 09/11/24 12:00 09/11/24 12:00 09/11/24 11:58 30 09/11/24 11:45 09/11/24 11:45 09/11/24 11:39 09/11/24 11:30 09/11/24 11:18 09/11/24 11:15 09/11/24 11:09 09/11/24 11:00 09/11/24 10:45 09/11/24 10:45 09/11/24 10:30 09/11/24 10:30 09/11/24 10:21 09/11/24 10:15 09/11/24 09:54 09/11/24 09:45 09/11/24 09:45 09/11/24 09:45 09/11/24 09:33 0.4 09/11/24 09:30 09/11/24 08:00 40 09/11/24 07:56 40 09/11/24 07:42 0.4 09/11/24 06:00 Mechanical Vent Laboratory Results cbc and chemistry reviewed PG Care Time/CCT Total # of Minutes Spent Total Time Spent with Patient: Total time spent is greater than 50% in coordination of care (as documented) at patient's floor/unit and/or counseling patient: Coding Level of Care Code 98776 SUB INP/OBS CARE 2/35MIN Diagnoses Sepsis A41.9 Sepsis acute organ dysfunction status: unspecified Sepsis type: sepsis due to unspecified organism Acute respiratory failure with hypoxia J96.01 Pneumonia J18.9 Urinary tract infection N30.00 Hematuria presence: without hematuria Urinary tract infection type: acute cystitis Esophagitis K20.90 Dysphagia R13.10 Malnutrition E46 (1) Sepsis Sepsis acute organ dysfunction status: unspecified Sepsis type: sepsis due to unspecified organism Qualified Code(s): A41.9 - Sepsis, unspecified organism (4) Urinary tract infection Hematuria presence: without hematuria Urinary tract infection type: acute cystitis Qualified Code(s): N30.00 - Acute cystitis without hematuria
[2024-09-11] MEDS: DEXTROSE 50% 50 ML SYRINGE IV PRN (18:23)
[2024-09-11] MEDS: D5W AND 1/2NSS 1,000 ML IV SCH (18:46)
[2024-09-11] MEDS: ACETAMINOPHEN 1000 MG/100 ML IV IV PRN (21:48)
[2024-09-12 05:24] LABS: Albumin Globulin Ratio 0.8 (0.9-2); Albumin Level 2.1 gm/dl (3.4-5.0); BUN Creatinine Ratio 11.6 (10-20); Bilirubin,Total 0.5 mg/dl (0.2-1.0); Calcium 7.3 mg/dl (8.6-10.3); Creatinine Clr Calc Pharmacy 65.8 ml/min; Globulin 2.7 gm/dl (2.5-4.0); Magnesium 1.9 mg/dl (1.7-2.4); Potassium 3.3 mmol/L (3.5-5.1); Total Protein 4.8 gm/dl (6.0-8.3)
[2024-09-12 07:29] LABS: Hematocrit (blood only) 30.6 % (42.0-52.0); Hemoglobin 9.9 g/dl (14.0-18.0); Mean Corpuscular Hemoglobin 31.2 pg (25.0-34.0); Mean Corpuscular Hgb Conc 32.4 g/dL (32.0-36.0); Mean Corpuscular Volume 96.5 fL (80.0-100.0); Mean Platelet Volume 10.2 fL (9.4-12.4); Platelet Count 145 K/uL (130-400); RDW Coefficient of Variation 15.2 % (11.5-14.5); RDW Standard Deviation 54.3 fL (36.4-46.3); Red Blood Count 3.17 M/uL (4.70-6.10); White Blood Count 9.33 K/ul (4.8-10.8)
[2024-09-12 07:30] LABS: Basophils # (auto) 0.03 K/uL (0.00-0.20); Basophils % (auto) 0.3 %; Eosinophils # (auto) 0.02 K/uL (0.00-0.50); Eosinophils % (auto) 0.2 %; Immature Granulocytes # (auto) 0.06 K/uL (0.01-0.20); Immature Granulocytes % (auto) 0.6 %; Lymphocytes # (auto) 1.25 K/uL (1.20-3.40); Lymphocytes % (auto) 13.4 %; Monocytes # (auto) 0.48 K/uL (0.11-0.59); Monocytes % (auto) 5.1 %; Neutrophils # (auto) 7.49 K/uL (1.40-6.50); Neutrophils % (auto) 80.4 %
[2024-09-12] MEDS: POTASSIUM CHLORIDE / WTR 20 MEQ/100 ML PLCT IV SCH (07:59)
--- NOTE | 2024-09-12 08:41 | Critical Care Progress Note ---
Date of Service September 12, 2024 Assessment & Plan (1) Aspiration pneumonia due to food (regurgitated): (2) BPH (benign prostatic hyperplasia): (3) Emphysema lung: (4) Diabetes mellitus: (5) Acute respiratory failure with hypoxia: Plan Reason Critically Ill: 78-year-old male was admitted to the hospital for generalized weakness. Sent to ICU after intubation for hypoxic respiratory failure and aspiration Past medical history: COPD, GERD, BPH, diabetes type 2, hypertension Neuro - [facility] ICU: Unable to assess Cardiac - -- S/p shock Septic as well as due to sedation Continue with vasopressor support to keep MAP greater than 65 -- History of hypertension Unsure if the patient is taking any medications at home --Dyslipidemia On atorvastatin at home Respiratory - CTA chest 07/04/2024 personally reviewed: Motion degraded study Centrilobular emphysema appreciated bilaterally Dilated esophagus with fluid within it Dependent atelectasis of right lower lobe No significant mediastinal lymphadenopathy -- Status post VDRF For aspiration pneumonia and hypoxia Extubated 09/11/2024 Recommend BiPAP nightly and as needed shortness of breath GI - -- Difficulty swallowing CT chest did show dilated esophagus, progressive worsening in swallowing Probability of cancer/stricture is high Discussed the case with GI 09/11/2024 who stated the patient already had the EGD done early June 2024 and this could all be from esophagitis No plan for intervention this admission, recommend outpatient EGD RENAL/LYTES - -- Monitor BUNs/creatinine Avoid nephrotoxic medications ENDO - -- ICU hyperglycemia protocol HEME - -- Normocytic anemia Monitor H&H ID - -- Aspiration pneumonia Sputum culture growing Pseudomonas, follow-up sensitivity Continue with antibiotics --Prophylaxis VTE: Heparin GI: Pantoprazole Lines: Peripheral Diet: N.p.o. Plan: In/out: +1.2 L, urine output 965, +6.9 L since coming to the hospital Patient's A-line is very positional, would rely more on cuff pressure, will discontinue arterial line Potassium and phosphorus along with magnesium being replaced Keep the patient strict n.p.o. Continue with Zosyn to cover for Pseudomonas, follow-up sensitivity If the patient is able to be maintained off Levophed then we will downgrade the patient later in the afternoon Please note the above document was generated using voice recognition software. It may contain grammatical, syntax or spelling errors.Any formal questions or concerns about the content, text or information contained within the body of this dictation should be directly addressed to the provider for clarification. Admission and Anticipated Discharge Date Admission Date: September 09, 2024 Subjective Patient seen and examined at bedside. No acute distress, no adverse events overnight Patient was on 0.01 of Levophed, MAP was in the 70s Patient was awake alert and answering all the questions appropriately He was 100% on 6 L, I went down to 1 L he was still saturating 96-97% Denied any chest pain, no abdominal pain No headache No nausea or vomiting Review of Systems 2 Review of Systems: All systems reviewed & are unremarkable except as noted in Subjective Physical Exam 2 Physical Exam: Constitutional: No acute distress HEENT: PERRLA, EOMI Respiratory system: Decreased air entry on the left side, no wheeze, no rhonchi, positive crackles bilaterally CVS: S1-S2 positive, no murmurs or gallops Abdomen: Soft, nontender, nondistended, positive bowel sounds x4 Extremities: +2 pulses bilaterally radialis/ dorsalis pedis, no cyanosis, no edema Neuro: Awake alert oriented to self Psych: Normal mood and affect G/U: Positive Meier Skin: no rashes, warm and dry Lymphatic: no cervical or axillary lymphadenopathy Results & Data Results & Data Vital Signs (Past 12 Hours) Vital Signs Temp Pulse Pulse Resp BP Pulse Ox Pulse Ox 09/12/24 07:25 74 19 100 09/12/24 07:25 74 19 100 09/12/24 06:00 100 09/12/24 04:30 100/61 09/12/24 04:30 36.2 C L 74 13 100 09/12/24 04:15 98/55 L 09/12/24 04:15 98/55 L 09/12/24 04:12 36.2 C L 74 13 99 09/12/24 04:00 101/56 L 09/12/24 03:56 81 23 100 09/12/24 03:54 36.2 C L 78 12 98 09/12/24 03:45 36.2 C L 71 14 99 09/12/24 03:45 99/58 L 09/12/24 03:45 99/58 L 09/12/24 03:45 99/58 L 09/12/24 03:45 99/58 L 09/12/24 03:30 36.3 C L 73 14 100 09/12/24 03:30 105/55 L 09/12/24 03:15 104/58 L 09/12/24 03:15 104/58 L 09/12/24 03:12 36.3 C L 71 16 100 09/12/24 03:00 36.3 C L 72 12 100 09/12/24 03:00 108/64 09/12/24 03:00 108/64 09/12/24 02:45 106/59 L 09/12/24 02:45 106/59 L 09/12/24 02:33 36.3 C L 73 14 99 09/12/24 02:30 99/55 L 09/12/24 02:30 99/55 L 09/12/24 02:21 36.3 C L 73 14 100 09/12/24 02:15 118/61 09/12/24 02:15 118/61 09/12/24 02:03 36.3 C L 82 100 09/12/24 02:00 36.3 C L 75 14 100 09/12/24 02:00 114/61 09/12/24 02:00 114/61 09/12/24 02:00 114/61 09/12/24 02:00 114/61 09/12/24 02:00 114/61 09/12/24 01:45 113/58 L 09/12/24 01:45 113/58 L 09/12/24 01:45 113/58 L 09/12/24 01:42 36.4 C L 73 13 99 09/12/24 01:30 116/69 09/12/24 01:30 36.4 C L 79 17 99 09/12/24 01:15 113/59 L 09/12/24 01:15 113/59 L 09/12/24 01:09 36.4 C L 73 15 100 09/12/24 01:03 36.4 C L 78 20 99 09/12/24 01:00 105/67 09/12/24 01:00 105/67 09/12/24 01:00 105/67 09/12/24 01:00 105/67 09/12/24 00:45 115/61 09/11/24 23:47 80 09/11/24 23:31 115/65 09/11/24 23:27 36.7 C 80 12 98 09/11/24 23:15 36.7 C 77 15 97 09/11/24 23:15 103/59 L 09/11/24 23:15 103/59 L 09/11/24 23:15 103/59 L 09/11/24 23:15 103/59 L 09/11/24 23:09 36.7 C 78 12 97 09/11/24 23:01 84 14 100 09/11/24 22:51 36.8 C 81 14 100 09/11/24 22:30 92/53 L 09/11/24 22:24 36.8 C 86 15 100 09/11/24 22:15 101/58 L 09/11/24 22:03 36.8 C 87 15 100 09/11/24 22:00 116/62 09/11/24 22:00 116/62 09/11/24 22:00 116/62 09/11/24 21:48 36.8 C 85 14 100 09/11/24 21:45 113/65 09/11/24 21:45 36.8 C 87 13 100 09/11/24 21:30 107/60 09/11/24 21:30 36.8 C 88 14 100 09/11/24 21:17 130/71 09/11/24 21:17 130/71 09/11/24 21:09 36.8 C 93 H 16 100 09/11/24 21:01 100/61 09/11/24 21:01 100/61 09/11/24 20:54 36.7 C 89 14 99 09/11/24 20:51 102/64 09/11/24 20:51 102/64 09/11/24 20:48 36.6 C 92 H 24 97 O2 Del Method O2 Del Method FiO2 09/12/24 07:25 25 09/12/24 07:25 BiPAP 25 09/12/24 06:00 BiPAP 09/12/24 04:30 09/12/24 04:30 09/12/24 04:15 09/12/24 04:15 09/12/24 04:12 09/12/24 04:00 09/12/24 03:56 25 09/12/24 03:54 09/12/24 03:45 09/12/24 03:45 09/12/24 03:45 09/12/24 03:45 09/12/24 03:45 09/12/24 03:30 09/12/24 03:30 09/12/24 03:15 09/12/24 03:15 09/12/24 03:12 09/12/24 03:00 09/12/24 03:00 09/12/24 03:00 09/12/24 02:45 09/12/24 02:45 09/12/24 02:33 09/12/24 02:30 09/12/24 02:30 09/12/24 02:21 09/12/24 02:15 09/12/24 02:15 09/12/24 02:03 09/12/24 02:00 09/12/24 02:00 09/12/24 02:00 09/12/24 02:00 09/12/24 02:00 09/12/24 02:00 09/12/24 01:45 09/12/24 01:45 09/12/24 01:45 09/12/24 01:42 09/12/24 01:30 09/12/24 01:30 09/12/24 01:15 09/12/24 01:15 09/12/24 01:09 09/12/24 01:03 09/12/24 01:00 09/12/24 01:00 09/12/24 01:00 09/12/24 01:00 09/12/24 00:45 09/11/24 23:47 09/11/24 23:31 09/11/24 23:27 09/11/24 23:15 09/11/24 23:15 09/11/24 23:15 09/11/24 23:15 09/11/24 23:15 09/11/24 23:09 09/11/24 23:01 09/11/24 22:51 09/11/24 22:30 09/11/24 22:24 09/11/24 22:15 09/11/24 22:03 09/11/24 22:00 09/11/24 22:00 09/11/24 22:00 09/11/24 21:48 09/11/24 21:45 09/11/24 21:45 09/11/24 21:30 09/11/24 21:30 09/11/24 21:17 09/11/24 21:17 09/11/24 21:09 09/11/24 21:01 09/11/24 21:01 09/11/24 20:54 09/11/24 20:51 09/11/24 20:51 09/11/24 20:48 Laboratory Results 09/12/24 06:19 09/12/24 04:14 Coding Level of Care Code 11618 SUB INP/OBS CARE 3/50MIN Diagnoses Aspiration pneumonia due to food (regurgitated) J69.0 Laterality: bilateral Lung location: lower lobe of lung BPH (benign prostatic hyperplasia) N40.0 Emphysema lung J43.9 Diabetes mellitus E11.9 Acute respiratory failure with hypoxia J96.01 (1) Aspiration pneumonia due to food (regurgitated) Laterality: bilateral Lung location: lower lobe of lung Qualified Code(s): J 69.0 - Pneumonitis due to inhalation of food and vomit
[2024-09-12 09:01] LABS: Phosphorus 1.6 mg/dl (2.5-4.9)
[2024-09-12] MEDS: MAGNESIUM SULFATE / D5W 1 GM/100 ML BAG IV ONE (09:49)
[2024-09-12] MEDS ORDERED: POTASSIUM PHOS 3 MMOL/1 ML INFUSION IV STA (11:00)
[2024-09-12] MEDS: POTASSIUM PHOSPHATE 15 MMOL in SODIUM CHLORIDE 0.9% 250 ML IV ONE (12:05)
[2024-09-12 12:06] LABS: Hemoglobin 10.1 g/dl (14.0-18.0)
--- NOTE | 2024-09-12 13:17 | Hospitalist Progress Note ---
Date of Service September 12, 2024 Assessment & Plan (1) Sepsis: (2) Acute respiratory failure with hypoxia: (3) Pneumonia: (4) Urinary tract infection: (5) Esophagitis: (6) Dysphagia: (7) Malnutrition: Plan The patient is a 78-year-old male with past medical history including hype rtension, GERD, duodenal ulcer, aspiration pneumonia, BPH, urinary incontinence, diabetes mellitus, esophagitis. His most recently admitted from 06/22- 06/26/2024 for sepsis due to urinary tract infection. He was then admitted from 07/04-07/07/2024 for aspiration pneumonia. He presents to the emergency department this time with similar symptoms, and is seen bringing up large volumes of mucus. #Sepsis due to pneumonia Pneumonia/history of aspiration/ Acute hypoxic respiratory failure MRSA swab negative. Biofire negative. Sputum culture - psuedomonas, sensitivities pending 09/10 Patient had aspiration event with COUNTY DIRECTOR WELF[employer] with acute decompensation requiring intubation and bedside bronchoscopy. (Details HPI 09/10) Transferred to ICU. extubated on 09/11 Bronchial Wash pending Care per ICU - continues on zosyn and doxycycline will need to discuss with COUNTY [employer] with the plan should be for swallowing eval going forward Esophagitis seen on CT - Concerns for esophageal stricture vs mass with difficulty OG/NG placement. GI consulted - pt had scope in Jun 2024 without such, no need for EGD inpatient. Continue PPI Anemia Hemoglobin 15.3 on admission down to 10.1 today Suspect component of dilutional as patient is 7 L positive since admission Monitor for active bleeding, trend hemglobin Hypokalemia- ICU managing electrolytes currently Weakness - will need PT/OT when appropriate Chronic medical problems: Hyperlipidemia resume atorvastatin when taking p.o. GERD-changed to pantoprazole 40 IV while NPO Dispo: continued inpatient stay in ICU DVT proh: per ICU Family updated by phone and extensively at bedside 09/10 &09/12. Son updated by phone 09/11 patient confirmed full code on 09/12 Admission and Anticipated Discharge Date Admission Date: September 09, 2024 Supervising Physician Co-Signing Physician Notes Attending Attestation - Chart reviewed, care plan d/w MISHEL Howard. I agree w/ the smith components of her documentation. Appreciate critical care assistance. Respiratory status has improved fortunately. Recent sputum cx with pseudomonas - sensitivities pending. Remains on IV zosyn. Nutrition/PO intake safety uncertain at this time -- will rely heavily on speech therapy assistance with this. Ronald Gallagher MD Subjective patient seen lying in bed, son and present at bedside. Patient is aware he is in [facility] but he is not sure why. I explained to him the events that led him to the ICU. States he is feeling so-so does have a productive cough while I am in the room. He has been weaned off his pressors this morning. discussed with family ongoing plan of carethey are not interested in sending their father back to [facility]. Did address CODE STATUS and patient would like to remain a full code at this time Review of Systems Review of Systems: All systems reviewed & are unremarkable except as noted in Subjective Physical Exam Physical Exam: General: NAD, VS as above, lying in bed Resp: normal respiratory effort, on nasal cannula, with productive cough and crackles throughout CV: RRR, no murmur, Abd: normal bowel sounds, non tender, no hepatosplenomegaly : Meier in place Extremities: Moves all extremities, no edema Neuro: A&O x2, Skin: intact, no lesions noted Results & Data Results & Data Vital Signs (Past 12 Hours) Vital Signs Temp Pulse Pulse Resp BP Pulse Ox Pulse Ox 09/12/24 10:00 102/57 L 09/12/24 10:00 97.3 F L 80 16 100 09/12/24 09:57 102/58 L 09/12/24 09:45 105/61 09/12/24 09:45 105/61 09/12/24 09:39 97.3 F L 81 16 100 09/12/24 09:30 97.3 F L 80 15 100 09/12/24 09:30 104/60 09/12/24 09:30 104/60 09/12/24 09:30 104/60 09/12/24 09:30 104/60 09/12/24 09:15 107/59 L 09/12/24 09:15 97.3 F L 80 14 100 09/12/24 09:03 97.3 F L 80 15 100 09/12/24 09:00 109/55 L 09/12/24 09:00 109/55 L 09/12/24 08:54 97.3 F L 83 16 100 09/12/24 08:45 87/57 L 09/12/24 08:45 87/57 L 09/12/24 08:39 97.3 F L 77 20 100 09/12/24 08:30 89/55 L 09/12/24 08:21 97.3 F L 79 14 100 09/12/24 08:15 94/63 L 09/12/24 08:15 97.3 F L 82 16 100 09/12/24 08:09 97.3 F L 90 17 100 09/12/24 08:07 09/12/24 07:45 94/58 L 09/12/24 07:45 94/58 L 09/12/24 07:45 94/58 L 09/12/24 07:30 106/61 09/12/24 07:25 74 19 100 09/12/24 07:25 74 19 100 09/12/24 07:15 97.3 F L 77 18 100 09/12/24 07:15 94/57 L 09/12/24 07:06 97.3 F L 76 14 100 09/12/24 07:00 99/61 L 09/12/24 06:00 100 09/12/24 04:30 100/61 09/12/24 04:30 97.2 F L 74 13 100 09/12/24 04:15 98/55 L 09/12/24 04:15 98/55 L 09/12/24 04:12 97.2 F L 74 13 99 09/12/24 04:00 101/56 L 09/12/24 03:56 81 23 100 09/12/24 03:54 97.2 F L 78 12 98 09/12/24 03:45 97.2 F L 71 14 99 09/12/24 03:45 99/58 L 09/12/24 03:45 99/58 L 09/12/24 03:30 105/55 L 09/12/24 03:15 104/58 L 09/12/24 03:15 104/58 L 09/12/24 03:12 97.3 F L 71 16 100 09/12/24 03:00 97.3 F L 72 12 100 09/12/24 03:00 108/64 09/12/24 03:00 108/64 09/12/24 02:45 106/59 L 09/12/24 02:45 106/59 L 09/12/24 02:33 97.3 F L 73 14 99 09/12/24 02:30 99/55 L 09/12/24 02:30 99/55 L 09/12/24 02:21 97.3 F L 73 14 100 09/12/24 02:15 118/61 09/12/24 02:15 118/61 09/12/24 02:03 97.3 F L 82 100 09/12/24 02:00 97.3 F L 75 14 100 09/12/24 02:00 114/61 09/12/24 02:00 114/61 09/12/24 01:42 97.5 F L 73 13 99 09/12/24 01:30 116/69 09/12/24 01:30 97.5 F L 79 17 99 09/12/24 01:15 113/59 L 09/12/24 01:15 113/59 L O2 Del Method O2 Del Method O2 Flow Rate FiO2 09/12/24 10:00 09/12/24 10:00 09/12/24 07:25 25 09/12/24 07:25 BiPAP 09/12/24 07:15 09/12/24 07:15 09/12/24 07:06 09/12/24 07:00 09/12/24 07:00 09/12/24 06:00 BiPAP Laboratory Results CBC and chemistry reviewed PG Care Time/CCT Total # of Minutes Spent Total Time Spent with Patient: Total time spent is greater than 50% in coordination of care (as documented) at patient's floor/unit and/or counseling patient: Coding Level of Care Code 77391 SUB INP/OBS CARE 2/35MIN Diagnoses Sepsis A41.9 Sepsis acute organ dysfunction status: unspecified Sepsis type: sepsis due to unspecified organism Acute respiratory failure with hypoxia J96.01 Pneumonia J18.9 Urinary tract infection N30.00 Hematuria presence: without hematuria Urinary tract infection type: acute cystitis Esophagitis K20.90 Dysphagia R13.10 Malnutrition E46 (1) Sepsis Sepsis acute organ dysfunction status: unspecified Sepsis type: sepsis due to unspecified organism Qualified Code(s): A41.9 - Sepsis, unspecified organism (4) Urinary tract infection Hematuria presence: without hematuria Urinary tract infection type: acute cystitis Qualified Code(s): N30.00 - Acute cystitis without hematuria
[2024-09-13 04:52] LABS: Basophils # (auto) 0.03 K/uL (0.00-0.20); Basophils % (auto) 0.4 %; Eosinophils # (auto) 0.07 K/uL (0.00-0.50); Hematocrit (blood only) 28.9 % (42.0-52.0); Hemoglobin 9.5 g/dl (14.0-18.0); Immature Granulocytes # (auto) 0.05 K/uL (0.01-0.20); Immature Granulocytes % (auto) 0.7 %; Lymphocytes # (auto) 1.29 K/uL (1.20-3.40); Lymphocytes % (auto) 19.2 %; Mean Corpuscular Hgb Conc 32.9 g/dL (32.0-36.0); Mean Corpuscular Volume 94.4 fL (80.0-100.0); Mean Platelet Volume 10.4 fL (9.4-12.4); Neutrophils # (auto) 4.87 K/uL (1.40-6.50); Neutrophils % (auto) 72.7 %; Platelet Count 151 K/uL (130-400); RDW Coefficient of Variation 15.1 % (11.5-14.5); RDW Standard Deviation 52.5 fL (36.4-46.3); Red Blood Count 3.06 M/uL (4.70-6.10); White Blood Count 6.71 K/ul (4.8-10.8)
[2024-09-13 05:08] LABS: BUN Creatinine Ratio 9.1 (10-20); Calcium 7.1 mg/dl (8.6-10.3); Creatinine Clr Calc Pharmacy 73.5 ml/min; Magnesium 1.7 mg/dl (1.7-2.4); Phosphorus 1.9 mg/dl (2.5-4.9); Potassium 3.7 mmol/L (3.5-5.1)
--- NOTE | 2024-09-13 10:09 | Gastroenterology Progress Note ---
Date of Service September 13, 2024 Assessment & Plan (1) Dysphagia: Plan: Patient with an episode of dysphagia and subsequent aspiration pneumonia and hypoxic respiratory failure leading to intubation and ICU stay. He is currently extubated. Last EGD in June 2024 showed grade D esophagitis. Continue antibiotic treatment of pneumonia. Can repeat EGD when medically stable. Continue PPI therapy while hospitalized. We will continue to monitor and determine when appropriate to move forward with any further GI testing. Consider updating G[employer] INSTALLER swallow eval. Admission and Anticipated Discharge Date Admission Date: September 09, 2024 Supervising Physician Co-Signing Physician Notes I saw and examined this patient with our nurse practitioner and agree with her assessment and plan. Clinically recovering from his aspiration pneumonia. Presently not complaining of any dysphagia, substernal discomfort or heartburn symptoms. Await speech therapy evaluation to assess ability to trial oral feedings. Not unreasonable to consider a follow-up endoscopy based on the severity of inflammation noted on his endoscopy in June. Will consider endoscopy after speech therapy evaluation. Subjective Patient is a 78 yo male currently in the ICU for pneumonia and hypoxic respiratory failure due to aspiration. Patient was extubated. He is resting in bed saturating 92% on 4L O2 NC. He is currently on IV Zosyn. Dr. Darling was consulted over the weekend for consideration of EGD to exclude an esophageal cancer, however did defer given his respiratory status. There are no updated imaging studies of the esophagus available for review. The patient contributes minimally with my questions this morning. Last EGD was in June 2024 and showed a Grade D esophagitis. I'm unclear if he's been taking a PPI as an outpatient. He is currently on PPI therapy in the hospital. GAS LINE INSTALLER has evaluated during this admission as well. Review of Systems Respiratory: + cough Gastrointestinal: + dysphagia; no abdominal pain Physical Exam Constitutional: no acute distress Respiratory: Auscultation: + crackles Gastrointestinal (Abdomen): normal bowel sounds, soft, nontender, no hepatosplenomegaly Psychiatric: Orientation: alert Results & Data Results & Data Vital Signs (Past 12 Hours) Vital Signs Temp Pulse Pulse Resp BP Pulse Ox Pulse Ox 09/13/24 08:00 82 09/13/24 07:43 09/13/24 07:14 77 16 92 09/13/24 05:34 99 09/13/24 05:00 36.3 C L 68 15 114/56 L 98 09/13/24 03:01 36.4 C L 78 15 99/60 L 98 09/13/24 02:00 36.4 C L 75 17 110/63 95 09/13/24 01:00 76 17 100/82 95 09/13/24 00:00 70 14 107/60 96 09/13/24 00:00 73 09/12/24 23:16 37.0 C 76 14 95/54 L 98 09/12/24 22:53 85 17 97 O2 Del Method O2 Del Method O2 Flow Rate FiO2 09/13/24 08:00 09/13/24 07:43 Nasal Cannula 4 09/13/24 07:14 Nasal Cannula 4 09/13/24 05:34 Room Air 09/13/24 05:00 Room Air 09/13/24 03:01 Room Air 09/13/24 02:00 Room Air 09/13/24 01:00 Room Air 09/13/24 00:00 BiPAP 09/13/24 00:00 09/12/24 23:16 BiPAP 09/12/24 22:53 25 PG Care Time/CCT Total # of Minutes Spent Total Time Spent with Patient: Total time spent is greater than 50% in coordination of care (as documented) at patient's floor/unit and/or counseling patient: Coding Level of Care Code 93075 SUB INP/OBS CARE 3/50MIN Diagnoses Dysphagia R13.10
--- NOTE | 2024-09-13 16:43 | Hospitalist Progress Note ---
Date of Service September 13, 2024 Assessment & Plan (1) Sepsis: (2) Acute respiratory failure with hypoxia: (3) Pneumonia: (4) Urinary tract infection: (5) Esophagitis: (6) Dysphagia: (7) Malnutrition: Plan The patient is a 78-year-old male with past medical history including hype rtension, GERD, duodenal ulcer, aspiration pneumonia, BPH, urinary incontinence, diabetes mellitus, esophagitis. His most recently admitted from 06/22- 06/26/2024 for sepsis due to urinary tract infection. He was then admitted from 07/04-07/07/2024 for aspiration pneumonia. He presents to the emergency department this time with similar symptoms, and is seen bringing up large volumes of mucus. #Sepsis due to pneumonia Pneumonia/history of aspiration/ Acute hypoxic respiratory failure MRSA swab negative. Biofire negative. Sputum culture - pseudomonas, sensitivities reviewed. Patient on appropriate abx w/ Zosyn. 09/10 Patient had aspiration event with DAIRY CHEMIST with acute decompensation requiring intubation and bedside bronchoscopy. (Details HPI 09/10) Transferred to ICU. extubated on 09/11 Bronchial Wash pending Discussed w/ DAIRY CHEMIST 09/13 extensively - patient will undergo speech study 09/14. Esophagitis seen on CT - Concerns for esophageal stricture vs mass with difficulty OG/NG placement. GI consulted - pt had scope in Jun 2024 without such GI evaluated patient 09/13 - considering EGD when patient becomes stable from respiratory standpoint and after eval w/ DAIRY CHEMIST Continue PPI. Anemia Hemoglobin 15.3 on admission down to 9.5 today Suspect component of dilutional as patient is 7 L positive since admission Monitor for active bleeding, trend hemoglobin Hypokalemia- K stable at 3.7 continue to monitor and replete as necessary Weakness - will need PT/OT when appropriate Chronic medical problems: Hyperlipidemia resume atorvastatin when taking p.o. GERD-changed to pantoprazole 40 IV while NPO Dispo: continued inpatient stay in ICU DVT proh: per ICU Patient confirmed full code on 09/12 Admission and Anticipated Discharge Date Admission Date: September 09, 2024 Subjective Patient seen and examined this morning. Patient did not have oxygen on at time of encounter with O2 sat droppinginto 70s. Nasal cannula was reapplied and his oxygenation improved to 92%. Discussed with patient the importance of keeping on his nasal cannula. Patient contributed minimal to questions this morning. patient did deny SOB. Physical Exam Constitutional: WD/WN, vitals as above Eyes: PERRL, conjunctivae normal, anicteric sclerae Respiratory: +crackles throughout lung galarza. Cardiovascular: RRR, no murmur, no edema Results & Data Results & Data Vital Signs (Past 12 Hours) Vital Signs Temp Pulse Pulse Resp BP Pulse Ox Pulse Ox 09/13/24 15:03 36.4 C L 69 16 09/13/24 15:00 126/69 09/13/24 15:00 126/69 09/13/24 14:48 36.4 C L 76 18 09/13/24 14:09 36.3 C L 76 16 09/13/24 14:00 123/72 09/13/24 12:00 36.3 C L 82 17 09/13/24 12:00 105/60 09/13/24 11:00 36.4 C L 81 17 98 09/13/24 11:00 106/61 09/13/24 10:09 36.5 C 77 18 97 09/13/24 10:00 127/70 09/13/24 09:00 36.5 C 74 14 116/67 99 09/13/24 08:00 82 09/13/24 07:43 09/13/24 07:14 77 16 92 09/13/24 05:34 99 09/13/24 05:00 36.3 C L 68 15 114/56 L 98 O2 Del Method O2 Del Method O2 Flow Rate 09/13/24 15:03 09/13/24 15:00 09/13/24 15:00 09/13/24 14:48 09/13/24 14:09 09/13/24 14:00 09/13/24 12:00 09/13/24 12:00 09/13/24 11:00 Nasal Cannula 4 09/13/24 11:00 09/13/24 10:09 09/13/24 10:00 09/13/24 09:00 Nasal Cannula 4 09/13/24 08:00 09/13/24 07:43 Nasal Cannula 4 09/13/24 07:14 Nasal Cannula 4 09/13/24 05:34 Room Air 09/13/24 05:00 Room Air PG Care Time/CCT Total # of Minutes Spent Total Time Spent with Patient: Total time spent is greater than 50% in coordination of care (as documented) at patient's floor/unit and/or counseling patient: Coding Level of Care Code 09795 SUB INP/OBS CARE 50MIN Diagnoses Sepsis A41.9 Sepsis acute organ dysfunction status: unspecified Sepsis type: sepsis due to unspecified organism Acute respiratory failure with hypoxia J96.01 Pneumonia J18.9 Urinary tract infection N30.00 Hematuria presence: without hematuria Urinary tract infection type: acute cystitis Esophagitis K20.90 Dysphagia R13.10 Malnutrition E46 (1) Sepsis Sepsis acute organ dysfunction status: unspecified Sepsis type: sepsis due to unspecified organism Qualified Code(s): A41.9 - Sepsis, unspecified organism (4) Urinary tract infection Hematuria presence: without hematuria Urinary tract infection type: acute cystitis Qualified Code(s): N30.00 - Acute cystitis without hematuria
[2024-09-14 05:11] LABS: Hematocrit (blood only) 33.1 % (42.0-52.0); Mean Corpuscular Hemoglobin 31.1 pg (25.0-34.0); Mean Corpuscular Hgb Conc 33.2 g/dL (32.0-36.0); Mean Corpuscular Volume 93.5 fL (80.0-100.0); Mean Platelet Volume 10.3 fL (9.4-12.4); Platelet Count 174 K/uL (130-400); RDW Coefficient of Variation 14.8 % (11.5-14.5); RDW Standard Deviation 51.6 fL (36.4-46.3); Red Blood Count 3.54 M/uL (4.70-6.10); White Blood Count 5.02 K/ul (4.8-10.8)
[2024-09-14 05:23] LABS: Calcium 7.7 mg/dl (8.6-10.3); Potassium 3.5 mmol/L (3.5-5.1)
[2024-09-14] MEDS: SODIUM CHLORIDE 0.9% 500 ML IV SCH (08:52)
[2024-09-14] MEDS: ACETAMINOPHEN 1,000 MG/100 ML VIAL IV PRN (09:49)
[2024-09-14] MEDS: CEFEPIME 2000MG 2,000 MG/20 ML SYR IV SCH (10:22)
--- NOTE | 2024-09-14 10:31 | Communication Note ---
Date of Service: September 14, 2024 Per review of notes, it appears that INFORMATICS EDUCATOR will plan to re-evaluate with video swallow once respiratory status improves. GI will follow peripherally awaiting those results. Once results return, we will re-assess and make further determinations regarding possible repeat EGD.
--- NOTE | 2024-09-14 14:11 | Fluoroscopy Report ---
FL video swallow CLINICAL HISTORY: 78 years-old Male with assess for aspiration. Dysphasia. TECHNIQUE: Video fluoroscopic evaluation of swallowing was performed in the AP and lateral projection s by the speech pathology staff. The patient is fed varying consistencies of barium FLUOROSCOPY TIME: 3.54 minutes. 5441 images were obtained. 11.0 mGy COMPARISON STUDY: CTA chest 07/04/2024 FINDINGS: There is abnormal hyoid excursion and epiglottic deflection with delayed oral pharyngeal tr ansit. Silent aspiration with thin liquid consistency. Laryngeal penetration without aspiration seen with nectar consistency. Additional aspiration noted with thick liquid given to assist the solid cons istency swallowing. Vallecular retention also noted. Moderate esophageal dysmotility with delayed tra nsit. IMPRESSION: 1. Multiple consistency aspiration as above. 2. Please see the speech pathologist report for detailed findings and recommendations. ACT 112: Negative or not required by law. Electronically signed by: Chito Junior M.D. 09/14/2024 2:09 PM
--- NOTE | 2024-09-14 16:47 | Hospitalist Progress Note ---
Date of Service September 14, 2024 Assessment & Plan (1) Sepsis: (2) Acute respiratory failure with hypoxia: (3) Pneumonia: (4) Urinary tract infection: (5) Esophagitis: (6) Dysphagia: (7) Malnutrition: Plan The patient is a 78-year-old male with past medical history including hype rtension, GERD, duodenal ulcer, aspiration pneumonia, BPH, urinary incontinence, diabetes mellitus, esophagitis. His most recently admitted from 06/22- 06/26/2024 for sepsis due to urinary tract infection. He was then admitted from 07/04-07/07/2024 for aspiration pneumonia. He presents to the emergency department this time with similar symptoms, and is seen bringing up large volumes of mucus. #Sepsis due to pneumonia Pneumonia/history of aspiration/ Acute hypoxic respiratory failure MRSA swab negative. Biofire negative. Sputum culture - pseudomonas, sensitivities reviewed. Patient on appropriate abx w/ Zosyn. 09/10 Patient had aspiration event with STAFF APPRAISER with acute decompensation requiring intubation and bedside bronchoscopy. (Details HPI 09/10) Transferred to ICU. extubated on 09/11 Bronchial Wash pending Video study 09/14 - multiple consistency aspirations. discussed w/ STAFF APPRAISER 09/14 - patient remains NPO given high aspiration risk discussed in detail with patient's son extensively - patient's son would like patient to undergo an EGD. He is not open to PEG tube placement at this time but would consider it if needed. Patient's son is agreeable to parenteral nutrition in the mean time. Discussed comfort feeding's/palliative care for patient and he was not agreeable to this approach. Also readdressed code status and patient's son states that he would still like Adarsh to be a full code. will continue to have ongoing goals of care discussion with the patient's family. Can consider palliative care consult after the EGD. Esophagitis seen on CT - Concerns for esophageal stricture vs mass with difficulty OG/NG placement. GI consulted - pt had scope in Jun 2024 without such GI evaluated patient 09/13 - considering EGD when patient becomes stable from respiratory standpoint and after eval w/ STAFF APPRAISER Continue PPI. Anemia Hemoglobin 15.3 on admission improved to 11.0 Suspect component of dilutional as patient is 7 L positive since admission Monitor for active bleeding, trend hemoglobin Hypokalemia- K stable at 3.5 continue to monitor and replete as necessary Weakness - will need PT/OT when appropriate Chronic medical problems: Hyperlipidemia resume atorvastatin when taking p.o. GERD-changed to pantoprazole 40 IV while NPO Dispo: continued inpatient stay DVT proh: Lovenox. Patient confirmed full code on 09/14 Admission and Anticipated Discharge Date Admission Date: September 09, 2024 Subjective Patient seen and examined this morning. No history able to be obtained from patient. re-visited patient this afternoon and discussed his care with his family. Physical Exam Constitutional: WD/WN, vitals as above Respiratory: crackles throughout lung galarza, improved Cardiovascular: RRR, no murmur, no edema Results & Data Results & Data Vital Signs (Past 12 Hours) Vital Signs Temp Pulse Pulse Resp BP Pulse Ox O2 Del Method 09/14/24 15:00 82 17 09/14/24 15:00 129/73 09/14/24 15:00 83 09/14/24 14:56 103/80 09/14/24 14:56 103/80 09/14/24 14:48 83 14 09/14/24 14:00 36.2 C L 86 19 09/14/24 12:03 36.0 C L 79 17 09/14/24 12:00 131/75 09/14/24 12:00 131/75 09/14/24 11:51 36.0 C L 85 23 09/14/24 10:18 36.1 C L 77 15 09/14/24 10:00 87/49 L 09/14/24 10:00 87/49 L 09/14/24 10:00 87/49 L 09/14/24 09:57 36.1 C L 68 13 09/14/24 09:00 107/56 L 09/14/24 09:00 107/56 L 09/14/24 08:57 36.1 C L 71 14 09/14/24 08:19 64 16 94 Nasal Cannula 09/14/24 08:03 36.1 C L 67 15 09/14/24 08:00 72 09/14/24 08:00 136/73 09/14/24 08:00 136/73 09/14/24 08:00 Nasal Cannula 09/14/24 07:54 36.2 C L 73 17 09/14/24 07:00 36.2 C L 82 13 09/14/24 07:00 133/80 01/07/25 06:12 36.2 C L 84 09/14/24 06:00 93/55 L 09/14/24 06:00 93/55 L 09/14/24 05:00 127/71 09/14/24 04:57 36.3 C L 78 13 O2 Flow Rate 09/14/24 15:00 09/14/24 15:00 09/14/24 15:00 09/14/24 14:56 09/14/24 14:56 09/14/24 14:48 09/14/24 14:00 09/14/24 12:03 09/14/24 12:00 09/14/24 12:00 09/14/24 11:51 09/14/24 10:18 09/14/24 10:00 09/14/24 10:00 09/14/24 10:00 09/14/24 09:57 09/14/24 09:00 09/14/24 09:00 09/14/24 08:57 09/14/24 08:19 2 09/14/24 08:03 09/14/24 08:00 09/14/24 08:00 09/14/24 08:00 09/14/24 08:00 09/14/24 07:54 09/14/24 07:00 09/14/24 07:00 09/14/24 06:12 09/14/24 06:00 09/14/24 06:00 09/14/24 05:00 09/14/24 04:57 PG Care Time/CCT Total # of Minutes Spent Total Time Spent with Patient: Total time spent is greater than 50% in coordination of care (as documented) at patient's floor/unit and/or counseling patient: Coding Level of Care Code 73938 SUB INP/OBS CARE 3/50MIN Diagnoses Sepsis A41.9 Sepsis acute organ dysfunction status: unspecified Sepsis type: sepsis due to unspecified organism Acute respiratory failure with hypoxia J96.01 Pneumonia J18.9 Urinary tract infection N30.00 Hematuria presence: without hematuria Urinary tract infection type: acute cystitis Esophagitis K20.90 Dysphagia R13.10 Malnutrition E46 (1) Sepsis Sepsis acute organ dysfunction status: unspecified Sepsis type: sepsis due to unspecified organism Qualified Code(s): A41.9 - Sepsis, unspecified organism (4) Urinary tract infection Hematuria presence: without hematuria Urinary tract infection type: acute cystitis Qualified Code(s): N30.00 - Acute cystitis without hematuria
[2024-09-14] MEDS: ENOXAPARIN INJ 40 MG/0.4 ML SYR SQ SCH (20:04)
[2024-09-15 04:56] LABS: Hematocrit (blood only) 36.6 % (42.0-52.0); Mean Corpuscular Hemoglobin 30.7 pg (25.0-34.0); Mean Corpuscular Hgb Conc 32.8 g/dL (32.0-36.0); Mean Corpuscular Volume 93.6 fL (80.0-100.0); Mean Platelet Volume 9.8 fL (9.4-12.4); Platelet Count 193 K/uL (130-400); RDW Coefficient of Variation 15.2 % (11.5-14.5); Red Blood Count 3.91 M/uL (4.70-6.10); White Blood Count 6.73 K/ul (4.8-10.8)
[2024-09-15 05:14] LABS: BUN Creatinine Ratio 9.1 (10-20); Calcium 7.9 mg/dl (8.6-10.3); Creatinine Clr Calc Pharmacy 70.2 ml/min; Magnesium 1.5 mg/dl (1.7-2.4); Potassium 3.1 mmol/L (3.5-5.1)
[2024-09-15] MEDS ORDERED: TPN/PPN CONSULT PHARMACY STA (08:11)
[2024-09-15] MEDS: POTASSIUM CHLORIDE / WTR 10 MEQ/100 ML PLCT IV SCH (08:27)
[2024-09-15] MEDS: MAGNESIUM SULFATE / D5W 1 GM/100 ML BAG IV SCH ×2 (08:27→20:42)
[2024-09-15] MEDS ORDERED: TPN/PPN CONSULT PHARMACY PRN (08:48)
[2024-09-15 09:42] LABS: Phosphorus 2.3 mg/dl (2.5-4.9)
--- NOTE | 2024-09-15 09:44 | Gastroenterology Progress Note ---
Date of Service September 15, 2024 Assessment & Plan (1) Dysphagia: Plan: EGD was ordered for today in hopes of re-evaluating his esophagus, however when he was brought to endoscopy and evaluated by anesthesia his O2 sats were in the 80s and his HR was 149. Procedure was cancelled. Can consider attempting again when respiratory status is improved. Admission and Anticipated Discharge Date Admission Date: September 09, 2024 Supervising Physician Co-Signing Physician Notes I saw and examined this patient with our nurse practitioner and agree with her assessment and plan. Video swallow demonstrated aspiration. Planning to keep patient n.p.o. Planned endoscopy canceled today due to respiratory insufficiency and tachycardia. Patient transferred to the ICU for further management. Possible endoscopy once patient stabilizes. Subjective Patient is a 78 yo male who is hospitalized with aspiration pneumonia. He had severe oropharyngeal and esophageal dysphagia with his video swallow on 09/14/24. He is NPO. He has no current complaints other than being NPO. Review of Systems Cardiovascular: no chest pain Gastrointestinal: + dysphagia; no abdominal pain Physical Exam Constitutional: no acute distress Respiratory: no respiratory distress Gastrointestinal (Abdomen): normal bowel sounds, soft, nontender, no hepatosplenomegaly Psychiatric: Orientation: alert and oriented x 3 Results & Data Results & Data Vital Signs (Past 12 Hours) Vital Signs Temp Pulse Pulse Resp BP BP Pulse Ox 09/15/24 08:00 09/15/24 08:00 09/15/24 07:35 36.4 C L 83 18 112/75 95 09/15/24 06:03 36.3 C L 84 17 116/77 98 09/15/24 05:00 121/70 09/15/24 04:45 36.6 C 89 24 95 09/15/24 04:03 91 H 19 09/15/24 04:00 117/69 09/15/24 04:00 92 09/15/24 03:42 85 19 09/15/24 03:06 89 20 09/15/24 03:00 126/90 09/15/24 02:48 90 18 09/15/24 02:12 83 18 09/15/24 01:00 118/65 09/15/24 01:00 118/65 09/15/24 01:00 118/65 09/15/24 01:00 118/65 09/15/24 00:39 88 18 09/15/24 00:00 86 19 09/15/24 00:00 111/63 09/15/24 00:00 111/63 09/15/24 00:00 94 09/15/24 00:00 92 H 09/14/24 23:00 126/70 09/14/24 23:00 126/70 09/14/24 22:51 84 20 09/14/24 22:03 92 H 17 09/14/24 22:00 117/65 09/14/24 21:54 88 16 O2 Del Method O2 Del Method O2 Flow Rate 09/15/24 08:00 Nasal Cannula 09/15/24 08:00 Nasal Cannula 2 09/15/24 07:35 Room Air 09/15/24 06:03 Room Air 09/15/24 05:00 09/15/24 04:45 09/15/24 04:03 09/15/24 04:00 09/15/24 04:00 Room Air 09/15/24 03:42 09/15/24 03:06 09/15/24 03:00 09/15/24 02:48 09/15/24 02:12 09/15/24 01:00 09/15/24 01:00 09/15/24 01:00 09/15/24 01:00 09/15/24 00:39 09/15/24 00:00 09/15/24 00:00 09/15/24 00:00 09/15/24 00:00 Nasal Cannula 2 09/15/24 00:00 09/14/24 23:00 09/14/24 23:00 09/14/24 22:51 09/14/24 22:03 09/14/24 22:00 09/14/24 21:54 PG Care Time/CCT Total # of Minutes Spent Total Time Spent with Patient: Total time spent is greater than 50% in coordination of care (as documented) at patient's floor/unit and/or counseling patient: Coding Level of Care Code 40228 SUB INP/OBS CARE 3/50MIN Diagnoses Dysphagia R13.10
--- NOTE | 2024-09-15 10:28 | Anesthesiology Consultation ---
Date of Service September 15, 2024 Assessment & Plan Chart Review Chart Review: Acceptable Risk for Surgery and Patient NOT seen in Pre Admission Testing Consults Requested none History Surgery Operation Date: 09/15/24 16:30 Proposed Procedures p Esophagogastroduodenoscopy Dr. Solitario Jerez MD Height/Weight Height: 6 ft 1 in Weight: 61.8 kg Allergies Allergy/AdvReac Type Severity Reaction Status Date / Time No Known Allergies Allergy Verified 09/09/24 15:44 Medications Home Medications Medication Instructions Recorded Confirmed Last Taken No Known Home Medications 09/09/24 09/09/24 Unknown Active Medications Generic Name Dose Route Start Last Admin Trade Name Freq PRN Reason Stop Dose Admin Acetylcysteine 5 ml 09/10/24 16:30 09/15/24 09:43 Acetylcysteine 20% Inhal Soln 4ml Dispensed By Resp. INH 10/10/24 16:29 5 ml Q12R JOSE RAFAEL Administration Albuterol 3 ml 09/09/24 21:47 09/11/24 07:23 Albut/Ipratrop 3mg/0.5mg Neb 3 Ml Vial NEB 10/09/24 21:46 3 ml Q2H PRN Administration dyspnea Protocol Budesonide 0.5 mg 09/10/24 19:00 09/15/24 09:43 Budesonide 0.5 Mg/2 Ml Vial (Pulmicort) NEB 10/10/24 18:59 0.5 mg BIDR JOSE RAFAEL Administration Dextrose 25 - 50 ml 09/11/24 05:42 09/15/24 06:17 Dextrose 50% 50 Ml Syringe IV 10/11/24 05:41 25 ml UD PRN Administration Hypoglycemia Protocol Protocol Enoxaparin Sodium 40 mg 09/14/24 21:00 09/14/24 20:04 Enoxaparin Inj 40 Mg/0.4 Ml Syr SQ 10/14/24 20:59 40 mg QPM JOSE RAFAEL Administration Formoterol Fumarate 20 mcg 09/10/24 19:00 09/15/24 09:43 Formoterol 20 Mcg/2 Ml Vial INH 10/10/24 18:59 20 mcg BIDR JOSE RAFAEL Administration Protocol Pantoprazole Sodium 40 mg in 10 mls @ 5 mls/min 09/09/24 21:47 09/15/24 09:23 Protonix IV 10/09/24 21:46 5 mls/min BID JOSE RAFAEL Administration Doxycycline Hyclate 100 mg/ 100 mls @ 50 mls/hr 09/10/24 07:00 09/15/24 10:26 Dextrose IV 09/17/24 06:59 Infused Q12H JOSE RAFAEL Infusion Acetaminophen 1,000 mg in 100 mls @ 400 mls/hr 09/14/24 08:58 09/14/24 10:21 Ofirmev IV 09/17/24 08:57 Infused Q8H PRN Infusion Pain or Fever Cefepime HCl 2,000 mg in 20 mls @ 5 mls/min 09/14/24 10:00 09/15/24 00:11 Maxipime 2000mg IV 09/21/24 09:59 5 mls/min Q8H JOSE RAFAEL Administration Protocol Magnesium Sulfate/Dextrose 1 gm in 100 mls @ 50 mls/hr 09/15/24 08:15 09/15/24 10:26 Magnesium Sulfate / D5w IV 09/15/24 12:14 Infused Q2H JOSE RAFAEL Infusion Insulin Aspart 0 units 09/11/24 06:00 09/15/24 06:16 Insulin Aspart Per Unit Charge SC 10/11/24 05:59 Not Given Q6 JOSE RAFAEL Past Medical History Medical History (Updated 09/12/24 @ 05:41 by Ronald Gallagher MD) Acute metabolic encephalopathy Lethargy Past Family History Family History Father Diabetes Denies family history of Ovarian cancer Prostate cancer Myocardial infarction Breast cancer Colorectal cancer Past Surgical History Surgical History H/O tooth extraction All Teeth History of hip surgery Social History Smoking Status: Unknown if ever smoked Do You Dip or Chew Tobacco: No Hx Alcohol Use: No Hx Substance Use: No Physical Exam Vital Signs Last Vital Signs Temp 36.4 C L 09/15/24 07:35 Pulse 66 09/15/24 09:45 Resp 18 09/15/24 09:45 BP 112/75 09/15/24 07:35 Pulse Ox 94 09/15/24 09:45 O2 Del Method Room Air 09/15/24 09:45 O2 Flow Rate 2 09/15/24 08:00 FiO2 25 09/13/24 23:15 Testing Laboratory Results 09/15/24 04:27 09/15/24 04:27 Urine Color Yellow 09/09/24 19:30 Urine Appearance Clear (Clear) 09/09/24 19:30 Urine pH 5.5 (4.5-7.5) 09/09/24 19:30 Ur Specific Donna 1.022 (1.000-1.030) 09/09/24 19:30 Urine Protein Trace (Negative) H 09/09/24 19:30 Urine Glucose (UA) Negative (Negative) 09/09/24 19:30 Urine Ketones Trace (Negative) H 09/09/24 19:30 Urine Nitrite Negative (Negative) 09/09/24 19:30 Ur Leukocyte Esterase Negative (Negative) 09/09/24 19:30 Urine WBC (Auto) 0-5 /hpf (0-5) 09/09/24 19:30 Urine RBC (Auto) 0-2 /hpf (0-2) 09/09/24 19:30 U Hyaline Cast (Auto) 0-2 /lpf (0-2) 09/09/24 19:30 U Epithel Cells (Auto) 0-2 /hpf (0-2) 09/09/24 19:30 Urine Bacteria (Auto) None Seen (None Seen) 09/09/24 19:30 09/09/24 15:12 Aerobic Blood Culture - Final Blood No growth in Aerobic bottle after 5 days. Anaerobic Blood Culture - Final No growth in Anaerobic bottle after 5 days. 09/09/24 15:11 Aerobic Blood Culture - Final Blood No growth in Aerobic bottle after 5 days. Anaerobic Blood Culture - Final No growth in Anaerobic bottle after 5 days. 09/09/24 15:47 Gram Stain - Final Sputum, Expectorated Sputum Culture - Final Pseudomonas aeruginosa 09/10/24 15:00 Gram Stain - Final Bronch Wash,Left Upper Lobe Bronchial Culture - Final Light normal leslie. 09/10/24 15:00 Fungal Smear - Final Bronch Wash,Left Upper Lobe 09/15/24 09/15/24 09/14/24 06:37 06:11 23:53 POC Glucose 106 H 59 L* 144 H 09/14/24 09/14/24 23:30 23:27 POC Glucose 60 L* 58 L*
[2024-09-15] MEDS: POTASSIUM PHOSPHATE 12 MMOL in SODIUM CHLORIDE 0.9% 250 ML IV ONE (10:53)
[2024-09-15] MEDS: SODIUM CHLORIDE 0.9% 1,000 ML IV SCH (11:27)
[2024-09-15 12:07] LABS: Base Excess VBG 1.5 mEq/L; HCO3 VBG 27 mmol/L; Oxygen Saturation VBG < 60.0 %; PCO2 VBG 46 mmHg (38-50); PO2 VBG 36 mmHg; pH VBG 7.38 (7.36-7.41)
--- NOTE | 2024-09-15 12:19 | Hospitalist Progress Note ---
Date of Service September 15, 2024 Assessment & Plan (1) Sepsis: (2) Acute respiratory failure with hypoxia: (3) Pneumonia: (4) Urinary tract infection: (5) Esophagitis: (6) Dysphagia: (7) Malnutrition: Plan The patient is a 78-year-old male with past medical history including hype rtension, GERD, duodenal ulcer, aspiration pneumonia, BPH, urinary incontinence, diabetes mellitus, esophagitis. His most recently admitted from 06/22- 06/26/2024 for sepsis due to urinary tract infection. He was then admitted from 07/04-07/07/2024 for aspiration pneumonia. He presents to the emergency department this time with similar symptoms, and is seen bringing up large volumes of mucus. #Sepsis due to pneumonia Pneumonia/history of aspiration/ Acute hypoxic respiratory failure MRSA swab negative. Biofire negative. 09/10 Patient had aspiration event with PROC[employer] IMPROVEMENT SPECIALIST with acute decompensation requiring intubation and bedside bronchoscopy. (Details HPI 09/10) Transferred to ICU. extubated on 09/11 Sputum culture - pseudomonas, sensitivities reviewed. Bronchial Wash negative thus far. Video study 09/14 - multiple consistency aspirations. discussed w/ [employer] IMPROVEMENT SPECIALIST 09/14 - patient remains NPO given high aspiration risk EGD cancelled on 09/15 due to patient being tachycardic. - converted to A fib RVR and remains hypotensive. - intensive aiding in critical care medicine. Repeat CXR 09/15 concerning findings for pneumonia vs aspiration/atelectasis Given patient has had 4 days of cefepime, 5 days of Zosyn and 7 days of doxycycline abx were discontinued by critical care team 09/15. discussed in detail with patient's son extensively on 09/14 - patient's son would like patient to undergo an EGD. He is not open to PEG tube placement at this time but would consider it if needed. Patient's son is agreeable to parenteral nutrition. Discussed comfort feeding's/palliative care for patient and he was not agreeable to this approach. Also readdressed code status and patient's son states that he would still like Adarsh to be a full code. will continue to have ongoing goals of care discussion with the patient's family. Can consider palliative care consult after the EGD. #A fib RVR s/p Adenosine On amiodarone and heparin drip per ICU. phenylephrine on standby in the event patient's BP drops. BP currently 81/58. echo pending #Esophagitis seen on CT - Concerns for esophageal stricture vs mass with difficulty OG/NG placement. GI consulted - will consider EGD when patient stable. Continue PPI #Anemia Hgb stable at 11.9. Suspect component of dilutional as patient is 7 L positive since admission Monitor for active bleeding, trend hemoglobin Hypokalemia- K 3.1 - repleted 09/15 Replete as necessary #Hypomagnesemia Mag 1.5 - repleted 8 replete as necessary #Weakness - will need PT/OT when appropriate Chronic medical problems: Hyperlipidemia resume atorvastatin when taking p.o. GERD-changed to pantoprazole 40 IV while NPO Dispo: continued inpatient stay in ICU DVT proh: per ICU Attempted to call patient's son x 2 on 09/15 for update with no answer. Per nursing, son was updated when he called in this afternoon. Case was discussed with Dr. Dumont and Dr. Warner on 09/15 Admission and Anticipated Discharge Date Admission Date: September 09, 2024 Subjective Patient seen and examined this morning. Upon presentation, patient was tachycardic with HRs in the 150s-160s. BP was low in the 60s/50s. Patient was unable to provide any history. Endoscopy was cancelled today due to the tachycardia. Critical care was notified and patient was transferred back to the ICU for further care. Physical Exam Constitutional: WD/WN, vitals as above Respiratory: crackles throughout lung galarza. Cardiovascular: tachycardia. no edema. Results & Data Results & Data Vital Signs (Past 12 Hours) Vital Signs Temp Pulse Pulse Resp BP BP Pulse Ox 09/15/24 11:42 36.3 C L 154 H 20 78/48 L 96 09/15/24 09:45 66 18 94 09/15/24 08:00 09/15/24 08:00 09/15/24 07:35 36.4 C L 83 18 112/75 95 09/15/24 06:03 36.3 C L 84 17 116/77 98 09/15/24 05:00 121/70 09/15/24 04:45 36.6 C 89 24 95 09/15/24 04:03 91 H 19 09/15/24 04:00 117/69 09/15/24 04:00 92 09/15/24 03:42 85 19 09/15/24 03:06 89 20 09/15/24 03:00 126/90 09/15/24 02:48 90 18 09/15/24 02:12 83 18 09/15/24 01:00 118/65 09/15/24 01:00 118/65 09/15/24 01:00 118/65 09/15/24 01:00 118/65 09/15/24 00:39 88 18 O2 Del Method O2 Del Method O2 Flow Rate 09/15/24 11:42 Nasal Cannula 3 09/15/24 09:45 Room Air 09/15/24 08:00 Nasal Cannula 09/15/24 08:00 Nasal Cannula 2 09/15/24 07:35 Room Air 09/15/24 06:03 Room Air 09/15/24 05:00 09/15/24 04:45 09/15/24 04:03 09/15/24 04:00 09/15/24 04:00 Room Air 09/15/24 03:42 09/15/24 03:06 09/15/24 03:00 09/15/24 02:48 09/15/24 02:12 09/15/24 01:00 09/15/24 01:00 09/15/24 01:00 09/15/24 01:00 09/15/24 00:39 PG Care Time/CCT Total # of Minutes Spent Total Time Spent with Patient: Total time spent is greater than 50% in coordination of care (as documented) at patient's floor/unit and/or counseling patient: Coding Level of Care Code 53192 SUB INP/OBS CARE 3/50MIN Diagnoses Sepsis A41.9 Sepsis acute organ dysfunction status: unspecified Sepsis type: sepsis due to unspecified organism Acute respiratory failure with hypoxia J96.01 Pneumonia J18.9 Urinary tract infection N30.00 Hematuria presence: without hematuria Urinary tract infection type: acute cystitis Esophagitis K20.90 Dysphagia R13.10 Malnutrition E46 (1) Sepsis Sepsis acute organ dysfunction status: unspecified Sepsis type: sepsis due to unspecified organism Qualified Code(s): A41.9 - Sepsis, unspecified organism (4) Urinary tract infection Hematuria presence: without hematuria Urinary tract infection type: acute cystitis Qualified Code(s): N30.00 - Acute cystitis without hematuria
[2024-09-15] MEDS: ADENOSINE IV SOLN 3 MG/ML 2 ML VIAL IV STA (12:36)
[2024-09-15] MEDS ORDERED: STAT IV Infusion **Titration per Protocol STA ×2 (12:46→14:33)
[2024-09-15] MEDS ORDERED: AMIODARONE IV BOLUS & DRIP IV STA (12:46)
[2024-09-15] MEDS ORDERED: Heparin IV Adult Wt-Based Standard w/ INITIAL Bolus Protocol IV STA (12:46)
[2024-09-15] MEDS ORDERED: 0.2 MICRON FILTER SET 1 EACH IV STA (12:46)
--- NOTE | 2024-09-15 12:57 | Critical Care Progress Note ---
Date of Service September 15, 2024 Assessment & Plan (1) Aspiration pneumonia due to food (regurgitated): (2) BPH (benign prostatic hyperplasia): (3) Emphysema lung: (4) Diabetes mellitus: (5) Acute respiratory failure with hypoxia: Plan Impression: 78-year-old male with severe aspiration identified on video swallow study and potential upper digestive pathology now with what appears to be atrial fibrillation with rapid ventricular response based on response to adenosine. Recommendations: 1. Neurologic: No current issues. The patient is profoundly deconditioned and weak. Once hemodynamics have stabilized will need continued physical therapy and Occupational Therapy. Placement may be an issue. 2. Cardiovascular: Atrial fibrillation with rapid ventricular response. Reviewed EKGs with cardiology who agrees. Will bolus 150 mg of amiodarone and start amnioinfusion. Discontinue Lovenox and start heparin infusion. Suspect that his blood pressure should improve significantly with control of his heart rate and if we can restore normal sinus rhythm. He is not unstable enough to warrant cardioversion currently but will continue to follow. This appears to be fairly acute in onset as his prior vital signs were normal as of 945 this morning. 3. Pulmonary: History of recurrent aspiration. Repeating chest x-ray. He is on antibiotics presumptively. See comments on ID below. Pulmonary toilet will be required. Continue nebulized budesonide and Perforomist as well as as needed DuoNebs. Wean oxygen as tolerated. 4. GI: Questionable esophageal dysmotility or swallowing issue. PPN is not appropriate as the patient's GI tract functions normally. Options would be to include nasoenteric feeding but unclear if the tube could be passed given his esophageal findings. Alternatively, PEG tube and long-term feeding via percutaneous gastrostomy might be more appropriate although apparently family has been reluctant to consider this option. Will get him stabilized and reassess as to what gastroenterology would like to do moving forward. Follow liver function tests while on amiodarone. 5. Renal: ICU electrolyte replacement protocol 6. Endocrine: Glycemic control per ICU protocol. 7. Heme-onc: No current issues. 8. ID: Patient's completed 7 days of antimicrobial therapy, 4 days of cefepime and 5 days of Zosyn. He is also completed 7 days of doxycycline. This should be adequate antimicrobial therapy and antibiotics will be discontinued at this point time. Patient is critically ill with significant possibility of clinical deterioration. My direct attendance described for stabilization of this patient. A total of 40 minutes in critical care time was spent in evaluation management coordination of care for this patient. Admission and Anticipated Discharge Date Admission Date: September 09, 2024 Subjective Patient known to the ICU service from earlier this hospitalization where he was admitted with aspiration and respiratory failure requiring intubation mechanical ventilation. He subsequently liberated from the mechanical ventilator and sent to the floor. He is failed swallow evaluation with overt aspiration and was supposed undergo EGD today to evaluate esophageal patency and for significant pathology however in the holding area he was noted to be tachycardic and hypotensive. Procedure was canceled he was return to the floor. The hospitalist transferred him back to the ICU. I assessed the patient immediately on arrival to the ICU. He is awake alert and conversant. His mean arterial pressures are above 60 however heart rate appears to be irregularly irregular in the 150-160 range. On arrival he was administered 6 mg of IV adenosine push which slowed his heart rate down to 20 and no clear flutter waves were identified. He rapidly returned back to his rate in the 150s. Patient denies any chest pain palpitations or shortness of breath. No syncope or presyncope. He denies nausea or vomiting. He is in general poor condition Review of Systems Review of Systems: Please refer to hospitalist note Physical Exam Constitutional: WD/WN, vitals as above Neck: trachea midline, no thyromegaly Respiratory: normal respiratory effort, lungs clear to auscultation Cardiovascular: Rate/Rhythm: + tachycardic and + irregularly irregular Heart Sounds: normal S1 and normal S2; no murmur Extremities: no edema Gastrointestinal (Abdomen): normal bowel sounds, soft, nontender, no hepatosplenomegaly Musculoskeletal: Extremities: extremities normal to inspection Skin: no rashes, warm and dry Neurologic: Nonfocal exam Lymphatic: no cervical lymphadenopathy Results & Data Results & Data Vital Signs (Past 12 Hours) Vital Signs Temp Pulse Pulse Resp BP BP Pulse Ox 09/15/24 11:42 36.3 C L 154 H 20 78/48 L 96 09/15/24 09:45 66 18 94 09/15/24 08:00 09/15/24 08:00 09/15/24 07:35 36.4 C L 83 18 112/75 95 09/15/24 06:03 36.3 C L 84 17 116/77 98 09/15/24 05:00 121/70 09/15/24 04:45 36.6 C 89 24 95 09/15/24 04:03 91 H 19 09/15/24 04:00 117/69 09/15/24 04:00 92 09/15/24 03:42 85 19 09/15/24 03:06 89 20 09/15/24 03:00 126/90 09/15/24 02:48 90 18 09/15/24 02:12 83 18 09/15/24 01:00 118/65 09/15/24 01:00 118/65 09/15/24 01:00 118/65 09/15/24 01:00 118/65 O2 Del Method O2 Del Method O2 Flow Rate 09/15/24 11:42 Nasal Cannula 3 09/15/24 09:45 Room Air 09/15/24 08:00 Nasal Cannula 09/15/24 08:00 Nasal Cannula 2 09/15/24 07:35 Room Air 09/15/24 06:03 Room Air 09/15/24 05:00 09/15/24 04:45 09/15/24 04:03 09/15/24 04:00 09/15/24 04:00 Room Air 09/15/24 03:42 09/15/24 03:06 09/15/24 03:00 09/15/24 02:48 09/15/24 02:12 09/15/24 01:00 09/15/24 01:00 09/15/24 01:00 09/15/24 01:00 Critical Care Results & Data Vital Signs (Past 12 Hours) Vital Signs Temp Pulse Pulse Resp BP BP Pulse Ox 09/15/24 11:42 36.3 C L 154 H 20 78/48 L 96 09/15/24 09:45 66 18 94 09/15/24 08:00 09/15/24 08:00 09/15/24 07:35 36.4 C L 83 18 112/75 95 09/15/24 06:03 36.3 C L 84 17 116/77 98 09/15/24 05:00 121/70 09/15/24 04:45 36.6 C 89 24 95 09/15/24 04:03 91 H 19 09/15/24 04:00 117/69 09/15/24 04:00 92 09/15/24 03:42 85 19 09/15/24 03:06 89 20 09/15/24 03:00 126/90 09/15/24 02:48 90 18 09/15/24 02:12 83 18 09/15/24 01:00 118/65 09/15/24 01:00 118/65 09/15/24 01:00 118/65 09/15/24 01:00 118/65 O2 Del Method O2 Del Method O2 Flow Rate 09/15/24 11:42 Nasal Cannula 3 09/15/24 09:45 Room Air 09/15/24 08:00 Nasal Cannula 09/15/24 08:00 Nasal Cannula 2 09/15/24 07:35 Room Air 09/15/24 06:03 Room Air 09/15/24 05:00 09/15/24 04:45 09/15/24 04:03 09/15/24 04:00 09/15/24 04:00 Room Air 09/15/24 03:42 09/15/24 03:06 09/15/24 03:00 09/15/24 02:48 09/15/24 02:12 09/15/24 01:00 09/15/24 01:00 09/15/24 01:00 09/15/24 01:00 Lab & Micro Results (Past 24 Hours) RBC 3.91 M/uL (4.70-6.10) L 09/15/24 WBC 6.73 K/ul (4.8-10.8) 09/15/24 Hgb 12.0 g/dl (14.0-18.0) L 09/15/24 Hct 36.6 % (42.0-52.0) L 09/15/24 MCV 93.6 fL (80.0-100.0) 09/15/24 MCH 30.7 pg (25.0-34.0) 09/15/24 MCHC 32.8 g/dL (32.0-36.0) 09/15/24 RDW Standard Deviation 52.0 fL (36.4-46.3) H 09/15/24 RDW Coefficient of Variation 15.2 % (11.5-14.5) H 09/15/24 Plt Count 193 K/uL (130-400) 09/15/24 MPV 9.8 fL (9.4-12.4) 09/15/24 Na 137 mmol/L (136-145) 09/15/24 K 3.1 mmol/L (3.5-5.1) L 09/15/24 Cl 105 mmol/L (98-107) 09/15/24 CO2 26 mmol/L (21-32) 09/15/24 Anion Gap 6 (3-11) 09/15/24 BUN 7 mg/dl (6-23) 09/15/24 Creatinine 0.77 mg/dl (0.6-1.4) 09/15/24 BUN/Creatinine Ratio 9.1 (10-20) L 09/15/24 Glu 61 mg/dl (70-99(Fasting)) L 09/15/24 Ca 7.9 mg/dl (8.6-10.3) L 09/15/24 Phosphorus Level 2.3 mg/dl (2.5-4.9) L 09/15/24 Mg 1.5 mg/dl (1.7-2.4) L 09/15/24 04:27 Calcium Level 7.9 mg/dl (8.6-10.3) L 09/15/24 04:27 Venous Blood pH 7.38 (7.36-7.41) 09/15/24 11:54 Venous Blood Partial Pressure CO2 46 mmHg (38-50) 09/15/24 11:5 4 Venous Blood Partial Pressure O2 36 mmHg 09/15/24 11:54 Venous Blood HCO3 27 mmol/L 09/15/24 11:54 Venous Blood Base Excess 1.5 mEq/L 09/15/24 11:54 Venous Blood Oxygen Saturation < 60.0 % 09/15/24 11:54 Microbiology 09/09/24 15:12 Aerobic Blood Culture - Final Blood No growth in Aerobic bottle after 5 days. Anaerobic Blood Culture - Final No growth in Anaerobic bottle after 5 days. 09/09/24 15:11 Aerobic Blood Culture - Final Blood No growth in Aerobic bottle after 5 days. Anaerobic Blood Culture - Final No growth in Anaerobic bottle after 5 days. Diagnostic Findings (Past 24 Hours) Videofluoroscopic Swallow 09/14/24 13:00 FL video swallow CLINICAL HISTORY: 78 years-old Male with assess for aspiration. Dysphasia. TECHNIQUE: Video fluoroscopic evaluation of swallowing was performed in the AP and lateral projections by the speech pathology staff. The patient is fed varying consistencies of barium FLUOROSCOPY TIME: 3.54 minutes. 5441 images were obtained. 11.0 mGy COMPARISON STUDY: CTA chest 07/04/2024 FINDINGS: There is abnormal hyoid excursion and epiglottic deflection with delayed oral pharyngeal transit. Silent aspiration with thin liquid consistency. Laryngeal penetration without aspiration seen with nectar consistency. Additional aspiration noted with thick liquid given to assist the solid consistency swallowing. Vallecular retention also noted. Moderate esophageal dysmotility with delayed transit. IMPRESSION: 1. Multiple consistency aspiration as above. 2. Please see the speech pathologist report for detailed findings and recommendations. ACT 112: Negative or not required by law. Electronically signed by: Chito Junior M.D. 09/14/2024 2:09 PM I & O Totals 24 Hours 09/14/24 09/15/24 09/16/24 06:59 06:59 06:59 Intake Total 500 / 500 900 / 900 393.333 / 393.333 Output Total 1341 / 1341 2404 / 2404 Balance -841 / -841 -1504 / -1504 393.333 / 393.333 Cumulative 09/09/24 14:19 thru 09/15/24 12:26 Intake Total 59258.687 Output Total 7740 Balance 5064.687 RT Ventilator Mngmt (Last Documented) Ventilator Ordered Settings Ventilator Support Mode Assist Control 09/11/24 08:00 Respiratory Rate 20 09/15/24 11:42 Ventilator Tidal Volume 480 09/11/24 08:00 Setting Minute Ventilation 9.7 09/11/24 07:56 Positive End Expiratory 10 09/11/24 08:00 Pressure Fraction of Inspired Oxygen 25 09/13/24 23:15 Machine Comment weaned Fi02 to 40% 09/11/24 00:20 Ventilator - PT Measurements Respiratory Rate 20 Exhaled Tidal Volume 483 Minute Ventilation 9.7 Peak Inspiratory Airway 22 Pressure Plateau Pressure 19 Respiratory Cycle Inspiratory: 1:2.3 Expiratory Ratio Inspiratory Phase Time 0.9 End-Tidal CO2 24 Static Lung Compliance 53.67 Dynamic Lung Compliance 40.25 Normal Static Lung Compliance 48.00 Patient Measurements Comment patient moved rooms from 101 to 104 Coding Level of Care Code 01079 CRITICAL CARE 1ST 30-74M Diagnoses Aspiration pneumonia due to food (regurgitated) J69.0 Laterality: bilateral Lung location: lower lobe of lung BPH (benign prostatic hyperplasia) N40.0 Emphysema lung J43.9 Diabetes mellitus E11.9 Acute respiratory failure with hypoxia J96.01 (1) Aspiration pneumonia due to food (regurgitated) Laterality: bilateral Lung location: lower lobe of lung Qualified Code(s): J69.0 - Pneumonitis due to inhalation of food and vomit
[2024-09-15] MEDS: ADENOSINE IV SOLN 3 MG/ML 2 ML VIAL IV ONE (13:01)
[2024-09-15] MEDS: AMIODARONE / D5W 150 MG/100 ML BAG IV STA (13:02)
[2024-09-15] MEDS: AMIODARONE / D5W 360 MG/200 ML BAG IV ONE (13:13)
[2024-09-15] MEDS: SODIUM CHLORIDE 0.9% 1,000 ML IV ONE (13:14)
[2024-09-15] MEDS: HEPARIN 25000 UNIT/500 ML 25,000 UNITS/500 ML BAG IV SCH (13:14)
[2024-09-15] MEDS: HEPARIN SOD (PORCINE) 1000 UNIT/ML IV ONE (13:14)
[2024-09-15 13:33] LABS: Basophils # (auto) 0.04 K/uL (0.00-0.20); Basophils % (auto) 0.6 %; Eosinophils # (auto) 0.08 K/uL (0.00-0.50); Eosinophils % (auto) 1.2 %; Hematocrit (blood only) 36.3 % (42.0-52.0); Hemoglobin 11.9 g/dl (14.0-18.0); Immature Granulocytes # (auto) 0.04 K/uL (0.01-0.20); Immature Granulocytes % (auto) 0.6 %; Lymphocytes # (auto) 1.53 K/uL (1.20-3.40); Lymphocytes % (auto) 22.4 %; Mean Corpuscular Hemoglobin 31.2 pg (25.0-34.0); Mean Corpuscular Hgb Conc 32.8 g/dL (32.0-36.0); Monocytes # (auto) 0.42 K/uL (0.11-0.59); Monocytes % (auto) 6.1 %; Neutrophils # (auto) 4.73 K/uL (1.40-6.50); Neutrophils % (auto) 69.1 %; Platelet Count 214 K/uL (130-400); RDW Standard Deviation 52.1 fL (36.4-46.3); Red Blood Count 3.82 M/uL (4.70-6.10); White Blood Count 6.84 K/ul (4.8-10.8)
--- NOTE | 2024-09-15 13:52 | XRay Report ---
XR chest 1V portable CLINICAL HISTORY: dyspnea TECHNIQUE: Single frontal radiograph of the chest was obtained. Comparison: Comparison is made to chest radiograph 09/11/2024 FINDINGS: No lines and tubes are seen. Calcified aortic knob is seen. Airspace opacities are seen most prominen tly in the right upper lobe and left lower lobe. No evidence of pleural effusion or pneumothorax. IMPRESSION: Multifocal airspace opacities which may represent multifocal pneumonia versus aspiration/atelectasis. ACT 112: Negative or not required by law. Electronically signed by: Warren Westbrook M.D. 09/15/2024 1:49 PM
[2024-09-15 13:59] LABS: INR 1.2 (0.9-1.1); Partial Thromboplastin Ratio 1.1; Partial Thromboplastin Time 29 Seconds (21-31); Prothrombin Time 12.6 Seconds (9.0-12.0)
[2024-09-15] MEDS ORDERED: DEXTROSE 10% 1,000 ML IV PRN (16:00)
[2024-09-15] MEDS: PHENYLEPHRINE/NSS 25 MG/250 ML BAG IV SCH (16:20)
[2024-09-15] MEDS: ICU ELECTROLYTE REPLACEMENT PROTOCOL SCH (17:14)
[2024-09-15] MEDS: AMIODARONE / D5W 360 MG/200 ML BAG IV SCH (18:09)
[2024-09-15 20:01] LABS: ANTI-Xa, UFH(UnfractionatedHep 0.98 IU/ml (0.3-0.7)
--- NOTE | 2024-09-15 21:12 | XCELERA ---
[id number] \\[id number]
[2024-09-16 03:57] LABS: Hematocrit (blood only) 33.8 % (42.0-52.0); Hemoglobin 11.4 g/dl (14.0-18.0); Mean Corpuscular Hemoglobin 31.3 pg (25.0-34.0); Mean Corpuscular Hgb Conc 33.7 g/dL (32.0-36.0); Mean Corpuscular Volume 92.9 fL (80.0-100.0); Mean Platelet Volume 9.7 fL (9.4-12.4); Platelet Count 206 K/uL (130-400); RDW Coefficient of Variation 15.3 % (11.5-14.5); RDW Standard Deviation 52.1 fL (36.4-46.3); Red Blood Count 3.64 M/uL (4.70-6.10); White Blood Count 7.29 K/ul (4.8-10.8)
[2024-09-16 04:10] LABS: BUN Creatinine Ratio 8.3 (10-20); Calcium 7.6 mg/dl (8.6-10.3); Creatinine Clr Calc Pharmacy 72.3 ml/min; Magnesium 2.3 mg/dl (1.7-2.4); Phosphorus 2.4 mg/dl (2.5-4.9); Potassium 2.9 mmol/L (3.5-5.1)
[2024-09-16 04:28] LABS: ANTI-Xa, UFH(UnfractionatedHep 0.55 IU/ml (0.3-0.7)
[2024-09-16] MEDS ORDERED: SODIUM PHOSPHATE 3 MMOL/1 ML INFUSION IV STA (05:37)
[2024-09-16] MEDS: POTASSIUM CHLORIDE / WTR 10 MEQ/100 ML PLCT IV SCH (06:17)
[2024-09-16] MEDS: SODIUM PHOSPHATE 15 MMOL in SODIUM CHLORIDE 0.9% 250 ML IV ONE (06:17)
--- NOTE | 2024-09-16 07:31 | Electrocardiogram Report ---
Test Reason : Blood Pressure : */* mmHG Vent. Rate : 168 BPM Atrial Rate : 87 BPM P-R Int : * ms QRS Dur : 82 ms QT Int : 274 ms P-R-T Axes : * -10 75 degrees QTcB Int : 458 ms Atrial fibrillation Nonspecific ST and T wave abnormality Abnormal ECG When compared with ECG of 09-Sep-2024 15:13, Atrial fibrillation is now Present QRS axis Shifted right Confirmed by Hosea Contreras ([id number]) on 09/16/2024 7:31:16 AM Referred By: Emili South Confirmed By: Hosea Contreras
--- NOTE | 2024-09-16 07:39 | Electrocardiogram Report ---
Test Reason : Blood Pressure : */* mmHG Vent. Rate : 150 BPM Atrial Rate : 153 BPM P-R Int : * ms QRS Dur : 74 ms QT Int : 306 ms P-R-T Axes : * 11 49 degrees QTcB Int : 483 ms Atrial fibrillation with rapid ventricular response Low voltage QRS Septal infarct , age undetermined Abnormal ECG When compared with ECG of 15-Sep-2024 11:16, (unconfirmed) No significant change Confirmed by Hosea Contreras ([id number]) on 09/16/2024 7:39:42 AM Referred By: Emili South Confirmed By: Hosea Contreras
--- NOTE | 2024-09-16 07:41 | Electrocardiogram Report ---
Test Reason : Blood Pressure : */* mmHG Vent. Rate : 87 BPM Atrial Rate : 45 BPM P-R Int : * ms QRS Dur : 110 ms QT Int : 400 ms P-R-T Axes : * 3 35 degrees QTcB Int : 481 ms Poor data quality, interpretation may be adversely affected Likely atrial fibrillation Low voltage QRS Abnormal ECG When compared with ECG of 15-Sep-2024 12:33, (unconfirmed) HR has decreased Confirmed by Hosea Contreras ([id number]) on 09/16/2024 7:41:20 AM Referred By: Emili South Confirmed By: Hosea Contreras
--- NOTE | 2024-09-16 07:45 | Critical Care Progress Note ---
Date of Service September 16, 2024 Assessment & Plan (1) Aspiration pneumonia due to food (regurgitated): (2) BPH (benign prostatic hyperplasia): (3) Emphysema lung: (4) Diabetes mellitus: (5) Acute respiratory failure with hypoxia: Plan Impression: 78-year-old male with severe aspiration identified on video swallow study and potential upper digestive pathology now with what appears to be atrial fibrillation with rapid ventricular response based on response to adenosine.. He is converted to normal sinus rhythm with amiodarone and is anticoagulated on heparin. Recommendations: 1. Neurologic: No current issues. The patient is profoundly deconditioned and weak. PT and OT. Evaluate for placement 2. Cardiovascular: Atrial fibrillation with rapid ventricular response. Now in sinus. Hemodynamically stable. Continue amiodarone and heparin. Will defer to primary service as to whether or not they want to get cardiology involved. Echocardiogram from yesterday showed normal EF without regional wall motion abnormalities. 3. Pulmonary: History of recurrent aspiration. Continue pulmonary toilet. Continue nebulized budesonide and Perforomist as well as as needed DuoNebs. Wean oxygen as tolerated. 4. GI: Questionable esophageal dysmotility or swallowing issue. Will see if nursing can place nasoenteric feeding tube. Long-term feeding strategy per GI and primary admitting service. Follow LFTs while on amiodarone 5. Renal: ICU electrolyte replacement protocol 6. Endocrine: Glycemic control per ICU protocol. 7. Heme-onc: Mild anemia. No evidence of acute blood loss no indication for transfusion. 8. ID: Patient's completed 7 days of antimicrobial therapy, 4 days of cefepime and 5 days of Zosyn. He is also completed 7 days of doxycycline. Monitoring off antibiotics currently Patient's critical care issues are resolved. He can transfer back to the floor under the care of the hospitalist. Critical care services will sign off. Feel free to contact us with questions or concerns Admission and Anticipated Discharge Date Admission Date: September 09, 2024 Subjective Patient seen and examined. EMR reviewed. Discussed with bedside critical care nurse and on multidisciplinary rounds. Patient is doing well. He is converted to sinus rhythm. He is blood pressures issues have resolved. He is not on any vasoactive medications currently. No other issues overnight Review of Systems Review of Systems: Unobtainable due to reduced consciousness Physical Exam Constitutional: WD/WN, vitals as above Neck: trachea midline, no thyromegaly Respiratory: normal respiratory effort, lungs clear to auscultation Cardiovascular: Heart Sounds: normal S1 and normal S2; no murmur Extremities: no edema Gastrointestinal (Abdomen): normal bowel sounds, soft, nontender, no hepatosplenomegaly Musculoskeletal: Extremities: extremities normal to inspection Skin: no rashes, warm and dry Lymphatic: no cervical lymphadenopathy Results & Data Results & Data Vital Signs (Past 12 Hours) Vital Signs Temp Pulse Pulse Resp BP Pulse Ox Pulse Ox 09/16/24 07:31 63 16 100 09/16/24 06:00 36.4 C L 70 15 100 09/16/24 05:03 36.4 C L 61 14 99 09/16/24 05:00 121/61 09/16/24 04:57 36.4 C L 61 17 100 09/16/24 04:30 121/64 09/16/24 04:30 121/64 09/16/24 04:18 36.3 C L 73 19 99 09/16/24 04:03 36.3 C L 62 16 100 09/16/24 04:00 122/61 09/16/24 03:57 36.3 C L 63 15 100 09/16/24 03:30 118/64 09/16/24 03:30 118/64 09/16/24 03:27 36.3 C L 66 16 98 09/16/24 03:00 36.4 C L 85 18 96 09/16/24 03:00 126/87 09/16/24 03:00 126/87 09/16/24 02:30 117/62 09/16/24 02:18 36.5 C 67 18 98 09/16/24 02:15 36.5 C 66 18 98 09/16/24 01:30 113/63 09/16/24 01:24 36.5 C 63 16 98 09/16/24 01:09 36.5 C 64 16 97 09/16/24 01:00 119/62 09/16/24 00:57 36.5 C 68 15 95 09/16/24 00:30 36.5 C 71 16 98 09/16/24 00:30 122/68 09/16/24 00:30 122/68 09/16/24 00:30 122/68 09/16/24 00:30 122/68 09/16/24 00:00 36.5 C 71 16 100 09/16/24 00:00 115/62 09/16/24 00:00 115/62 09/16/24 00:00 79 09/15/24 23:30 120/60 09/15/24 23:24 36.6 C 60 15 100 09/15/24 23:00 36.6 C 63 15 100 09/15/24 23:00 106/54 L 09/15/24 23:00 106/54 L 09/15/24 22:30 36.6 C 67 17 99 09/15/24 22:30 114/60 09/15/24 22:30 114/60 09/15/24 22:00 36.6 C 70 13 99 09/15/24 22:00 117/62 09/15/24 22:00 117/62 09/15/24 21:30 36.6 C 69 16 99 09/15/24 21:30 116/65 09/15/24 21:30 116/65 09/15/24 21:00 36.5 C 68 15 100 09/15/24 21:00 115/64 09/15/24 21:00 115/64 09/15/24 21:00 115/64 09/15/24 20:33 36.4 C L 65 15 99 09/15/24 20:30 113/64 09/15/24 20:03 68 20 99 09/15/24 20:00 99 09/15/24 20:00 09/15/24 19:45 36.3 C L 59 L 12 99 O2 Del Method O2 Del Method O2 Flow Rate O2 Flow Rate 09/16/24 07:31 Nasal Cannula 1 09/16/24 06:00 09/16/24 05:03 09/16/24 05:00 09/16/24 04:57 09/16/24 04:30 09/16/24 04:30 09/16/24 04:18 09/16/24 04:03 09/16/24 04:00 09/16/24 03:57 09/16/24 03:30 09/16/24 03:30 09/16/24 03:27 09/16/24 03:00 09/16/24 03:00 09/16/24 03:00 09/16/24 02:30 09/16/24 02:18 09/16/24 02:15 09/16/24 01:30 09/16/24 01:24 09/16/24 01:09 09/16/24 01:00 09/16/24 00:57 09/16/24 00:30 09/16/24 00:30 09/16/24 00:30 09/16/24 00:30 09/16/24 00:30 09/16/24 00:00 09/16/24 00:00 09/16/24 00:00 09/16/24 00:00 09/15/24 23:30 09/15/24 23:24 09/15/24 23:00 09/15/24 23:00 09/15/24 23:00 09/15/24 22:30 09/15/24 22:30 09/15/24 22:30 09/15/24 22:00 09/15/24 22:00 09/15/24 22:00 09/15/24 21:30 09/15/24 21:30 09/15/24 21:30 09/15/24 21:00 09/15/24 21:00 09/15/24 21:00 09/15/24 21:00 09/15/24 20:33 09/15/24 20:30 09/15/24 20:03 Nasal Cannula 1 09/15/24 20:00 Nasal Cannula 2 09/15/24 20:00 Nasal Cannula 2 09/15/24 19:45 Critical Care Results & Data Vital Signs (Past 12 Hours) Vital Signs Temp Pulse Pulse Resp BP Pulse Ox Pulse Ox 09/16/24 07:31 63 16 100 09/16/24 06:00 36.4 C L 70 15 100 09/16/24 05:03 36.4 C L 61 14 99 09/16/24 05:00 121/61 09/16/24 04:57 36.4 C L 61 17 100 09/16/24 04:30 121/64 09/16/24 04:30 121/64 09/16/24 04:18 36.3 C L 73 19 99 09/16/24 04:03 36.3 C L 62 16 100 09/16/24 04:00 122/61 09/16/24 03:57 36.3 C L 63 15 100 09/16/24 03:30 118/64 09/16/24 03:30 118/64 09/16/24 03:27 36.3 C L 66 16 98 09/16/24 03:00 36.4 C L 85 18 96 09/16/24 03:00 126/87 09/16/24 03:00 126/87 09/16/24 02:30 117/62 09/16/24 02:18 36.5 C 67 18 98 09/16/24 02:15 36.5 C 66 18 98 09/16/24 01:30 113/63 09/16/24 01:24 36.5 C 63 16 98 09/16/24 01:09 36.5 C 64 16 97 09/16/24 01:00 119/62 09/16/24 00:57 36.5 C 68 15 95 09/16/24 00:30 36.5 C 71 16 98 09/16/24 00:30 122/68 09/16/24 00:30 122/68 09/16/24 00:30 122/68 09/16/24 00:30 122/68 09/16/24 00:00 36.5 C 71 16 100 09/16/24 00:00 115/62 09/16/24 00:00 115/62 09/16/24 00:00 79 09/15/24 23:30 120/60 09/15/24 23:24 36.6 C 60 15 100 09/15/24 23:00 36.6 C 63 15 100 09/15/24 23:00 106/54 L 09/15/24 23:00 106/54 L 09/15/24 22:30 36.6 C 67 17 99 09/15/24 22:30 114/60 09/15/24 22:30 114/60 09/15/24 22:00 36.6 C 70 13 99 09/15/24 22:00 117/62 09/15/24 22:00 117/62 09/15/24 21:30 36.6 C 69 16 99 09/15/24 21:30 116/65 09/15/24 21:30 116/65 09/15/24 21:00 36.5 C 68 15 100 09/15/24 21:00 115/64 09/15/24 21:00 115/64 09/15/24 21:00 115/64 09/15/24 20:33 36.4 C L 65 15 99 09/15/24 20:30 113/64 09/15/24 20:03 68 20 99 09/15/24 20:00 99 09/15/24 20:00 09/15/24 19:45 36.3 C L 59 L 12 99 O2 Del Method O2 Del Method O2 Flow Rate O2 Flow Rate 09/16/24 07:31 Nasal Cannula 1 09/16/24 06:00 09/16/24 05:03 09/16/24 05:00 09/16/24 04:57 09/16/24 04:30 09/16/24 04:30 09/16/24 04:18 09/16/24 04:03 09/16/24 04:00 09/16/24 03:57 09/16/24 03:30 09/16/24 03:30 09/16/24 03:27 09/16/24 03:00 09/16/24 03:00 09/16/24 03:00 09/16/24 02:30 09/16/24 02:18 09/16/24 02:15 09/16/24 01:30 09/16/24 01:24 09/16/24 01:09 09/16/24 01:00 09/16/24 00:57 09/16/24 00:30 09/16/24 00:30 09/16/24 00:30 09/16/24 00:30 09/16/24 00:30 09/16/24 00:00 09/16/24 00:00 09/16/24 00:00 09/16/24 00:00 09/15/24 23:30 09/15/24 23:24 09/15/24 23:00 09/15/24 23:00 09/15/24 23:00 09/15/24 22:30 09/15/24 22:30 09/15/24 22:30 09/15/24 22:00 09/15/24 22:00 09/15/24 22:00 09/15/24 21:30 09/15/24 21:30 09/15/24 21:30 09/15/24 21:00 09/15/24 21:00 09/15/24 21:00 09/15/24 21:00 09/15/24 20:33 09/15/24 20:30 09/15/24 20:03 Nasal Cannula 1 09/15/24 20:00 Nasal Cannula 2 09/15/24 20:00 Nasal Cannula 2 09/15/24 19:45 Lab & Micro Results (Past 24 Hours) RBC 3.64 M/uL (4.70-6.10) L 09/16/24 WBC 7.29 K/ul (4.8-10.8) 09/16/24 Hgb 11.4 g/dl (14.0-18.0) L 09/16/24 Hct 33.8 % (42.0-52.0) L 09/16/24 MCV 92.9 fL (80.0-100.0) 09/16/24 MCH 31.3 pg (25.0-34.0) 09/16/24 MCHC 33.7 g/dL (32.0-36.0) 09/16/24 RDW Standard Deviation 52.1 fL (36.4-46.3) H 09/16/24 RDW Coefficient of Variation 15.3 % (11.5-14.5) H 09/16/24 Plt Count 206 K/uL (130-400) 09/16/24 MPV 9.7 fL (9.4-12.4) 09/16/24 Neutrophils (%) (Auto) 69.1 % 09/15/24 Lymphocytes (%) (Auto) 22.4 % 09/15/24 Monocytes # (Auto) 0.42 K/uL (0.11-0.59) 09/15/24 Eosinophils # (Auto) 0.08 K/uL (0.00-0.50) 09/15/24 Immature Granulocyte % (Auto) 0.6 % 09/15/24 Neutrophils # (Auto) 4.73 K/uL (1.40-6.50) 09/15/24 Lymphocytes # (Auto) 1.53 K/uL (1.20-3.40) 09/15/24 Monocytes # (Auto) 0.42 K/uL (0.11-0.59) 09/15/24 Eosinophils # (Auto) 0.08 K/uL (0.00-0.50) 09/15/24 Basophils # (Auto) 0.04 K/uL (0.00-0.20) 09/15/24 Immature Granulocyte # (Auto) 0.04 K/uL (0.01-0.20) 5 2 Na 138 mmol/L (136-145) 09/16/24 K 2.9 mmol/L (3.5-5.1) L 09/16/24 Cl 106 mmol/L (98-107) 09/16/24 CO2 26 mmol/L (21-32) 09/16/24 Anion Gap 6 (3-11) 09/16/24 BUN 6 mg/dl (6-23) 09/16/24 Creatinine 0.72 mg/dl (0.6-1.4) 09/16/24 BUN/Creatinine Ratio 8.3 (10-20) L 09/16/24 Glu 91 mg/dl (70-99(Fasting)) 09/16/24 Ca 7.6 mg/dl (8.6-10.3) L 09/16/24 Phosphorus Level 2.4 mg/dl (2.5-4.9) L 09/16/24 Mg 2.3 mg/dl (1.7-2.4) 09/16/24 03:38 Calcium Level 7.6 mg/dl (8.6-10.3) L 09/16/24 03:38 Prothromb Time International Ratio 1.2 (0.9-1.1) H 09/15/24 13 :20 Venous Blood pH 7.38 (7.36-7.41) 09/15/24 11:54 Venous Blood Partial Pressure CO2 46 mmHg (38-50) 09/15/24 11:5 4 Venous Blood Partial Pressure O2 36 mmHg 09/15/24 11:54 Venous Blood HCO3 27 mmol/L 09/15/24 11:54 Venous Blood Base Excess 1.5 mEq/L 09/15/24 11:54 Venous Blood Oxygen Saturation < 60.0 % 09/15/24 11:54 Microbiology 09/09/24 15:12 Aerobic Blood Culture - Final Blood No growth in Aerobic bottle after 5 days. Anaerobic Blood Culture - Final No growth in Anaerobic bottle after 5 days. 09/09/24 15:11 Aerobic Blood Culture - Final Blood No growth in Aerobic bottle after 5 days. Anaerobic Blood Culture - Final No growth in Anaerobic bottle after 5 days. Diagnostic Findings (Past 24 Hours) Chest X-Ray 09/15/24 12:54 XR chest 1V portable CLINICAL HISTORY: dyspnea TECHNIQUE: Single frontal radiograph of the chest was obtained. Comparison: Comparison is made to chest radiograph 09/11/2024 FINDINGS: No lines and tubes are seen. Calcified aortic knob is seen. Airspace opacities are seen most prominently in the right upper lobe and left lower lobe. No evidence of pleural effusion or pneumothorax. IMPRESSION: Multifocal airspace opacities which may represent multifocal pneumonia versus aspiration/atelectasis. ACT 112: Negative or not required by law. Electronically signed by: Warren Westbrook M.D. 09/15/2024 1:49 PM I & O Totals 24 Hours 09/15/24 09/16/24 09/17/24 06:59 06:59 06:59 Intake Total 900 / 900 3669.149 / 3669.149 100 / 100 Output Total 2404 / 2404 706 / 706 Balance -1504 / -1504 2963.149 / 2963.149 100 / 100 Cumulative 09/09/24 14:19 thru 09/16/24 07:17 Intake Total 93945.503 Output Total 8446 Balance 7734.503 RT Ventilator Mngmt (Last Documented) Ventilator Ordered Settings Ventilator Support Mode Assist Control 09/11/24 08:00 Respiratory Rate 16 09/16/24 07:31 Ventilator Tidal Volume 480 09/11/24 08:00 Setting Minute Ventilation 9.7 09/11/24 07:56 Positive End Expiratory 10 09/11/24 08:00 Pressure Fraction of Inspired Oxygen 25 09/13/24 23:15 Machine Comment weaned Fi02 to 40% 09/11/24 00:20 Ventilator - PT Measurements Respiratory Rate 16 Exhaled Tidal Volume 483 Minute Ventilation 9.7 Peak Inspiratory Airway 22 Pressure Plateau Pressure 19 Respiratory Cycle Inspiratory: 1:2.3 Expiratory Ratio Inspiratory Phase Time 0.9 End-Tidal CO2 24 Static Lung Compliance 53.67 Dynamic Lung Compliance 40.25 Normal Static Lung Compliance 48.00 Patient Measurements Comment patient moved rooms from 101 to 104 Coding Level of Care Code 56237 SUB INP/OBS CARE 3/50MIN Diagnoses Aspiration pneumonia due to food (regurgitated) J69.0 Laterality: bilateral Lung location: lower lobe of lung BPH (benign prostatic hyperplasia) N40.0 Emphysema lung J43.9 Diabetes mellitus E11.9 Acute respiratory failure with hypoxia J96.01 (1) Aspiration pneumonia due to food (regurgitated) Laterality: bilateral Lung location: lower lobe of lung Qualified Code(s): J69.0 - Pneumonitis due to inhalation of food and vomit
--- NOTE | 2024-09-16 08:28 | XRay Report ---
KUB HISTORY: Coresafe NG tube placement; advanced tube COMPARISON STUDY: 09/16/2024 FINDINGS: Feeding tube tip is at the gastroesophageal junction. There is residual contrast in the vis ualized transverse colon. IMPRESSION: Feeding tube tip is at the gastroesophageal junction. ACT 112: Negative or not required by law. The above report was generated using voice recognition software. It may contain grammatical, syntax o r spelling errors. Electronically signed by: Joshua Arellano M.D. 09/16/2024 8:27 AM
--- NOTE | 2024-09-16 08:28 | XRay Report ---
KUB HISTORY: Status post placement of a feeding tube NG Tube Placement COMPARISON: CT abdomen and pelvis 07/04/2024 FINDINGS: Distal tip of feeding tube projects over the distal esophagus. Enteric contrast in the larg e bowel. Small pleural effusions with mild left basilar opacities/atelectasis. Bones appear grossly i ntact. No free air the upper abdomen. The lower abdomen is excluded from the [id number]. No fractu re. IMPRESSION: Distal tip of feeding tube projects over the distal esophagus. Advancement with follow-up KUB recomme nded. ACT 112: Negative or not required by law. The above report was generated using voice recognition software. It may contain grammatical, syntax o r spelling errors. Electronically signed by: Chito Junior M.D. 09/16/2024 8:26 AM
--- NOTE | 2024-09-16 09:36 | Gastroenterology Progress Note ---
Date of Service September 16, 2024 Assessment & Plan (1) Dysphagia: Plan I had discussed the case with Dr Jerez and Dr. Dumont. Since he is on heparin, will plan to have it held over night with plan to do an EGD on 09/17/24 to further evaluate. Admission and Anticipated Discharge Date Admission Date: September 09, 2024 Supervising Physician Co-Signing Physician Notes I saw and examined this patient with our nurse practitioner and agree with her assessment and plan. Clinically improving heart rate better controlled. Will plan to proceed with endoscopy in a.m. His heparin should be held for 6 hours if possible prior to the procedure. Subjective Patient is a 78 year old male who is hospitalized with aspiration pneumonia. He had severe oropharyngeal and esophageal dysphagia with his video swallow on 09/14/24. He is NPO. He was planned for EGD yesterday but had been found to have a heart rate in the 150s. Found to be in A fib with RVR but has converted with amiodarone. he is on heparin currently. patient offers no complaints currently other than being NPO. Review of Systems Review of Systems: All systems reviewed & are unremarkable except as noted in HPI & below Physical Exam Constitutional: WD/WN, vitals as above Respiratory: normal respiratory effort, lungs clear to auscultation Cardiovascular: Rate/Rhythm: regular rate and regular rhythm Gastrointestinal (Abdomen): normal bowel sounds, soft, nontender, no hepatosplenomegaly Psychiatric: Orientation: alert and oriented x 3 Results & Data Results & Data Vital Signs (Past 12 Hours) Vital Signs Temp Pulse Pulse Resp BP Pulse Ox Pulse Ox 09/16/24 08:40 09/16/24 08:40 59 L 09/16/24 08:30 122/81 09/16/24 08:27 97.3 F L 71 13 91 09/16/24 08:03 97.2 F L 73 18 92 09/16/24 08:00 136/80 09/16/24 08:00 96 09/16/24 08:00 59 L 09/16/24 08:00 09/16/24 07:54 97.2 F L 74 19 99 09/16/24 07:31 63 16 100 09/16/24 07:27 97.2 F L 67 16 100 09/16/24 07:13 131/60 09/16/24 06:00 97.5 F L 70 15 100 09/16/24 05:03 97.5 F L 61 14 99 09/16/24 05:00 121/61 09/16/24 04:57 97.5 F L 61 17 100 09/16/24 04:30 121/64 09/16/24 04:30 121/64 09/16/24 04:18 97.3 F L 73 19 99 09/16/24 04:03 97.3 F L 62 16 100 09/16/24 04:00 122/61 09/16/24 03:57 97.3 F L 63 15 100 09/16/24 03:30 118/64 09/16/24 03:30 118/64 09/16/24 03:27 97.3 F L 66 16 98 09/16/24 03:00 97.5 F L 85 18 96 09/16/24 03:00 126/87 09/16/24 03:00 126/87 09/16/24 02:30 117/62 09/16/24 02:18 97.7 F 67 18 98 09/16/24 02:15 97.7 F 66 18 98 09/16/24 01:30 113/63 09/16/24 01:24 97.7 F 63 16 98 09/16/24 01:09 97.7 F 64 16 97 09/16/24 01:00 119/62 09/16/24 00:57 97.7 F 68 15 95 09/16/24 00:30 97.7 F 71 16 98 09/16/24 00:30 122/68 09/16/24 00:30 122/68 09/16/24 00:30 122/68 09/16/24 00:30 122/68 09/16/24 00:00 97.7 F 71 16 100 09/16/24 00:00 115/62 09/16/24 00:00 115/62 09/16/24 00:00 79 09/15/24 23:30 120/60 09/15/24 23:24 97.9 F 60 15 100 09/15/24 23:00 97.9 F 63 15 100 09/15/24 23:00 106/54 L 09/15/24 23:00 106/54 L 09/15/24 22:30 97.9 F 67 17 99 09/15/24 22:30 114/60 09/15/24 22:30 114/60 09/15/24 22:00 97.9 F 70 13 99 09/15/24 22:00 117/62 09/15/24 22:00 117/62 O2 Del Method O2 Del Method O2 Flow Rate 09/16/24 08:40 Room Air 09/16/24 08:40 09/16/24 08:30 09/16/24 08:27 Room Air 09/16/24 08:03 09/16/24 08:00 09/16/24 08:00 Room Air 09/16/24 08:00 09/16/24 08:00 Room Air 09/16/24 07:54 09/16/24 07:31 Nasal Cannula 1 09/16/24 07:27 09/16/24 07:13 09/16/24 06:00 09/16/24 05:03 09/16/24 05:00 09/16/24 04:57 09/16/24 04:30 09/16/24 04:30 09/16/24 04:18 09/16/24 04:03 09/16/24 04:00 09/16/24 03:57 09/16/24 03:30 09/16/24 03:30 09/16/24 03:27 09/16/24 03:00 09/16/24 03:00 09/16/24 03:00 09/16/24 02:30 09/16/24 02:18 09/16/24 02:15 09/16/24 01:30 09/16/24 01:24 09/16/24 01:09 09/16/24 01:00 09/16/24 00:57 09/16/24 00:30 09/16/24 00:30 09/16/24 00:30 09/16/24 00:30 09/16/24 00:30 09/16/24 00:00 09/16/24 00:00 09/16/24 00:00 09/16/24 00:00 09/15/24 23:30 09/15/24 23:24 09/15/24 23:00 09/15/24 23:00 09/15/24 23:00 09/15/24 22:30 09/15/24 22:30 09/15/24 22:30 09/15/24 22:00 09/15/24 22:00 09/15/24 22:00 Coding Level of Care Code 83022 SUB INP/OBS CARE 10/02MIN Diagnoses Dysphagia R13.10
--- NOTE | 2024-09-16 16:38 | Hospitalist Progress Note ---
Date of Service September 16, 2024 Assessment & Plan (1) Sepsis: (2) Acute respiratory failure with hypoxia: (3) Pneumonia: (4) Urinary tract infection: (5) Esophagitis: (6) Dysphagia: (7) Malnutrition: Plan The patient is a 78-year-old male with past medical history including hype rtension, GERD, duodenal ulcer, aspiration pneumonia, BPH, urinary incontinence, diabetes mellitus, esophagitis. His most recently admitted from 06/22- 06/26/2024 for sepsis due to urinary tract infection. He was then admitted from 07/04-07/07/2024 for aspiration pneumonia. He presents to the emergency department this time with similar symptoms, and is seen bringing up large volumes of mucus. #Sepsis due to pneumonia Pneumonia/history of aspiration/ Acute hypoxic respiratory failure MRSA swab negative. Biofire negative. 09/10 Patient had aspiration event with CAR JOCKEY with acute decompensation requiring intubation and bedside bronchoscopy. (Details HPI 09/10) Transferred to ICU. extubated on 09/11 Sputum culture - pseudomonas, sensitivities reviewed. Given patient has had 4 days of cefepime, 5 days of Zosyn and 7 days of doxycycline abx were discontinued by critical care team 09/15. Bronchial Wash negative thus far. Video study 09/14 - multiple consistency aspirations. discussed w/ CAR JOCKEY 09/14 - patient remains NPO given high aspiration risk EGD cancelled on 09/15 due to patient being tachycardic. - converted to A fib RVR and required pressor support briefly. Patient now normotensive and converted back to normal sinus rhythm Repeat CXR 09/15 concerning findings for pneumonia vs aspiration/atelectasis Patient downgraded from ICU care 09/16 Discussed case w/ palliative care provider 09/16 - met with patient and family at bedside. Patient to undergo EGD 09/17 and further discussion to take place pending that study. #A fib RVR s/p Adenosine On amiodarone and heparin drip - stop heparin drip at midnight in anticipation of EGD. required brief pressor support 09/16 but then converted to normal sinus rhythm and vitals have remained stable since. echo 18 - EF 60-65%. #Esophagitis seen on CT - Concerns for esophageal stricture vs mass with difficulty OG/NG placement. GI following. Continue PPI #Anemia Hgb stable at 11.4. Monitor for active bleeding, trend hemoglobin Hypokalemia- K 2.9 - repleted 09/16 Replete as necessary #Hypomagnesemia Mag 2.3 replete as necessary #Weakness - will need PT/OT when appropriate Chronic medical problems: Hyperlipidemia resume atorvastatin when taking p.o. GERD-changed to pantoprazole 40 IV while NPO Dispo: continued inpatient stay in ICU DVT proh: per ICU Updated patient's son and at bedside 09/16 Admission and Anticipated Discharge Date Admission Date: September 09, 2024 Subjective Patient seen and examined this morning. Patient denied any complaints at time of encounter. Physical Exam Constitutional: WD/WN, vitals as above Eyes: PERRL, conjunctivae normal, anicteric sclerae Respiratory: crackles throughout lung galarza b/l Cardiovascular: RRR, no murmur, no edema Results & Data Results & Data Vital Signs (Past 12 Hours) Vital Signs Temp Pulse Pulse Resp BP Pulse Ox Pulse Ox 09/16/24 16:00 71 09/16/24 15:47 114/66 09/16/24 15:47 114/66 09/16/24 15:12 36.1 C L 68 18 95 09/16/24 12:06 36.0 C L 60 18 164/87 H 91 09/16/24 09:00 147/67 H 09/16/24 08:54 36.2 C L 64 18 95 09/16/24 08:40 09/16/24 08:40 59 L 09/16/24 08:30 122/81 09/16/24 08:27 36.3 C L 71 13 91 09/16/24 08:03 36.2 C L 73 18 92 09/16/24 08:00 136/80 09/16/24 08:00 96 09/16/24 08:00 59 L 09/16/24 08:00 09/16/24 07:54 36.2 C L 74 19 99 09/16/24 07:31 63 16 100 09/16/24 07:27 36.2 C L 67 16 100 09/16/24 07:13 131/60 09/16/24 06:00 36.4 C L 70 15 100 09/16/24 05:03 36.4 C L 61 14 99 09/16/24 05:00 121/61 09/16/24 04:57 36.4 C L 61 17 100 O2 Del Method O2 Del Method O2 Flow Rate 09/16/24 16:00 09/16/24 15:47 09/16/24 15:47 09/16/24 15:12 09/16/24 12:06 09/16/24 09:00 09/16/24 08:54 09/16/24 08:40 Room Air 09/16/24 08:40 09/16/24 08:30 09/16/24 08:27 Room Air 09/16/24 08:03 09/16/24 08:00 09/16/24 08:00 Room Air 09/16/24 08:00 09/16/24 08:00 Room Air 09/16/24 07:54 09/16/24 07:31 Nasal Cannula 1 09/16/24 07:27 09/16/24 07:13 09/16/24 06:00 09/16/24 05:03 09/16/24 05:00 09/16/24 04:57 PG Care Time/CCT Total # of Minutes Spent Total Time Spent with Patient: Total time spent is greater than 50% in coordination of care (as documented) at patient's floor/unit and/or counseling patient: Coding Level of Care Code 65974 SUB INP/OBS CARE 3/50MIN Diagnoses Sepsis A41.9 Sepsis acute organ dysfunction status: unspecified Sepsis type: sepsis due to unspecified organism Acute respiratory failure with hypoxia J96.01 Pneumonia J18.9 Urinary tract infection N30.00 Hematuria presence: without hematuria Urinary tract infection type: acute cystitis Esophagitis K20.90 Dysphagia R13.10 Malnutrition E46 (1) Sepsis Sepsis acute organ dysfunction status: unspecified Sepsis type: sepsis due to unspecified organism Qualified Code(s): A41.9 - Sepsis, unspecified organism (4) Urinary tract infection Hematuria presence: without hematuria Urinary tract infection type: acute cystitis Qualified Code(s): N30.00 - Acute cystitis without hematuria
--- NOTE | 2024-09-16 18:01 | Palliative Care Consultation ---
Date of Consultation September 16, 2024 Assessment & Plan (1) Palliative care by specialist: (2) Counseling regarding goals of care: (3) Advanced directives, counseling/discussion: (4) Encounter for assessment of decision-making capacity: Plan Met with pt at bedside. His Nicky and son Patricio were present. Pt does require a proxy for medical decisions. Patient has exhibited current lack of decisional capacity based on the inability to convey understanding of personal PMHx, current medical condition, treatment options nor the risks / benefits of those options, and lack of ability to make decisions based on such knowledge. Hospital does not have written documentation of patient wishes concerning his chosen proxy for medical decisions. Per PA [id number], in absence of written documentation of patient wishes, pt's proxy for medical decisions would be his . Discussed patient's recent and chronic medical problems and progressive decline in cognition and function. Nicky expressed concern that pt has had progressive decline in health for several months and she worries that he may not get any better. I asked if they had ever had conversations with the pt about his wishes if he were to need artificial feedings or machines to support his life. Patricio shared that he knows his fathers's wishes and has had many conversations with him about end of life care. He shared that they had intended to complete a living will and asked if we could assist with this. Discussed that the pt would need to exhibit decisional capacity for us to properly execute any form of advanced directive. Discussed the importance of advanced directive as a tool which allows people to designate a proxy for medical decisions as well as document their end of life wishes. Discussed that the document is completed byt the pt and only enacted in the event a patient does not possess decisional capacity. Supplied Patricio with AD and POLST forms to review. Discussed code status and helped family understand that CPR is only done after a person has and involves uncomfortable and invasive procedures that, if successful. have high risk of multiple complications including but not limited to rib fractures, pneumo/hemothorax, KATIUSKA, ventilator dependence, anoxic brain injury, and residential/permanent cognitive and functional deficits. CPR survival: Only about 10% of patients who have wld-de-jlipstis sudden cardiac arrest survive to hospital discharge, with many survivors having neurologic impairment. This rate is even lower among patients with serious coexisting conditions, ie chance of survival to hospital discharge for in- hospital CPR in older people is low to moderate (15%) and decreases with age, comorbidities, performance status and frailty: for pts > 70 yo, more than half of the patients who initially survived resuscitation in the hospital before hospital discharge. The pooled survival to discharge after in-hospital CPR was 18% for patients between 70 and 79 years old, 15% for patients between 80 and 89 years old and 11% for patients of 90 years and older. (Thomas MANLEYY, Miguelito LJ, Ant F, et al. Trends in short- and long-term survival among emt-ko-[id number] cardiac arrest patients alive at hospital arrival. Circulation 2014;130:1883- 1890. AND Isgabe C, Paz T, Kelly R, et al. Performance of clinical risk scores to predict mortality and neurological outcome in cardiac arrest patients. Resuscitation 2019;136:21-29.) Pt's son shared that they are hoping that the pt can return to his previous level of cognition and function so that he can live independently at home again They remain focused GI evaluation and potential treatment with the end goal of returning home. He shared that they would benefit from a deeper discussion of goals of care, but they wish to know if there are any treatment options that might improve pt's swallowing abilities to allow him to eat safely. We discussed plan for gi evaluation tomorrow and Ahs request we revisit [facility] discussion after the flex-sig when they have more answers. History of Present Illness Reason for Consultation: goals of care Requesting Physician: Adarsh Warner Attending Physician: Adarsh Warner History of Present Illness Adarsh Bates is a 78-year-old male with PMHx of COPD, GERD, BPH, diabetes type 2, HTN, duodenal ulcer, aspiration PNA, urinary incontinence, and esophagitis was admitted on 09/10 for generalized weakness and difficulty swallowing. He was admitted for evaluation and during swallow evaluation he aspirated requiring intubation and transfer to ICU. He was subsequently extubated but continues to have silent aspiration. He was most recently admitted from 06/22-06/26/2024 for sepsis due to urinary tract infection. He was then admitted from 07/04-07/07/2024 for aspiration pneumonia. He presents to the emergency department with similar symptoms, and is seen bringing up large volumes of mucus. . Allergies Allergy/AdvReac Type Severity Reaction Status Date / Time No Known Allergies Allergy Verified 09/09/24 15:44 Home Medications Medication Instructions Recorded Confirmed Type No Known Home Medications 09/09/24 09/09/24 History Patient History Medical History (Updated 09/16/24 @ 23:25 by KATHARINE Saenz) Acute metabolic encephalopathy Lethargy Surgical History H/O tooth extraction All Teeth History of hip surgery Family History Father Diabetes Denies family history of Ovarian cancer Prostate cancer Myocardial infarction Breast cancer Colorectal cancer Social History Smoking Status: Unknown if ever smoked Tobacco Type: Cigarettes Age Started Using Tobacco: 16; packs per day: 1; Do You Dip or Chew Tobacco: No; Hx Alcohol Use: No Hx Substance Use: No Preferred Language: Tajik Communication Ability: Unable Communication Ability Comment: Sedated at this time Hearing Ability: Hard of Hearing Personal Computer Network Analyst Required: No Beliefs That Will Affect Care: None marital status: Current Living Situation: Spouse and Family current occupational status: retired current occupation: [employer] How many Children do You have: 1 Feels Safe at Home: Yes Diet Comment: attempts high protein during the past year weight has: decreased > 10 lbs Dental Care, Regularly: Yes Physical Activity Frequency: Does not Exercise Physical Activity Frequency Comment: limited d/t physical condition Assistive Devices: Walker and Wheelchair Review of Systems Review of Systems: All systems reviewed & are unremarkable except as noted in HPI & below Physical Exam Constitutional: WD/WN, vitals as above Eyes: PERRL, conjunctivae normal, anicteric sclerae Respiratory: crackles throughout lung galarza b/l Cardiovascular: RRR, no murmur, no edema Results & Data Vital Signs (Past 12 Hours) Vital Signs Temp Pulse Pulse Resp BP Pulse Ox Pulse Ox 09/16/24 17:35 97 09/16/24 16:00 71 09/16/24 15:47 114/66 09/16/24 15:47 114/66 09/16/24 15:12 36.1 C L 68 18 95 09/16/24 12:06 36.0 C L 60 18 164/87 H 91 09/16/24 09:00 147/67 H 09/16/24 08:54 36.2 C L 64 18 95 09/16/24 08:40 09/16/24 08:40 59 L 09/16/24 08:30 122/81 09/16/24 08:27 36.3 C L 71 13 91 09/16/24 08:03 36.2 C L 73 18 92 09/16/24 08:00 136/80 09/16/24 08:00 96 09/16/24 08:00 59 L 09/16/24 08:00 09/16/24 07:54 36.2 C L 74 19 99 09/16/24 07:31 63 16 100 09/16/24 07:27 36.2 C L 67 16 100 09/16/24 07:13 131/60 09/16/24 06:00 36.4 C L 70 15 100 O2 Del Method O2 Del Method O2 Flow Rate 09/16/24 17:35 Nasal Cannula 3 09/16/24 16:00 09/16/24 15:47 09/16/24 15:47 09/16/24 15:12 09/16/24 12:06 09/16/24 09:00 09/16/24 08:54 09/16/24 08:40 Room Air 09/16/24 08:40 09/16/24 08:30 09/16/24 08:27 Room Air 09/16/24 08:03 09/16/24 08:00 09/16/24 08:00 Room Air 09/16/24 08:00 09/16/24 08:00 Room Air 09/16/24 07:54 09/16/24 07:31 Nasal Cannula 1 09/16/24 07:27 09/16/24 07:13 09/16/24 06:00 Laboratory Results Abnormal lab results 09/15/24 09/15/24 09/16/24 Range/Units 19:20 23:31 03:38 RBC 3.64 L (4.70-6.10) M/uL Hgb 11.4 L (14.0-18.0) g/dl Hct 33.8 L (42.0-52.0) % RDW Std Deviation 52.1 H (36.4-46.3) fL RDW Coeff of Madonna 15.3 H (11.5-14.5) % Heparin Anti-Xa, Unfract 0.98 H* (0.3-0.7) IU/ml Potassium 2.9 L (3.5-5.1) mmol/L BUN/Creatinine Ratio 8.3 L (10-20) POC Glucose 108 H (70-99) mg/dl Calcium 7.6 L (8.6-10.3) mg/dl Phosphorus 2.4 L (2.5-4.9) mg/dl 09/16/24 Range/Units 12:00 RBC (4.70-6.10) M/uL Hgb (14.0-18.0) g/dl Hct (42.0-52.0) % RDW Std Deviation (36.4-46.3) fL RDW Coeff of Madonna (11.5-14.5) % Heparin Anti-Xa, Unfract (0.3-0.7) IU/ml Potassium (3.5-5.1) mmol/L BUN/Creatinine Ratio (10-20) POC Glucose 110 H (70-99) mg/dl Calcium (8.6-10.3) mg/dl Phosphorus (2.5-4.9) mg/dl Diagnostic Findings Videofluoroscopic Swallow 09/14/24 13:00 FL video swallow CLINICAL HISTORY: 78 years-old Male with assess for aspiration. Dysphasia. TECHNIQUE: Video fluoroscopic evaluation of swallowing was performed in the AP and lateral projections by the speech pathology staff. The patient is fed varying consistencies of barium FLUOROSCOPY TIME: 3.54 minutes. [id number] images were obtained. 11.0 mGy COMPARISON STUDY: CTA chest 07/04/2024 FINDINGS: There is abnormal hyoid excursion and epiglottic deflection with delayed oral pharyngeal transit. Silent aspiration with thin liquid consistency. Laryngeal penetration without aspiration seen with nectar consistency. Additional aspiration noted with thick liquid given to assist the solid consistency swallowing. Vallecular retention also noted. Moderate esophageal dysmotility with delayed transit. IMPRESSION: 1. Multiple consistency aspiration as above. 2. Please see the speech pathologist report for detailed findings and recommendations. ACT 112: Negative or not required by law. Electronically signed by: Chito Junior M.D. 09/14/2024 2:09 PM Chest X-Ray 09/15/24 12:54 XR chest 1V portable CLINICAL HISTORY: dyspnea TECHNIQUE: Single frontal radiograph of the chest was obtained. Comparison: Comparison is made to chest radiograph 09/11/2024 FINDINGS: No lines and tubes are seen. Calcified aortic knob is seen. Airspace opacities are seen most prominently in the right upper lobe and left lower lobe. No evidence of pleural effusion or pneumothorax. IMPRESSION: Multifocal airspace opacities which may represent multifocal pneumonia versus aspiration/atelectasis. ACT 112: Negative or not required by law. Electronically signed by: Warren Westbrook M.D. 09/15/2024 1:49 PM KUB X-Ray 09/16/24 08:14 KUB HISTORY: Coresafe NG tube placement; advanced tube COMPARISON STUDY: 09/16/2024 FINDINGS: Feeding tube tip is at the gastroesophageal junction. There is residual contrast in the visualized transverse colon. IMPRESSION: Feeding tube tip is at the gastroesophageal junction. ACT 112: Negative or not required by law. The above report was generated using voice recognition software. It may contain grammatical, syntax or spelling errors. Electronically signed by: Joshua Arellano M.D. 09/16/2024 8:27 AM Medications Administered Current Inpatient Medications Albuterol (Albut/Ipratrop 3mg/0.5mg Neb 3 Ml Vial) 3 ml NEB Q2H PRN; Protocol PRN Reason: dyspnea Stop: 10/09/24 21:46 Last Admin: 09/11/24 07:23 Dose: 3 ml Budesonide (Budesonide 0.5 Mg/2 Ml Vial (Pulmicort)) 0.5 mg NEB BIDR JOSE RAFAEL Stop: 10/10/24 18:59 Last Admin: 09/16/24 07:31 Dose: 0.5 mg Dextrose (Dextrose 50% 50 Ml Syringe) 25 - 50 ml IV UD PRN; Protocol PRN Reason: Hypoglycemia Protocol Stop: 10/11/24 05:41 Last Admin: 09/15/24 06:17 Dose: 25 ml Formoterol Fumarate (Formoterol 20 Mcg/2 Ml Vial) 20 mcg INH BIDR JOSE RAFAEL; Protocol Stop: 10/10/24 18:59 Last Admin: 09/16/24 07:31 Dose: 20 mcg Glucagon (Glucagon For Inj 1 Mg Vial) 1 mg SQ UD PRN; Protocol PRN Reason: Hypoglycemia Protocol Stop: 10/11/24 05:41 Glucose (Glucose 40% Gel 15 Gm Tube) 15 - 30 gm PO UD PRN; Protocol PRN Reason: Hypoglycemia Protocol Stop: 10/11/24 05:41 Glucose (Glucose 10 Tab/Tube) 4 - 8 tab PO UD PRN; Protocol PRN Reason: Hypoglycemia Protocol Stop: 10/11/24 05:41 Pantoprazole Sodium (Protonix) 40 mg in 10 mls @ 5 mls/min IV BID JOSE RAFAEL Stop: 10/09/24 21:46 Last Admin: 09/16/24 11:04 Dose: 5 mls/min Acetaminophen (Ofirmev) 1,000 mg in 100 mls @ 400 mls/hr IV Q8H PRN PRN Reason: Pain or Fever Stop: 09/17/24 08:57 Last Infusion: 09/14/24 10:21 Dose: Infused Heparin Sodium/Dextrose (Heparin Sodium/Dextrose) 25,000 units in 500 mls @ 17 mls/hr IV .Q24H JOSE RAFAEL; Protocol Stop: 10/15/24 13:14 Last Admin: 09/16/24 17:32 Dose: 850 units/hr, 17 mls/hr Amiodarone HCl/Dextrose (Nexterone / D5w) 360 mg in 200 mls @ 16.667 mls/hr IV .Q12H JOSE RAFAEL Stop: 10/15/24 18:59 Last Admin: 09/16/24 17:32 Dose: 0.5 mg/min, 16.7 mls/hr Phenylephrine HCl (Phenylephrine/Nss) 25 mg in 250 mls @ 17.85 mls/hr IV .Q14H1M JOSE RAFAEL; Protocol Stop: 10/15/24 14:44 Last Admin: 09/16/24 17:38 Dose: Not Given Insulin Aspart (Insulin Aspart Per Unit Charge) 0 units SC Q6 JOSE RAFAEL Stop: 10/11/24 05:59 Last Admin: 09/16/24 12:04 Dose: Not Given Miscellaneous (Carbohydrates For Hypoglycemia ) 15 - 30 gm PO UD PRN PRN Reason: Hypoglycemia Protocol Stop: 10/11/24 05:41 Miscellaneous (Icu Electrolyte Replacement Protocol) 1 each N/A BID@06,18 [facility]; Protocol Stop: 09/22/24 17:59 Last Admin: 01/09/25 17:29 Dose: Not Given Ondansetron HCl (Ondansetron Inj 2 Mg/Ml 2 Ml Vial) 4 mg IV Q6H PRN PRN Reason: NAUSEA/VOMITING Stop: 10/09/24 21:46 PG Care Time/CCT Total # of Minutes Spent Total Time Spent with Patient: Total time spent is greater than 50% in coordination of care (as documented) at patient's floor/unit and/or counseling patient: [place] [address] IN/OBS CONSULT LVL 4,60M Patient Type New Medical Decision Making Moderate Complexity Diagnoses Palliative care by specialist Z51.5 Counseling regarding goals of care Z71.89 Advanced directives, counseling/discussion Z71.89 Encounter for assessment of decision-making capacity Z00.8
[2024-09-16] MEDS ORDERED: Nursing to Pharmacy Communication SCH (20:15)
[2024-09-17 05:13] LABS: Hematocrit (blood only) 33.7 % (42.0-52.0); Hemoglobin 11.1 g/dl (14.0-18.0); Mean Corpuscular Hemoglobin 30.7 pg (25.0-34.0); Mean Corpuscular Hgb Conc 32.9 g/dL (32.0-36.0); Mean Corpuscular Volume 93.1 fL (80.0-100.0); Mean Platelet Volume 10.1 fL (9.4-12.4); Platelet Count 189 K/uL (130-400); RDW Coefficient of Variation 15.3 % (11.5-14.5); RDW Standard Deviation 52.6 fL (36.4-46.3); Red Blood Count 3.62 M/uL (4.70-6.10); White Blood Count 6.71 K/ul (4.8-10.8)
[2024-09-17 05:26] LABS: Albumin Level 2.2 gm/dl (3.4-5.0); BUN Creatinine Ratio 6.8 (10-20); Bilirubin Direct 0.1 mg/dl (0-0.2); Bilirubin,Total 0.4 mg/dl (0.2-1.0); Calcium 7.8 mg/dl (8.6-10.3); Magnesium 1.9 mg/dl (1.7-2.4); Phosphorus 2.3 mg/dl (2.5-4.9); Potassium 3.4 mmol/L (3.5-5.1)
[2024-09-17 05:34] LABS: ANTI-Xa, UFH(UnfractionatedHep < 0.10 IU/ml (0.3-0.7)
[2024-09-17] MEDS: POTASSIUM CHLORIDE / WTR 10 MEQ/100 ML PLCT IV SCH (08:00)
[2024-09-17] MEDS ORDERED: SODIUM PHOSPHATE 3 MMOL/1 ML INFUSION IV STA (08:00)
--- NOTE | 2024-09-17 08:28 | Anesthesiology Consultation ---
Date of Service September 17, 2024 Assessment & Plan Chart Review Chart Review: Acceptable Risk for Surgery and Patient NOT seen in Pre Admission Testing History Surgery Operation Date: 09/15/24 16:45 Proposed Procedures p Esophagogastroduodenoscopy Dr. Solitario Jerez MD Operation Date: 09/17/24 16:30 Proposed Procedures p Esophagogastroduodenoscopy Dr. Solitario Jerez MD Height/Weight Height: 6 ft 1 in Weight: 67.4 kg Allergies Allergy/AdvReac Type Severity Reaction Status Date / Time No Known Allergies Allergy Verified 09/09/24 15:44 Medications Home Medications Medication Instructions Recorded Confirmed Last Taken No Known Home Medications 09/09/24 09/09/24 Unknown Active Medications Generic Name Dose Route Start Last Admin Trade Name Freq PRN Reason Stop Dose Admin Albuterol 3 ml 09/09/24 21:47 09/11/24 07:23 Albut/Ipratrop 3mg/0.5mg Neb 3 Ml Vial NEB 10/09/24 21:46 3 ml Q2H PRN Administration dyspnea Protocol Budesonide 0.5 mg 09/10/24 19:00 09/17/24 07:14 Budesonide 0.5 Mg/2 Ml Vial (Pulmicort) NEB 10/10/24 18:59 0.5 mg BIDR JOSE RAFAEL Administration Dextrose 25 - 50 ml 09/11/24 05:42 09/15/24 06:17 Dextrose 50% 50 Ml Syringe IV 10/11/24 05:41 25 ml UD PRN Administration Hypoglycemia Protocol Protocol Formoterol Fumarate 20 mcg 09/10/24 19:00 09/17/24 07:14 Formoterol 20 Mcg/2 Ml Vial INH 10/10/24 18:59 20 mcg BIDR JOSE RAFAEL Administration Protocol Pantoprazole Sodium 40 mg in 10 mls @ 5 mls/min 09/09/24 21:47 09/16/24 20:55 Protonix IV 10/09/24 21:46 5 mls/min BID JOSE RAFAEL Administration Acetaminophen 1,000 mg in 100 mls @ 400 mls/hr 09/14/24 08:58 09/14/24 10:21 Ofirmev IV 09/17/24 08:57 Infused Q8H PRN Infusion Pain or Fever Heparin Sodium/Dextrose 25,000 units in 500 mls @ 0 mls/hr 09/15/24 13:15 09/17/24 07:29 Heparin Sodium/Dextrose IV 10/15/24 13:14 Not Given .Q0M JOSE RAFAEL Protocol 0 UNITS/HR Amiodarone HCl/Dextrose 360 mg in 200 mls @ 16.667 mls/hr 09/15/24 19:00 09/17/24 04:36 Nexterone / D5w IV 10/15/24 18:59 0.5 mg/min .Q12H JOSE RAFAEL 16.7 mls/hr Administration 0.5 MG/MIN Phenylephrine HCl 25 mg in 250 mls @ 17.85 mls/hr 09/15/24 14:45 09/17/24 07:29 Phenylephrine/Nss IV 10/15/24 14:44 Not Given .Q14H1M JOSE RAFAEL Protocol 0.5 MCG/KG/MIN Insulin Aspart 0 units 09/11/24 06:00 09/17/24 06:02 Insulin Aspart Per Unit Charge SC 10/11/24 05:59 Not Given Q6 JOSE RAFAEL Past Medical History Medical History Acute metabolic encephalopathy Lethargy Past Family History Family History Father Diabetes Denies family history of Ovarian cancer Prostate cancer Myocardial infarction Breast cancer Colorectal cancer Past Surgical History Surgical History H/O tooth extraction All Teeth History of hip surgery Social History Smoking Status: Unknown if ever smoked Do You Dip or Chew Tobacco: No Hx Alcohol Use: No Hx Substance Use: No Physical Exam Vital Signs Last Vital Signs Temp 36.1 C L 09/17/24 06:00 Pulse 63 09/17/24 07:15 Resp 18 09/17/24 07:15 BP 104/73 09/17/24 04:00 Pulse Ox 94 09/17/24 07:15 O2 Del Method Room Air 09/17/24 07:15 O2 Flow Rate 2 09/16/24 20:00 FiO2 25 09/13/24 23:15 Testing Laboratory Results 09/17/24 04:26 09/17/24 04:26 PT 12.6 Seconds (9.0-12.0) H 09/15/24 13:20 INR 1.2 (0.9-1.1) H 09/15/24 13:20 APTT 29 Seconds (21-31) 09/15/24 13:20 Urine Color Yellow 09/09/24 19:30 Urine Appearance Clear (Clear) 09/09/24 19:30 Urine pH 5.5 (4.5-7.5) 09/09/24 19:30 Ur Specific [place] 1.022 (1.000-1.030) 09/09/24 19:30 Urine Protein Trace (Negative) H 09/09/24 19:30 Urine Glucose (UA) Negative (Negative) 09/09/24 19:30 Urine Ketones Trace (Negative) H 09/09/24 19:30 Urine Nitrite Negative (Negative) 09/09/24 19:30 Ur Leukocyte Esterase Negative (Negative) 09/09/24 19:30 Urine WBC (Auto) 0-5 /hpf (0-5) 09/09/24 19:30 Urine RBC (Auto) 0-2 /hpf (0-2) 09/09/24 19:30 U Hyaline Cast (Auto) 0-2 /lpf (0-2) 09/09/24 19:30 U Epithel Cells (Auto) 0-2 /hpf (0-2) 09/09/24 19:30 Urine Bacteria (Auto) None Seen (None Seen) 09/09/24 19:30 09/09/24 15:12 Aerobic Blood Culture - Final Blood No growth in Aerobic bottle after 5 days. Anaerobic Blood Culture - Final No growth in Anaerobic bottle after 5 days. 09/09/24 15:11 Aerobic Blood Culture - Final Blood No growth in Aerobic bottle after 5 days. Anaerobic Blood Culture - Final No growth in Anaerobic bottle after 5 days. 09/09/24 15:47 Gram Stain - Final Sputum, Expectorated Sputum Culture - Final Pseudomonas aeruginosa 09/10/24 15:00 Gram Stain - Final Bronch Wash,Left Upper Lobe Bronchial Culture - Final Light normal leslie. 09/10/24 15:00 Fungal Smear - Final Bronch Wash,Left Upper Lobe 09/16/24 23:48 POC Glucose 78
[2024-09-17] MEDS: SODIUM PHOSPHATE 15 MMOL in SODIUM CHLORIDE 0.9% 250 ML IV ONE (09:02)
--- NOTE | 2024-09-17 09:28 | History & Physical Bridge Note ---
Date of Service September 17, 2024 History & Physical Bridge Note I have examined the patient, reviewed the History & Physical and in the interval since the performance of the History & Physical I have noted the following changes of clinical significance: no changes noted. heparin has been held since midnight. patient offers no complaints. no chest pain, sob. - will plan to proceed with EGD today. Supervising Physician Co-Signing Physician Notes I saw and examined this patient with our nurse practitioner and agree with her assessment and plan
--- NOTE | 2024-09-17 14:16 | GI REPORT ---
[facility] Patient: ADARSH PETERSON : 1945 Sex at : Male Age: 78 Years Procedure: Upper GI endoscopy Date: 09/17/2024 Attending Physician: José Jerez MD Referring MD: Emili South; Adarsh Warner M.d. Indications: - Dysphagia Medications: - Monitored Anesthesia Care Complications: - No immediate complications. Procedure: - Prior to the procedure, a History and Physical was performed, and patient medications and allergies were reviewed. The patient's tolerance of previous anesthesia was also reviewed. The risks and benefits of the procedure and the sedation options and risks were discussed with the patient. All questions were answered, and informed consent was obtained. [Anticoagulant Agents] [Days Prior to Procedure]. [ASA Grade]. After reviewing the risks and benefits, the patient was deemed in satisfactory condition to undergo the procedure. - The egd scope was introduced through the mouth and advanced to the second part of the duodenum. - The upper GI endoscopy was accomplished without difficulty. - The patient tolerated the procedure well. Findings: - One benign-appearing, intrinsic severe stenosis was found 30 cm from the incisors. This stenosis measured 8 mm (inner diameter) x 5 cm (in length). The stenosis was traversed after dilation. A TTS dilator was passed through the scope. Dilation with a dilator was performed from 8-12 mm. The dilation site was examined and showed moderate improvement in luminal narrowing. - The entire examined stomach was normal. - The examined duodenum was normal. Impression: - Benign-appearing esophageal stenosis. Dilated. - Normal stomach. - Normal examined duodenum. - No specimens collected. Recommendation: - Keep NPO for next 24 hours and do not placed an NG tube. - Patient has a contact number available for emergencies. The signs and symptoms of potential delayed complications were discussed with the patient. Return to normal activities tomorrow. Written discharge instructions were provided to the patient. Procedure Code(s): - 14613, Esophagogastroduodenoscopy, flexible, transoral; with transendoscopic balloon dilation of esophagus (less than 30 mm diameter) Diagnosis Code(s): - R13.10, Dysphagia, unspecified - K22.2, Esophageal obstruction CPT(R) - 2022 copyright [employer]. All Rights Reserved. The CPT codes, CCI edits and ICD codes generated are intended as suggestions and were generated based on input data. These codes are preliminary and upon glass checker review may be revised to meet current compliance and payer requirements. The provider is responsible for the final determination of appropriate codes, and modifiers. José Jerez MD This document has been electronically signed. Note Initiated:09/17/2024 Note Completed:09/17/2024 2:16 PM \\[email or web address]\Data\Provation\Results\LIVE\[id number]
--- NOTE | 2024-09-17 14:44 | Anesthesiology Progress Note ---
Date of Service September 17, 2024 Anesthesia Post Procedure Vital Signs Vital Signs: Temp Pulse Pulse Pulse Resp BP BP 09/17/24 14:41 61 16 103/75 09/17/24 14:26 60 16 120/62 09/17/24 14:11 65 16 114/59 L 09/17/24 13:26 36.0 C L 63 16 119/61 09/17/24 11:49 119/63 09/17/24 11:42 34.9 C L 60 15 09/17/24 10:03 36.2 C L 64 17 09/17/24 09:03 36.2 C L 60 19 09/17/24 08:09 36.2 C L 69 15 09/17/24 08:00 09/17/24 08:00 114/59 L 09/17/24 07:54 36.2 C L 67 17 09/17/24 07:15 63 18 09/17/24 07:09 36.1 C L 62 19 09/17/24 06:00 36.1 C L 67 16 09/17/24 05:03 36.2 C L 66 18 09/17/24 04:12 36.4 C L 73 17 09/17/24 04:00 104/73 09/17/24 03:57 32.8 C L 59 L 14 09/17/24 03:00 36.3 C L 57 L 14 09/17/24 02:00 36.3 C L 55 L 6 L 09/17/24 01:06 35.6 C L 65 18 09/17/24 00:06 36.6 C 56 L 4 L 09/16/24 23:46 63 09/16/24 23:00 36.8 C 59 L 1 L 09/16/24 22:24 36.7 C 70 17 09/16/24 21:09 36.4 C L 75 21 09/16/24 20:42 36.5 C 75 14 09/16/24 20:00 119/77 09/16/24 20:00 09/16/24 20:00 09/16/24 19:53 73 17 09/16/24 19:35 124/68 09/16/24 19:35 124/68 09/16/24 19:33 36.4 C L 68 14 09/16/24 19:00 36.3 C L 61 16 09/16/24 18:21 36.3 C L 69 20 09/16/24 17:35 09/16/24 17:00 36.3 C L 62 20 09/16/24 16:06 36.2 C L 66 20 09/16/24 16:00 109/78 09/16/24 16:00 71 09/16/24 15:51 36.2 C L 62 16 09/16/24 15:48 36.2 C L 65 17 09/16/24 15:47 114/66 09/16/24 15:47 114/66 09/16/24 15:12 36.1 C L 68 18 Pulse Ox Pulse Ox O2 Del Method O2 Del Method O2 Flow Rate O2 Flow Rate 09/17/24 14:41 94 Room Air 09/17/24 14:26 97 Oxymask 2 09/17/24 14:11 98 Oxymask 2 09/17/24 13:26 93 Room Air 09/17/24 11:49 09/17/24 11:42 94 Nasal Cannula 2 09/17/24 10:03 95 09/17/24 09:03 91 09/17/24 08:09 91 09/17/24 08:00 Nasal Cannula 2 09/17/24 08:00 09/17/24 07:54 94 09/17/24 07:15 94 Room Air 09/17/24 07:09 95 09/17/24 06:00 91 09/17/24 05:03 99 09/17/24 04:12 99 09/17/24 04:00 09/17/24 03:57 97 09/17/24 03:00 94 09/17/24 02:00 96 09/17/24 01:06 93 09/17/24 00:06 91 09/16/24 23:46 09/16/24 23:00 98 09/16/24 22:24 98 09/16/24 21:09 92 09/16/24 20:42 90 09/16/24 20:00 09/16/24 20:00 92 Nasal Cannula 2 09/16/24 20:00 Nasal Cannula 2 09/16/24 19:53 96 Room Air 09/16/24 19:35 09/16/24 19:35 09/16/24 19:33 95 09/16/24 19:00 95 09/16/24 18:21 95 09/16/24 17:35 97 Nasal Cannula 3 09/16/24 17:00 87 L 09/16/24 16:06 94 09/16/24 16:00 09/16/24 16:00 09/16/24 15:51 96 09/16/24 15:48 95 09/16/24 15:47 09/16/24 15:47 09/16/24 15:12 95 Transfer of Care Handoff Completed per policy Notes Mental Status: alert / awake / arousable Patient Amnestic to Procedure: Yes Nausea / Vomiting: adequately controlled Pain: adequately controlled Airway Patency, RR, SpO2: stable & adequate BP & HR: stable & adequate Hydration State: stable & adequate Anesthetic Complications: no major complications apparent
[2024-09-17] MEDS: LIDOCAINE 2% 2 ML VIAL/AMP(20MG/ML) INFIL ONE (15:22)
[2024-09-17] MEDS: KETAMINE HCL 10MG/ML SYR ONE (15:22)
[2024-09-17] MEDS: PROPOFOL IV EMULSION 10 MG/ML 20 ML VIAL IV ONE (15:22)
[2024-09-17] MEDS: ACETAMINOPHEN 1,000 MG/100 ML VIAL IV PRN (16:09)
--- NOTE | 2024-09-17 16:18 | XRay Report ---
XR chest 2V PA/lateral CLINICAL HISTORY: s/p egd dilation COMPARISON STUDY: 09/15/2024 FINDINGS: Heart size and pulmonary vasculature are normal. There is increased hazy opacity at the lef t base with obscuration of the left hemidiaphragm. No pneumothorax. IMPRESSION: Increased opacity at the left lung base could represent atelectasis, pneumonia, or left pleural effusion. ACT 112: Negative or not required by law. Electronically signed by: Joshua Arellano M.D. 09/17/2024 3:09 PM
--- NOTE | 2024-09-17 17:05 | Hospitalist Progress Note ---
Date of Service September 17, 2024 Assessment & Plan (1) Sepsis: (2) Acute respiratory failure with hypoxia: (3) Pneumonia: (4) Urinary tract infection: (5) Esophagitis: (6) Dysphagia: (7) Malnutrition: Plan The patient is a 78-year-old male with past medical history including hyp ertension, GERD, duodenal ulcer, aspiration pneumonia, BPH, urinary incontinence, diabetes mellitus, esophagitis. His most recently admitted from 06/22-06/26/2024 for sepsis due to urinary tract infection. He was then admitted from 07/04-07/07/2024 for aspiration pneumonia. He presents to the emergency department this time with similar symptoms, and is seen bringing up large volumes of mucus. #Sepsis due to pneumonia Pneumonia/history of aspiration/ Acute hypoxic respiratory failure MRSA swab negative. Biofire negative. 09/10 Patient had aspiration event with [employer] with acute decompensation requiring intubation and bedside bronchoscopy. (Details HPI 09/10) Transferred to ICU. extubated on 09/11 Sputum culture - pseudomonas, sensitivities reviewed. Given patient has had 4 days of cefepime, 5 days of Zosyn and 7 days of doxycycline abx were discontinued by critical care team 09/15. Bronchial Wash negative thus far. Video study 09/14 - multiple consistency aspirations. Repeat CXR 09/17: increased opacity at the left lung base. atelectasis vs pneumonia vs pleural effusion Patient downgraded from ICU care 09/16 Discussed case w/ palliative care provider 09/16 - met with patient and family at bedside. Further discussion after EGD. #A fib RVR Patient went into A fib RVR on 09/15 was then given Adenosine, placed on amiodarone and heparin drips. Patient required brief pressor support and then converted back into NS. continue amiodarone - monitor LFT's closely (currently WNL) Heparin on hold but can likely resume 09/18. echo 18 - EF 60-65%. consider cardiology consult if patient goes back into A fib. #Esophagitis seen on CT - Concerns for esophageal stricture vs mass with difficulty OG/NG placement. GI following. EGD 09/17 - esophageal stenosis s/p dilation. - remain NPO 24 hours following EGD. avoid NG tube placement. discussed w/ GI following EGD - likely attempt at clear liquids 09/18. Hold Heparin until 09/18. Continue PPI #Anemia Hgb stable at 11.1. Monitor for active bleeding, trend hemoglobin Hypokalemia- K 3.4 - repleted 09/17 Replete as necessary #Hypomagnesemia Mag 1.9 replete as necessary #Weakness - will need PT/OT when appropriate Chronic medical problems: Hyperlipidemia resume atorvastatin when taking p.o. GERD-changed to pantoprazole 40 IV while NPO Dispo: continued inpatient stay DVT proh: per ICU Updated patient's son and at bedside 09/17 Discussed w/ GI provider 09/17. Admission and Anticipated Discharge Date Admission Date: September 09, 2024 Subjective Patient seen and examined this afternoon. GI at bedside. Patient's family at bedside. patient denied complaints. Patient continues to cough up mucous. Physical Exam Constitutional: WD/WN, vitals as above Eyes: PERRL, conjunctivae normal, anicteric sclerae Respiratory: +rales, diminished lung sounds on L > R Cardiovascular: RRR, no murmur, no edema Results & Data Results & Data Vital Signs (Past 12 Hours) Vital Signs Temp Pulse Pulse Pulse Resp BP BP 09/17/24 16:01 74 20 142/69 H 09/17/24 15:39 35.8 C L 69 22 09/17/24 15:30 134/72 09/17/24 15:21 35.8 C L 79 19 09/17/24 15:21 36 C L 71 17 138/76 09/17/24 14:41 61 16 103/75 09/17/24 14:26 60 16 120/62 09/17/24 14:11 65 16 114/59 L 09/17/24 13:26 36.0 C L 63 16 119/61 09/17/24 11:49 119/63 09/17/24 11:42 34.9 C L 60 15 09/17/24 10:03 36.2 C L 64 17 09/17/24 09:03 36.2 C L 60 19 09/17/24 08:09 36.2 C L 69 15 09/17/24 08:00 09/17/24 08:00 114/59 L 09/17/24 07:54 36.2 C L 67 17 09/17/24 07:15 63 18 09/17/24 07:09 36.1 C L 62 19 09/17/24 06:00 36.1 C L 67 16 Pulse Ox O2 Del Method O2 Flow Rate 09/17/24 16:01 90 Nasal Cannula 2 09/17/24 15:39 90 09/17/24 15:30 09/17/24 15:21 09/17/24 15:21 91 Room Air 09/17/24 14:41 94 Room Air 09/17/24 14:26 97 Oxymask 2 09/17/24 14:11 98 Oxymask 2 09/17/24 13:26 93 Room Air 09/17/24 11:49 09/17/24 11:42 94 Nasal Cannula 2 09/17/24 10:03 95 09/17/24 09:03 91 09/17/24 08:09 91 09/17/24 08:00 Nasal Cannula 2 09/17/24 08:00 09/17/24 07:54 94 09/17/24 07:15 94 Room Air 09/17/24 07:09 95 09/17/24 06:00 91 PG Care Time/CCT Total # of Minutes Spent Total Time Spent with Patient: Total time spent is greater than 50% in coordination of care (as documented) at patient's floor/unit and/or counseling patient: Coding Level of Care Code 40797 SUB INP/OBS CARE 3/50MIN Diagnoses Sepsis A41.9 Sepsis acute organ dysfunction status: unspecified Sepsis type: sepsis due to unspecified organism Acute respiratory failure with hypoxia J96.01 Pneumonia J18.9 Urinary tract infection N30.00 Hematuria presence: without hematuria Urinary tract infection type: acute cystitis Esophagitis K20.90 Dysphagia R13.10 Malnutrition E46 (1) Sepsis Sepsis acute organ dysfunction status: unspecified Sepsis type: sepsis due to unspecified organism Qualified Code(s): A41.9 - Sepsis, unspecified organism (4) Urinary tract infection Hematuria presence: without hematuria Urinary tract infection type: acute cystitis Qualified Code(s): N30.00 - Acute cystitis without hematuria
[2024-09-18] MEDS: DEXTROSE 50% 50 ML SYRINGE IV ONE (01:46)
[2024-09-18 06:08] LABS: Hematocrit (blood only) 32.5 % (42.0-52.0); Hemoglobin 10.8 g/dl (14.0-18.0); Mean Corpuscular Hemoglobin 30.8 pg (25.0-34.0); Mean Corpuscular Hgb Conc 33.2 g/dL (32.0-36.0); Mean Corpuscular Volume 92.6 fL (80.0-100.0); Mean Platelet Volume 9.9 fL (9.4-12.4); Platelet Count 174 K/uL (130-400); RDW Coefficient of Variation 15.3 % (11.5-14.5); RDW Standard Deviation 51.9 fL (36.4-46.3); Red Blood Count 3.51 M/uL (4.70-6.10)
[2024-09-18 06:19] LABS: BUN Creatinine Ratio 5.6 (10-20); Calcium 7.7 mg/dl (8.6-10.3); Creatinine Clr Calc Pharmacy 83.1 ml/min; Magnesium 1.6 mg/dl (1.7-2.4); Phosphorus 2.4 mg/dl (2.5-4.9); Potassium 3.4 mmol/L (3.5-5.1)
[2024-09-18] MEDS ORDERED: SODIUM PHOSPHATE 3 MMOL/1 ML INFUSION IV STA (08:21)
[2024-09-18] MEDS: POTASSIUM CHLORIDE / WTR 10 MEQ/100 ML PLCT IV SCH (08:50)
[2024-09-18] MEDS: MAGNESIUM SULFATE / D5W 1 GM/100 ML BAG IV SCH (08:52)
--- NOTE | 2024-09-18 09:11 | Gastroenterology Progress Note ---
Date of Service September 18, 2024 Assessment & Plan (1) Esophageal stricture: Plan: Endoscopy revealed a significant distal esophageal stricture that was dilated up to 12 mm. The stricture could have been aggravating his aspiration events. Recommend contacting speech therapy to consider challenging him with liquids or solid food or to consider a repeat swallowing study prior to that. Admission and Anticipated Discharge Date Admission Date: September 09, 2024 Subjective Resting comfortably denies chest pain or abdominal pain Physical Exam Physical Exam: No acute distress Respiratory rate regular Cardiac rhythm regular Abdomen soft nontender Results & Data Results & Data Vital Signs (Past 12 Hours) Vital Signs Temp Pulse Resp BP Pulse Ox O2 Del Method O2 Flow Rate 09/18/24 07:42 36.4 C L 64 20 100/58 L 96 Nasal Cannula 2.0 09/18/24 07:10 63 12 92 Nasal Cannula 2 09/18/24 03:45 36.5 C 67 20 120/62 92 Nasal Cannula 2.0 09/17/24 23:20 36.5 C 68 16 120/70 93 Room Air PG Care Time/CCT Total # of Minutes Spent Total Time Spent with Patient: Total time spent is greater than 50% in coordination of care (as documented) at patient's floor/unit and/or counseling patient: Coding Level of Care Code 29019 SUB INP/OBS CARE 3/50MIN Diagnoses Esophageal stricture K22.2
[2024-09-18] MEDS ORDERED: DEXTROSE 10% 1,000 ML IV PRN ×2 (10:02→11:26)
[2024-09-18] MEDS ORDERED: TPN/PPN CONSULT PHARMACY PRN (10:26)
--- NOTE | 2024-09-18 12:40 | Pharmacy Report ---
Pharmacy Initial PN Consult Nt - Date of Service September 18, 2024 - Scope Pharmacy has been consulted on this date to manage parenteral nutrition orders and order appropriate labs. As part of the Nutrition Support Team Guidelines, pharmacy will work in conjunction with dietary when determining the patients caloric needs. - Subjective * The patient is a 78 year old Male admitted on 09/09/24 for HAP,UTI. * Patient is to receive parenteral nutrition for esophageal stricture. Patient has been NPO x 11 days and GI recommends to not place NG tube * Pertinent PMHx: GERD, duodenal ulcer, aspiration pneumonia, esophagitis, DM - Objective Vascular Access: * Patient currently has a peripheral line. * Peripheral line was confirmed by IV Team to be acceptable for PPN use on 09/18/24 Height & Weight (Last Documented) Height 6 ft 1 in Weight 67.5 kg Diet Order(s) 09/17/24 00:01 NPO Intake & Ouput (24hrs) 09/17/24 09/18/24 09/19/24 06:59 06:59 06:59 Intake Total 1720.197 / 1244.701 4649.587 / 1027.587 185.833 / 185.833 Output Total 1251 / 1251 701 / 701 250 / 250 Balance 469.197 / 469.197 326.587 / 326.587 -64.167 / -64.167 Selected Laboratory Results 09/18/24 05:46 Sodium 136 Potassium 3.4 L Chloride 106 Carbon Dioxide 26 Anion Gap 4 BUN 4 L Creatinine 0.71 BUN/Creatinine Ratio 5.6 L Glucose 72 Calcium 7.7 L Phosphorus 2.4 [address] - Follow Up Nutrition Assessment Start: 09/11/24 20:29 Freq: Status: Active Protocol: Document 09/18/24 11:22 [id number] (Rec: 09/18/24 11:24 [id number]) RD - Initial Nutrition Assessment Start: 09/11/24 20:17 Freq: Status: Active Protocol: Document 09/11/24 20:17 KK (Rec: 09/11/24 20:29 KK [id number]) - Assessment & Plan Assessment: * Appreciate dietitians recommendations for macronutrients. Patient at risk for refeeding syndrome due to extended period without nutrition. Indicators include low Mag, phos, and potassium levels. Will initiate PPN and advance slowly. Plan: * For Day #1 of PPN administration, the following will be ordered: * Macronutrients: * Amino Acids: 42.5 grams/day * Dextrose: 50 grams/day * Lipids: 0 grams/day * Micronutrients: * Sodium chloride: 70 mEq/day * Potassium phosphate: 21 mMol/day * Potassium acetate: 40 mEq/day * Magnesium sulfate: 8.12 mEq/day * Calcium gluconate: 4.65 mEq/day * Multivitamins: 10 mL/day * Trace elements: 1 mL/day * Thiamine: 100 mg/day * Total volume of 1079 mL will be infused over 24 hours and will provide 340 kcal/day * Patient is on PPN which has a maximum mOsm/L of 900. Final osmolarity of current solution is 891.31 mOsm/L. * Labs will be ordered per PN protocol. * Pharmacy will follow and adjust PN orders on a daily basis. Thank you!
[2024-09-18] MEDS: SODIUM PHOSPHATE 15 MMOL in SODIUM CHLORIDE 0.9% 250 ML IV ONE (12:50)
--- NOTE | 2024-09-18 14:00 | Hospitalist Progress Note ---
Date of Service September 18, 2024 Assessment & Plan (1) Sepsis: (2) Acute respiratory failure with hypoxia: (3) Pneumonia: (4) Urinary tract infection: (5) Esophagitis: (6) Dysphagia: (7) Malnutrition: Plan The patient is a 78-year-old male with past medical history including hyp ertension, GERD, duodenal ulcer, aspiration pneumonia, BPH, urinary incontinence, diabetes mellitus, esophagitis. His most recently admitted from 06/22-06/26/2024 for sepsis due to urinary tract infection. He was then admitted from 07/04-07/07/2024 for aspiration pneumonia. He presents to the emergency department this time with similar symptoms, and is seen bringing up large volumes of mucus. #Sepsis due to pneumonia Pneumonia/history of aspiration/ Acute hypoxic respiratory failure MRSA swab negative. Biofire negative. 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 (Details HPI 09/10) Transferred to ICU. extubated on 09/11 Sputum culture - pseudomonas, sensitivities reviewed. Given patient has had 4 days of cefepime, 5 days of Zosyn and 7 days of doxycycline abx were discontinued by critical care team 09/15. Bronchial Wash negative thus far. Video study 09/14 - multiple consistency aspirations. Repeat CXR 09/17: increased opacity at the left lung base. atelectasis vs pneumonia vs pleural effusion Patient downgraded from ICU care 09/16 Discussed case w/ palliative care provider 09/16 - met with patient and family at bedside. Further discussion after EGD. #A fib RVR Patient went into A fib RVR on 09/15 was then given Adenosine, placed on amiodarone and heparin drips. Patient required brief pressor support and then converted back into NS. continue amiodarone - monitor LFT's closely (currently WNL) Heparin resumed 09/18. echo 18 - EF 60-65%. consider cardiology consult if patient goes back into A fib. #Esophagitis seen on CT - Concerns for esophageal stricture vs mass with difficulty OG/NG placement. GI following. EGD 09/17 - esophageal stenosis s/p dilation. - remain NPO 24 hours following EGD. avoid NG tube placement. Continue PPI #Severe protein-calorie malnutrition patient started PPN therapy 09/18 - pharmacy following, discussed 09/18. anticipate patient will require through weekend pending video swallow study on 09/20. Discussed w/ speech therapy 09/18. #Anemia Hgb stable at 10.8 Monitor for active bleeding, trend hemoglobin Hypokalemia- K 3.4 - repleted 09/18 Replete as necessary #Hypomagnesemia Mag 1.6 - repleted 09/18 replete as necessary #Weakness - will need PT/OT when appropriate Chronic medical problems: Hyperlipidemia resume atorvastatin when taking p.o. GERD-changed to pantoprazole 40 IV while NPO Dispo: continued inpatient stay DVT proh: heparin Updated patient's son and at bedside 09/18 Admission and Anticipated Discharge Date Admission Date: September 09, 2024 Subjective Patient seen and examined this morning. patient denied complaints at time of encounter. Physical Exam Constitutional: WD/WN, vitals as above Respiratory: rales throughout lung field Cardiovascular: RRR, no murmur, no edema Results & Data Results & Data Vital Signs (Past 12 Hours) Vital Signs Temp Pulse Resp BP Pulse Ox O2 Del Method O2 Flow Rate 09/18/24 11:12 36.5 C 64 19 119/67 91 Nasal Cannula 2 09/18/24 08:00 Nasal Cannula 2 09/18/24 07:42 36.4 C L 64 20 100/58 L 96 Nasal Cannula 2.0 09/18/24 07:10 63 12 92 Nasal Cannula 2 09/18/24 03:45 36.5 C 67 20 120/62 92 Nasal Cannula 2.0 PG Care Time/CCT Total # of Minutes Spent Total Time Spent with Patient: Total time spent is greater than 50% in coordination of care (as documented) at patient's floor/unit and/or counseling patient: Coding Level of Care Code 79191 SUB INP/OBS CARE 3/50MIN Diagnoses Sepsis A41.9 Sepsis acute organ dysfunction status: unspecified Sepsis type: sepsis due to unspecified organism Acute respiratory failure with hypoxia J96.01 Pneumonia J18.9 Urinary tract infection N30.00 Hematuria presence: without hematuria Urinary tract infection type: acute cystitis Esophagitis K20.90 Dysphagia R13.10 Malnutrition E46 (1) Sepsis Sepsis acute organ dysfunction status: unspecified Sepsis type: sepsis due to unspecified organism Qualified Code(s): A41.9 - Sepsis, unspecified organism (4) Urinary tract infection Hematuria presence: without hematuria Urinary tract infection type: acute cystitis Qualified Code(s): N30.00 - Acute cystitis without hematuria
[2024-09-18] MEDS: PERIPHERAL TPN IV SCH (16:21)
[2024-09-18] MEDS: [UNRECOGNIZED DRUG - OTHER] IV SCH (16:21)
[2024-09-19 06:28] LABS: Hematocrit (blood only) 31.6 % (42.0-52.0); Hemoglobin 10.6 g/dl (14.0-18.0); Mean Corpuscular Hemoglobin 30.9 pg (25.0-34.0); Mean Corpuscular Hgb Conc 33.5 g/dL (32.0-36.0); Mean Corpuscular Volume 92.1 fL (80.0-100.0); Platelet Count 154 K/uL (130-400); RDW Coefficient of Variation 15.6 % (11.5-14.5); RDW Standard Deviation 52.2 fL (36.4-46.3); Red Blood Count 3.43 M/uL (4.70-6.10); White Blood Count 6.61 K/ul (4.8-10.8)
[2024-09-19 07:03] LABS: Albumin Globulin Ratio 0.8 (0.9-2); Albumin Level 2.1 gm/dl (3.4-5.0); BUN Creatinine Ratio 6.8 (10-20); Bilirubin,Total 0.4 mg/dl (0.2-1.0); Calcium 7.6 mg/dl (8.6-10.3); Creatinine Clr Calc Pharmacy 77.2 ml/min; Globulin 2.7 gm/dl (2.5-4.0); Magnesium 1.8 mg/dl (1.7-2.4); Phosphorus 2.6 mg/dl (2.5-4.9); Potassium 3.7 mmol/L (3.5-5.1); Total Protein 4.8 gm/dl (6.0-8.3)
--- NOTE | 2024-09-19 09:00 | Gastroenterology Progress Note ---
Date of Service September 19, 2024 Assessment & Plan (1) Esophageal stricture: Plan: Status post endoscopic dilatation. Well-tolerated no post procedure problems. Await repeat swallowing study prior to trial of oral feeding. (2) Dysphagia: Admission and Anticipated Discharge Date Admission Date: September 09, 2024 Subjective No shortness of breath chest pain or abdominal pain Physical Exam Physical Exam: No acute distress Respiratory rate regular Cardiac rhythm regular Abdomen soft nontender Results & Data Results & Data Vital Signs (Past 12 Hours) Vital Signs Temp Pulse Pulse Resp BP BP Pulse Ox 09/19/24 07:55 36.5 C 60 19 120/56 L 95 09/19/24 07:34 65 15 92 09/19/24 03:27 36.3 C L 60 18 124/69 96 09/18/24 23: 36.8 C 63 18 119/71 94 09/18/24 21:40 67 09/18/24 21:05 O2 Del Method O2 Flow Rate 09/19/24 07:55 Nasal Cannula 2.0 09/19/24 07:34 Nasal Cannula 3 09/19/24 03:27 Nasal Cannula 3 09/18/24 23:25 Nasal Cannula 3 09/18/24 21:40 09/18/24 21:05 Nasal Cannula 2 PG Care Time/CCT Total # of Minutes Spent Total Time Spent with Patient: Total time spent is greater than 50% in coordination of care (as documented) at patient's floor/unit and/or counseling patient: Coding Level of Care Code 58083 SUB INP/OBS CARE 2/35MIN Diagnoses Esophageal stricture K22.2 Dysphagia R13.10
--- NOTE | 2024-09-19 10:07 | Hospitalist Progress Note ---
Date of Service September 19, 2024 Assessment & Plan (1) Sepsis: (2) Acute respiratory failure with hypoxia: (3) Pneumonia: (4) Urinary tract infection: (5) Esophagitis: (6) Dysphagia: (7) Malnutrition: Plan The patient is a 78-year-old male with past medical history including hyp ertension, GERD, duodenal ulcer, aspiration pneumonia, BPH, urinary incontinence, diabetes mellitus, esophagitis. His most recently admitted from 06/22-06/26/2024 for sepsis due to urinary tract infection. He was then admitted from 07/04-07/07/2024 for aspiration pneumonia. He presents to the emergency department this time with similar symptoms, and is seen bringing up large volumes of mucus. #Sepsis due to pneumonia Pneumonia/history of aspiration/ Acute hypoxic respiratory failure MRSA swab negative. Biofire negative. 09/10 Patient had aspiration event with [employer]NEY[employer]EM[employer] with acute decompensation requiring intubation and bedside bronchoscopy. (Details HPI 09/10) Transferred to ICU. extubated on 09/11 Sputum culture - pseudomonas. Given patient has had 4 days of cefepime, 5 days of Zosyn and 7 days of doxycycline abx were discontinued by critical care team 09/15. Bronchial Wash negative thus far. Video study 09/14 - multiple consistency aspirations. Repeat CXR 09/17: increased opacity at the left lung base. atelectasis vs pneumonia vs pleural effusion - encourage [facility] d/c knapp today #A fib RVR Patient went into A fib RVR on 09/15 with hypotension, was then given Adenosine, placed on amiodarone and heparin drips. Patient required brief pressor support and then converted back into NS. Downgraded from ICU 09/16 continue amiodarone IV - monitor LFT's closely (currently WNL), plan to convert to PO after being able to reliably swallow PO Heparin resumed 09/18. echo 18 - EF 60-65%. consider cardiology consult if patient goes back into A fib. #Esophagitis seen on CT - Concerns for esophageal stricture vs mass with difficulty OG/NG placement. GI following. EGD 09/17 - esophageal stenosis s/p dilation. - remain NPO 24 hours following EGD. avoid NG tube placement. Continue PPI palliative care provider - met with patient and family at bedside. Further discussion after EGD. #Severe protein-calorie malnutrition patient started PPN therapy 09/18 - pharmacy/nutrition following anticipate patient will require through weekend pending video swallow study on 09/20. #Anemia Hgb stable at 10.8 Monitor for active bleeding, trend hemoglobin AM Fe pannel Hypokalemia- K 3.7 today Replete as necessary #Weakness - PT/OT recommending rehab Chronic medical problems: Hyperlipidemia resume atorvastatin when taking p.o. GERD-changed to pantoprazole 40 IV while NPO Dispo: continued inpatient stay, VFSS 09/20 DVT proh: heparin Updated patient's son and at bedside 09/18 Admission and Anticipated Discharge Date Admission Date: September 09, 2024 Subjective Patient seen lying in bed, asking for coffee. Denies pain. Still has cough but states he is not coughing much up. Encouraged flutter valve use, pt demonstrated use at bedside. okay to remove knapp today SR 50-60s Review of Systems Review of Systems: All systems reviewed & are unremarkable except as noted in Subjective Physical Exam Physical Exam: General: NAD, VS as above, lying in bed Resp: normal respiratory effort, on 2L nasal cannula, rhonchi in bases, nonproductive cough, demonstrates use of flutter valve CV: RRR, no murmur, Abd: normal bowel sounds, non tender, no hepatosplenomegaly : Knapp in place Extremities: Moves all extremities, no edema Results & Data Results & Data Vital Signs (Past 12 Hours) Vital Signs Temp Pulse Resp BP BP Pulse Ox O2 Del Method 09/19/24 07:55 97.7 F 60 19 120/56 L 95 Nasal Cannula 09/19/24 07:34 65 15 92 Nasal Cannula 09/19/24 03:27 97.3 F L 60 18 124/69 96 Nasal Cannula 09/18/24 23:25 98.2 F 63 18 119/71 94 Nasal Cannula O2 Flow Rate 09/19/24 07:55 2.0 09/19/24 07:34 3 09/19/24 03:27 3 09/18/24 23:25 3 Laboratory Results CBC and chemistry reviewed PG Care Time/CCT Total # of Minutes Spent Total Time Spent with Patient: Total time spent is greater than 50% in coordination of care (as documented) at patient's floor/unit and/or counseling patient: Coding Level of Care Code 25801 SUB INP/OBS CARE 3/50MIN Diagnoses Sepsis A41.9 Sepsis acute organ dysfunction status: unspecified Sepsis type: sepsis due to unspecified organism Acute respiratory failure with hypoxia J96.01 Pneumonia J18.9 Urinary tract infection N30.00 Hematuria presence: without hematuria Urinary tract infection type: acute cystitis Esophagitis K20.90 Dysphagia R13.10 Malnutrition E46 (1) Sepsis Sepsis acute organ dysfunction status: unspecified Sepsis type: sepsis due to unspecified organism Qualified Code(s): A41.9 - Sepsis, unspecified organism (4) Urinary tract infection Hematuria presence: without hematuria Urinary tract infection type: acute cystitis Qualified Code(s): N30.00 - Acute cystitis without hematuria
[2024-09-19] MEDS: [UNRECOGNIZED DRUG - OTHER] IV SCH (15:58)
[2024-09-19] MEDS: PERIPHERAL TPN IV SCH (15:58)
[2024-09-20 06:30] LABS: Calcium 7.5 mg/dl (8.6-10.3); Chloride 105 mmol/L (98-107); Creatinine Clr Calc Pharmacy 81.6 ml/min; Magnesium 1.7 mg/dl (1.7-2.4); Phosphorus 2.4 mg/dl (2.5-4.9); Sodium 136 mmol/L (136-145)
[2024-09-20 07:00] LABS: Anion Gap 4 (3-11); BUN Creatinine Ratio 12.9 (10-20); Blood Urea Nitrogen 9 mg/dl (6-23); Carbon Dioxide 27 mmol/L (21-32); Glucose 110 mg/dl (70-99(Fasting))
[2024-09-20 07:19] LABS: Ferritin 189.5 ng/ml (8-388)
[2024-09-20 07:20] LABS: Iron 17 mcg/dl (35-175); Transferrin < 95 mg/dl (200-360)
--- NOTE | 2024-09-20 11:05 | XRay Report ---
XR chest 2V PA/lateral HISTORY: 78 years-old Male recheck LLL acute shortness of breath COMPARISON: 09/17/2024 TECHNIQUE: PA and lateral views of the chest FINDINGS: Cardiomediastinal and hilar silhouettes are within normal limits. Small pleural effusions, decreased in size on the left with improved left basilar aeration. No airspace consolidation typical for pneumo waqar. Pulmonary vascular congestion. No pneumothorax. IMPRESSION: 1. Pulmonary vascular congestion. 2. Small pleural effusions with mildly improved aeration of the left lung base. ACT 112: Negative or not required by law. The above report was generated using voice recognition software. It may contain grammatical, syntax o r spelling errors. Electronically signed by: Chito Junior M.D. 09/20/2024 11:03 AM
--- NOTE | 2024-09-20 12:03 | Fluoroscopy Report ---
FL video swallow CLINICAL HISTORY: 78 years-old Male with r/o aspiration. Dysphagia with possible aspiration TECHNIQUE: Video fluoroscopic evaluation of swallowing was performed in the AP and lateral projection s by the speech pathology staff. The patient is fed varying consistencies of barium. FLUOROSCOPY TIME: 4.17 minutes. 21.5 mGy. [id number] images were obtained. COMPARISON STUDY: None FINDINGS: There is abnormal hyoid excursion and epiglottic deflection. Penetration with trace aspirat ion noted with thin liquid barium. Delayed oral pharyngeal transit with pudding and solid consistenci es. Esophageal dysmotility. Increased kyphotic curvature of the cervicothoracic junction. IMPRESSION: 1. Aspiration with thin liquid barium. 2. Please see the speech pathologist report for detailed findings and recommendations. ACT 112: Negative or not required by law. Electronically signed by: Chito Junior M.D. 09/20/2024 12:02 PM
--- NOTE | 2024-09-20 13:02 | Gastroenterology Progress Note ---
Date of Service September 20, 2024 Assessment & Plan (1) Esophageal stricture: Plan: Patient had dilation done last week. video fluoroscopy done this morning. will await speech recommendations on diet. Admission and Anticipated Discharge Date Admission Date: September 09, 2024 Supervising Physician Co-Signing Physician Notes Reviewed endoscopy. Reviewed with PA. Patient has a fairly tight esophageal stricture. Dilatation was obtained with some ring disruption but I believe limited to 12 to 13 mm. Patient will continue to have dysphagia at this level. I believe the stricture will require gradual enlargement with endoscopies 2-3 times over the next 3 to 6 months. Will wait to see what his videofluoroscopy shows. I would recommend a dysphagia mechanical soft diet. Repeat EGD in 2 to 3 weeks to revisualize the stricture with further dilatation is required. Subjective Patient would not awaken to talk to me today. spoke with nursing and no new GI concerns. he had EGD with dilation last week for esophageal stenosis. patient had a video fluoroscopy today with speech. speech recommendations still pending. Review of Systems Review of Systems: All systems reviewed & are unremarkable except as noted in HPI & below Physical Exam Constitutional: WD/WN, vitals as above Respiratory: normal respiratory effort, lungs clear to auscultation Cardiovascular: Rate/Rhythm: regular rate and regular rhythm Gastrointestinal (Abdomen): normal bowel sounds, soft, nontender, no hepatosplenomegaly Psychiatric: Orientation: alert and oriented x 3 Affect: euthymic affect Results & Data Results & Data Vital Signs (Past 12 Hours) Vital Signs Temp Pulse Pulse Pulse Resp BP BP 09/20/24 11:04 98.2 F 60 18 105/62 09/20/24 08:00 09/20/24 08:00 09/20/24 07:39 58 L 09/20/24 07:22 52 L 18 09/20/24 07:17 98.2 F 58 L 18 110/62 09/20/24 03:19 59 L 19 103/57 L Pulse Ox Pulse Ox O2 Del Method O2 Del Method O2 Flow Rate O2 Flow Rate 09/20/24 11:04 94 Nasal Cannula 4 09/20/24 08:00 Nasal Cannula 3 09/20/24 08:00 99 Nasal Cannula 3 09/20/24 07:39 09/20/24 07:22 95 Nasal Cannula 3 09/20/24 07:17 96 Nasal Cannula 3 09/20/24 03:19 98 Nasal Cannula 3 Coding Level of Care Code 82090 SUB INP/OBS CARE 10/02MIN Diagnoses Esophageal stricture K22.2
[2024-09-20] MEDS: SODIUM PHOSPHATE 15 MMOL in SODIUM CHLORIDE 0.9% 250 ML IV ONE (16:01)
[2024-09-20] MEDS: [UNRECOGNIZED DRUG - OTHER] IV SCH (16:02)
[2024-09-20] MEDS: PERIPHERAL TPN IV SCH (16:02)
--- NOTE | 2024-09-20 17:11 | Hospitalist Progress Note ---
Date of Service September 20, 2024 Assessment & Plan (1) Sepsis: (2) Acute respiratory failure with hypoxia: (3) Pneumonia: (4) Urinary tract infection: (5) Esophagitis: (6) Dysphagia: (7) Malnutrition: Plan The patient is a 78-year-old male with past medical history including hyp ertension, GERD, duodenal ulcer, aspiration pneumonia, BPH, urinary incontinence, diabetes mellitus, esophagitis. His most recently admitted from 06/22-06/26/2024 for sepsis due to urinary tract infection. He was then admitted from 07/04-07/07/2024 for aspiration pneumonia. He presents to the emergency department this time with similar symptoms, and is seen bringing up large volumes of mucus. #Sepsis due to pneumonia Pneumonia/history of aspiration/ Acute hypoxic respiratory failure MRSA swab negative. Biofire negative. 09/10 Patient had aspiration event with [facility] [employer] [employer] with acute decompensation requiring intubation and bedside bronchoscopy. (Details HPI 09/10) Transferred to ICU. extubated on 09/11 Sputum culture - pseudomonas. Given patient has had 4 days of cefepime, 5 days of Zosyn and 7 days of doxycycline abx were discontinued by critical care team 09/15. Bronchial Wash: rare saccharomyces Video study 09/14 - multiple consistency aspirations. Repeat CXR 09/20 - mild improvement in aeration of left lung base. Pulmonary vascular congestion VFSS 09/20 - silent aspiration with thin liquids. signs of esophageal dysfunction. If family is agreeable to permissive aspiration for quality of life then pured diet and nectar thick liquids could be considered. However for the time being patient will remain NPO. Continue TPN. Speech rehab potential is low. Discussed in conjunction with palliative carefamily is still hoping that patient will recover, discussed the importance need for therapy and nutrition. Will rediscuss tomorrow #A fib RVR Patient went into A fib RVR on 09/15 with hypotension, was then given Adenosine, placed on amiodarone and heparin drips. Patient required brief pressor support and then converted back into NS. Downgraded from ICU 09/16 continue amiodarone IV - monitor LFT's closely (currently WNL), plan to convert to PO after being able to reliably swallow PO Heparin resumed 09/18. echo - EF 60-65%. consult cardiology to assist with transition back to PO #Esophagitis seen on CT - Concerns for esophageal stricture vs mass with difficulty OG/NG placement. GI following. EGD 09/17 - esophageal stenosis s/p dilation. - remain NPO 24 hours following EGD. avoid NG tube placement. Continue PPI #Severe protein-calorie malnutrition patient started PPN therapy 09/18 - pharmacy/nutrition following #Anemia Hgb stable at 10.8 Fe studies consistent with mixed iron deficiency and chronic disease TSH 06/2024 normal Monitor for active bleeding, trend hemoglobin AM B12 and folate #Weakness - PT/OT recommending rehab, family only wants to take pt home at this time. Chronic medical problems: Hyperlipidemia resume atorvastatin when taking p.o. GERD-changed to pantoprazole 40 IV while NPO Dispo: continued inpatient stay, VFSS 09/20 DVT proh: heparin Updated patient's son and at bedside 09/18 & 09/20 Admission and Anticipated Discharge Date Admission Date: September 09, 2024 Supervising Physician Co-Signing Physician Notes PA Supervision Note: I did not personally see or examine the patient today, but I verified all smith points of MISHEL Howard's assessment and plan with the following exceptions/additions: None Subjective patient seen earlier this afternoon, no family present at bedside. States that he is still in the hospital and denies any pain. Does not participate in much other interviewing or responding when I informed him that his swallow study did not go well. Seen in conjunction with palliative care providerDeirdre. and son present at bedside. We discussed the results of the swallow study and the limited prognosis. Family seems to be struggling with the decision as they want Adarsh to provide input as he is able to have some conversation but is unclear if he truly understands. Answering yes no to many questions but not repeating back what was said in discussion. Discussed results of swallow study and do not have a reliable way to feed patient by mouth safely due to high aspiration risks. Son is considering a second opinion. Tele SR 50-60s Review of Systems Review of Systems: All systems reviewed & are unremarkable except as noted in Subjective Physical Exam Physical Exam: General: NAD, VS as above, lying in bed in position Resp: normal respiratory effort, on 2L nasal cannula, diminished in bases, no cough during exam today CV: RRR, no murmur, Abd: normal bowel sounds, non tender, no hepatosplenomegaly Extremities: Moves all extremities, no edema Results & Data Results & Data Vital Signs (Past 12 Hours) Vital Signs Temp Pulse Pulse Pulse Resp BP BP 09/20/24 15:27 98.2 F 69 20 110/61 09/20/24 14:27 62 09/20/24 11:04 98.2 F 60 18 105/62 09/20/24 08:00 09/20/24 08:00 09/20/24 07:39 58 L 09/20/24 07:22 52 L 18 09/20/24 07:17 98.2 F 58 L 18 110/62 Pulse Ox Pulse Ox O2 Del Method O2 Del Method O2 Flow Rate O2 Flow Rate 09/20/24 15:27 95 Room Air 09/20/24 14:27 09/20/24 11:04 94 Nasal Cannula 4 09/20/24 08:00 Nasal Cannula 3 09/20/24 08:00 99 Nasal Cannula 3 09/20/24 07:39 09/20/24 07:22 95 Nasal Cannula 3 09/20/24 07:17 96 Nasal Cannula 3 Laboratory Results BMP reviewed Iron studies reviewed PG Care Time/CCT Total # of Minutes Spent Total Time Spent with Patient: Total time spent is greater than 50% in coordination of care (as documented) at patient's floor/unit and/or counseling patient: Coding Level of Care Code 00392 SUB INP/OBS CARE 3/50MIN Diagnoses Sepsis A41.9 Sepsis acute organ dysfunction status: unspecified Sepsis type: sepsis due to unspecified organism Acute respiratory failure with hypoxia J96.01 Pneumonia J18.9 Urinary tract infection N30.00 Hematuria presence: without hematuria Urinary tract infection type: acute cystitis Esophagitis K20.90 Dysphagia R13.10 Malnutrition E46 (1) Sepsis Sepsis acute organ dysfunction status: unspecified Sepsis type: sepsis due to unspecified organism Qualified Code(s): A41.9 - Sepsis, unspecified organism (4) Urinary tract infection Hematuria presence: without hematuria Urinary tract infection type: acute cystitis Qualified Code(s): N30.00 - Acute cystitis without hematuria
--- NOTE | 2024-09-20 17:57 | Cardiology Consultation ---
Date of Consultation September 20, 2024 Assessment & Plan (1) Paroxysmal atrial fibrillation: (2) Dilated aortic root: Plan ASSESSMENT/PLAN: 1. Paroxysmal atrial fibrillation: Unclear if this is an intermittent issue over time or due to his acute illness during this hospital stay which included sepsis with significant hypotension at times. Was hypotensive while in A-fib with RVR. Converted the same day (09/15/2024) while on amiodarone drip. Can discontinue amiodarone drip. Can initiate low-dose beta-jj, metoprolol 25 mg twice daily when able to take p.o. Continue anticoagulation for stroke risk reduction if no contraindication. Can be transitioned to Eliquis when able to safely swallow. If he should have significant recurrence, long-term antiarrhythmic therapy may be appropriate. Would recommend 30-day event monitor on discharge to evaluate for further arrhythmia. Check TSH. 2. Dilated aortic root: Recommend annual surveillance. Beta-jj as above. Avoid strenuous lifting for which the Valsalva maneuver is required. 3. Disposition: Cardiology will sign off at this time. Please call with any further questions or recurrent arrhythmia issues. Recommend follow-up in the cardiology office. He would like to follow-up in [place]. I will ask the cardiology office to make an appointment in the [place] office with Dr. Kimbrough. Patient care communicated with primary hospitalist service, Rita Howard PA-C. Thank you for allowing me to participate in the care of your patient. Please call for any other questions or concerns. Sincerely, Justino Ty M.D. History of Present Illness Reason for Consultation: "new afib, on amio drip now SR" Requesting Physician: Rita Howard Attending Physician: Josie Monae MD History of Present Illness Mr. Bates is a pleasant 78-year-old gentleman with a history significant for paroxysmal atrial fibrillation, duodenal ulcer, hypertension, type 2 diabetes, COPD, aspiration pneumonia, and esophagitis. He was admitted on 09/09/2024 with sepsis, pneumonia, and UTI. He presented with generalized weakness that was progressively worsening on 09/10/2024, he underwent critical care consultation after a code purple while undergoing a swallow evaluation and seem to aspirate with significant hypoxic event. He underwent intubation and mechanical ventilation. On 09/15/2024, he developed atrial fibrillation with rapid ventricular response and heart rates in the 150s to 160s per hospitalist progress note. ECG on 09/15/2024 at 11:16 AM demonstrated A-fib with RVR and a heart rate of 168 bpm. He was transferred back to the ICU. In the ICU, he received amiodarone 150 mg IV x 1 followed by amiodarone drip. He initially had received adenosine. He converted to sinus rhythm on 09/15/2024 at 1640 and has been in sinus rhythm since. He remains on an amiodarone drip. He does not recall ever being diagnosed with atrial fibrillation in the past. He denies palpitations, chest pain, shortness of breath, syncope, near syncope, edema, or bleeding. He remains on a heparin drip. Review of systems: As above. Family history: Noncontributory. Social history: Smokes 0.5 packs/day. No significant alcohol. Lives at home with his . Has 1 son. Unaccompanied. Allergies Allergy/AdvReac Type Severity Reaction Status Date / Time No Known Allergies Allergy Verified 09/09/24 15:44 Home Medications Medication Instructions Recorded Confirmed Type No Known Home Medications 09/09/24 09/09/24 History Problem List (Updated 09/20/24 @ 18:20 by Michael Ty MD) Dilated aortic root Paroxysmal atrial fibrillation Esophageal stricture Encounter for assessment of decision-making capacity Advanced directives, counseling/discussion Counseling regarding goals of care Counseling regarding advanced directives and goals of care Palliative care by specialist Malnutrition Dysphagia Acute respiratory failure with hypoxia Dehydration (Acute) Urinary tract infection Pneumonia (Acute) Hypokalemia (Acute) Hypotension (Acute) Generalized weakness (Acute) Acid reflux Essential hypertension Duodenal ulcer Gastritis Constipation (Acute) Hypokalemia (Acute) Hypomagnesemia (Acute) Aspiration pneumonia due to food (regurgitated) (Acute) BPH (benign prostatic hyperplasia) Urinary incontinence Emphysema lung Diabetes mellitus Esophagitis (Acute) Patient History Medical History Acute metabolic encephalopathy Lethargy Surgical History H/O tooth extraction All Teeth History of hip surgery Family History Father Diabetes Denies family history of Ovarian cancer Prostate cancer Myocardial infarction Breast cancer Colorectal cancer Social History Smoking Status: Unknown if ever smoked Tobacco Type: Cigarettes Age Started Using Tobacco: 16; packs per day: 1; Do You Dip or Chew Tobacco: No; Hx Alcohol Use: No Hx Substance Use: No Preferred Language: Hungarian Communication Ability: Unable Communication Ability Comment: Sedated at this time Hearing Ability: Hard of Hearing Market Development Trainer Required: No Beliefs That Will Affect Care: None marital status: Current Living Situation: Spouse and Family current occupational status: retired 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 Alert. Answers questions, but not very conversive. HEENT: Anicteric sclera. Neck: No JVD. Cardiac: Regular. Normal S1-S2. No murmurs, rubs, or gallops. Pulmonary: Decreased breath sounds, but otherwise clear to auscultation bilaterally without wheezes, rales, or rhonchi. Abdomen: Soft, nontender, nondistended, with normoactive bowel sounds. No bruits noted. Extremities: 2+ radial pulses bilaterally. 2+ posterior tibialis pulses bilaterally. No edema or cyanosis. Results & Data Vital Signs (Past 12 Hours) Vital Signs Temp Pulse Pulse Pulse Resp BP BP 09/20/24 16:57 09/20/24 15:27 36.8 C 69 20 110/61 09/20/24 14:27 62 09/20/24 11:04 36.8 C 60 18 105/62 09/20/24 08:00 09/20/24 08:00 09/20/24 07:39 58 L 09/20/24 07:22 52 L 18 09/20/24 07:17 36.8 C 58 L 18 110/62 Pulse Ox Pulse Ox O2 Del Method O2 Del Method O2 Flow Rate O2 Flow Rate 09/20/24 16:57 Nasal Cannula 3 09/20/24 15:27 95 Room Air 09/20/24 14:27 09/20/24 11:04 94 Nasal Cannula 4 09/20/24 08:00 Nasal Cannula 3 09/20/24 08:00 99 Nasal Cannula 3 09/20/24 07:39 09/20/24 07:22 95 Nasal Cannula 3 09/20/24 07:17 96 Nasal Cannula 3 Laboratory Results Laboratory Results - last 24 hr 09/19/24 09/19/24 09/20/24 18:07 23:50 05:36 Sodium 136 Potassium 4.0 Chloride 105 Carbon Dioxide 27 Anion Gap 4 BUN 9 Creatinine 0.70 Est Cr Clr Drug Dosing 81.6 eGFR 94.90 BUN/Creatinine Ratio 12.9 Glucose 110 H POC Glucose 110 H 104 H 108 H Calcium 7.5 L Phosphorus 2.4 L Magnesium 1.7 Iron 17 L TIBC TNP Transferrin < 95 L Transferrin % Sat TNP Ferritin 189.5 09/20/24 11:59 Sodium Potassium Chloride Carbon Dioxide Anion Gap BUN Creatinine Est Cr Clr Drug Dosing eGFR BUN/Creatinine Ratio Glucose POC Glucose 141 H Calcium Phosphorus Magnesium Iron TIBC Transferrin Transferrin % Sat Ferritin Diagnostic Findings On 09/20/2024, chart and labs reviewed. Labs reviewed from 09/20/2024: Normal potassium, stable renal function, normal magnesium. Labs 06/22/2024: Normal TSH Labs 09/19/2024: Mild anemia. Chart reviewed. GI note reviewed. Critical care consultation report reviewed. Telemetry personally reviewed: Currently sinus rhythm. Was in atrial fibrillation with rapid ventricular response on 09/15/2024 and converted at 1640 to sinus rhythm. ECGs personally reviewed: ECG 09/09/2024 at 1513: Sinus tachycardia 106 bpm. ECG 09/15/2024: A-fib with RVR [address]/T wave abnormality. ECG 09/20/2024 at 1641: Sinus rhythm 78 bpm. Nonspecific T wave abnormality. Echo 09/15/2024: Normal LV size, wall motion, systolic function. EF 60-65%. No significant LVH. No significant valvular abnormalities. Dilated aortic root; 4.7 cm. A-fib with RVR. EGD 09/17/2024: Esophageal stenosis, underwent dilation. Normal stomach. Normal examined duodenum. Medications Administered Current Inpatient Medications Albuterol (Albut/Ipratrop 3mg/0.5mg Neb 3 Ml Vial) 3 ml NEB Q2H PRN; Protocol PRN Reason: dyspnea Stop: 10/09/24 21:46 Last Admin: 09/11/24 07:23 Dose: 3 ml Budesonide (Budesonide 0.5 Mg/2 Ml Vial (Pulmicort)) 0.5 mg NEB BIDR JOSE RAFAEL Stop: 10/10/24 18:59 Last Admin: 09/20/24 07:20 Dose: 0.5 mg Dextrose (Dextrose 50% 50 Ml Syringe) 25 - 50 ml IV UD PRN; Protocol PRN Reason: Hypoglycemia Protocol Stop: 10/11/24 05:41 Last Admin: 09/17/24 11:51 Dose: 25 ml Formoterol Fumarate (Formoterol 20 Mcg/2 Ml Vial) 20 mcg INH BIDR JOSE RAFAEL; Protocol Stop: 10/10/24 18:59 Last Admin: 09/20/24 07:20 Dose: 20 mcg Glucagon (Glucagon For Inj 1 Mg Vial) 1 mg SQ UD PRN; Protocol PRN Reason: Hypoglycemia Protocol Stop: 10/11/24 05:41 Glucose (Glucose 40% Gel 15 Gm Tube) 15 - 30 gm PO UD PRN; Protocol PRN Reason: Hypoglycemia Protocol Stop: 10/11/24 05:41 Glucose (Glucose 10 Tab/Tube) 4 - 8 tab PO UD PRN; Protocol PRN Reason: Hypoglycemia Protocol Stop: 10/11/24 05:41 Pantoprazole Sodium (Protonix) 40 mg in 10 mls @ 5 mls/min IV BID JOSE RAFAEL Stop: 10/09/24 21:46 Last Admin: 09/20/24 08:02 Dose: 5 mls/min Heparin Sodium/Dextrose (Heparin Sodium/Dextrose) 25,000 units in 500 mls @ 17 mls/hr IV .Q24H JOSE RAFAEL; Protocol Stop: 10/15/24 13:14 Last Admin: 09/20/24 10:42 Dose: Not Given Amiodarone HCl/Dextrose (Nexterone / D5w) 360 mg in 200 mls @ 16.667 mls/hr IV .Q12H JOSE RAFAEL Stop: 10/15/24 18:59 Last Admin: 09/20/24 13:41 Dose: 0.5 mg/min, 16.7 mls/hr Dextrose (D10w) 1,000 mls @ 0 mls/hr IV .Q0M PRN PRN Reason: protocol (see label comments) Stop: 10/18/24 10:01 Amino Acids 1,591 ml/ (Nutrition (Parenteral)) 1,591 mls @ 66.29 mls/hr IV .Q24H JOSE RAFAEL; Protocol Stop: 09/21/24 15:59 Last Admin: 09/20/24 16:02 Dose: 66.3 mls/hr Insulin Aspart (Insulin Aspart Per Unit Charge) 0 units SC Q6 JOSE RAFAEL Stop: 10/11/24 05:59 Last Admin: 09/20/24 12:18 Dose: 1 units Miscellaneous (Carbohydrates For Hypoglycemia ) 15 - 30 gm PO UD PRN PRN Reason: Hypoglycemia Protocol Stop: 10/11/24 05:41 Miscellaneous Information (Tpn/Ppn Consult Pharmacy) 1 each N/A UD PRN PRN Reason: Consult Stop: 10/18/24 10:25 Ondansetron HCl (Ondansetron Inj 2 Mg/Ml 2 Ml Vial) 4 mg IV Q6H PRN PRN Reason: NAUSEA/VOMITING Stop: 10/09/24 21:46 PG Care Time/CCT Total # of Minutes Spent Total Time Spent with Patient: Total time spent is greater than 50% in coordination of care (as documented) at patient's floor/unit and/or counseling patient: Coding Level of Care Code 15311 INT INP/OBS CARE 3/75MIN Diagnoses Paroxysmal atrial fibrillation I48.0 Dilated aortic root I77.810
--- NOTE | 2024-09-20 23:32 | Palliative Family Discussion ---
Date of Service September 20, 2024 Patient Directed Conference Time of Meetin:30-15:15 Participants: MarissaSushma Levin AGACNP Patient participation: yes Patient Support System: spouse Nicky and son Patricio Other Healthcare Provider Participation: Rita Howard PA-C Meeting Location: bedside Advanced Directive available: No If yes, descriptors: The patient's surrogate medical decision maker participated: yes Legally authorized health care proxy: spouse Other surrogate: n/a A family meeting was held for MICHELLE PETERSON. This meeting was necessary for determining the appropriate course of treatment. Topics of Discussion Topics of Discussion: 1. Goals of care 2. code status 3. Other Content of Meetin. Opportunity given for participants to speak and ask questions. 2. Participants were assured of attention to patient comfort. 3. Reassurance provided. 4. Support was provided for informed, good-joie decisions. 5. Emotions expressed by family were acknowledged and addressed. 6. Follow-up Outpatient: n/a 7. Plan of Care: continue current course of care Discussed patient's recent and chronic medical problems and progressive decline in cognition and function. Nicky again expressed concern that pt has had progressive decline in health for several months and she worries that he may not get any better. 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 Shared with the family that pt continues to have silent aspiration s/p gastric dilation. Shared concern that the patient may be at his new baseline and given his resistance to participating with physical therapy and speech therapy. Again discussed options of ongoing life prolonging therapy including PEG tube and IPR placement to optimize strength and nutrition vs. pleasure feeding and hospice care. expressed that she is sure that her is declining and has "given up on life". She shared that she feels that her . Patricio shared that he does not feel that they should be making decisions for the pt while he "is still sharp minded". Helped family understand that patient has exhibited current lack of decisional capacity based on the inability to convey understanding of personal PMHx, current medical condition, treatment options nor the risks / benefits of those options, and lack of ability to make decisions based on such knowledge. Hospital does not have written documentation of patient wishes concerning his chosen proxy for medical decisions. Per PA [id number], in absence of written documentation of patient wishes, pt's proxy for medical decisions would be his . Pt does require a proxy for medical decisions. Encouraged family to consider how pt would feel about artificial feeding vs pleasure feeding and comfort directed care. I asked if they had ever had conversations with the pt about his wishes if he were to need artificial feedings or machines to support his life. Patricio shared that he knows his fathers's wishes but still believes that pt can make his own decisions. He then spoke directly to his father encouraging him to start putting in more effort with PT and ST. Family continues to struggle with making decisions for Michelle. Patricio requests PT/OT return while they are present to encourage pt participation. He also wanted information on possible transfer to [facility] for second opinion. Time Involved in Meeting: I spent 60 minutes overall addressing this case: 10 in medical data review/discussion with referring provider(s) and/or preparation for the visit 30 in direct interaction with the patient 30 Advance Care Planning/Goals of Care discussions as detailed above in note (must be >16min) 10 in subsequent review and synthesis of assessment and plan 10 in communicating with other providers regarding the patient's case: attending, BSRN
[2024-09-21] MEDS ORDERED: ACETAMINOPHEN 500 MG TAB PO PRN (00:26)
[2024-09-21] MEDS: ACETAMINOPHEN 1,000 MG/100 ML VIAL IV PRN (00:43)
[2024-09-21 07:52] LABS: BUN Creatinine Ratio 16.7 (10-20); Calcium 7.9 mg/dl (8.6-10.3); Creatinine Clr Calc Pharmacy 85.1 ml/min; Magnesium 1.7 mg/dl (1.7-2.4); Phosphorus 2.8 mg/dl (2.5-4.9); Potassium 3.9 mmol/L (3.5-5.1)
[2024-09-21 08:07] LABS: Thyroid Stimulating Hormone 5.642 uIu/ml (0.300-4.500)
[2024-09-21 08:17] LABS: Folate (Folic Acid),Ser orPlas 6.22 ng/ml (>5.38)
[2024-09-21 15:41] LABS: ANTI-Xa, UFH(UnfractionatedHep 0.37 IU/ml (0.3-0.7)
--- NOTE | 2024-09-21 16:09 | Hospitalist Progress Note ---
Date of Service September 21, 2024 Assessment & Plan (1) Sepsis: (2) Acute respiratory failure with hypoxia: (3) Pneumonia: (4) Urinary tract infection: (5) Esophagitis: (6) Dysphagia: (7) Malnutrition: Plan The patient is a 78-year-old male with past medical history including hyp ertension, GERD, duodenal ulcer, aspiration pneumonia, BPH, urinary incontinence, diabetes mellitus, esophagitis. His most recently admitted from 06/22-06/26/2024 for sepsis due to urinary tract infection. He was then admitted from 07/04-07/07/2024 for aspiration pneumonia. He presents to the emergency department this time with similar symptoms, and is seen bringing up large volumes of mucus. 09/10 Patient had aspiration event with [employer] with acute decompensation requiring intubation and bedside bronchoscopy. (Details HPI 09/10) Transferred to ICU. extubated on 09/11 and then down graded from ICU 09/12. Patient then had video swallow study done 09/14 with multiple consistency aspirations. Decision was made to proceed with EGD, unfortunately this had to be aborted due to afib RVR with hypotension requiring transfer back to ICU. EGD done 09/17 showed stricture that was dilated. #Sepsis due to pneumonia Pneumonia/history of aspiration/ Acute hypoxic respiratory failure MRSA swab negative. Biofire negative. Bronchial Wash: rare saccharomyces. Sputum culture - pseudomonas. Given patient has had 4 days of cefepime, 5 days of Zosyn and 7 days of doxycycline abx were discontinued by critical care team 09/15. Repeat CXR 09/20 - mild improvement in aeration of left lung base. Pulmonary vascular congestion VFSS 09/20 - silent aspiration with thin liquids. signs of esophageal dysfunction. If family is agreeable to permissive aspiration for quality of life then pured diet and nectar thick liquids could be considered. However for the time being patient will remain NPO. Continue TPN. Speech rehab potential is low. Spoke briefly to today who asked me to speak to Patricio. I have not been able to reach Patricio and based on conversations yesterday and conversations with palliative care at this time there is no decision made to pursue hospice/permissive aspiration and patient needs reliable way to receive nutrition. GI was consulted and do not think they will be able to place PEG tube based on patient's esophageal stricture. General surgery consult placed #A fib RVR echo - EF 60-65%. TSH borderline elevated but suspect due to acute illness, will not treat, consider repeat outpatient. Converted to normal sinus after IV amiodarone. Cardiology consulted, discontinue amiodarone - transition to metoprolol tartrate 25mg BID PO when safely able. Continue heparin drip until able to take p.o. then can transition addition to Eliquis. Has maintained sinus rhythm on telemetry #Esophagitis EGD 09/17 - esophageal stenosis s/p dilation. - PEG tube placement unlikely due to esophageal stricture, patient will need repeat dilations. Continue PPI #Severe protein-calorie malnutrition patient started PPN therapy 09/18 - pharmacy/nutrition following Working towards more definitive feeding plan #Anemia Hgb stable Fe studies consistent with mixed iron deficiency and chronic disease. B12 and folate WNL. #Weakness - PT/OT recommending rehab, family only wants to take pt home at this time. Chronic medical problems: Hyperlipidemia resume atorvastatin when taking p.o. GERD-changed to pantoprazole 40 IV while NPO Dispo: continued inpatient stay, working on establishing safe feeding plan, sta ble for downgrade to telemetry DVT proh: heparin Updated patient's son and at bedside 09/18 & 09/20 spoke to by phone 09/21. Discussed case with [facility] and Dr. Nunez, general surgery Admission and Anticipated Discharge Date Admission Date: September 09, 2024 Supervising Physician Co-Signing Physician Notes PA Supervision Note: I did not personally see or examine the patient today, but I verified all smith points of MISHEL Howard's assessment and plan with the following exceptions/additions: None Subjective patient seen earlier this morning, no family present at bedside. He seems to understand that he is in the hospital but has swallowing problems but is not able to explain to me what will happen with either option (hospice vs feeding tube) that we have at hand. Does not have capacity to make decisions. He all he tells me is that he wants to eat. Denies having any pain at the present. Per our in person meeting yesterday, family thought they would be in this afternoon. I spoke with Deirdre palliative BRETT who states she tried to speak to Nicky earlier this morning and they did not know what time they would be arriving and she was waiting until she could talk to Patricio. I called Nicky shortly after 3 PM today to explain to her that we cannot keep Adarsh on peripheral PPN indefinitely and need to make a decision on which pathway we would like to pursue for feeding. She asked me to talk to Patricio which I explained to her that I would be happy to do but in the absence of a living will the ultimate decision comes down to her but she is welcome to colaberate with Patricio. As I was further explained the conversation/circumstance Nicky said "thank you bye" and hung up on me. I then tried to call Patricio twice and left 1 voicemail stating that I wanted to reach him regarding his father's care and next plan. At the time of this dictation he has not returned my call and nursing has not seen him at bedside for me to talk to him. At this point, family made it clear that that he was to be a full code yesterday and there were no decisions made to pursue hospice options so we will continue to pursue full treatment which requires finding and all to your mode to provide nutrition. I discussed with [facility] and they do not think they can place a PEG tube because of the esophageal stricture and recommended surgical consult. Surgery has been consulted, and I discussed the case with Dr. Nunez, general surgery Review of Systems Review of Systems: All systems reviewed & are unremarkable except as noted in Subjective Physical Exam Physical Exam: General: NAD, VS as above, lying in bed in position, ill appearing Resp: normal respiratory effort, on 2L nasal cannula, diminished in bases, non productive cough CV: RRR, no murmur, Abd: normal bowel sounds, non tender, no hepatosplenomegaly Extremities: Moves all extremities, no edema Results & Data Results & Data Vital Signs (Past 12 Hours) Vital Signs Temp Pulse Pulse Resp BP BP Pulse Ox 09/21/24 15:09 98.1 F 60 16 101/62 96 09/21/24 14:39 49 L 09/21/24 11:22 97.9 F 63 20 94/57 L 95 09/21/24 08:00 09/21/24 08:00 60 09/21/24 07:44 97.7 F 66 18 109/67 97 09/21/24 07:16 64 20 90 O2 Del Method O2 Flow Rate 09/21/24 15:09 Room Air 09/21/24 14:39 09/21/24 11:22 Room Air 09/21/24 08:00 Nasal Cannula 3 09/21/24 08:00 09/21/24 07:44 Nasal Cannula 09/21/24 07:16 Nasal Cannula 4 Laboratory Results chemistry reviewed Magnesium, B12 folate and TSH reviewed PG Care Time/CCT Total # of Minutes Spent Total Time Spent with Patient: Total time spent is greater than 50% in coordination of care (as documented) at patient's floor/unit and/or counseling patient: Coding Level of Care Code 21624 SUB INP/OBS CARE 3/50MIN Diagnoses Sepsis A41.9 Sepsis acute organ dysfunction status: unspecified Sepsis type: sepsis due to unspecified organism Acute respiratory failure with hypoxia J96.01 Pneumonia J18.9 Urinary tract infection N30.00 Hematuria presence: without hematuria Urinary tract infection type: acute cystitis Esophagitis K20.90 Dysphagia R13.10 Malnutrition E46 (1) Sepsis Sepsis acute organ dysfunction status: unspecified Sepsis type: sepsis due to unspecified organism Qualified Code(s): A41.9 - Sepsis, unspecified organism (4) Urinary tract infection Hematuria presence: without hematuria Urinary tract infection type: acute cystitis Qualified Code(s): N30.00 - Acute cystitis without hematuria
[2024-09-21] MEDS: [UNRECOGNIZED DRUG - OTHER] IV SCH (16:28)
[2024-09-21] MEDS: PERIPHERAL TPN IV SCH (16:28)
[2024-09-21] MEDS: CLINOLIPID 20% IV FAT EMULSION 250 ML IV SCH (16:28)
[2024-09-22 00:04] LABS: ANTI-Xa, UFH(UnfractionatedHep 0.47 IU/ml (0.3-0.7)
[2024-09-22 07:02] LABS: ANTI-Xa, UFH(UnfractionatedHep 0.42 IU/ml (0.3-0.7)
[2024-09-22 08:18] LABS: Basophils # (auto) 0.01 K/uL (0.00-0.20); Basophils % (auto) 0.1 %; Eosinophils # (auto) 0.07 K/uL (0.00-0.50); Hematocrit (blood only) 30.4 % (42.0-52.0); Hemoglobin 10.1 g/dl (14.0-18.0); Immature Granulocytes # (auto) 0.03 K/uL (0.01-0.20); Immature Granulocytes % (auto) 0.4 %; Lymphocytes # (auto) 1.15 K/uL (1.20-3.40); Lymphocytes % (auto) 15.8 %; Mean Corpuscular Hemoglobin 31.5 pg (25.0-34.0); Mean Corpuscular Hgb Conc 33.2 g/dL (32.0-36.0); Mean Corpuscular Volume 94.7 fL (80.0-100.0); Mean Platelet Volume 10.8 fL (9.4-12.4); Monocytes # (auto) 0.37 K/uL (0.11-0.59); Monocytes % (auto) 5.1 %; Neutrophils # (auto) 5.66 K/uL (1.40-6.50); Neutrophils % (auto) 77.6 %; Platelet Count 129 K/uL (130-400); RDW Coefficient of Variation 15.4 % (11.5-14.5); RDW Standard Deviation 53.9 fL (36.4-46.3); Red Blood Count 3.21 M/uL (4.70-6.10); White Blood Count 7.29 K/ul (4.8-10.8)
[2024-09-22 08:30] LABS: BUN Creatinine Ratio 19.4 (10-20); Calcium 7.8 mg/dl (8.6-10.3); Creatinine Clr Calc Pharmacy 92.6 ml/min; Magnesium 1.6 mg/dl (1.7-2.4); Phosphorus 2.7 mg/dl (2.5-4.9); Potassium 3.7 mmol/L (3.5-5.1)
[2024-09-22] MEDS: MAGNESIUM SULFATE / D5W 1 GM/100 ML BAG IV SCH (09:32)
--- NOTE | 2024-09-22 12:17 | Surgery Consultation ---
Date of Consultation September 22, 2024 Assessment & Plan (1) Malnutrition: (2) Acute respiratory failure with hypoxia: (3) Aspiration pneumonia due to food (regurgitated): 78 yo male with recurrent hospitalizations for aspiration pneumonia here with Sepsis secondary to aspiration pneumonia, esophageal stricture s/p dilatation, severe malnutrition with video swallow showing aspiration with thin liquids, among other medical problems in which our services consulted for surgical placement of gastrostomy tube. Palliative care has met with family to discuss goals of care. Patient needs proxy for decision making. EGD performed on 09/17 for esophageal stricture and was able to traverse stricture after dilatation. Given elderly patient with multiple medical comorbidities and the risks of general anesthetic procedure , would recommend against surgical placement of feeding tube unless there is failure of attempt of placement of feeding tube via advanced GI procedures/IR procedure. Dr. Nunez has discussed with Hospitalist team. See addendum for further recommendations/plan. Plan I have seen and examined the patient and agree with the above assessment and plan. Esophageal stricture which has been dilated and is able to be traversed with the endoscope. I would strongly suggest that if a feeding tube is desired, that it be attempted by an experienced advanced endoscopist via the endoscopic route/PEG tube placement. I would only recommend a surgical attempt at G-tube placement if all other methods failed. We will follow peripherally. Call with any questions or concerns. History of Present Illness Reason for Consultation: Placement of surgical feeding tube Requesting Physician: Rita Howard PA-C Attending Physician: Josie Monae MD History of Present Illness History obtained by chart and discussion with hospitalist team. No family at bedside and patient given little history. The patient is a 78-year-old male with past medical history including hypertension, GERD, duodenal ulcer, aspiration pneumonia, BPH, urinary incontinence, diabetes mellitus, esophagitis. His most recently admitted from 06/22-06/26/2024 for sepsis due to urinary tract infection. He was then admitted from 07/04-07/07/2024 for aspiration pneumonia. He presented to the emergency department this time with similar symptoms, and is seen bringing up large volumes of mucus. Found to have sepsis and acute respiratory failure secondary to aspiration and pneumonia. Patient had EGD which showed esophageal stricture which was able to be dilated and scope was able to be traversed past the stricture and into stomach. VFSS 09/20 - silent aspiration with thin liquids. signs of esophageal dysfunction. Palliative carefamily meeting discussed options of nutrition. Patient needs proxy for decision making which would be however Son was [place] possible [place] [facility] [place] recommending surgical consult for surgical g-tube placement given esophageal stricture. Allergies Allergy/AdvReac Type Severity Reaction Status Date / Time No Known Allergies Allergy Verified 09/09/24 15:44 Home Medications Medication Instructions Recorded Confirmed Type No Known Home Medications 09/09/24 09/09/24 History Patient History Medical History Acute metabolic encephalopathy Lethargy Surgical History H/O tooth extraction All Teeth History of hip surgery Family History Father Diabetes Denies family history of Ovarian cancer Prostate cancer Myocardial infarction Breast cancer Colorectal cancer Social History Smoking Status: Unknown if ever smoked Tobacco Type: Cigarettes Age Started Using Tobacco: 16; packs per day: 1; Do You Dip or Chew Tobacco: No; Hx Alcohol Use: No Hx Substance Use: No Preferred Language: Paraguayan Communication Ability: Unable Communication Ability Comment: Sedated at this time Hearing Ability: Hard of Hearing Traffic Circuit Engineer Required: No Beliefs That Will Affect Care: None marital status: Current Living Situation: Spouse and Family current occupational status: retired 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 How many Children do You have: 1 Feels Safe at Home: Yes Diet Comment: attempts high protein during the past year weight has: decreased > 10 lbs Dental Care, Regularly: Yes Physical Activity Frequency: Does not Exercise Physical Activity Frequency Comment: limited d/t physical condition Assistive Devices: Walker and Wheelchair Review of Systems Review of Systems: All systems reviewed & are unremarkable except as noted in HPI & below Physical Exam Constitutional: + ill appearing, + frail appearing and c ooperative; no acute distress Respiratory: normal respiratory effort; no respiratory distress Gastrointestinal (Abdomen): Inspection/Auscultation: abdomen normal to inspection; abdomen not distended and no abdominal surgical scar Percussion/Palpation: abdomen soft; abdomen nontender, no guarding and abdomen not rigid Skin: no rashes, warm and dry Psychiatric: Orientation: alert and oriented x 3 Eye Contact: + fair eye contact Affect: + flat affect Results & Data Vital Signs (Past 12 Hours) Vital Signs Temp Pulse Pulse Resp BP Pulse Ox O2 Del Method 09/22/24 11:43 36.3 C L 59 L 18 103/52 L 95 Room Air 09/22/24 11:15 100 Room Air, Nasal Cannula 09/22/24 07:35 36.4 C L 61 18 100/61 99 Nasal Cannula 09/22/24 07:22 60 20 97 Nasal Cannula 09/22/24 06:25 58 L 09/22/24 06:25 58 L 09/22/24 04:49 36.3 C L 61 20 101/64 96 Nasal Cannula 09/22/24 00:20 36.9 C 86 20 136/68 94 Nasal Cannula O2 Flow Rate 09/22/24 11:43 09/22/24 11:15 2 09/22/24 07:35 3 09/22/24 07:22 3 09/22/24 06:25 09/22/24 06:25 09/22/24 04:49 3 09/22/24 00:20 3 Laboratory Results 09/22/24 09/22/24 09/22/24 Range/Units 12:16 07:53 05:37 WBC 7.29 Cancelled RBC 3.21 L Cancelled Hgb 10.1 L Cancelled Hct 30.4 L Cancelled MCV 94.7 Cancelled MCH 31.5 Cancelled MCHC 33.2 Cancelled RDW Std Deviation 53.9 H Cancelled RDW Coeff of Madonna 15.4 H Cancelled Plt Count 129 L Cancelled MPV 10.8 Cancelled Immature Gran % (Auto) 0.4 Cancelled Neut % (Auto) 77.6 Cancelled Lymph % (Auto) 15.8 Cancelled Harford % (Auto) 5.1 Cancelled Eos % (Auto) 1.0 Cancelled Baso % (Auto) 0.1 Cancelled Neut # (Auto) 5.66 Cancelled Lymph # (Auto) 1.15 L Cancelled Har[place] # (Auto) 0.37 Cancelled Eos # (Auto) 0.07 Cancelled Baso # (Auto) 0.01 Cancelled Immature Gran # (Auto) 0.03 Cancelled Absolute Nucleated RBC Cancelled Nucleated RBC % (auto) Cancelled Neutrophils % (Manual) Cancelled Band Neutrophils % Cancelled Lymphocytes % (Manual) Cancelled Prolymphocyte % Cancelled Reactive Lymphs % (Man) Cancelled Monocytes % (Manual) Cancelled Eosinophils % (Manual) Cancelled Basophils % (Manual) Cancelled Metamyelocytes % (Man) Cancelled Myelocytes % (Man) Cancelled Promyelocytes % (Man) Cancelled Blast Cells % (Manual) Cancelled Plasma Cell % (Manual) Cancelled Other Cells % Cancelled Nucleated RBC % Cancelled Neutrophils # (Manual) Cancelled Band Neutrophils # Cancelled Total Absolute Neuts Cancelled Lymphocytes # (Manual) Cancelled Prolymphocyte # Cancelled Reactive Lymphs # Cancelled Total Abs Lymphocytes Cancelled Monocytes # (Manual) Cancelled Eosinophils # (Manual) Cancelled Basophils # (Manual) Cancelled Metamyelocytes # (Man) Cancelled Myelocytes # (Manual) Cancelled Promyelocytes # (Man) Cancelled Blast Cells # (Man) Cancelled Plasma Cell # (Manual) Cancelled Other Cells # Cancelled Nucleated RBCs # (Man) Cancelled Hypersegmented Neuts Cancelled Hyposegmented Neuts Cancelled Hypogranular Neuts Cancelled Large Granular Lymphs Cancelled # Lrg Granular Lymphs Cancelled Hairy Cells Cancelled Smudge Cells Cancelled Toxic Granulation Cancelled Toxic Vacuolation Cancelled Dohle Bodies Cancelled Abby Rods Cancelled Platelet Estimate Cancelled Hypogranular Platelets Cancelled Giant Platelets Cancelled Platelet Satelliting Cancelled RBC Morphology Cancelled Polychromasia Cancelled Hypochromasia Cancelled Poikilocytosis Cancelled Basophilic Stippling Cancelled Anisocytosis Cancelled Microcytosis Cancelled Macrocytosis Cancelled Spherocytes Cancelled Pappenheimer Bodies Cancelled Sickle Cells Cancelled Target Cells Cancelled Tear Drop Cells Cancelled Ovalocytes Cancelled Stomatocytes Cancelled Melton-Glenmoore Bodies Cancelled Echinocytes Cancelled Acanthocytes (Spur) Cancelled Rouleaux Cancelled RBC Agglutinates Cancelled Schistocytes Cancelled Sezary Cell Cancelled Heparin Anti-Xa, Unfract 0.42 (0.3-0.7) IU/ml Sodium 135 L Cancelled Potassium 3.7 Cancelled Chloride 103 Cancelled Carbon Dioxide 29 Cancelled Anion Gap 3 Cancelled BUN 12 Cancelled Creatinine 0.62 Cancelled Est Cr Clr Drug Dosing 92.6 Cancelled eGFR 98.44 Cancelled BUN/Creatinine Ratio 19.4 Cancelled Glucose 97 Cancelled POC Glucose 117 H (70-99) mg/dl Calcium 7.8 L Cancelled Phosphorus 2.7 Cancelled Magnesium 1.6 L Cancelled Blood Parasites ID Cancelled 09/22/24 09/22/24 09/21/24 Range/Units 05:25 00:50 22:46 WBC RBC Hgb Hct MCV MCH MCHC RDW Std Deviation RDW Coeff of Madonna Plt Count MPV Immature Gran % (Auto) Neut % (Auto) Lymph % (Auto) [place] % (Auto) Eos % (Auto) Baso % (Auto) Neut # (Auto) Lymph # (Auto) [place] # (Auto) Eos # (Auto) Baso # (Auto) Immature Gran # (Auto) Absolute Nucleated RBC Nucleated RBC % (auto) Neutrophils % (Manual) Band Neutrophils % Lymphocytes % (Manual) Prolymphocyte % Reactive Lymphs % (Man) Monocytes % (Manual) Eosinophils % (Manual) Basophils % (Manual) Metamyelocytes % (Man) Myelocytes % (Man) Promyelocytes % (Man) Blast Cells % (Manual) Plasma Cell % (Manual) Other Cells % Nucleated RBC % Neutrophils # (Manual) Band Neutrophils # Total Absolute Neuts Lymphocytes # (Manual) Prolymphocyte # Reactive Lymphs # Total Abs Lymphocytes Monocytes # (Manual) Eosinophils # (Manual) Basophils # (Manual) Metamyelocytes # (Man) Myelocytes # (Manual) Promyelocytes # (Man) Blast Cells # (Man) Plasma Cell # (Manual) Other Cells # Nucleated RBCs # (Man) Hypersegmented Neuts Hyposegmented Neuts Hypogranular Neuts Large Granular Lymphs # Lrg Granular Lymphs Hairy Cells Smudge Cells Toxic Granulation Toxic Vacuolation Dohle Bodies Abby Rods Platelet Estimate Hypogranular Platelets Giant Platelets Platelet Satelliting RBC Morphology Polychromasia Hypochromasia Poikilocytosis Basophilic Stippling Anisocytosis Microcytosis Macrocytosis Spherocytes Pappenheimer Bodies Sickle Cells Target Cells Tear Drop Cells Ovalocytes Stomatocytes Melton-Glenmoore Bodies Echinocytes Acanthocytes (Spur) Rouleaux RBC Agglutinates Schistocytes Sezary Cell Heparin Anti-Xa, Unfract 0.47 (0.3-0.7) IU/ml Sodium Potassium Chloride Carbon Dioxide Anion Gap BUN Creatinine Est Cr Clr Drug Dosing eGFR BUN/Creatinine Ratio Glucose POC Glucose 95 98 (70-99) mg/dl Calcium Phosphorus Magnesium Blood Parasites ID 09/21/24 09/21/24 Range/Units 18:23 14:33 WBC RBC Hgb Hct MCV MCH MCHC RDW Std Deviation RDW Coeff of Madonna Plt Count MPV Immature Gran % (Auto) Neut % (Auto) Lymph % (Auto) [place] % (Auto) Eos % (Auto) Baso % (Auto) Neut # (Auto) Lymph # (Auto) [place] # (Auto) Eos # (Auto) Baso # (Auto) Immature Gran # (Auto) Absolute Nucleated RBC Nucleated RBC % (auto) Neutrophils % (Manual) Band Neutrophils % Lymphocytes % (Manual) Prolymphocyte % Reactive Lymphs % (Man) Monocytes % (Manual) Eosinophils % (Manual) Basophils % (Manual) Metamyelocytes % (Man) Myelocytes % (Man) Promyelocytes % (Man) Blast Cells % (Manual) Plasma Cell % (Manual) Other Cells % Nucleated RBC % Neutrophils # (Manual) Band Neutrophils # Total Absolute Neuts Lymphocytes # (Manual) Prolymphocyte # Reactive Lymphs # Total Abs Lymphocytes Monocytes # (Manual) Eosinophils # (Manual) Basophils # (Manual) Metamyelocytes # (Man) Myelocytes # (Manual) Promyelocytes # (Man) Blast Cells # (Man) Plasma Cell # (Manual) Other Cells # Nucleated RBCs # (Man) Hypersegmented Neuts Hyposegmented Neuts Hypogranular Neuts Large Granular Lymphs # Lrg Granular Lymphs Hairy Cells Smudge Cells Toxic Granulation Toxic Vacuolation Dohle Bodies Abby Rods Platelet Estimate Hypogranular Platelets Giant Platelets Platelet Satelliting RBC Morphology Polychromasia Hypochromasia Poikilocytosis Basophilic Stippling Anisocytosis Microcytosis Macrocytosis Spherocytes Pappenheimer Bodies Sickle Cells Target Cells Tear Drop Cells Ovalocytes Stomatocytes Melton-Glenmoore Bodies Echinocytes Acanthocytes (Spur) Rouleaux RBC Agglutinates Schistocytes Sezary Cell Heparin Anti-Xa, Unfract 0.37 (0.3-0.7) IU/ml Sodium Potassium Chloride Carbon Dioxide Anion Gap BUN Creatinine Est Cr Clr Drug Dosing eGFR BUN/Creatinine Ratio Glucose POC Glucose 101 H (70-99) mg/dl Calcium Phosphorus Magnesium Blood Parasites ID (3) Aspiration pneumonia due to food (regurgitated) Laterality: bilateral Lung location: lower lobe of lung Qualified Code(s): J69.0 - Pneumonitis due to inhalation of food and vomit
--- NOTE | 2024-09-22 13:50 | Pharmacy Report ---
Pharmacy PN Follow-up Note - Date of Service September 22, 2024 - Subjective Patient is currently on day #5 of PPN for prolonged NPO status with failed swallow evaluation. - Objective Height & Weight (Last Documented) Height 6 ft 1 in Weight 65.6 kg Diet Order(s) 09/17/24 00:01 NPO Intake & Ouput (24hrs) 09/21/24 09/22/24 09/23/24 06:59 06:59 06:59 Intake Total 2229.065 / 2229.065 2423.500 / 2423.500 345.900 / 345.900 Output Total 850 / 850 1050 / 1050 301 / 301 Balance 1379.065 / 3497.168 2702.500 / 1373.500 44.900 / 44.900 Selected Laboratory Results 09/22/24 09/22/24 05:37 07:53 Sodium Cancelled 135 L Potassium Cancelled 3.7 Chloride Cancelled 103 Carbon Dioxide Cancelled 29 Anion Gap Cancelled 3 BUN Cancelled 12 Creatinine Cancelled 0.62 BUN/Creatinine Ratio Cancelled 19.4 Glucose Cancelled 97 Calcium Cancelled 7.8 L Phosphorus Cancelled 2.7 Magnesium Cancelled 1.6 L - Assessment & Plan Assessment: * Today [place] day #5 of PPN therapy. Case discussed with dietitian and okay to advance to goal macronutrients for PPN today. Advancing to goal will provide patient with almost 2.5 L of fluid per day. Will need to monitor for fluid overload. * Patient is at risk for refeeding. Macronutrients have been titrated up slowly over the past 4 days. Potassium, Magnesium and Phosphorus are all within normal limits. Will monitor closely given increase to goal macros today. * Spoke with BRETT for this patient. Surgery and GI have been consulted for a possible feeding tube. If this cannot be done, consent will be obtained to place a PICC line to start TPN. Hopefully, this can be completed prior to the weekend. Plan: * For Day #5 of PPN administration, the following will be ordered: * Macronutrients: * Amino Acids: 85 grams/day * Dextrose: 100 grams/day * Lipids: 50 grams/day * Micronutrients: * Sodium chloride: 100 mEq/day * Sodium acetate: 40 mEq/day * Potassium phosphate: 30 mMol/day * Potassium chloride: 20 mEq/day * Potassium acetate: 40 mEq/day * Magnesium sulfate: 16.24 mEq/day * Calcium gluconate: 9.3 mEq/day * Multivitamins: 10 mL/day * Trace elements: 1 mL/day * Thiamine: 100 mg/day * Total volume of 2136 mL will be infused over 24 hours and will provide 1180 kcal/day * Patient is on PPN which has a maximum mOsm/L of 900. Final osmolarity of current solution is 868 mOsm/L. * Labs will be ordered per PN protocol. * Pharmacy will follow and adjust PN orders on a daily basis. Thank you!
[2024-09-22] MEDS: PERIPHERAL TPN IV SCH (16:17)
[2024-09-22] MEDS: CLINOLIPID 20% IV FAT EMULSION 250 ML IV SCH (16:17)
[2024-09-22] MEDS: [UNRECOGNIZED DRUG - OTHER] IV SCH (16:17)
--- NOTE | 2024-09-22 16:53 | Electrocardiogram Report ---
Test Reason : Blood Pressure : */* mmHG Vent. Rate : 70 BPM Atrial Rate : 70 BPM P-R Int : 140 ms QRS Dur : 86 ms QT Int : 398 ms P-R-T Axes : 32 41 54 degrees QTcB Int : 429 ms Normal sinus rhythm Low voltage QRS Nonspecific T wave abnormality Abnormal ECG When compared with ECG of 15-Sep-2024 12:35, Sinus rhythm has replaced Atrial fibrillation Questionable change in QRS duration Confirmed by Michael Ty ([id number]) on 09/22/2024 4:52:42 PM Referred By: Emili South Confirmed By: Michael Ty
--- NOTE | 2024-09-22 17:26 | Hospitalist Progress Note ---
Date of Service September 22, 2024 Assessment & Plan (1) Sepsis: (2) Acute respiratory failure with hypoxia: (3) Pneumonia: (4) Urinary tract infection: (5) Esophagitis: (6) Dysphagia: (7) Malnutrition: Plan The patient is a 78-year-old male with past medical history including hyp ertension, GERD, duodenal ulcer, aspiration pneumonia, BPH, urinary incontinence, diabetes mellitus, esophagitis. His most recently admitted from 06/22-06/26/2024 for sepsis due to urinary tract infection. He was then admitted from 07/04-07/07/2024 for aspiration pneumonia. He presents to the emergency department this time with similar symptoms, and is seen bringing up large volumes of mucus. 09/10 Patient had aspiration event with MARINA PORTER with acute decompensation requiring intubation and bedside bronchoscopy. (Details HPI 09/10) Transferred to ICU. extubated on 09/11 and then down graded from ICU 09/12. Patient then had video swallow study done 09/14 with multiple consistency aspirations. Decision was made to proceed with EGD, unfortunately this had to be aborted due to afib RVR with hypotension requiring transfer back to ICU. EGD done 09/17 showed stricture that was dilated. #Sepsis due to pneumonia Pneumonia/aspiration of liquids and solids/ Acute hypoxic respiratory failure MRSA swab negative. Biofire negative. Bronchial Wash: rare saccharomyces. Sputum culture - pseudomonas. Given patient has had 4 days of cefepime, 5 days of Zosyn and 7 days of doxycycline abx were discontinued by critical care team 09/15. Without leukocytosis, remains afebrile - pneumonia has resolved. Repeat CXR 09/20 - mild improvement in aeration of left lung base. Pulmonary vascular congestion VFSS 09/20 - silent aspiration with thin liquids. signs of esophageal dysfunction. If family is agreeable to permissive aspiration for quality of life then pured diet and nectar thick liquids could be considered. However for the time being patient will remain NPO. Continue TPN. Speech rehab potential is low. Palliative has been involved, family not interested in pursuing hospice. General surgery was consulted for feeding tube placement, they do not feel comfortable placing feeding tube when advanced GI options have not been trialed. Family agreeable to transfer. #A fib RVR echo - EF 60-65%. TSH borderline elevated but suspect due to acute illness, will not treat, consider repeat outpatient. Converted to normal sinus after IV amiodarone. Cardiology consulted, discontinue amiodarone - transition to metoprolol tartrate 25mg BID PO when safely able. Continue heparin drip until able to take p.o. then can transition addition to Eliquis. Has maintained sinus rhythm on telemetry #Esophagitis EGD 09/17 - esophageal stenosis s/p dilation. - PEG tube placement unlikely due to esophageal stricture, patient will need repeat dilations, next earliest would be 2-3 weeks. Continue PPI #Severe protein-calorie malnutrition patient started PPN therapy 09/18 - pharmacy/nutrition following Working towards more definitive feeding plan - PICC line consent obtained for further TPN This family still wants all measures. #Anemia Hgb stable 10.1 Fe studies consistent with mixed iron deficiency and chronic disease. B12 and folate WNL. #Weakness - PT/OT recommending rehab, family only wants to take pt home at this time. Discussed 09/22 that if they are going to pursue a feeding tube and rehab would be in his best interest Chronic medical problems: Hyperlipidemia resume atorvastatin when taking p.o. GERD-changed to pantoprazole 40 IV while NPO Dispo: continued inpatient stay, working on establishing safe feeding plan, stable for downgrade to telemetry DVT proh: heparin Updated patient's son and at bedside 09/18 & 09/20, 09/22 spoke to by phone 09/21. Discussed case withand Dr. Nunez, general surgery Attempted to transfer pt to [facility] [place] - GI phsician that I was speaking to wanted to review images and talk to our GI team. Will reconvene with conversation tomorrow. Admission and Anticipated Discharge Date Admission Date: September 09, 2024 Supervising Physician Co-Signing Physician Notes PA Supervision Note: I did not personally see or examine the patient today, but I verified all smith points of MISHEL Howard's assessment and plan with the following exceptions/additions: None Subjective Patient seen lying in bed this morning - no family present at bedside. Again able to provide insight on the situation to show that he has decision making capacity. He asks me why we dont try a test to see what happens when he swallows - I explained to him that we have already done that twice. Revisited with son and at bedside. Mala would like to defer all decisions to Patricio. Family states that they were not contacted by anyone home from the general surgery team. Made them aware of general surgery recommendations. Discussed that we would not have the capabilities here to place a feeding tube of any capacity. They would still like to pursue any options to get better including transfer. I explained that he is likely to have a prolonged hospital stay unlikely to eat for months and has a potential that the speech therapy will not even work. They verbalized understanding these risks and still would like to proceed. They are aware that he will likely have to be hooked up to feeds anywhere from 12 to 24 hours a day. while Adarsh does not have full decisional capacity he is able to understand some of the things that are going on his care and he does not object to these. I encouraged him to participate in any sort of therapy that is offered to him while at the hospital as lying in bed is just going to make him weaker. Telemetry sinus rhythm in the 70s. Review of Systems Review of Systems: All systems reviewed & are unremarkable except as noted in Subjective Physical Exam Physical Exam: General: NAD, VS as above, lying in bed ill appearing Resp: normal respiratory effort, on room air, non productive cough CV: RRR, no murmur, Abd: normal bowel sounds, non tender, no hepatosplenomegaly Extremities: Moves all extremities, no edema A&O x2 Results & Data Results & Data Vital Signs (Past 12 Hours) Vital Signs Temp Pulse Pulse Resp BP Pulse Ox O2 Del Method 09/22/24 14:50 97.2 F L 61 18 97/58 L 98 Room Air 09/22/24 13:03 56 L 09/22/24 11:43 97.3 F L 59 L 18 103/52 L 95 Nasal Cannula 09/22/24 11:15 100 Room Air, Nasal Cannula 09/22/24 07:35 97.5 F L 61 18 100/61 99 Nasal Cannula 09/22/24 07:22 60 20 97 Nasal Cannula 09/22/24 06:25 58 L 09/22/24 06:25 58 L O2 Flow Rate 09/22/24 14:50 09/22/24 13:03 09/22/24 11:43 3 09/22/24 11:15 2 09/22/24 07:35 3 09/22/24 07:22 3 09/22/24 06:25 09/22/24 06:25 Laboratory Results CBC and chemistry reviewed magnesium and phosphate reviewed PG Care Time/CCT Total # of Minutes Spent Total Time Spent with Patient: Total time spent is greater than 50% in coordination of care (as documented) at patient's floor/unit and/or counseling patient: Coding Level of Care Code 62034 SUB INP/OBS CARE 3/50MIN Diagnoses Sepsis A41.9 Sepsis acute organ dysfunction status: unspecified Sepsis type: sepsis due to unspecified organism Acute respiratory failure with hypoxia J96.01 Pneumonia J18.9 Urinary tract infection N30.00 Hematuria presence: without hematuria Urinary tract infection type: acute cystitis Esophagitis K20.90 Dysphagia R13.10 Malnutrition E46 (1) Sepsis Sepsis acute organ dysfunction status: unspecified Sepsis type: sepsis due to unspecified organism Qualified Code(s): A41.9 - Sepsis, unspecified organism (4) Urinary tract infection Hematuria presence: without hematuria Urinary tract infection type: acute cystitis Qualified Code(s): N30.00 - Acute cystitis without hematuria
[2024-09-22] MEDS: KETOROLAC TROMETHAMINE 15 MG/ML VIAL IV ONE (19:08)
[2024-09-22] MEDS: STOP CLINOLIPID SCH (22:17)
[2024-09-23 04:57] LABS: BUN Creatinine Ratio 21.3 (10-20); Creatinine Clr Calc Pharmacy 94.1 ml/min; Magnesium 2.1 mg/dl (1.7-2.4); Potassium 4.4 mmol/L (3.5-5.1)
[2024-09-23 05:02] LABS: ANTI-Xa, UFH(UnfractionatedHep 0.27 IU/ml (0.3-0.7)
--- NOTE | 2024-09-23 11:04 | Gastroenterology Progress Note ---
Date of Service September 23, 2024 Assessment & Plan (1) Esophageal stricture: Plan I discussed this case with Dr. Ojeda as well as Rita Howard PAC with the hospitalist team. The concern for placing a peg endoscopically is given the tight stricture that was only dilated to 12mm, the bumper of the peg may not be able to traverse the stricture. As such, there is a risk for perforation or even with this in a patient with multiple comorbidities. I discussed this with the patient who did not offer an opinion on if he wanted to proceed or not. He wanted to discuss with his son. We had attempted to call his son, but there was no answer. Patient tells me that his son is going to stop in today. Can discuss if this attempt is something the patient and family wish to pursue. Further recommendations to follow. Admission and Anticipated Discharge Date Admission Date: September 09, 2024 Subjective GI was asked to come back to see patient. Surgery had seen patient and recommended against surgical placement of feeding tube unless there was failure of an attempt of placement of feeding tube via advanced GI procedures/IR procedure. Patient is more alert today than previously. no nausea, vomiting, abdominal pain. EGD 09/17 with esophageal stenosis. dilation was performed to 12mm. patient tells me that his son is making his medical decisions. Review of Systems Review of Systems: All systems reviewed & are unremarkable except as noted in HPI & below Physical Exam Constitutional: WD/WN, vitals as above Respiratory: normal respiratory effort, lungs clear to auscultation Cardiovascular: Rate/Rhythm: regular rate and regular rhythm Gastrointestinal (Abdomen): normal bowel sounds, soft, nontender, no hepatosplenomegaly Psychiatric: Orientation: alert Results & Data Results & Data Vital Signs (Past 12 Hours) Vital Signs Temp Pulse Pulse Resp BP Pulse Ox O2 Del Method 09/23/24 09:26 58 L 09/23/24 07:33 97.9 F 62 16 130/66 95 Room Air 09/23/24 07:30 Room Air 09/23/24 03:40 97.7 F 59 L 16 119/70 93 Room Air Coding Level of Care Code 41709 SUB INP/OBS CARE 2/35MIN Diagnoses Esophageal stricture K22.2
[2024-09-23 11:53] LABS: ANTI-Xa, UFH(UnfractionatedHep 0.45 IU/ml (0.3-0.7)
--- NOTE | 2024-09-23 14:01 | Hospitalist Progress Note ---
Date of Service September 23, 2024 Assessment & Plan (1) Sepsis: (2) Acute respiratory failure with hypoxia: (3) Pneumonia: (4) Urinary tract infection: (5) Esophagitis: (6) Dysphagia: (7) Malnutrition: Plan The patient is a 78-year-old male with past medical history including hyp ertension, GERD, duodenal ulcer, aspiration pneumonia, BPH, urinary incontinence, diabetes mellitus, esophagitis. His most recently admitted from 06/22-06/26/2024 for sepsis due to urinary tract infection. He was then admitted from 07/04-07/07/2024 for aspiration pneumonia. He presents to the emergency department this time with similar symptoms, and is seen bringing up large volumes of mucus. 09/10 Patient had aspiration event with [employer] with acute decompensation requiring intubation and bedside bronchoscopy. (Details HPI 09/10) Transferred to ICU. extubated on 09/11 and then down graded from ICU 09/12. Patient then had video swallow study done 09/14 with multiple consistency aspirations. Decision was made to proceed with EGD, unfortunately this had to be aborted due to afib RVR with hypotension requiring transfer back to ICU. EGD done 09/17 showed stricture that was dilated. Patient has been kept NPO due to aspirations. PPN was started on 09/18. Lipids added 09/21. Picc line placed 09/23 for patient to able to reach goal feeds. #Sepsis due to pneumonia Pneumonia/aspiration of liquids and solids/ Acute hypoxic respiratory failure MRSA swab negative. Biofire negative. Bronchial Wash: rare saccharomyces. Sputum culture - pseudomonas. Given patient has had 4 days of cefepime, 5 days of Zosyn and 7 days of doxycycline abx were discontinued by critical care team 09/15. Without leukocytosis, remains afebrile - pneumonia has resolved. Repeat CXR 09/20 - mild improvement in aeration of left lung base. Pulmonary vascular congestion VFSS 09/20 - silent aspiration with thin liquids. signs of esophageal dysfunction. If family is agreeable to permissive aspiration for quality of life then pured diet and nectar thick liquids could be considered, otherwise NPO. Continue TPN. Speech rehab potential is low. Palliative has been involved, family not interested in pursuing hospice. General surgery was consulted for feeding tube placement, they do not feel comfortable placing feeding tube when advanced GI options have not been trialed. Family agreeable to transfer - [place] [facility] [place], but [facility] [place] wanted to speak with GI who were not available. Spoke with GI BRETT, they may be able to place PEG tube at our facility, will need to speak to family. Will hold on further transfer efforts until hearing results of this conversation. [employer] to provide speech therapy to pt today. #A fib RVR echo - EF 60-65%. TSH borderline elevated but suspect due to acute illness, will not treat, consider repeat outpatient. Converted to normal sinus after IV amiodarone. Cardiology consulted, discontinue amiodarone - transition to metoprolol tartrate 25mg BID PO when safely able. Continue heparin drip until able to take p.o. then can transition addition to Eliquis. Has maintained sinus rhythm on telemetry #Esophagitis EGD 09/17 - esophageal stenosis s/p dilation. - PEG tube placement unlikely due to esophageal stricture, patient will need repeat dilations, next earliest would be 2-3 weeks from 09/17. Continue PPI #Severe protein-calorie malnutrition patient started PPN therapy 09/18 - pharmacy/nutrition following. PICC placed 09/23 for TPN, as family still wants all measures. 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 B12 and folate WNL. #Weakness - PT/OT recommending rehab, family only wants to take pt home at this time. Discussed 09/22 that if they are going to pursue a feeding tube and rehab would be in his best interest Chronic medical problems: Hyperlipidemia resume atorvastatin when taking p.o. GERD-changed to pantoprazole 40 IV while NPO Dispo: continued inpatient stay, working on establishing safe feeding plan DVT proh: heparin Updated patient's son and at bedside 09/18 & 09/20, 09/22 spoke to by phone 09/21. updated son by phone 09/23. Discussed case with Greg[facility] GI [facility] Admission and Anticipated Discharge Date Admission Date: September 09, 2024 Supervising Physician Co-Signing Physician Notes PA Supervision Note: I did not personally see or examine the patient today, but I verified all smith points of MISHEL Howard's assessment and plan with the following exceptions/additions: None Subjective patient examined this morning, laying in bed. He did work with therapy and stood but did not walk or want to sit in the chair. He denies pain but asked for Tylenol. He does not having any difficulties breathing. When I told him that GI may be able to perform a procedure here he did not give me any response Spoke with Patricio this afternoonstates that he was not contacted by the GI provider yet however briefly explained the situation. Also explained that if the procedure that the patient needs is something that we can offer here we should do it here and it can be very difficult to do a hospital to hospital transfer for procedure that is available at our hospital. He seemed to be understanding of this. I updated JACOB Perkins BRETT that Patricio would be available for their foreseeable future so they could discuss the possible procedure at hand. Will await to hear the determination of their discussion. Telemetry sinus rhythm in the 60s Review of Systems Review of Systems: All systems reviewed & are unremarkable except as noted in Subjective Physical Exam Physical Exam: General: NAD, VS as above, lying in bed ill appearing Resp: normal respiratory effort, on room air, non productive cough CV: RRR, no murmur, Abd: normal bowel sounds, non tender, no hepatosplenomegaly Extremities: Moves all extremities, no edema A&O x2 Results & Data Results & Data Vital Signs (Past 12 Hours) Vital Signs Temp Pulse Pulse Resp BP Pulse Ox O2 Del Method 09/23/24 11:30 97.7 F 66 16 110/54 L 94 Room Air 09/23/24 09:26 58 L 09/23/24 07:33 97.9 F 62 16 130/66 95 Room Air 09/23/24 07:30 Room Air 09/23/24 03:40 97.7 F 59 L 16 119/70 93 Room Air Laboratory Results BMP, mag and Phos reviewed PG Care Time/CCT Total # of Minutes Spent Total Time Spent with Patient: Total time spent is greater than 50% in coordination of care (as documented) at patient's floor/unit and/or counseling patient: Coding Level of Care Code 04023 SUB INP/OBS CARE 3/50MIN Diagnoses Sepsis A41.9 Sepsis acute organ dysfunction status: unspecified Sepsis type: sepsis due to unspecified organism Acute respiratory failure with hypoxia J96.01 Pneumonia J18.9 Urinary tract infection N30.00 Hematuria presence: without hematuria Urinary tract infection type: acute cystitis Esophagitis K20.90 Dysphagia R13.10 Malnutrition E46 (1) Sepsis Sepsis acute organ dysfunction status: unspecified Sepsis type: sepsis due to unspecified organism Qualified Code(s): A41.9 - Sepsis, unspecified organism (4) Urinary tract infection Hematuria presence: without hematuria Urinary tract infection type: acute cystitis Qualified Code(s): N30.00 - Acute cystitis without hematuria
--- NOTE | 2024-09-23 14:09 | Pharmacy Report ---
Pharmacy PN Follow-up Note - Date of Service September 23, 2024 - Subjective Patient is currently on day # 6 of TPN for an esophageal stricture. - Objective Height & Weight (Last Documented) Height 6 ft 1 in Weight 61.5 kg Diet Order(s) 09/17/24 00:01 NPO Intake & Ouput (24hrs) 09/22/24 09/23/24 09/24/24 06:59 06:59 06:59 Intake Total 2423.500 / 2423.500 2610.695 / 2610.695 223.6 / 223.6 Output Total 1050 / 1050 1826 / 1826 Balance 1373.500 / 1373.500 784.695 / 784.695 223.6 / 223.6 Selected Laboratory Results 09/23/24 04:32 Sodium 134 L Potassium 4.4 Chloride 104 Carbon Dioxide 27 Anion Gap 3 BUN 13 Creatinine 0.61 BUN/Creatinine Ratio 21.3 H Glucose 104 H Calcium 8.0 L Phosphorus 3.0 Magnesium 2.1 - Assessment & Plan Assessment: 09/23 * Day #6 of parental nutrition, PICC line inserted today, switched from PPN to TPN formulation today and advanced to target nutritional needs. Appreciate dietary input for macronutrients * Minor adjustments to electrolytes today; Potassium, Magnesium and Phosphorus are all within normal limits. * Final nutrition plan pending, potential transfer to higher level of care 09/22 * Today [place] day #5 of PPN therapy. Case discussed with dietitian and okay to advance to goal macronutrients for PPN today. Advancing to goal will provide patient with almost 2.5 L of fluid per day. Will need to monitor for fluid overload. * Patient is at risk for refeeding. Macronutrients have been titrated up slowly over the past 4 days. Potassium, Magnesium and Phosphorus are all within normal limits. Will monitor closely given increase to goal macros today. * Spoke with BRETT for this patient. Surgery and GI have been consulted for a possible feeding tube. If this cannot be done, consent will be obtained to place a PICC line to start TPN. Hopefully, this can be completed prior to the weekend. Plan: * For Day #6 of PN administration, the following will be ordered: * Macronutrients: * Amino Acids: 85 grams/day * Dextrose: 100 grams/day * Lipids: 50 grams/day * Micronutrients: * Sodium chloride: 100 mEq/day * Sodium acetate: 40 mEq/day * Potassium phosphate: 30 mMol/day * Potassium acetate: 40 mEq/day * Magnesium sulfate: 16.24 mEq/day * Calcium gluconate: 9.3 mEq/day * Multivitamins: 10 mL/day * Trace elements: 1 mL/day * Thiamine: 100 mg/day * Total volume of 1326 mL will be infused over 24 hours and will provide 1455 kcal/day * Labs will be ordered per PN protocol. * Pharmacy will follow and adjust PN orders on a daily basis. Thank you!
[2024-09-23] MEDS: CENTRAL TPN IV SCH (15:22)
[2024-09-23] MEDS: [UNRECOGNIZED DRUG - OTHER] IV SCH (15:22)
[2024-09-23] MEDS: CLINOLIPID 20% IV FAT EMULSION 250 ML IV SCH (15:31)
--- NOTE | 2024-09-23 15:55 | Communication Note ---
Date of Service: September 23, 2024 A&P (1) Esophageal stricture: Patient has a history of a tight esophageal stricture recently dilated. Typically there should be a week to 2 weeks between dilatations. Patient has feeding difficulties and family requesting feeding tube. Typically the diameter esophagus needs to be between 14 [address] a PEG tube. You can dilate and then place PEG tube but there is an increased risk of bleeding and esophageal perforation. Alternatives for PEG placement include surgery and/or IR placement. Surgery has deferred to endoscopic or IR placement. Reviewed with the son by phone Patricio the risks of EGD and dilatation with subsequent PEG placement. Did discuss that we could make an attempt at this. Did discuss the increased risk of bleeding and/or perforation. He would like to proceed with transfer for feeding tube placement such as IR placement. None
--- NOTE | 2024-09-24 08:42 | Communication Note ---
Date of Service: September 24, 2024 Reviewed patient chart. GI service, Dr. Ojeda, discussed with family about possibility of PEG Tube placement although has risk of perforation given e sophageal stricture. Patient's Son requesting transfer to tertiary center for IR placement of feeding tube after discussion yesterday. Given patients age and other medical comorbidities, would again recommend placement of feeding tube via GI/IR techniques and would only recommend surgical placement of feeding tube if those techniques have failed. Agree with transfer for IR placement.
[2024-09-24 09:01] LABS: Hemoglobin 10.9 g/dl (14.0-18.0); Mean Corpuscular Hemoglobin 31.1 pg (25.0-34.0); Mean Corpuscular Volume 94.3 fL (80.0-100.0); Mean Platelet Volume 11.1 fL (9.4-12.4); Platelet Count 155 K/uL (130-400); RDW Coefficient of Variation 15.6 % (11.5-14.5); RDW Standard Deviation 54.3 fL (36.4-46.3); White Blood Count 5.71 K/ul (4.8-10.8)
--- NOTE | 2024-09-24 09:07 | Communication Note ---
Date of Service: September 24, 2024 Discussed care plan with Dr Monae. Pt to be transferred for PEG placement and ongoing care. Palliative care will sign off on this patient as goals of care are clearly established for DNR/DNI but continue all other life prolonging therapies. Thank you for including Palliative Care in the management of this patient. Please call with any questions or concerns regarding this consultation.
[2024-09-24 09:18] LABS: ANTI-Xa, UFH(UnfractionatedHep 0.56 IU/ml (0.3-0.7)
[2024-09-24 09:36] LABS: Bilirubin,Total 0.4 mg/dl (0.2-1.0); Calcium 8.4 mg/dl (8.6-10.3); Magnesium 1.9 mg/dl (1.7-2.4); Potassium 4.4 mmol/L (3.5-5.1)
[2024-09-24 09:42] LABS: BUN Creatinine Ratio 27.9 (10-20); Creatinine Clr Calc Pharmacy 88.9 ml/min; Phosphorus 3.6 mg/dl (2.5-4.9)
--- NOTE | 2024-09-24 13:28 | Hospitalist Progress Note ---
Date of Service September 24, 2024 Assessment & Plan (1) Sepsis: (2) Acute respiratory failure with hypoxia: (3) Pneumonia: (4) Urinary tract infection: (5) Esophagitis: (6) Dysphagia: (7) Malnutrition: Plan The patient is a 78-year-old male with past medical history including hyp ertension, GERD, duodenal ulcer, aspiration pneumonia, BPH, urinary incontinence, diabetes mellitus, esophagitis. His most recently admitted from 06/22-06/26/2024 for sepsis due to urinary tract infection. He was then admitted from 07/04-07/07/2024 for aspiration pneumonia. He presents to the emergency department this time with similar symptoms, and is seen bringing up large volumes of mucus. 09/10 Patient had aspiration event with [employer] with acute decompensation requiring intubation and bedside bronchoscopy. (Details HPI 09/10) Transferred to ICU. extubated on 09/11 and then down graded from ICU 09/12. Patient then had video swallow study done 09/14 with multiple consistency aspirations. Decision was made to proceed with EGD, unfortunately this had to be aborted due to afib RVR with hypotension requiring transfer back to ICU. EGD done 09/17 showed stricture that was dilated. Patient has been kept NPO due to aspirations. PPN was started on 09/18. Lipids added 09/21. Picc line placed 09/23 for patient to able to reach goal feeds. #Sepsis due to pneumonia Pneumonia/aspiration of liquids and solids/ Acute hypoxic respiratory failure MRSA swab negative. Biofire negative. Bronchial Wash: rare saccharomyces. Sputum culture - pseudomonas. Completed 4 days of cefepime, 5 days of Zosyn and 7 days of doxycycline abx were discontinued by critical care team 09/15. Without leukocytosis, remains afebrile - pneumonia has resolved. Repeat CXR 09/20 - mild improvement in aeration of left lung base. Pulmonary vascular congestion VFSS 09/20 - silent aspiration with thin liquids. signs of esophageal dysfunction. If family is agreeable to permissive aspiration for quality of life then pured diet and nectar thick liquids could be considered, otherwise NPO. Continue TPN. Continue speech therapy. Palliative has been involved, family not interested in pursuing hospice. General surgery was consulted for feeding tube placement, they do not feel comfortable placing feeding tube when advanced GI options have not been trialed. Family agreeable to transfer - transfer attempted [place] [facility] [place], but [facility] [place] wanted to speak with GI who were not available. Repeated transfer call 09/23 with GI and [facility] wanted us to confirm no surgical options here. This was confirmed AM 09/24, requested to transfer to [facility] this morning, but do not want to take him over the weekend, advised to call Friday. #A fib RVR echo - EF 60-65%. TSH borderline elevated but suspect due to acute illness, will not treat, consider repeat outpatient. Converted to normal sinus after IV amiodarone. Cardiology consulted, discontinue amiodarone - transition to metoprolol tartrate 25mg BID PO when safely able. Continue heparin drip until able to take p.o. then can transition addition to Eliquis. Has maintained sinus rhythm on telemetry #Esophagitis EGD 09/17 - esophageal stenosis s/p dilation. - PEG tube placement unlikely due to esophageal stricture, patient will need repeat dilations, next earliest would be 2-3 weeks from 09/17. Continue PPI #Severe protein-calorie malnutrition patient started PPN therapy 09/18 - pharmacy/nutrition following. PICC placed 09/23 for TPN, as family still wants all measures. Continue to monitor mag, phos, LFTs, BMP with TPN #Anemia Hgb stable 10.9 Fe studies consistent with mixed iron deficiency and chronic disease. B12 and folate WNL. #Weakness - PT/OT recommending rehab, family only wants to take pt home at this time. Discussed 09/22 that if they are going to pursue a feeding tube and rehab would be in his best interest Chronic medical problems: Hyperlipidemia resume atorvastatin when taking p.o. GERD-changed to pantoprazole 40 IV while NPO Dispo: continued inpatient stay, working on establishing safe feeding plan DVT proh: heparin Updated patient's son and at bedside 09/18 & 09/20, 09/22 spoke to by phone 09/21. updated son by phone 09/23 & 09/24 Discussed with CM and transfer center Admission and Anticipated Discharge Date Admission Date: September 09, 2024 Supervising Physician Co-Signing Physician Notes PA Supervision Note: I did not personally see or examine the patient today, but I verified all smith points of MISHEL Howard's assessment and plan with the following exceptions/additions: None Subjective Patient seen lying in bed, appears more fatigued today. Denies any pain for me. Told him that we would not be able to transfer him until Friday and he does not was provide any response to this. I asked him if he was going to get up to the chair today and his response was "do I have to". I told him he does not have to do anything but I would encourage him to do so if he wants to get better that is going to have surgery for a feeding tube. Spoke with Patricio in regards to an updateshe is aware of what I have undergone to get patient transferred and that patient will not be accepted at [facility] over the weekend due to procedure is not going to be performed on it nonemergent basis. Patricio relays to me that he has been speaking to the [facility] about possibly taking his dad there as he tells me they are ranked further GI services. I relayed that he is happy to take his father there however I have a facility that should accept him and I do not feel the need to call [facility] at this time. He was understanding and will reevaluate on Friday. Telemetry sinus rhythm with PVCs in the 70 Review of Systems Review of Systems: All systems reviewed & are unremarkable except as noted in Subjective Physical Exam Physical Exam: General: NAD, VS as above, lying in bed ill appearing Resp: normal respiratory effort, on room air, no cough during exam today CV: RRR, no murmur, Abd: normal bowel sounds, non tender Extremities: Moves all extremities, no edema A&O x2 Results & Data Results & Data Vital Signs (Past 12 Hours) Vital Signs Temp Pulse Pulse Resp BP BP Pulse Ox 09/24/24 11:35 97.9 F 63 17 112/64 97 09/24/24 07:48 97.7 F 66 18 128/78 94 09/24/24 07:40 09/24/24 07:25 57 L 16 96 09/24/24 07:00 59 L 09/24/24 04:00 97.7 F 67 18 139/75 99 O2 Del Method 09/24/24 11:35 Room Air 09/24/24 07:48 Room Air 09/24/24 07:40 Room Air 09/24/24 07:25 Room Air 09/24/24 07:00 09/24/24 04:00 Room Air Laboratory Results CBC and chemistry and LFTs and triglycerides reviewed PG Care Time/CCT Total # of Minutes Spent Total Time Spent with Patient: Total time spent is greater than 50% in coordination of care (as documented) at patient's floor/unit and/or counseling patient: Coding Level of Care Code 89082 SUB INP/OBS CARE 3/50MIN Diagnoses Sepsis A41.9 Sepsis acute organ dysfunction status: unspecified Sepsis type: sepsis due to unspecified organism Acute respiratory failure with hypoxia J96.01 Pneumonia J18.9 Urinary tract infection N30.00 Hematuria presence: without hematuria Urinary tract infection type: acute cystitis Esophagitis K20.90 Dysphagia R13.10 Malnutrition E46 (1) Sepsis Sepsis acute organ dysfunction status: unspecified Sepsis type: sepsis due to unspecified organism Qualified Code(s): A41.9 - Sepsis, unspecified organism (4) Urinary tract infection Hematuria presence: without hematuria Urinary tract infection type: acute cystitis Qualified Code(s): N30.00 - Acute cystitis without hematuria
[2024-09-24] MEDS: [UNRECOGNIZED DRUG - OTHER] IV SCH (15:38)
[2024-09-24] MEDS: CLINOLIPID 20% IV FAT EMULSION 250 ML IV SCH (15:38)
[2024-09-24] MEDS: CENTRAL TPN IV SCH (15:38)
[2024-09-24] MEDS: ACETAMINOPHEN 1,000 MG/100 ML VIAL IV PRN (22:38)
[2024-09-25 07:43] LABS: ANTI-Xa, UFH(UnfractionatedHep 0.37 IU/ml (0.3-0.7)
[2024-09-25 08:02] LABS: BUN Creatinine Ratio 33.3 (10-20); Calcium 8.4 mg/dl (8.6-10.3); Creatinine Clr Calc Pharmacy 89.1 ml/min; Magnesium 1.8 mg/dl (1.7-2.4); Phosphorus 3.7 mg/dl (2.5-4.9); Potassium 4.4 mmol/L (3.5-5.1)
--- NOTE | 2024-09-25 10:19 | Communication Note ---
Date of Service: September 25, 2024 A&P (1) Sepsis: Sepsis acute organ dysfunction status: unspecified Sepsis type: sepsis due to unspecified organism Qualified Code(s): A41.9 - Sepsis, unspecified organism None (2) Acute respiratory failure with hypoxia: None (3) Pneumonia: Acute (4) Urinary tract infection: Hematuria presence: without hematuria Urinary tract infection type: acute cystitis Qualified Code(s): N30.00 - Acute cystitis without hematuria None (5) Esophagitis: Acute (6) Dysphagia: None (7) Malnutrition: None (8) Esophageal stricture: He reviewed progress notes. Was on the call with [facility] in regards to transfer. I believe plan is to transfer him after the weekend. Patient has feeding difficulties. Placement of typical PEG hampered by significant esophageal stricture at 12 mm. At this point GI signs off. Reconsult as needed. Post PEG placement by IR I assume patient could consider repeat endoscopy for esophageal dilatation in 3 to 4 weeks to increase esophageal patency and allow comfort foods. None Assessment and Plan Assessment and plan (1) Sepsis: Status: None (2) Acute respiratory failure with hypoxia: Status: None (3) Pneumonia: Status: Acute (4) Urinary tract infection: Status: None (5) Esophagitis: Status: Acute (6) Dysphagia: Status: None (7) Malnutrition: Status: None (8) Esophageal stricture: Status: None
--- NOTE | 2024-09-25 13:05 | Hospitalist Progress Note ---
Date of Service September 25, 2024 Assessment & Plan (1) Sepsis: (2) Acute respiratory failure with hypoxia: (3) Pneumonia: (4) Urinary tract infection: (5) Esophagitis: (6) Dysphagia: (7) Malnutrition: Plan The patient is a 78-year-old male with past medical history including hyp ertension, GERD, duodenal ulcer, aspiration pneumonia, BPH, urinary incontinence, diabetes mellitus, esophagitis. His most recently admitted from 06/22-06/26/2024 for sepsis due to urinary tract infection. He was then admitted from 07/04-07/07/2024 for aspiration pneumonia. He presents to the emergency department this time with similar symptoms, and is seen bringing up large volumes of mucus. 09/10 Patient had aspiration event with [employer] with acute decompensation requiring intubation and bedside bronchoscopy. (Details HPI 09/10) Transferred to ICU. extubated on 09/11 and then down graded from ICU 09/12. Patient then had video swallow study done 09/14 with multiple consistency aspirations. Decision was made to proceed with EGD, unfortunately this had to be aborted due to afib RVR with hypotension requiring transfer back to ICU. EGD done 09/17 showed stricture that was dilated. Patient has been kept NPO due to aspirations. PPN was started on 09/18. Lipids added 09/21. Picc line placed 09/23 for patient to able to reach goal feeds. #Sepsis due to pneumonia Pneumonia/aspiration of liquids and solids/ Acute hypoxic respiratory failure MRSA swab negative. Biofire negative. Bronchial Wash: rare saccharomyces. Sputum culture - pseudomonas. Completed 4 days of cefepime, 5 days of Zosyn and 7 days of doxycycline abx were discontinued by critical care team 09/15. Without leukocytosis, remains afebrile - pneumonia has resolved. Repeat CXR 09/20 - mild improvement in aeration of left lung base. Pulmonary vascular congestion SHould follow CXR to resolution of infiltrate in 4-6 weeks VFSS 09/20 - silent aspiration with thin liquids. signs of esophageal dysfunction. If family is agreeable to permissive aspiration for quality of life then pured diet and nectar thick liquids could be considered, otherwise NPO. Continue TPN. Continue speech therapy. Palliative has been involved, family not interested in pursuing hospice. General surgery was consulted for feeding tube placement, they do not feel comfortable placing feeding tube when advanced GI options have not been trialed. Family agreeable to transfer - transfer attempted to [facility] evening 09/22, but [facility] MD wanted to speak with GI who were not available. Repeated transfer call 09/23 with GI and [facility] wanted us to confirm no surgical options here. This was confirmed AM 09/24, requested to transfer to [facility] this morning, but do not want to take him over the weekend, advised to call Friday. Patient is still awaiting transfer to [facility]. #A fib RVR echo - EF 60-65%. TSH borderline elevated but suspect due to acute illness, will not treat, consider repeat outpatient. Converted to normal sinus after IV amiodarone. Cardiology consulted, discontinue amiodarone - transition to metoprolol tartrate 25mg BID PO when safely able. Continue heparin drip until able to take p.o. then transition to Eliquis. Has maintained sinus rhythm on telemetry #Esophagitis EGD 09/17 - esophageal stenosis s/p dilation. - PEG tube placement unlikely due to esophageal stricture, patient will need repeat dilations, next earliest would be 2-3 weeks from 09/17. Continue PPI #Severe protein-calorie malnutrition patient started PPN therapy 09/18 - pharmacy/nutrition following. PICC placed 09/23 for TPN, as family still wants all measures. 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 B12 and folate WNL. #Weakness - PT/OT recommending rehab, family only wants to take pt home at this time. Discussed 09/22 that if they are going to pursue a feeding tube and rehab would be in his best interest Chronic medical problems: Hyperlipidemia resume atorvastatin when taking p.o. GERD-changed to pantoprazole 40 IV while NPO Dispo: continued inpatient stay, working on establishing safe feeding plan DVT proh: heparin Updated patient's son and at bedside 09/18 & 09/20, 09/22 spoke to by phone 09/21. updated son by phone 09/23 & 09/24 Discussed with CM and transfer center Admission and Anticipated Discharge Date Admission Date: September 09, 2024 Supervising Physician Co-Signing Physician Notes PA Supervision Note: I did not personally see or examine the patient today, but I verified all smith points of MISHEL Howard's assessment and plan with the following exceptions/additions: None Subjective Patient seen lying diagonally in the bed. He denies any acute acute complaints. No cough during my exam today. Again encouraged to sit up to the chair today and he does not seem interested. RN states she is going to try. Telemetry sinus rhythm in the 70s Review of Systems Review of Systems: All systems reviewed & are unremarkable except as noted in Subjective Physical Exam Physical Exam: General: NAD, VS as above, lying in bed ill appearing Resp: normal respiratory effort, on room air, no cough during exam today CV: RRR, no murmur, Abd: normal bowel sounds, non tender Extremities: Moves all extremities, no edema A&O x2 Results & Data Results & Data Vital Signs (Past 12 Hours) Vital Signs Temp Pulse Pulse Resp BP Pulse Ox O2 Del Method 09/25/24 11:24 97.5 F L 68 18 114/63 93 Room Air 09/25/24 09:45 64 09/25/24 08:48 Room Air 09/25/24 07:15 97.2 F L 69 18 109/50 L 92 Room Air 09/25/24 02:53 97.9 F 67 18 126/72 92 Room Air Laboratory Results chemistry mag and Phos reviewed PG Care Time/CCT Total # of Minutes Spent Total Time Spent with Patient: Total time spent is greater than 50% in coordination of care (as documented) at patient's floor/unit and/or counseling patient: Coding Level of Care Code 21511 SUB INP/OBS CARE 2/35MIN Diagnoses Sepsis A41.9 Sepsis acute organ dysfunction status: unspecified Sepsis type: sepsis due to unspecified organism Acute respiratory failure with hypoxia J96.01 Pneumonia J18.9 Urinary tract infection N30.00 Hematuria presence: without hematuria Urinary tract infection type: acute cystitis Esophagitis K20.90 Dysphagia R13.10 Malnutrition E46 (1) Sepsis Sepsis acute organ dysfunction status: unspecified Sepsis type: sepsis due to unspecified organism Qualified Code(s): A41.9 - Sepsis, unspecified organism (4) Urinary tract infection Hematuria presence: without hematuria Urinary tract infection type: acute cystitis Qualified Code(s): N30.00 - Acute cystitis without hematuria
[2024-09-25] MEDS: [UNRECOGNIZED DRUG - OTHER] IV SCH (16:05)
[2024-09-25] MEDS: CENTRAL TPN IV SCH (16:05)
[2024-09-25] MEDS: CLINOLIPID 20% IV FAT EMULSION 250 ML IV SCH (16:06)
[2024-09-26 08:34] LABS: BUN Creatinine Ratio 34.9 (10-20); Calcium 8.6 mg/dl (8.6-10.3); Creatinine Clr Calc Pharmacy 84.9 ml/min; Magnesium 1.8 mg/dl (1.7-2.4); Phosphorus 3.5 mg/dl (2.5-4.9); Potassium 4.3 mmol/L (3.5-5.1)
[2024-09-26 08:43] LABS: ANTI-Xa, UFH(UnfractionatedHep 0.43 IU/ml (0.3-0.7)
--- NOTE | 2024-09-26 14:56 | Hospitalist Progress Note ---
Date of Service September 26, 2024 Assessment & Plan (1) Sepsis: (2) Acute respiratory failure with hypoxia: (3) Pneumonia: (4) Urinary tract infection: (5) Esophagitis: (6) Dysphagia: (7) Malnutrition: Plan The patient is a 78-year-old male with past medical history including hyp ertension, GERD, duodenal ulcer, aspiration pneumonia, BPH, urinary incontinence, diabetes mellitus, esophagitis. His most recently admitted from 06/22-06/26/2024 for sepsis due to urinary tract infection. He was then admitted from 07/04-07/07/2024 for aspiration pneumonia. He presents to the emergency department this time with similar symptoms, and is seen bringing up large volumes of mucus. 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 (Details HPI 09/10) Transferred to ICU. extubated on 09/11 and then down graded from ICU 09/12. Patient then had video swallow study done 09/14 with multiple consistency aspirations. Decision was made to proceed with EGD, unfortunately this had to be aborted due to afib RVR with hypotension requiring transfer back to ICU. EGD done 09/17 showed stricture that was dilated. Patient has been kept NPO due to aspirations. PPN was started on 09/18. Lipids added 09/21. Picc line placed 09/23 for patient to able to reach goal feeds. #Sepsis due to pneumonia Pneumonia/aspiration of liquids and solids/ Acute hypoxic respiratory failure MRSA swab negative. Biofire negative. Bronchial Wash: rare saccharomyces. Sputum culture - pseudomonas. Completed 4 days of cefepime, 5 days of Zosyn and 7 days of doxycycline abx were discontinued by critical care team 09/15. Without leukocytosis, remains afebrile - pneumonia has resolved. Repeat CXR 09/20 - mild improvement in aeration of left lung base. Pulmonary vascular congestion. Should follow CXR to resolution of infiltrate in 4-6 weeks VFSS 09/20 - silent aspiration with thin liquids. signs of esophageal dysfunction. If family is agreeable to permissive aspiration for quality of life then pured diet and nectar thick liquids could be considered, otherwise NPO. Continue TPN. Continue speech therapy Palliative has been involved, family not interested in pursuing hospice. General surgery was consulted for feeding tube placement, they do not feel comfortable placing feeding tube when advanced GI options have not been trialed. Family agreeable to transfer - transfer attempted to [facility] evening 09/22, but [facility] MD wanted to speak with GI who were not available. Repeated transfer call 09/23 with GI and [facility] wanted us to confirm no surgical options here. This was confirmed AM 09/24, requested to transfer to [facility] this morning, but do not want to take him over the weekend, advised to call Friday. Patient is still awaiting transfer to [facility]. to call again tomorrow morning. #A fib RVR echo - EF 60-65%. TSH borderline elevated but suspect due to acute illness, will not treat, consider repeat outpatient. Converted to normal sinus after IV amiodarone. Cardiology consulted, discontinue amiodarone - transition to metoprolol tartrate 25mg BID PO when safely able. Continue heparin drip until able to take p.o. then transition to Eliquis. Has maintained sinus rhythm on telemetry #Esophagitis EGD 09/17 - esophageal stenosis s/p dilation. - PEG tube placement unlikely due to esophageal stricture, patient will need repeat dilations, next earliest would be 2-3 weeks from 09/17. Continue PPI #Severe protein-calorie malnutrition patient started PPN therapy 09/18 - pharmacy/nutrition following. PICC placed 09/23 for TPN, as family still wants all measures. 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 B12 and folate WNL. #Weakness - PT/OT recommending rehab, family only wants to take pt home at this time. Discussed 09/22 that if they are going to pursue a feeding tube and rehab would be in his best interest Chronic medical problems: Hyperlipidemia resume atorvastatin when taking p.o. GERD-changed to pantoprazole 40 IV while NPO Dispo: continued inpatient stay, working on establishing safe feeding plan DVT proh: heparin Updated patient's son and at bedside 09/18 & 09/20, 09/22 spoke to by phone 09/21. updated son by phone 09/23 & 09/24 Admission and Anticipated Discharge Date Admission Date: September 09, 2024 Subjective patient seen lying in bed. less conversing today. No complaints of pain RN and CLERGY MEMBER reports not communicating and not wanting to engage in Speech therapy. Rn reports pt has verablized since then, no concerns for stroke. tele SR 70s Review of Systems Review of Systems: All systems reviewed & are unremarkable except as noted in Subjective Physical Exam Physical Exam: General: NAD, VS as above, lying in bed ill appearing Resp: normal respiratory effort, on room air, no cough during exam today CV: RRR, no murmur, Abd: normal bowel sounds, non tender Extremities: Moves all extremities, no edema A&O x2 Results & Data Results & Data Vital Signs (Past 12 Hours) Vital Signs Temp Pulse Resp BP Pulse Ox O2 Del Method 09/26/24 12:25 97.5 F L 68 18 115/74 92 Room Air 09/26/24 10:59 Room Air 09/26/24 08:03 97.3 F L 71 16 129/68 93 Room Air Laboratory Results BMP mag phos reviewed PG Care Time/CCT Total # of Minutes Spent Total Time Spent with Patient: Total time spent is greater than 50% in coordination of care (as documented) at patient's floor/unit and/or counseling patient: Coding Level of Care Code 62580 SUB INP/OBS CARE 2/35MIN Diagnoses Sepsis A41.9 Sepsis acute organ dysfunction status: unspecified Sepsis type: sepsis due to unspecified organism Acute respiratory failure with hypoxia J96.01 Pneumonia J18.9 Urinary tract infection N30.00 Hematuria presence: without hematuria Urinary tract infection type: acute cystitis Esophagitis K20.90 Dysphagia R13.10 Malnutrition E46 (1) Sepsis Sepsis acute organ dysfunction status: unspecified Sepsis type: sepsis due to unspecified organism Qualified Code(s): A41.9 - Sepsis, unspecified organism (4) Urinary tract infection Hematuria presence: without hematuria Urinary tract infection type: acute cystitis Qualified Code(s): N30.00 - Acute cystitis without hematuria
[2024-09-26] MEDS: CLINOLIPID 20% IV FAT EMULSION 250 ML IV SCH (17:53)
[2024-09-26] MEDS: CENTRAL TPN IV SCH (21:01)
[2024-09-26] MEDS: [UNRECOGNIZED DRUG - OTHER] IV SCH (21:01)
[2024-09-27 07:36] VITALS: PULSE 63; RESP 20; O2SAT 94
[2024-09-27 10:07] LABS: ANTI-Xa, UFH(UnfractionatedHep 0.41 IU/ml (0.3-0.7); BUN Creatinine Ratio 36.2 (10-20); Calcium 8.8 mg/dl (8.6-10.3); Creatinine Clr Calc Pharmacy 74.9 ml/min; Magnesium 1.8 mg/dl (1.7-2.4); Phosphorus 3.9 mg/dl (2.5-4.9); Potassium 4.3 mmol/L (3.5-5.1)
[2024-09-27 11:32] VITALS: BP 96/62; TEMP 97.5
--- NOTE | 2024-09-27 12:20 | Discharge Summary ---
Discharge Summary Date of Service September 27, 2024 Principal Dx & Hospital Course #1 = Principal Diagnosis (1) Sepsis: (2) Acute respiratory failure with hypoxia: (3) Pneumonia: (4) Urinary tract infection: (5) Esophagitis: (6) Dysphagia: (7) Malnutrition: Plan The patient is a 78-year-old male with past medical history including hypertension, GERD, duodenal ulcer, aspiration pneumonia, BPH, urinary incontinence, diabetes mellitus, esophagitis. His most recently admitted from 06/22-06/26/2024 for sepsis due to urinary tract infection. He was then admitted from 07/04-07/07/2024 for aspiration pneumonia. He presents to the emergency department this time with similar symptoms, and is seen bringing up large volumes of mucus. 09/10 Patient had aspiration event with [employer]IAISON with acute decompensation requiring intubation and bedside bronchoscopy. (Details HPI 09/10) Transferred to ICU. extubated on 09/11 and then down graded from ICU 09/12. Patient then had video swallow study done 09/14 with multiple consistency aspirations. Decision was made to proceed with EGD, unfortunately this had to be aborted due to afib RVR with hypotension requiring transfer back to ICU. EGD done 09/17 showed stricture that was dilated. Patient has been kept NPO due to aspirations. PPN was started on 09/18. Lipids added 09/21. Picc line placed 09/23 for patient to able to reach goal feeds. #Sepsis due to pneumonia Pneumonia/aspiration of liquids and solids/ Acute hypoxic respiratory failure MRSA swab negative. Biofire negative. Bronchial Wash: rare saccharomyces. Sputum culture - pseudomonas. Completed 4 days of cefepime, 5 days of Zosyn and 7 days of doxycycline abx were discontinued by critical care team 09/15. Without leukocytosis, remains afebrile - pneumonia has resolved. Repeat CXR 09/20 - mild improvement in aeration of left lung base. Pulmonary vascular congestion. Should follow CXR to resolution of infiltrate in 4-6 weeks VFSS 09/20 - silent aspiration with thin liquids. signs of esophageal dysfu nction. If family is agreeable to permissive aspiration for quality of life then pured diet and nectar thick liquids could be considered, otherwise NPO. Continue TPN. Continue speech therapy Palliative has been involved, family not interested in pursuing hospice. General surgery was consulted for feeding tube placement, they do not feel comfortable placing feeding tube when advanced GI options have not been trialed. Family agreeable to transfer - transfer attempted to [facility] evening 09/22, but [facility] MD wanted to speak with GI who were not available. Repeated transfer call 09/23 with GI and [facility] wanted us to confirm no surgical options here. This was confirmed AM 09/24, requested to transfer to [facility] this morning, but do not want to take him over the weekend, advised to call Friday. Spoke w/ [facility] 09/27 who accepted patient for transfer. #A fib RVR echo - EF 60-65%. TSH borderline elevated but suspect due to acute illness, will not treat, consider repeat outpatient. Converted to normal sinus after IV amiodarone. Cardiology consulted, discontinue amiodarone - transition to metoprolol tartrate 25mg BID PO when safely able. Continue heparin drip until able to take p.o. then transition to Eliquis. Has maintained sinus rhythm on telemetry #Esophagitis EGD 09/17 - esophageal stenosis s/p dilation. - PEG tube placement unlikely due to esophageal stricture, patient will need repeat dilations, next earliest would be 2-3 weeks from 09/17. Continue PPI #Severe protein-calorie malnutrition patient started PPN therapy 09/18 - pharmacy/nutrition following. PICC placed 09/23 for TPN, as family still wants all measures. 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 B12 and folate WNL. #Weakness - PT/OT recommending rehab, family only wants to take pt home at this time. Discussed 09/22 that if they are going to pursue a feeding tube, rehab would be in his best interest Chronic medical problems: Hyperlipidemia resume atorvastatin when taking p.o. GERD-changed to pantoprazole 40 IV while NPO Updated patient's son that patient was accepted at [facility] 09/27 and he will be transported via [facility]. All questions answered at time of call. Admission HPI Per Admitting Provider The patient is a 78-year-old male with past medical history including hypertension, GERD, duodenal ulcer, aspiration pneumonia, BPH, urinary incontinence, diabetes mellitus, esophagitis. His most recently admitted from 06/22-06/26/2024 for sepsis due to urinary tract infection. He was then admitted from 07/04-07/07/2024 for aspiration pneumonia. He presents to the emergency department this time with similar symptoms, and is seen bringing up large volumes of mucus. The patient himself is confused, and unable to contribute significantly to HPI or review of systems Discharge Exam General: NAD, VS as above, lying in bed ill appearing Resp: normal respiratory effort, on room air, no cough during exam today CV: RRR, no murmur, Abd: normal bowel sounds, non tender Extremities: Moves all extremities, no edema A&O x2 Discharge Plan Discharge Items Patient Disposition: Transfer Acute Care Hospital Reason For Visit: HAP,UTI Discharge Diagnosis: esophageal stricture, dysphagia Activity: Resume your previous activity Non-emergency contact: Primary Care Provider Call non-emergency contact if: you have any medication questions, your pain is not controlled, your pain is worsening and your pain is unusual for you Follow-up/Referrals: Emili South, [Primary Care Provider] - (f/u after d/c from [facility] ) Diet: Nothing by Mouth Addtl Attending Provider Instructions: Mr. Bates - you were hospitalized after having pneumonia, this is likely from aspiration. You were also found to have an esophageal stricture. Unfortunately at this time there is no safe diet for you to take things by mouth. For this reason, your family has opted for placing a permament feeding tube. We do not have capacity to place this here and you will be transferred to [place] to have this placed. Follow up appointments and medications will be determine by [place]. For [place]: - no living will, default POA but has given those decision making teixeira to Son Patricio - had episode of afib RVR, has been on heparin drip. Eliquis when can take PO. has been sinus - last EGD with dilation 09/17 - PPN initiated 09/18, switched to TPN 09/23 - pt is a full code Pending Studies at Discharge: No Stand-Alone Forms: My [facility] Skilled Items Patient informed of condition?: Yes DNR: No Discharge Level of Care: Other Communicable Disease: No Discharge Prognosis: Stable Lines: PICC Urinary Catheter: No Medications and DC Order Prescriptions: No Action No Known Home Medications Discharge Orders: Discharge Order (Routine); Ordered 09/27/24 Ordered By: Dania Chen Admission Data Admit Date/Time: 09/09/24 19:35 Attending Provider: Adarsh Warner Admit Provider: Cory Jacobson Primary Care Provider: Emili South Other Providers: Cory Jacobson; Radha Darling Jr; Michael Ty; Angelo Nunez Hospital Stay Data Consultations 09/09/24 19:10 ED Decision to Admit Stat 09/11/24 08:35 Consult Gastroenterology Routine 09/13/24 17:55 Consult Patient Services Routine 09/15/24 17:10 Consult Palliative Care Routine 09/20/24 09:32 Consult Cardiology Routine 09/21/24 16:00 Consult General Surgery Routine Procedures Performed Operation Date: 09/24/24 16:30 <No data on this case meets the specified criteria> Diagnostic Imagining Performed 09/14/24 13:00 FL video swallow Routine 09/20/24 10:00 FL video swallow Routine Pending Results Patient Have Any Pending Studies at Discharge: No Discharge Instructions Given to Patient (Per Discharging Provider) Mr. Bates - you were hospitalized after having pneumonia, this is likely from aspiration. You were also found to have an esophageal stricture. Unfortunately at this time there is no safe diet for you to take things by mouth. For this reason, your family has opted for placing a permament feeding tube. We do not have capacity to place this here and you will be transferred to [place] to have this placed. Follow up appointments and medications will be determine by [place]. For [place]: - no living will, default POA but has given those decision making teixeira to Son Patricio - had episode of afib RVR, has been on heparin drip. Eliquis when can take PO. has been sinus - last EGD with dilation 09/17 - PPN initiated 09/18, switched to TPN 09/23 - pt is a full code Total Time Total Time Spent Total Time Spent (In Minutes): 60 Total Time Includes: Examination of the Patient, Discharge Planning, Medication Reconciliation and Communication With Other Providers Coding Level of Care Code 30670 INP/OBS DISCH >30 MIN Diagnoses Sepsis A41.9 Sepsis acute organ dysfunction status: unspecified Sepsis type: sepsis due to unspecified organism Acute respiratory failure with hypoxia J96.01 Pneumonia J18.9 Urinary tract infection N30.00 Hematuria presence: without hematuria Urinary tract infection type: acute cystitis Esophagitis K20.90 Dysphagia R13.10 Malnutrition E46
== END 2024-09-27 15:29 | disposition short-term general hospital (02) | DRG 871 ==
LOC: ED 14:19 → SUATTDRO 19:35 → EDINP 19:35 → 1E 21:48 → 4W 09-15 06:01 → 1E 09-15 12:03 → 4W 09-17 19:05 → 2N 09-21 18:24
DX: J98.11 Atelectasis; F17.210 Nicotine dependence, cigarettes, uncomplicated; J96.01 Acute respiratory failure with hypoxia; E87.6 Hypokalemia; I10 Essential (primary) hypertension; K20.90 Esophagitis, unspecified without bleeding; E43 Unspecified severe protein-calorie malnutrition; I48.91 Unspecified atrial fibrillation; Z99.11 Dependence on respirator [ventilator] status; A41.9 Sepsis, unspecified organism; D64.9 Anemia, unspecified; R13.10 Dysphagia, unspecified; I48.0 Paroxysmal atrial fibrillation; Z68.1 Body mass index [BMI] 19.9 or less, adult; Y92.019 Unspecified place in single-family (private) house as the place of occurrence of the external cause; K22.2 Esophageal obstruction; N40.0 Benign prostatic hyperplasia without lower urinary tract symptoms; J43.9 Emphysema, unspecified; R64 Cachexia; R32 Unspecified urinary incontinence; G93.41 Metabolic encephalopathy; T17.500A Unspecified foreign body in bronchus causing asphyxiation, initial encounter; J69.0 Pneumonitis due to inhalation of food and vomit; B96.5 Pseudomonas (aeruginosa) (mallei) (pseudomallei) as the cause of diseases classified elsewhere; E86.0 Dehydration; N39.0 Urinary tract infection, site not specified; R65.21 Severe sepsis with septic shock; E11.9 Type 2 diabetes mellitus without complications; K26.9 Duodenal ulcer, unspecified as acute or chronic, without hemorrhage or perforation

== ENCOUNTER 2024-10-03 18:00 | Inpatient (IN) ==
[2024-10-04] MEDS ORDERED: ONDANSETRON INJ 2 MG/ML 2 ML VIAL IV PRN (01:49)
--- NOTE | 2024-10-04 01:49 | History & Physical Report ---
Date of Service October 04, 2024 Assessment & Plan (1) Aspiration into airway: Plan: 78[place] [facility] [place] PEG tube performed 09/28/24 -Maintain aspiration precautions -Resume tube feeds -Nutrition consultation appreciated -Was on FiberSourceHN 1320mL/day- goal rate of 55mL//hr, starting rate 25mL/hr (2) Malnutrition: Plan: Patient has had PEG tube placed -Check labs -Nutrition consultation appreciated -Resume feeds, advance as tolerated (3) Paroxysmal atrial fibrillation: Plan: Chronic. Rate controlled -Continue Apixaban (4) Esophageal stricture: Plan: Chronic -Continue Protonix and Sucralfate History of Present Illness Chief Complaint: s/p PEG tube placement Primary Care Provider: Emili South DO 78yo male with history of HTN, PAF, GERD and recurrent aspiration with pneumonia, severe protein-calorie malnutrition due to oropharyngeal dysphagia and esophageal stricture. Patient admitted to [facility] 09/09/24 after presenting with productive cough. Patient had an aspiration event on 09/10/24 resulting in respiratory failure requiring brief intubation. He was extubated 09/11/24. He was treated for Pseudomonas PNA with Cefepime/Zosyn/Doxycycline. Video swallow performed on 09/14/24 confirming aspiration. Patient had an EGD performed on 09/17/24 which revealed an esophageal stricture which was dilated. He was managed with PPN. On 09/27/24 he was transferred [place] [facility] percutaneous gastrostomy tube for administration of feeds and medications. This was performed on 09/28/24. Tube feeds have been initiated and tolerated per review [place] [facility] [place]. Patient offers no complaints at present. He specifically denies chest pain, SOB. He continues to have a cough which is productive for clear mucus. Patient received his PM medications today [place] [facility] transfer. Allergies Allergy/AdvReac Type Severity Reaction Status Date / Time No Known Allergies Allergy Verified 09/09/24 15:44 Home Medications Medication Instructions Recorded Confirmed Type acetaminophen 650 mg tablet 650 mg PO Q4H PRN pain or fever 10/04/24 10/04/24 History apixaban 5 mg tablet 5 mg PO BID 10/04/24 10/04/24 History atorvastatin 10 mg tablet 10 mg PO DAILY 10/04/24 10/04/24 History pantoprazole 40 mg tablet,delayed 40 mg PO DAILY 10/04/24 10/04/24 History release sucralfate 100 mg/mL oral 1 g PO QID 10/04/24 10/04/24 History suspension Past Med/Surg History Problem List (Updated 10/04/24 @ 01:49 by Dorothy Santoro DO) Aspiration into airway Dilated aortic root Paroxysmal atrial fibrillation Esophageal stricture Encounter for assessment of decision-making capacity Advanced directives, counseling/discussion Counseling regarding goals of care Counseling regarding advanced directives and goals of care Palliative care by specialist Malnutrition Dysphagia Acute respiratory failure with hypoxia Dehydration (Acute) Urinary tract infection Pneumonia (Acute) Hypokalemia (Acute) Hypotension (Acute) Generalized weakness (Acute) Acid reflux Essential hypertension Duodenal ulcer Gastritis Constipation (Acute) Hypokalemia (Acute) Hypomagnesemia (Acute) Aspiration pneumonia due to food (regurgitated) (Acute) BPH (benign prostatic hyperplasia) Urinary incontinence Emphysema lung Diabetes mellitus Esophagitis (Acute) Medical History Acute metabolic encephalopathy Lethargy Surgical History H/O tooth extraction All Teeth History of hip surgery Family History Father Diabetes Denies family history of Ovarian cancer Prostate cancer Myocardial infarction Breast cancer Colorectal cancer Social History Smoking Status: Unknown if ever smoked Tobacco Type: Cigarettes Age Started Using Tobacco: 16; packs per day: 1; Do You Dip or Chew Tobacco: No; Hx Alcohol Use: No Hx Substance Use: No Preferred Language: Burmese Communication Ability: Unable Communication Ability Comment: Sedated at this time Hearing Ability: Hard of Hearing Dietary Worker Required: No Beliefs That Will Affect Care: None marital status: Current Living Situation: Spouse and Family current occupational status: retired 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 How many Children do You have: 1 Feels Safe at Home: Yes Diet Comment: attempts high protein during the past year weight has: decreased > 10 lbs Dental Care, Regularly: Yes Physical Activity Frequency: Does not Exercise Physical Activity Frequency Comment: limited d/t physical condition Assistive Devices: Walker and Wheelchair Review of Systems Review of Systems: All systems reviewed & are unremarkable except as noted in HPI & below Physical Exam Physical Exam: General: patient cachectic, ill in appearance Skin: warm, dry, intact, no rashes or lesions HEENT: NC/AT, PERRL, EOMI, anicteric sclera, conjunctiva without injection, external ear normal to inspection and nontender, nares patent, moist mucus membranes, dentition intact, no oropharyngeal lesions, neck supple, trachea midline, no LAD, no thyromegaly, no JVD Heart: +S1/S2, regular, no m/r/g Lungs: equal air entry bilaterally, no rales/rhonchi/wheezes Abd: +BS, soft, NT/ND, no masses/organomegaly/ascites, PEG tube site clean with no bleeding/drainage/erythema Ext: warm, 2+ pulses in UE/LE bilaterally, no clubbing/cyanosis or edema Neuro: nonfocal, garbled speech Results & Data Results & Data Vital Signs (Past 12 Hours) PENDING Laboratory Results PENDING Diagnostic Findings CXR ORDERED PG Care Time/CCT Total # of Minutes Spent Total Time Spent with Patient: Total time spent is greater than 50% in coordination of care (as documented) at patient's floor/unit and/or counseling patient: Coding Level of Care Code 18507 INT INP/OBS CARE 3/75MIN Diagnoses Aspiration into airway T17.908A Malnutrition E46 Paroxysmal atrial fibrillation I48.0 Esophageal stricture K22.2
[2024-10-04] MEDS ORDERED: Patient's HEIGHT &/or WEIGHT Needed STA (02:03)
[2024-10-04 02:29] LABS: Hematocrit (blood only) 33.1 % (42.0-52.0); Hemoglobin 10.9 g/dl (14.0-18.0); Mean Corpuscular Hemoglobin 31.3 pg (25.0-34.0); Mean Corpuscular Hgb Conc 32.9 g/dL (32.0-36.0); Mean Corpuscular Volume 95.1 fL (80.0-100.0); Mean Platelet Volume 11.3 fL (9.4-12.4); Platelet Count 212 K/uL (130-400); RDW Coefficient of Variation 15.6 % (11.5-14.5); RDW Standard Deviation 54.5 fL (36.4-46.3); Red Blood Count 3.48 M/uL (4.70-6.10); White Blood Count 8.39 K/ul (4.8-10.8)
[2024-10-04 02:47] LABS: Albumin Level 2.7 gm/dl (3.4-5.0); BUN Creatinine Ratio 23.9 (10-20); Bilirubin Direct 0.1 mg/dl (0-0.2); Bilirubin,Total 0.4 mg/dl (0.2-1.0); Calcium 8.8 mg/dl (8.6-10.3); Creatinine Clr Calc Pharmacy 59.3 ml/min; Magnesium 1.6 mg/dl (1.7-2.4); Phosphorus 2.5 mg/dl (2.5-4.9); Potassium 3.8 mmol/L (3.5-5.1); Total Protein 6.4 gm/dl (6.0-8.3)
[2024-10-04] MEDS ORDERED: POTASSIUM PHOS 3 MMOL/1 ML INFUSION IV STA (05:01)
[2024-10-04] MEDS: POTASSIUM PHOSPHATE 9 MMOL in SODIUM CHLORIDE 0.9% 250 ML IV ONE (05:32)
[2024-10-04] MEDS: MAGNESIUM SULFATE / D5W 1 GM/100 ML BAG IV SCH (08:08)
[2024-10-04] MEDS: SUCRALFATE 1 GM/10 ML UDC PO SCH (08:10)
[2024-10-04] MEDS: PANTOprazole 40 MG TAB PO SCH (08:10)
[2024-10-04] MEDS: APIXABAN 5 MG TABLET PO SCH (08:49)
--- NOTE | 2024-10-04 09:14 | XRay Report ---
EXAM: XR chest 1V portable CLINICAL HISTORY: COUGH KAB. TECHNIQUE: An X-ray image of the chest was obtained in AP projection. COMPARISON: X-ray dated 09/20/2024. FINDINGS: Pulmonary Parenchyma: Few small ill-defined opacities are seen in the right mid zone. Small/thin barely perceptible atelectatic band seen in the right lower zone. Bilateral minimal pleural pleural reaction. Heart and Mediastinum: Heart size and shape are normal. No mediastinal widening or masses. No hilar or mediastinal lymphadenopathy. Bony Thorax: Bony thorax appears intact without fractures or deformities. Soft Tissues: Soft tissues overlying the chest wall are unremarkable. IMPRESSION: 1. Interval new few small ill-defined opacities seen in the right mid zone. 2. Interval regressed, minimal bilateral pleural reaction. Pleural thickening. 3. Comparing with the previous x-ray dated 09/20/2024, few ill-defined opacities in the right mid zone are interval new. Electronically signed by Lam Pérez 10-04-2024 09:13 AM
[2024-10-04] MEDS: FIBERSOURCE HN 1.2 CAL 1000 ML BAG GT SCH (11:43)
[2024-10-04] MEDS: TUBE FEEDING WATER FLUSH GT SCH (11:44)
[2024-10-05] MEDS: ACETAMINOPHEN 325 MG TAB PO PRN (04:00)
--- NOTE | 2024-10-05 10:02 | Hospitalist Progress Note ---
Date of Service October 05, 2024 Assessment & Plan (1) Aspiration into airway: Plan: 78yo male returning from [facility] [place] after placement of PEG tube performed 09/28/24 -chest x ray shows evidence of infiltrates, likely due to aspiration -Vitals stable, afebrile, wbc wnl -Will hold off on antibiotics -Maintain aspiration precautions -Resume tube feeds, FiberSourceHN 1320mL/day- goal rate of 55mL//hr, starting rate 25mL/hr -Nutrition consultation appreciated (2) Malnutrition: Plan: Patient has had PEG tube placed -Check labs -Nutrition consultation appreciated -Resume feeds, advance as tolerated (3) Paroxysmal atrial fibrillation: Plan: Chronic. Rate controlled -Continue Apixaban (4) Esophageal stricture: Plan: Chronic -Continue Protonix and Sucralfate Plan Will need rrehab, medically stable for snf Admission and Anticipated Discharge Date Admission Date: October 04, 2024 Subjective patient seen and examined, lying quietly in bed, denies any new complaints Review of Systems Review of Systems: All systems reviewed are negative, apart from the ones contained in the history. Physical Exam Physical Exam: The patient is awake, alert and oriented 3, well developed and well nourished, normocephalic and atraumatic, lying in bed and in no acute distress. HEENT--PERRL, EOMI, mucous membranes and oropharynx mildly dry Neck--supple. No JVD. No bruits. Thyroid normal, trachea midline, no adenopathy. Heart--normal S1 and S2. No murmurs, rubs or gallops. Lungs--clear bilaterally, no respiratory distress, no accessory muscle use. Abdomen--normal bowel sounds and soft. Extremities--no cyanosis or clubbing. No edema. Dermatologic--normal skin turgor, normal color, no abnormal lymph nodes, no rash. Neurologic--cranial nerves II through XII grossly intact. Rheumatologic--normal range of motion. Psychiatric--normal affect. Results & Data Results & Data Vital Signs (Past 12 Hours) Vital Signs Temp Pulse Resp BP Pulse Ox O2 Del Method 10/05/24 07:43 97.5 F L 76 14 113/71 95 Room Air 10/04/24 23:35 Room Air PG Care Time/CCT Total # of Minutes Spent Total Time Spent with Patient: Total time spent is greater than 50% in coordination of care (as documented) at patient's floor/unit and/or counseling patient: Coding Level of Care Code 19106 SUB INP/OBS CARE 2/35MIN Diagnoses Aspiration into airway T17.908A Malnutrition E46 Paroxysmal atrial fibrillation I48.0 Esophageal stricture K22.2 Time Spent (min) 35
[2024-10-05] MEDS: SUCRALFATE 1 GM/10 ML UDC PEG SCH (12:32)
[2024-10-05] MEDS: ACETAMINOPHEN SUSP 325 MG/10.15 ML UDC PEG PRN (17:49)
[2024-10-05] MEDS: APIXABAN 5 MG TABLET PO SCH (22:13)
[2024-10-06 07:59] LABS: Hematocrit (blood only) 35.3 % (42.0-52.0); Hemoglobin 11.5 g/dl (14.0-18.0); Mean Corpuscular Hgb Conc 32.6 g/dL (32.0-36.0); Mean Corpuscular Volume 95.1 fL (80.0-100.0); Mean Platelet Volume 11.6 fL (9.4-12.4); Platelet Count 246 K/uL (130-400); RDW Coefficient of Variation 15.6 % (11.5-14.5); RDW Standard Deviation 54.5 fL (36.4-46.3); Red Blood Count 3.71 M/uL (4.70-6.10); White Blood Count 13.85 K/ul (4.8-10.8)
[2024-10-06 08:19] LABS: Calcium 8.3 mg/dl (8.6-10.3); Creatinine Clr Calc Pharmacy 65.2 ml/min; Potassium 3.9 mmol/L (3.5-5.1)
[2024-10-06] MEDS: LANSOPRAZOLE 30 MG SOLTAB PEG SCH (09:42)
--- NOTE | 2024-10-06 10:05 | Hospitalist Progress Note ---
Date of Service October 06, 2024 Assessment & Plan (1) Aspiration pneumonia: Plan: 78yo male returning from [facility] [place] after placement of PEG tube performed 09/28/24 -chest x ray shows evidence of infiltrates, likely due to aspiration -WBC is elevated -Will empirically start IV Zosyn (2) Aspiration into airway: Plan: 78yo male returning from [facility] [place] after placement of PEG tube performed 09/28/24 -chest x ray shows evidence of infiltrates, likely due to aspiration -Vitals stable, afebrile, wbc wnl -Maintain aspiration precautions -Resume tube feeds, FiberSourceHN 1320mL/day- goal rate of 55mL//hr, starting rate 25mL/hr -Nutrition consultation appreciated (3) Malnutrition: Plan: Patient has had PEG tube placed -Check labs -Nutrition consultation appreciated -Resume feeds, advance as tolerated (4) Paroxysmal atrial fibrillation: Plan: Chronic. Rate controlled -Continue Apixaban (5) Esophageal stricture: Plan: Chronic -Continue Protonix and Sucralfate Plan Will need rehab, medically stable for snf Admission and Anticipated Discharge Date Admission Date: October 04, 2024 Subjective patient seen and examined, lying quietly in bed, denies any new complaints Review of Systems Review of Systems: All systems reviewed are negative, apart from the ones contained in the history. Physical Exam Physical Exam: The patient is awake, alert and oriented 3, well developed and well nourished, normocephalic and atraumatic, lying in bed and in no acute distress. HEENT--PERRL, EOMI, mucous membranes and oropharynx mildly dry Neck--supple. No JVD. No bruits. Thyroid normal, trachea midline, no adenopathy. Heart--normal S1 and S2. No murmurs, rubs or gallops. Lungs--clear bilaterally, no respiratory distress, no accessory muscle use. Abdomen--normal bowel sounds and soft. Extremities--no cyanosis or clubbing. No edema. Dermatologic--normal skin turgor, normal color, no abnormal lymph nodes, no rash. Neurologic--cranial nerves II through XII grossly intact. Rheumatologic--normal range of motion. Psychiatric--normal affect. Results & Data Results & Data Vital Signs (Past 12 Hours) Vital Signs Temp Pulse Resp BP Pulse Ox O2 Del Method 10/06/24 07:12 98.1 F 100 H 18 102/70 94 Room Air 10/05/24 23:56 Room Air 10/05/24 22:29 98.8 F 101 H 18 120/78 96 Room Air PG Care Time/CCT Total # of Minutes Spent Total Time Spent with Patient: Total time spent is greater than 50% in coordination of care (as documented) at patient's floor/unit and/or counseling patient: Coding Level of Care Code 03700 SUB INP/OBS CARE 2/35MIN Diagnoses Aspiration pneumonia J69.0 Aspiration into airway T17.908A Malnutrition E46 Paroxysmal atrial fibrillation I48.0 Esophageal stricture K22.2 Time Spent (min) 35
[2024-10-06] MEDS: PIPERACILLIN/TAZOBACTAM 4.5 GM/100 ML BAG IV ONE (11:25)
[2024-10-06] MEDS: PIPERACILLIN/TAZOBACTAM 4.5 GM/100 ML BAG IV SCH (16:58)
[2024-10-07 08:17] LABS: Hematocrit (blood only) 29.4 % (42.0-52.0); Hemoglobin 9.8 g/dl (14.0-18.0); Mean Corpuscular Hemoglobin 31.2 pg (25.0-34.0); Mean Corpuscular Hgb Conc 33.3 g/dL (32.0-36.0); Mean Corpuscular Volume 93.6 fL (80.0-100.0); Mean Platelet Volume 11.2 fL (9.4-12.4); Platelet Count 199 K/uL (130-400); RDW Coefficient of Variation 15.8 % (11.5-14.5); RDW Standard Deviation 54.1 fL (36.4-46.3); Red Blood Count 3.14 M/uL (4.70-6.10); White Blood Count 9.95 K/ul (4.8-10.8)
[2024-10-07 09:10] LABS: Calcium 8.2 mg/dl (8.6-10.3); Creatinine Clr Calc Pharmacy 60.6 ml/min; Potassium 3.7 mmol/L (3.5-5.1)
--- NOTE | 2024-10-07 09:54 | Hospitalist Progress Note ---
Date of Service October 07, 2024 Assessment & Plan (1) Aspiration pneumonia: Plan: 78yo male [place] [facility] [place] PEG tube performed 09/28/24 -chest x ray shows evidence of infiltrates, likely due to aspiration -WBC is elevated -Will empirically start IV Zosyn (2) Aspiration into airway: Plan: 78yo male returning from [facility] [place] of PEG tube performed 09/28/24 -chest x ray shows evidence of infiltrates, likely due to aspiration -Vitals stable, afebrile, wbc wnl -Maintain aspiration precautions -Resume tube feeds, FiberSourceHN 1320mL/day- goal rate of 55mL//hr, starting rate 25mL/hr -Nutrition consultation appreciated (3) Malnutrition: Plan: Severe protein-calorie malnutrition requiring PEG tube placement, feedings, and management Patient has had PEG tube placed -Check labs -Nutrition consultation appreciated -Resume feeds, advance as tolerated (4) Paroxysmal atrial fibrillation: Plan: Chronic. Rate controlled -Continue Apixaban (5) Esophageal stricture: Plan: Chronic -Continue Protonix and Sucralfate Plan Will need rehab, medically stable for snf Admission and Anticipated Discharge Date Admission Date: October 04, 2024 Subjective patient seen and examined, lying quietly in bed, denies any new complaints Review of Systems Review of Systems: All systems reviewed are negative, apart from the ones contained in the history. Physical Exam Physical Exam: The patient is awake, alert and oriented 3, well developed and well nourished, normocephalic and atraumatic, lying in bed and in no acute distress. HEENT--PERRL, EOMI, mucous membranes and oropharynx mildly dry Neck--supple. No JVD. No bruits. Thyroid normal, trachea midline, no adenopathy. Heart--normal S1 and S2. No murmurs, rubs or gallops. Lungs--clear bilaterally, no respiratory distress, no accessory muscle use. Abdomen--normal bowel sounds and soft. Extremities--no cyanosis or clubbing. No edema. Dermatologic--normal skin turgor, normal color, no abnormal lymph nodes, no rash. Neurologic--cranial nerves II through XII grossly intact. Rheumatologic--normal range of motion. Psychiatric--normal affect. Results & Data Results & Data Vital Signs (Past 12 Hours) Vital Signs Temp Pulse Resp BP Pulse Ox O2 Del Method 01/29/25 22:14 98.1 F 91 H 20 122/72 93 Room Air PG Care Time/CCT Total # of Minutes Spent Total Time Spent with Patient: Total time spent is greater than 50% in coordination of care (as documented) at patient's floor/unit and/or counseling patient: Coding Level of Care Code 36525 SUB INP/OBS CARE 2/35MIN Diagnoses Aspiration pneumonia J69.0 Aspiration into airway T17.908A Malnutrition E46 Paroxysmal atrial fibrillation I48.0 Esophageal stricture K22.2 Time Spent (min) 35
--- NOTE | 2024-10-08 09:46 | Hospitalist Progress Note ---
Date of Service October 08, 2024 Assessment & Plan (1) Aspiration pneumonia: Plan: 78[place] [facility] [place] of PEG tube performed 09/28/24 -chest x ray shows evidence of infiltrates, likely due to aspiration -WBC is elevated -Will empirically continue IV Zosyn, end date 10/09/24 (2) Aspiration into airway: Plan: 78yo male [place] [facility] [place] of PEG tube performed 09/28/24 -chest x ray shows evidence of infiltrates, likely due to aspiration -Vitals stable, afebrile, wbc wnl -Maintain aspiration precautions -Resume tube feeds, FiberSourceHN 1320mL/day- goal rate of 55mL//hr, starting rate 25mL/hr -Nutrition consultation appreciated (3) Malnutrition: Plan: Severe protein-calorie malnutrition requiring PEG tube placement, feedings, and management Patient has had PEG tube placed -Check labs -Nutrition consultation appreciated -Resume feeds, advance as tolerated (4) Paroxysmal atrial fibrillation: Plan: Chronic. Rate controlled -Continue Apixaban (5) Esophageal stricture: Plan: Chronic -Continue Protonix and Sucralfate (6) Physical deconditioning: Plan: He is becoming increasingly deconditioned He will benefit from SNF Plan Will need rehab, medically stable for snf. Authorization pending Admission and Anticipated Discharge Date Admission Date: October 04, 2024 Subjective patient seen and examined, lying quietly in bed, denies any new complaints, he is usually slow to respond to questions Review of Systems Review of Systems: All systems reviewed are negative, apart from the ones contained in the history. Physical Exam Physical Exam: The patient is awake, alert and oriented 3, well developed and well nourished, normocephalic and atraumatic, lying in bed and in no acute distress. HEENT--PERRL, EOMI, mucous membranes and oropharynx mildly dry Neck--supple. No JVD. No bruits. Thyroid normal, trachea midline, no adenopathy. Heart--normal S1 and S2. No murmurs, rubs or gallops. Lungs--clear bilaterally, no respiratory distress, no accessory muscle use. Abdomen--normal bowel sounds and soft. Extremities--no cyanosis or clubbing. No edema. Dermatologic--normal skin turgor, normal color, no abnormal lymph nodes, no rash. Neurologic--cranial nerves II through XII grossly intact. Rheumatologic--normal range of motion. Psychiatric--normal affect. Results & Data Results & Data Vital Signs (Past 12 Hours) Vital Signs Temp Pulse Resp BP Pulse Ox O2 Del Method 10/08/24 07:50 97.5 F L 75 16 104/67 96 Room Air 10/08/24 07:32 Room Air PG Care Time/CCT Total # of Minutes Spent Total Time Spent with Patient: Total time spent is greater than 50% in coordination of care (as documented) at patient's floor/unit and/or counseling patient: Coding Level of Care Code 02826 SUB INP/OBS CARE 2/35MIN Diagnoses Aspiration pneumonia J69.0 Aspiration into airway T17.908A Malnutrition E46 Paroxysmal atrial fibrillation I48.0 Esophageal stricture K22.2 Physical deconditioning R53.81 Time Spent (min) 35
[2024-10-09 07:06] LABS: Hematocrit (blood only) 27.8 % (42.0-52.0); Mean Corpuscular Hemoglobin 31.1 pg (25.0-34.0); Mean Corpuscular Hgb Conc 32.4 g/dL (32.0-36.0); Mean Corpuscular Volume 96.2 fL (80.0-100.0); Mean Platelet Volume 11.3 fL (9.4-12.4); Platelet Count 203 K/uL (130-400); RDW Coefficient of Variation 15.8 % (11.5-14.5); RDW Standard Deviation 55.7 fL (36.4-46.3); Red Blood Count 2.89 M/uL (4.70-6.10); White Blood Count 6.55 K/ul (4.8-10.8)
[2024-10-09 07:27] LABS: Calcium 8.2 mg/dl (8.6-10.3); Creatinine Clr Calc Pharmacy 62.1 ml/min; Potassium 3.6 mmol/L (3.5-5.1)
--- NOTE | 2024-10-09 07:36 | Hospitalist Progress Note ---
Date of Service October 09, 2024 Assessment & Plan (1) Aspiration pneumonia: Plan: 78yo male returning from [facility] [place] after placement of PEG tube performed 09/28/24 (2) Malnutrition: (3) Paroxysmal atrial fibrillation: (4) Esophageal stricture: (5) Physical deconditioning: Plan 78 M transferred to [place] due to recurrent aspiration with pneumonia, esophageal dysfunction and possible stricture, associated severe protein calorie malnutrition. Did have peg placed at [place] and returned with continued treatment of aspiration pneumonia with Zosyn thru 10/09/24 Esophageal dysfunction and stricture, non peg feedings, fibersource 1320ml/day on protonix and carafate, I did discuss with INTERNET MARKETING STRATEGIST today, will have on for VFSS on 10/11/24 as since he is silent aspirator, and with bedside eval did decompensate significantly in the past will err on safety, keep nop until then, will need to also coordinate with GI to see if attempts are re dilation of stricture in short term future #paroxysmal Afib rate controlled without meds on apixiban for thromboembolic prevention .Will need rehab, medically stable for snf. Authorization pending Severe protein-calorie malnutrition requiring PEG tube placement, feedings, and management Admission and Anticipated Discharge Date Admission Date: October 04, 2024 Subjective pt has flat affect and avoids eye contact, wants to have PO intake, review of [facility] [place] discharge does not include discussion of timeline for this, and last speech eval requested repeat eval, will have VFSS 10/11/24 until then remains npo as is silent aspiration pt in the past Physical Exam Physical Exam: awake and alert coarse breath sounds more on rig peg site is dry, slightly red but not infected appearing Results & Data Results & Data Vital Signs (Past 12 Hours) Vital Signs Temp Pulse Resp BP Pulse Ox O2 Del Method 10/08/24 20:05 98.6 F 75 16 115/69 94 Room Air Laboratory Results review cbc review chemistry PG Care Time/CCT Total # of Minutes Spent Total Time Spent with Patient: Total time spent is greater than 50% in coordination of care (as documented) at patient's floor/unit and/or counseling patient: Coding Level of Care Code 93949 SUB INP/OBS CARE 3/50MIN Diagnoses Aspiration pneumonia J69.0 Malnutrition E46 Paroxysmal atrial fibrillation I48.0 Esophageal stricture K22.2 Physical deconditioning R53.81
--- NOTE | 2024-10-10 07:56 | Hospitalist Progress Note ---
Date of Service October 10, 2024 Assessment & Plan (1) Aspiration pneumonia: Plan: 78yo male returning from [facility] [place] after placement of PEG tube performed 09/28/24 (2) Malnutrition: (3) Paroxysmal atrial fibrillation: (4) Esophageal stricture: (5) Physical deconditioning: Plan 78 M transferred to [place] due to recurrent aspiration with pneumonia, esophageal dysfunction and possible stricture, associated severe protein calorie malnutrition. Did have peg placed at [place] and returned with continued treatment of aspiration pneumonia with Zosyn thru 10/09/24 Esophageal dysfunction and stricture, non peg feedings, fibersource 1320ml/day on protonix and carafate, I did discuss with MECHANICAL MAINTENANCE INSTRUCTOR will have on for VFSS on 10/11/24 as since he is silent aspirator, and with bedside eval did decompensate significantly in the past will err on safety, keep npo until then, will need to also coordinate with GI to see if attempts are re dilation of stricture in short term future #paroxysmal Afib rate controlled without meds on apixiban for thromboembolic prevention .Will need rehab, medically stable for snf. Authorization pending, [facility] for acute rehab, will endorse subacute rehab at snf Severe protein-calorie malnutrition requiring PEG tube placement, feedings, and management Admission and Anticipated Discharge Date Admission Date: October 04, 2024 Subjective pt has flat affect and avoids eye contact, wants to have PO intake, review of [facility] [place] discharge does not include discussion of timeline for this, and last speech eval requested repeat eval, will have VFSS 10/11/24 until then remains npo as is silent aspiration pt in the past Physical Exam Physical Exam: awake and alert lungs are improving only scant changes at bases peg site is dry, slightly red but not infected appearing Results & Data Results & Data Vital Signs (Past 12 Hours) Vital Signs Temp Pulse Resp BP Pulse Ox O2 Del Method 10/10/24 07:49 98.1 F 68 16 92/61 L 96 Room Air PG Care Time/CCT Total # of Minutes Spent Total Time Spent with Patient: Total time spent is greater than 50% in coordination of care (as documented) at patient's floor/unit and/or counseling patient: Coding Level of Care Code 67781 SUB INP/OBS CARE 2/35MIN Diagnoses Aspiration pneumonia J69.0 Malnutrition E46 Paroxysmal atrial fibrillation I48.0 Esophageal stricture K22.2 Physical deconditioning R53.81
[2024-10-11 10:50] LABS: Albumin Globulin Ratio 0.8 (0.9-2); Albumin Level 2.7 gm/dl (3.4-5.0); BUN Creatinine Ratio 26.7 (10-20); Bilirubin,Total 0.3 mg/dl (0.2-1.0); Calcium 8.1 mg/dl (8.6-10.3); Creatinine Clr Calc Pharmacy 57.9 ml/min; Globulin 3.6 gm/dl (2.5-4.0); Magnesium 1.8 mg/dl (1.7-2.4); Total Protein 6.3 gm/dl (6.0-8.3)
--- NOTE | 2024-10-11 14:49 | Hospitalist Progress Note ---
Date of Service October 11, 2024 Assessment & Plan (1) Aspiration pneumonia: (2) Malnutrition: (3) Paroxysmal atrial fibrillation: (4) Esophageal stricture: (5) Physical deconditioning: Plan 78 M transferred to [place] due to recurrent aspiration with pneumonia, esophageal dysfunction and possible stricture, associated severe protein calorie malnutrition. Did have peg placed at [place] on 09/28/2024 and returned with continued treatment of aspiration pneumonia with Zosyn thru 10/09/24 #aspiration pneumonia Patient continues w/ coarse breath sounds, likely secondary to aspiration of secretions & peg tube feedings. On room air and denies SOB. + for productive cough. CXR from 10/11 : interval new few small ill-defined opacities in right mid zone. minimal b/l pleural reaction. pleural thickening. On IV zosyn through 10/13/2024 CBC w/o leukocytosis #esophgeal dysfunction/stricture Severe protein-calorie malnutrition requiring PEG tube placement, feedings, and management repeat VFSS 3 - shows continued aspirations. Per speech - patient to remain NPO w/ ice chips and dysphagia therapy as of 10/11. continue feedings w/ Fibersource 1230ml/day prognosis guarded give high risk of continued aspiration. Discussed w/ GI BRETT 3 - patient for outpatient follow up to discuss next steps. daily BMP to reassess electrolytes - currently stable. #A fib rate controlled w/o meds continue Eliquis for thromboembolic prevention. P2P for [facility] denied 10/11 but did approve for SNF rehab - CM to discuss with family Patient medically stable for discharge pending this placement. Discussed w/ speech therapy /3. Admission and Anticipated Discharge Date Admission Date: October 04, 2024 Subjective Patient seen and examined this morning at bedside. Patient was asking for a cup of coffee at time of encounter. He denied any additional complaints today. Physical Exam Constitutional: WD/WN, vitals as above Respiratory: coarse breath sounds throughout all [place] Cardiovascular: RR, no edema Results & Data Results & Data Vital Signs (Past 12 Hours) Vital Signs Temp Pulse Resp BP Pulse Ox O2 Del Method 10/11/24 11:16 Room Air 10/11/24 08:00 36.6 C 75 18 106/67 96 Room Air PG Care Time/CCT Total # of Minutes Spent Total Time Spent with Patient: Total time spent is greater than 50% in coordination of care (as documented) at patient's floor/unit and/or counseling patient: Coding Level of Care Code 52506 SUB INP/OBS CARE MIN Diagnoses Aspiration pneumonia J69.0 Malnutrition E46 Paroxysmal atrial fibrillation I48.0 Esophageal stricture K22.2 Physical deconditioning R53.81
--- NOTE | 2024-10-11 14:59 | Fluoroscopy Report ---
MODIFIED BARIUM SWALLOW CLINICAL HISTORY: r/o silent aspiration COMPARISON STUDY: Modified barium swallow September 20, 2024. FLUOROSCOPY TIME: 2.36 minutes. Ka,r: 6.58 mGy TECHNIQUE: A modified barium swallow was performed in conjunction with Speech Pathology. The patient ingested varying consistencies of barium containing material. Video fluoroscopy was performed. FINDINGS: No aspiration was identified with thin liquids by cup. However, there were several episodes of silent tracheal aspiration with thin liquids by straw. There was also silent tracheal aspiration with nectar thick liquids. No aspiration was identified with pudding consistency. IMPRESSION: 1. Silent tracheal aspiration with thin liquids and nectar thick liquids. 2. Full recommendations by Speech pathology to follow. ACT 112: Negative or not required by law. Electronically signed by: Tee Rodriguez M.D. 10/11/2024 2:58 PM
[2024-10-12 09:57] LABS: BUN Creatinine Ratio 28.6 (10-20); Calcium 8.6 mg/dl (8.6-10.3); Creatinine Clr Calc Pharmacy 57.3 ml/min; Magnesium 1.9 mg/dl (1.7-2.4); Potassium 3.9 mmol/L (3.5-5.1)
--- NOTE | 2024-10-12 14:49 | Hospitalist Progress Note ---
Date of Service October 12, 2024 Assessment & Plan (1) Aspiration pneumonia: (2) Malnutrition: (3) Paroxysmal atrial fibrillation: (4) Esophageal stricture: (5) Physical deconditioning: Plan 78 M transferred to [place] due to recurrent aspiration with pneumonia, esophageal dysfunction and possible stricture, associated severe protein calorie malnutrition. Did have peg placed at [place] on 09/28/2024 and returned with continued treatment of aspiration pneumonia with Zosyn thru 10/09/24 #aspiration pneumonia Patient continues w/ coarse breath sounds, likely secondary to aspiration of secretions & peg tube feedings. On room air and denies SOB. + for productive cough. CXR from 10/11 : interval new few small ill-defined opacities in right mid zone. minimal b/l pleural reaction. pleural thickening. On IV zosyn through 10/13/2024 CBC w/o leukocytosis #esophgeal dysfunction/stricture Severe protein-calorie malnutrition requiring PEG tube placement, feedings, and management repeat VFSS 10/11 - shows continued aspirations. Per speech - patient to remain NPO w/ ice chips and dysphagia therapy as of 10/11. continue feedings w/ Fibersource 1230ml/day prognosis guarded given high risk of continued aspiration. Discussed w/ GI BRETT 10/11 - patient for outpatient follow up to discuss next steps. daily BMP to reassess electrolytes - currently stable. #A fib rate controlled w/o meds continue Eliquis for thromboembolic prevention. P2P for [facility] denied 10/11 but did approve for SNF rehab - CM to discuss with family Patient medically stable for discharge pending this placement. Admission and Anticipated Discharge Date Admission Date: October 04, 2024 Subjective Patient seen and examined this morning. Patient denied any complaints at time of encounter. Physical Exam Constitutional: WD/WN, vitals as above Eyes: PERRL, conjunctivae normal, anicteric sclerae Respiratory: normal respiratory effort, lungs clear to auscultation Cardiovascular: RRR, no murmur, no edema Results & Data Results & Data Vital Signs (Past 12 Hours) Vital Signs Temp Pulse Resp BP Pulse Ox O2 Del Method 10/12/24 07:46 36.5 C 78 16 112/75 93 Room Air PG Care Time/CCT Total # of Minutes Spent Total Time Spent with Patient: Total time spent is greater than 50% in coordination of care (as documented) at patient's floor/unit and/or counseling patient: Coding Level of Care Code 22275 SUB INP/OBS CARE MIN Diagnoses Aspiration pneumonia J69.0 Malnutrition E46 Paroxysmal atrial fibrillation I48.0 Esophageal stricture K22.2 Physical deconditioning R53.81
[2024-10-13 08:14] LABS: BUN Creatinine Ratio 29.2 (10-20); Calcium 8.5 mg/dl (8.6-10.3); Creatinine Clr Calc Pharmacy 58.6 ml/min; Magnesium 1.8 mg/dl (1.7-2.4)
--- NOTE | 2024-10-13 13:30 | Hospitalist Progress Note ---
Date of Service October 13, 2024 Assessment & Plan (1) Aspiration pneumonia: (2) Malnutrition: (3) Paroxysmal atrial fibrillation: (4) Esophageal stricture: (5) Physical deconditioning: Plan 78 M transferred to [place] due to recurrent aspiration with pneumonia, esophageal dysfunction and possible stricture, associated severe protein calorie malnutrition. Did have peg placed at [place] on 09/28/2024 and returned with continued treatment of aspiration pneumonia. #aspiration pneumonia On room air and denies SOB. + for productive cough. CXR from 10/11 : interval new few small ill-defined opacities in right mid zone. minimal b/l pleural reaction. pleural thickening. On IV zosyn through 10/13/2024 CBC w/o leukocytosis #esophgeal dysfunction/stricture Severe protein-calorie malnutrition requiring PEG tube placement, feedings, and management repeat VFSS 10/11 - shows continued aspirations. Per speech - patient to remain NPO w/ ice chips and dysphagia therapy as of 10/11. continue feedings w/ Fibersource 1230ml/day prognosis guarded given high risk of continued aspiration. Discussed w/ GI BRETT 10/11 - patient for outpatient follow up to discuss next steps. daily BMP to reassess electrolytes - currently stable. #A fib rate controlled w/o meds continue Eliquis for thromboembolic prevention. P2P for [facility] denied 10/11 but did approve for SNF rehab - CM to discuss with family Patient medically stable for discharge pending this placement. Admission and Anticipated Discharge Date Admission Date: October 04, 2024 Subjective Patient seen and examined today. He denied any complaints at time of encounter. Physical Exam Constitutional: WD/WN, vitals as above Eyes: PERRL, conjunctivae normal, anicteric sclerae Respiratory: normal respiratory effort, lungs clear to auscultation Cardiovascular: RRR, no murmur, no edema Results & Data Results & Data Vital Signs (Past 12 Hours) Vital Signs Temp Pulse Resp BP Pulse Ox O2 Del Method 10/13/24 07:13 36.7 C 78 16 101/60 96 Room Air PG Care Time/CCT Total # of Minutes Spent Total Time Spent with Patient: Total time spent is greater than 50% in coordination of care (as documented) at patient's floor/unit and/or counseling patient: Coding Level of Care Code 80191 SUB INP/OBS CARE 2/35MIN Diagnoses Aspiration pneumonia J69.0 Malnutrition E46 Paroxysmal atrial fibrillation I48.0 Esophageal stricture K22.2 Physical deconditioning R53.81
[2024-10-14 10:06] LABS: Calcium 8.9 mg/dl (8.6-10.3); Creatinine Clr Calc Pharmacy 55.8 ml/min; Magnesium 2.1 mg/dl (1.7-2.4)
--- NOTE | 2024-10-14 14:59 | Hospitalist Progress Note ---
Date of Service October 14, 2024 Assessment & Plan (1) Aspiration pneumonia: (2) Malnutrition: (3) Paroxysmal atrial fibrillation: (4) Esophageal stricture: (5) Physical deconditioning: Plan 78 M transferred to [place] due to recurrent aspiration with pneumonia, esophageal dysfunction and possible stricture, associated severe protein calorie malnutrition. Did have peg placed at [place] on 09/28/2024 and returned with continued treatment of aspiration pneumonia. #aspiration pneumonia On room air and denies SOB. + for productive cough. CXR from 10/11 : interval new few small ill-defined opacities in right mid zone. minimal b/l pleural reaction. pleural thickening. s/p IV Zosyn finished on 10/13 #esophgeal dysfunction/stricture Severe protein-calorie malnutrition requiring PEG tube placement, feedings, and management repeat VFSS 10/11 - shows continued aspirations. Patient to remain NPO w/ ice chips and dysphagia therapy. continue feedings w/ Fibersource 1230ml/day Discussed w/ GI BRETT 10/11 - patient for outpatient follow up to discuss next steps. BMP w/ stable electrolytes 10/14, Magnesium stable at 2.1 prognosis guarded given high risk of continued aspiration. #A fib rate controlled w/o meds continue Eliquis for thromboembolic prevention. [facility] [facility] pending delivery of tube feeds prior to patient being discharged. Anticipate delivery over the weekend or Friday. Patient medically stable for discharge pending this placement. Admission and Anticipated Discharge Date Admission Date: October 04, 2024 Subjective Patient seen and examined today. Patient denied any complaints at time of encounter. Patient w/ productive cough at time of encounter. Physical Exam Constitutional: WD/WN, vitals as above Eyes: PERRL, conjunctivae normal, anicteric sclerae Respiratory: moist cough, productive. lungs CTA Cardiovascular: no edema. regular rate Results & Data Results & Data Vital Signs (Past 12 Hours) Vital Signs Temp Pulse Resp BP Pulse Ox O2 Del Method 10/14/24 07:30 Room Air 10/14/24 06:09 36.4 C L 75 18 107/69 96 Room Air PG Care Time/CCT Total # of Minutes Spent Total Time Spent with Patient: Total time spent is greater than 50% in coordination of care (as documented) at patient's floor/unit and/or counseling patient: Coding Level of Care Code 32422 SUB INP/OBS CARE 2/35MIN Diagnoses Aspiration pneumonia J69.0 Malnutrition E46 Paroxysmal atrial fibrillation I48.0 Esophageal stricture K22.2 Physical deconditioning R53.81
[2024-10-15 10:11] LABS: BUN Creatinine Ratio 33.7 (10-20); Calcium 8.9 mg/dl (8.6-10.3); Creatinine Clr Calc Pharmacy 62.5 ml/min; Magnesium 2.1 mg/dl (1.7-2.4); Potassium 4.1 mmol/L (3.5-5.1)
--- NOTE | 2024-10-15 14:58 | Hospitalist Progress Note ---
Date of Service October 15, 2024 Assessment & Plan (1) Aspiration pneumonia: (2) Malnutrition: (3) Paroxysmal atrial fibrillation: (4) Esophageal stricture: (5) Physical deconditioning: Plan 78 M transferred to [place] due to recurrent aspiration with pneumonia, esophageal dysfunction and possible stricture, associated severe protein calorie malnutrition. Did have peg placed at [place] on 09/28/2024 and returned with continued treatment of aspiration pneumonia. #aspiration pneumonia On room air and denies SOB. + for productive cough. CXR from 10/11 : interval new few small ill-defined opacities in right mid zone. minimal b/l pleural reaction. pleural thickening. s/p IV Zosyn finished on 10/13 #esophgeal dysfunction/stricture Severe protein-calorie malnutrition requiring PEG tube placement, feedings, and management repeat VFSS 10/11 - shows continued aspirations. Patient to remain NPO w/ ice chips and dysphagia therapy. continue feedings w/ Fibersource 1230ml/day Discussed w/ GI BRETT 10/11 - patient for outpatient follow up to discuss next steps. BMP w/ stable electrolytes 10/14, Magnesium stable at 2.1 prognosis guarded given high risk of continued aspiration. #A fib rate controlled w/o meds continue Eliquis for thromboembolic prevention. [place] [facility] pending delivery of tube feeds prior to patient being discharged. Anticipate delivery over the or Friday. Patient medically stable for discharge pending this placement. Admission and Anticipated Discharge Date Admission Date: October 04, 2024 Subjective Patient seen and examined this morning. He denied any complaints today. He was resting comfortably in bed at time of encounter. Physical Exam Constitutional: WD/WN, vitals as above Eyes: PERRL, conjunctivae normal, anicteric sclerae Respiratory: breathing unlabored Cardiovascular: well perfused Results & Data Results & Data Vital Signs (Past 12 Hours) Vital Signs Temp Pulse Resp BP Pulse Ox O2 Del Method 10/15/24 07:45 Room Air 10/15/24 07:41 36.3 C L 78 14 114/73 97 Room Air PG Care Time/CCT Total # of Minutes Spent Total Time Spent with Patient: Total time spent is greater than 50% in coordination of care (as documented) at patient's floor/unit and/or counseling patient: Coding Level of Care Code 91455 SUB INP/OBS CARE 2/35MIN Diagnoses Aspiration pneumonia J69.0 Malnutrition E46 Paroxysmal atrial fibrillation I48.0 Esophageal stricture K22.2 Physical deconditioning R53.81
[2024-10-16 07:30] LABS: BUN Creatinine Ratio 37.3 (10-20); Calcium 8.9 mg/dl (8.6-10.3); Creatinine Clr Calc Pharmacy 62.5 ml/min; Potassium 4.1 mmol/L (3.5-5.1)
--- NOTE | 2024-10-16 23:27 | Hospitalist Progress Note ---
Date of Service October 16, 2024 Assessment & Plan (1) Aspiration pneumonia: (2) Malnutrition: (3) Paroxysmal atrial fibrillation: (4) Esophageal stricture: (5) Physical deconditioning: Plan 78 M transferred to [place] due to recurrent aspiration with pneumonia, esophageal dysfunction and possible stricture, associated severe protein calorie malnutrition. Did have peg placed at [place] on 09/28/2024 and returned with continued treatment of aspiration pneumonia. #aspiration pneumonia On room air and denies SOB. + for productive cough. CXR from 10/11 : interval new few small ill-defined opacities in right mid zone. minimal b/l pleural reaction. pleural thickening. s/p IV Zosyn finished on 10/13 remains on room air on 10/16 #esophgeal dysfunction/stricture Severe protein-calorie malnutrition requiring PEG tube placement, feedings, and management repeat VFSS 10/11 - shows continued aspirations. Patient to remain NPO w/ ice chips and dysphagia therapy. continue feedings w/ Fibersource 1230ml/day Discussed w/ GI RBETT 10/11 - patient for outpatient follow up to discuss next steps. BMP w/ stable electrolytes 10/14, Magnesium stable at 2.1 prognosis guarded given high risk of continued aspiration. #A fib rate controlled w/o meds continue Eliquis for thromboembolic prevention. [facility] pending delivery of tube feeds prior to patient being discharged. Anticipate delivery over the weekend or Friday. Patient medically stable for discharge pending this placement. Admission and Anticipated Discharge Date Admission Date: October 04, 2024 Subjective Patient seen and examined this morning. He reports feeling well, with no complaints. He was resting comfortably in bed at time of encounter. Physical Exam Constitutional: WD/WN, vitals as above Eyes: PERRL, conjunctivae normal, anicteric sclerae Respiratory: breathing unlabored Cardiovascular: well perfused Results & Data Results & Data Vital Signs (Past 12 Hours) Vital Signs Temp Pulse Resp BP Pulse Ox O2 Del Method 10/16/24 20:24 36.6 C 92 H 16 97/64 L 93 Room Air 10/16/24 14:53 36.6 C 85 16 109/69 98 Room Air PG Care Time/CCT Total # of Minutes Spent Total Time Spent with Patient: Total time spent is greater than 50% in coordination of care (as documented) at patient's floor/unit and/or counseling patient: Coding Level of Care Code 34426 SUB INP/OBS CARE 235MIN Diagnoses Aspiration pneumonia J69.0 Malnutrition E46 Paroxysmal atrial fibrillation I48.0 Esophageal stricture K22.2 Physical deconditioning R53.81
[2024-10-17 06:48] LABS: Hematocrit (blood only) 32.1 % (42.0-52.0); Hemoglobin 10.3 g/dl (14.0-18.0); Mean Corpuscular Hemoglobin 31.2 pg (25.0-34.0); Mean Corpuscular Hgb Conc 32.1 g/dL (32.0-36.0); Mean Corpuscular Volume 97.3 fL (80.0-100.0); Mean Platelet Volume 11.8 fL (9.4-12.4); Platelet Count 195 K/uL (130-400); RDW Coefficient of Variation 15.8 % (11.5-14.5); RDW Standard Deviation 56.7 fL (36.4-46.3); White Blood Count 7.23 K/ul (4.8-10.8)
[2024-10-17 07:01] LABS: Calcium 8.9 mg/dl (8.6-10.3); Creatinine Clr Calc Pharmacy 60.3 ml/min; Potassium 3.9 mmol/L (3.5-5.1)
--- NOTE | 2024-10-17 23:28 | Hospitalist Progress Note ---
Date of Service October 17, 2024 Assessment & Plan (1) Aspiration pneumonia: (2) Malnutrition: (3) Paroxysmal atrial fibrillation: (4) Esophageal stricture: (5) Physical deconditioning: Plan 78 M transferred to [place] due to recurrent aspiration with pneumonia, esophageal dysfunction and possible stricture, associated severe protein calorie malnutrition. Did have peg placed at [place] on 09/28/2024 and returned with continued treatment of aspiration pneumonia. #aspiration pneumonia On room air and denies SOB. + for productive cough. CXR from 10/11 : interval new few small ill-defined opacities in right mid zone. minimal b/l pleural reaction. pleural thickening. s/p IV Zosyn finished on 10/13 remains on room air on 10/17 #esophgeal dysfunction/stricture Severe protein-calorie malnutrition requiring PEG tube placement, feedings, and management repeat VFSS 10/11 - shows continued aspirations. Patient to remain NPO w/ ice chips and dysphagia therapy. continue feedings w/ Fibersource 1230ml/day Discussed w/ GI BRETT 10/11 - patient for outpatient follow up to discuss next steps. BMP w/ stable electrolytes 10/14, Magnesium stable at 2.1 prognosis guarded given high risk of continued aspiration. #A fib rate controlled w/o meds continue Eliquis for thromboembolic prevention. [place] [facility] [facility] pending delivery of tube feeds prior to patient being discharged. Anticipate delivery over the weekend or Friday. Patient medically stable for discharge pending this placement. Admission and Anticipated Discharge Date Admission Date: October 04, 2024 Subjective Patient seen and examined this morning. He denied any complaints today. He was resting comfortably in bed at time of encounter. Physical Exam Constitutional: WD/WN, vitals as above Eyes: PERRL, conjunctivae normal, anicteric sclerae Results & Data Results & Data Vital Signs (Past 12 Hours) Vital Signs Temp Pulse Resp BP Pulse Ox O2 Del Method 10/17/24 20:08 36.6 C 80 16 106/67 95 Room Air 10/17/24 20:00 Room Air 10/17/24 14:53 36.6 C 82 16 102/67 99 Room Air PG Care Time/CCT Total # of Minutes Spent Total Time Spent with Patient: Total time spent is greater than 50% in coordination of care (as documented) at patient's floor/unit and/or counseling patient: Coding Level of Care Code 31557 SUB INP/OBS CARE 35MIN Diagnoses Aspiration pneumonia J69.0 Malnutrition E46 Paroxysmal atrial fibrillation I48.0 Esophageal stricture K22.2 Physical deconditioning R53.81
--- NOTE | 2024-10-18 08:20 | Hospitalist Progress Note ---
Date of Service October 18, 2024 Assessment & Plan (1) Aspiration pneumonia: (2) Malnutrition: (3) Paroxysmal atrial fibrillation: (4) Esophageal stricture: (5) Physical deconditioning: Plan 78 M transferred to [place] due to recurrent aspiration with pneumonia, esophageal dysfunction and possible stricture, associated severe protein calorie malnutrition. Did have peg placed at [place] on 09/28/2024 and returned with continued treatment of aspiration pneumonia. #aspiration pneumonia On room air and denies SOB. + for productive cough. CXR from 10/11 : interval new few small ill-defined opacities in right mid zone. minimal b/l pleural reaction. pleural thickening. s/p IV Zosyn finished on 10/13 remains on room air without distress but high risk for recurrence #esophgeal dysfunction/stricture Severe protein-calorie malnutrition requiring PEG tube placement, feedings, and management repeat VFSS 10/11 - shows continued aspirations. Patient to remain NPO w/ ice chips and dysphagia therapy. continue feedings w/ Fibersource 1680ml/day, free water flushes 100 q 4 Discussed w/ GI BRETT 10/11 - patient for outpatient follow up to discuss next steps. BMP w/ stable electrolytes prognosis guarded given high risk of continued aspiration. #A fib rate controlled w/o meds continue Eliquis for thromboembolic prevention. [facility] [facility] pending delivery of tube feeds prior to patient being discharged. Anticipate delivery over the weekend or Friday. Patient medically stable for discharge pending this placement. Admission and Anticipated Discharge Date Admission Date: October 04, 2024 Subjective Patient seen and examined. He denied any complaints. He is slightly confused about the television show he is watching Physical Exam Physical Exam: awake and alert lungs are decreased at the bases peg site is dry, no longer reddened abd is soft and non tender Results & Data Results & Data Vital Signs (Past 12 Hours) Vital Signs Temp Pulse Pulse Resp BP Pulse Ox O2 Del Method 10/18/24 07:45 97.7 F 80 16 112/72 98 Room Air 10/18/24 06:55 97.5 F L 85 16 114/67 96 Room Air PG Care Time/CCT Total # of Minutes Spent Total Time Spent with Patient: Total time spent is greater than 50% in coordination of care (as documented) at patient's floor/unit and/or counseling patient: Coding Level of Care Code 58839 SUB INP/OBS CARE 235MIN Diagnoses Aspiration pneumonia J69.0 Malnutrition E46 Paroxysmal atrial fibrillation I48.0 Esophageal stricture K22.2 Physical deconditioning R53.81
[2024-10-18 14:38] VITALS: RESP 16
[2024-10-19 07:10] VITALS: BP 117/74; PULSE 89; TEMP 98.1; O2SAT 96
--- NOTE | 2024-10-19 11:15 | Discharge Summary ---
Discharge Summary Date of Service October 19, 2024 Principal Dx & Hospital Course #1 = Principal Diagnosis (1) Aspiration pneumonia: (2) Malnutrition: (3) Paroxysmal atrial fibrillation: (4) Esophageal stricture: (5) Physical deconditioning: Plan 78 M transferred to [place] due to recurrent aspiration with pneumonia, esophageal dysfunction and possible stricture, associated severe protein calorie malnutrition. Did have peg placed at [place] on 09/28/2024 and returned with continued treatment of aspiration pneumonia. #aspiration pneumonia On room air and denies SOB. + for productive cough. CXR from 10/11 : interval new few small ill-defined opacities in right mid zone. minimal b/l pleural reaction. pleural thickening. s/p IV Zosyn finished on 10/13 remains on room air without distress but high risk for recurrence #esophgeal dysfunction/stricture Severe protein-calorie malnutrition requiring PEG tube placement, feedings, and management repeat VFSS 10/11 - shows continued aspirations. Patient to remain NPO w/ ice chips and dysphagia therapy. continue feedings w/ Fibersource 1680ml/day, free water flushes 100 q 4 Discussed w/ GI BRETT 10/11 - patient for outpatient follow up to discuss next steps. BMP w/ stable electrolytes prognosis guarded given high risk of continued aspiration. #A fib rate controlled w/o meds continue Eliquis for thromboembolic prevention. Notes For Next Care Provider Certainly could consider changing his flushes to be easier nursing staff although trying to minimize large volumes in his stomach to avoid reflux and aspiration Degree of silent aspiration makes patient a significant risk for an aspiration event which could endanger his life Admission HPI Per Admitting Provider 78yo male with history of HTN, PAF, GERD and recurrent aspiration with pneumonia, severe protein-calorie malnutrition due to oropharyngeal dysphagia and esophageal stricture. Patient admitted to [facility] 09/09/24 after presenting with productive cough. Patient had an aspiration event on 09/10/24 resulting in respiratory failure requiring brief intubation. He was extubated 09/11/24. He was treated for Pseudomonas PNA with Cefepime/Zosyn/Doxycycline. Video swallow performed on 09/14/24 confirming aspiration. Patient had an EGD performed on 09/17/24 which revealed an esophageal stricture which was dilated. He was managed with PPN. On 09/27/24 he was transferred to [facility] for placement of percutaneous gastrostomy tube for administration of feeds and medications. This was performed on 09/28/24. Tube feeds have been initiated and tolerated per review of [facility] records. Patient offers no complaints at present. He specifically denies chest pain, SOB. He continues to have a cough which is productive for clear mucus. Patient received his PM medications today at [facility] prior to transfer. Discharge Exam pleasant always asking for a drink of coughing he is strict n.p.o. lungs are diminished at the base but otherwise clear heart is regular PEG tube site is clean dry abdomen is NABS and soft Discharge Plan Discharge Items Patient Disposition: Transfer [facility] Reason For Visit: RETURN FROM [facility] FOLLOWING PEG TUBE Discharge Diagnosis: dysphagia with significant silent aspiration aspiration pneumonia treated esophageal dilation, needs outpt follow up Activity: Per Instructions section Activity Comment: PT/OT/Speech Non-emergency contact: Primary Care Provider and [employer] Att[employer] Call non-emergency contact if: your symptoms worsen Follow-up/Referrals: Emili South DO [Primary Care Provider] - Diet: Other - See Diet Comment Diet Comment: Fibersource 1.2 70 ml/hr continuous. free water 100ml q 4 hours Addtl Attending Provider Instructions: certainly maybe consolidate free water to be less intrusive given significant silent aspiration, concern for bolus feeding does increase risk for aspiration, that is why continuous feeding are currently treatment choice Pending Studies at Discharge: No Stand-Alone Forms: [facility] Skilled Items Patient informed of condition?: Yes DNR: No Discharge Level of Care: Acute rehab Communicable Disease: No Discharge Prognosis: Stable Lines: None Urinary Catheter: No Medications and DC Order Prescriptions: New acetaminophen 325 mg/10.15 mL Suspension 650 mg PEG Q4H PRN (Reason: fever or pain) Qty: 120 0RF Fibersource HN 0.05 gram- 1.2 kcal/mL Liquid 70 ea G-tube UD Qty: 6000 0RF Rx Instructions: 70 ml hr continuous, free water 100 q 4hr lansoprazole [Prevacid SoluTab] 30 mg Tablet,Disintegrat, Delay Rel 30 mg PEG DAILY Qty: 30 0RF Tube Feeding Water Flush 100 ml G-tube Q4H Qty: 100 0RF Continued apixaban 5 mg Tablet 5 mg PO BID sucralfate 100 mg/mL suspension 1 g PO QID Qty: 120 0RF Held atorvastatin 10 mg tablet 10 mg PO DAILY Hold Instructions: Provider's Order Discontinued acetaminophen 650 mg Tablet 650 mg PO Q4H PRN (Reason: pain or fever) pantoprazole 40 mg tablet,delayed release (DR/EC) 40 mg PO DAILY Discharge Orders: Discharge Order (Routine); Ordered 10/19/24 Ordered By: Davion Chavez Admission Data Admit Date/Time: 10/04/24 01:50 Attending Provider: Davion Chavez Admit Provider: Dorothy Santoro Primary Care Provider: Emili South Other Providers: [facility]; [place] Other Interventions: Discharge Summary Assessment (RN) Last Done: 10/19/24 13:49 Hospital Stay Data Diagnostic Imagining Performed 10/11/24 12:03 Fluoro video [FL video swallow] Routine Pending Results Patient Have Any Pending Studies at Discharge: No Discharge Instructions Given to Patient (Per Discharging Provider) certainly maybe consolidate free water to be less intrusive given significant silent aspiration, concern for bolus feeding does increase risk for aspiration, that is why continuous feeding are currently treatment choice Total Time Total Time Spent Total Time Spent (In Minutes): It required greater than 30 minutes to prepare this patient for discharge. Coding Level of Care Code 86585 INP/OBS DISCH >30 MIN Diagnoses Aspiration pneumonia J69.0 Malnutrition E46 Paroxysmal atrial fibrillation I48.0 Esophageal stricture K22.2 Physical deconditioning R53.81
== END 2024-10-19 14:28 | DRG 177 ==
LOC: 3W 10-04 01:50 → SUATTDRO 10-04 01:50